=== PATIENT | female | born 1980 | race Caucasian/White ===

== ENCOUNTER 2017-07-27 08:13 | Emergency (ER) | payer OTHER ==
[~2017-07-27] VITALS: Ht 157.5 cm; Wt 53.1 kg
[~2017-07-27 08:13] MED LIST: FLAGYL500 MG PO; ULTRAM50 MG PO
[2017-07-27] MEDS ORDERED: SODIUM CHLORIDE 0.9% 1000ML 1,000 ML IV STA (09:03)
[2017-07-27] MEDS ORDERED: ACETAMINOPHEN 325 MG TAB PO ONE (09:15)
[2017-07-27 10:37] LABS: BASOPHILS % 0.4 % (0.0-1.0); EOSINOPHILS % 0.4 % (0.0-6.0); HEMATOCRIT 42.7 % (34.2-44.1); HEMOGLOBIN 14.4 g/dL (12.0-16.0); LYMPHOCYTES # (AUTO) 3.3 (1.0-3.2); LYMPHOCYTES % 41.8 % (18.0-39.1); MEAN CORPUSCULAR HEMOGLOBIN 30.8 pg (28-32); MEAN CORPUSCULAR HGB CONC 33.7 g/dL (31-35); MEAN CORPUSCULAR VOLUME 91.4 fL (81-99); MONOCYTES # (AUTO) 0.4 (0.2-0.8); MONOCYTES % 4.9 % (4.4-11.3); NEUTROPHILS # (AUTO) 4.2 (2.1-6.9); NEUTROPHILS % 52.2 % (38.7-80.0); PLATELET COUNT 203 x10e3/uL (140-360); RED BLOOD COUNT 4.67 x10e6/uL (3.6-5.1); RED CELL DISTRIBUTION WIDTH 12.3 % (11.7-14.4)
--- NOTE | 2017-07-27 10:43 | Diagnostic Imaging Report ---
PROCEDURE: CT ABDOMEN AND PELVIS WITHOUT CONTRAST COMPARISON:[facility], CT, CT ABDOMEN/PELVIS WO, 04/15/2017, 11:12. INDICATIONS:Right flank pain TECHNIQUE: Stone protocol Volumetric CT abdomen and pelvis. No intravenous or enteric contrast. Multiplanar reformatted images. DLP: 173.44 FINDINGS: Clear lung bases. No pleural effusions. Normal heart size. Liver: Craniocaudal span 15 cm. Normal Gallbladder: Cholecystectomy Pancreas: Normal Spleen: Normal Adrenal glands: Normal Urinary bladder: Decompressed; otherwise, normal Uterus and adnexa: Hysterectomy. Kidneys: Right: At least 5 small stones scattered through the upper and lower poles, the largest measuring 3 mm in diameter. No hydronephrosis. Left: At least 6 small stones scattered through the upper and lower poles, the largest measuring 3 mm in diameter. No hydronephrosis. Bowel: Normal caliber. Inconspicuous appendix. Peritoneum: Normal Vasculature: Normal caliber. Small phleboliths. Lymph nodes: Normal Skeleton: Intact Soft tissues: Normal CONCLUSION: Bilateral punctate nonobstructive nephrolithiasis. No evidence of ureteral stone or obstruction. Dictated by: Kvng Laurent M.D. on 07/27/2017 at 10:51 Electronically approved by: Kvng Laurent M.D. on 07/27/2017 at 10:51
[2017-07-27 10:48] LABS: ALANINE AMINOTRANSFERASE 14 IU/L (0-55); ALBUMIN 4.6 g/dL (3.5-5.0); ALBUMIN/GLOBULIN RATIO 1.2 (0.8-2.0); ALKALINE PHOSPHATASE 69 IU/L (40-150); ANION GAP 12.7 mmol/L (8-16); BLOOD UREA NITROGEN 13 mg/dL (7-26); BUN/CREATININE RATIO 15 (6-25); CALCIUM 9.7 mg/dL (8.4-10.2); CARBON DIOXIDE 25 mmol/L (22-29); CHLORIDE 106 mmol/L (98-107); CREATININE, SERUM 0.85 mg/dL (0.57-1.11); EST GLOMERULAR FILTRATION RATE > 60 ML/MIN (60-); GLUCOSE 82 mg/dL (74-118); LIPASE 25 U/L (8-78); POTASSIUM 3.7 mmol/L (3.5-5.1); SODIUM 140 mmol/L (136-145)
[2017-07-27 10:52] LABS: BILIRUBIN,URINE NEGATIVE (NEGATIVE); KETONES,URINE NEGATIVE (NEGATIVE); LEUKOCYTE ESTERASE ,URINE NEGATIVE (NEGATIVE); NITRITE,URINE NEGATIVE (NEGATIVE); PROTEIN,URINE DIPSTICK NEGATIVE (NEGATIVE); URINE UROBILINOGEN 0.2 mg/dL (0.2 - 1)
[2017-07-27 10:57] LABS: CLARITY,URINE CLEAR (CLEAR); COLOR,URINE YELLOW (YELLOW)
[2017-07-27 11:04] LABS: EPITHELIAL CELLS,URINE RARE /LPF
== END 2017-07-27 11:49 | disposition home or self-care (01) ==
LOC: ER 08:13
DX: R10.31 Right lower quadrant pain (principal); N20.0 Calculus of kidney; K51.90 Ulcerative colitis, unspecified, without complications
CPT/HCPCS: 36415; 74176; 80053; 81001; 83690; 85025; 87086; 99283; J7030

== ENCOUNTER 2017-08-23 18:21 | Emergency (ER) | payer OTHER ==
[~2017-08-23] VITALS: Ht 157.5 cm; Wt 52.6 kg
--- OUTSIDE RECORDS SUMMARY | 2017-08-23 18:23 | XMS REPORT ---
Author Author Admin, [place] Organization [facility] Address Unknown Phone Unavailable Allergies, Adverse Reactions, Alerts Allergy Name Reaction Description Start Date Severity Status Provider TORADOL Critical Active Helder Galvan MD TRAMADOL Critical Active Helder Galvan MD TYLENOL 3 Critical Active eHlder Galvan MD SOFRAN Critical Active Helder Galvan MD MORPHINE Critical Active Helder Galvan MD Conditions or Problems Problem Name Problem Code Onset Date Status Entry Date Provider Comment Standard Description Annotate Unspecified ovarian cyst, unspecified side Active Helder Galvan MD Dysuria 788.1 Active Helder Galvan MD Dysuria Unspecified abdominal pain 789.00 Active Helder Galvan MD Abdominal pain, unspecified site Medication List Medication Instructions Start Date Stop Date Generic Name NDC Status Provider Patient Instruction VICODIN 5-300 MG ORAL TABLET take 1-2 tabs By Mouth Every 4-6 hours as needed for severe pain HYDROCODONE-ACETAMINOPHEN 10806390388 Active Helder Galvan MD Active CIPRO 250 MG ORAL TABLET 1 by mouth twice a day CIPRO 250 MG ORAL TABLET 180955 CIPROFLOXACIN HCL Inactive CIPRO 250 MG ORAL TABLET 1 by mouth twice a day CIPROFLOXACIN HCL 69541322723 No Longer Active Helder Galvan MD Active Vital Signs Date Name Value Unit Range Description blood pressure, diastolic 74 mm[Hg] BP gama blood pressure, systolic 119 mm[Hg] BP sys height E&M 62 [in_us] Bdy height pulse rate E&M 70 /min Heart rate respiratory rate E&M 18 /min Resp rate temperature E&M 98.1 [degF] Body temperature weight E&M 116.13 [lb_av] Weight Measured blood pressure, diastolic 73 mm[Hg] BP gama blood pressure, systolic 114 mm[Hg] BP sys height E&M 62 [in_us] Bdy height pulse rate E&M 80 /min Heart rate respiratory rate E&M 18 /min Resp rate temperature E&M 98.4 [degF] Body temperature weight E&M 114.25 [lb_av] Weight Measured blood pressure, diastolic 84 mm[Hg] BP gama blood pressure, systolic 124 mm[Hg] BP sys height E&M 62 [in_us] Bdy height pulse rate E&M 77 /min Heart rate respiratory rate E&M 18 /min Resp rate temperature E&M 98.2 [degF] Body temperature weight E&M 116.50 [lb_av] Weight Measured Diagnostic Results Date Name Value Unit Range Description Lab Report: Urine Culture, Routine, Result - Urinalysis urine culture LESS Encounters Date Encounter Provider Code Facility 17:01:44 EXTRUSION FORMER Est Patient Exp Problem - 13900 Helder Galvan MD CPT-46586 [facility] 15:24:34 EXTRUSION FORMER Est Patient Exp Problem - 85593 Helder Galvan MD CPT-09538 [facility] 16:26:12 EXTRUSION FORMER New Patient Detailed - 63473 Helder Galvan MD CPT- 38111 [facility] Procedures Code Procedure Name Date Entry Date Standard Description CPT-65849 Urinalysis - Dip only - In House 16:18:49 EXTRUSION FORMER
--- OUTSIDE RECORDS SUMMARY | 2017-08-23 18:23 | XMS REPORT ---
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 Allergies, Adverse Reactions, Alerts This patient has no known allergies or adverse reactions. Medications This patient has no known medications. Results Test Description Test Time Test Comments Text Results Atomic Results Result Comments CT ABDOMEN/PELVIS WO [place] [address] Patient Name: SAVI ARROYO MR #: [id number] : 1980 Age/Sex: 36/F Req # : [id number] Adm Physician: Ordered by: MISTY PERALTA MD Report #: [id number] Location: ER Room/Bed: Procedure: [id number] CT/CT ABDOMEN/PELVIS WO Exam Date: 07/27/17 Exam Time: 1000 REPORT STATUS: Signed PROCEDURE: CT ABDOMEN AND PELVIS WITHOUT CONTRAST COMPARISON: [facility], CT, CT ABDOMEN/PELVIS WO, 04/15/2017, 11:12. INDICATIONS: Right flank pain TECHNIQUE: Stone protocol Volumetric CT abdomen and pelvis. No intravenous or enteric contrast. Multiplanar reformatted images. DLP: 173.44 FINDINGS: Clear lung bases. No pleural effusions. Normal heart size. Liver: Craniocaudal span 15 cm. Normal Gallbladder: Cholecystectomy Pancreas: Normal Spleen: Normal Adrenal glands: Normal Urinary bladder: Decompressed; otherwise, normal Uterus and adnexa: Hysterectomy. Kidneys : Right: At least 5 small stones scattered through the upper and lower poles, the largest measuring 3 mm in diameter. No hydronephrosis. Left: At least 6 small stones scattered through the upper and lower poles, the largest measuring 3 mm in diameter. No hydronephrosis. Bowel: Normal caliber. Inconspicuous appendix. Peritoneum: Normal Vasculature: Normal caliber. Small phleboliths. Lymph nodes: Normal Skeleton: Intact Soft tissues: Normal CONCLUSION: Bilateral punctate nonobstructive nephrolithiasis. No evidence of ureteral stone or obstruction. Dictated by: Guerline Laurent M.D. on 07/27/2017 at 10:51 Electronically approved by: Guerline Laurent M.D. on 07/27/2017 at 10:51 Dictated By: GUERLINE LAURENT MD 1051 Transcribed By: LISA on 07/27/17 1051 COPY TO: MISTY PERALTA MD CHEST 2 VIEWS [place] [address] Patient Name: SAVI ARROYO MR #: [id number] : 1980 Age/Sex: 36/F Req #: [id number] Adm Physician: Ordered by: MISTY BELLAMY MD Report #: [id number] Location: ER Room/Bed: Procedure: [id number] DX/CHEST 2 VIEWS Exam Date: 06/05/17 Exam Time: 1050 REPORT STATUS: Signed PROCEDURE: CHEST 2 VIEWS TECHNIQUE: PA and lateral chest INDICATION: Cough; congestion COMPARISON: None. FINDINGS: Lungs are clear and symmetrically inflated. No pleural effusions. Normal heart size, mediastinal contour and pulmonary vasculature. Intact skeleton. CONCLUSION: Normal chest. Dictated by: Guerline Laurent M.D. on 06/05/2017 at 10:57 Electronically approved by: Guerline Laurent M.D. on 06/05/2017 at 10:57 Dictated By: GUERLINE LAURENT MD 1057 Transcribed By: LISA on 06/05/17 1057 COPY TO: MISTY BELLAMY MD ABDOMEN-1VIEW (KUB) [place] [address] Patient Name: SAVI ARROYO MR #: [id number] : 1980 Age/Sex: 36/F Req # : [id number] Adm Physician: Ordered by: ANABELLA BEVERLY MD Report #: [id number] Location: ER Room/Bed: Procedure: [id number] DX/ABDOMEN-1VIEW (KUB) Exam Date: 04/24/17 Exam Time : 0940 REPORT STATUS: Signed PROCEDURE: X-RAY ABDOMEN - KUB COMPARISON: CT abdomen and pelvis without contrast 04/15/2017. INDICATIONS: CALCULUS OF KIDNEY FINDINGS: Calcifications scattered over the left kidney are unchanged relative to prior CT, measuring between 3 and 4 mm in diameter. 3 mm calculus projects over the interpolar region of the right renal shadow. Additional renal calculi described on the comparison CT are poorly visualized by plain radiography. Multiple pelvic phleboliths. Left hemipelvic surgical clips. Regional skeletal structures intact. Gas pattern is nonobstructive. CONCLUSION: bilateral renal calculi. For further details refer to the CT scan of the abdomen and pelvis performed 04/15/2017. Dictated by: Cindy Segura M.D. on 03/2017 at 10:13 Electronically approved by: Cindy Segura M.D. on 2016 at 10:13 Dictated By: CINDY SEGURA MD 1013 Transcribed By: LISA on 04/24/17 1013 COPY TO: ANABELLA BEVERLY MD CT ABDOMEN/PELVIS WO [place] [address] Patient Name: SAVI ARROYO MR #: [id number] : 1980 Age/Sex: 36/F Req # : [id number] Adm Physician: Ordered by: MISTY BELLAMY MD Report #: [id number] Location: ER Room/Bed: Procedure: [id number] CT/CT ABDOMEN/PELVIS WO Exam Date: 04/15/17 Exam Time: 1100 REPORT STATUS: Signed EXAM: CT Abdomen and Pelvis WITHOUT contrast INDICATION: COMPARISON: None. TECHNIQUE: Abdomen and Pelvis was scanned utilizing a multidetector helical scanner without the use of IV contrast. Coronal and sagittal reformations were obtained. IV CONTRAST: None COMPLICATIONS: None RADIATION DOSE: Total DLP: 159 mGy*cm Estimated effective dose: (DLP x 0.015 x size factor) mSv CTDIvol has been reviewed. It is below the limits set by the Radiation Protocol Committee (RPC) . FINDINGS: Abdomen: Lung bases are clear. Cholecystectomy clips are present. Nonenhanced images of liver, adrenals, spleen, and pancreas are unremarkable. Bilateral nonobstructing renal calculi present. No hydronephrosis identified. Evaluation of distal ureters limited by quantum mottle and lack of peritoneal fat. No hydroureter identified. No aortic aneurysm or small bowel obstructive changes identified. Pelvis: Urinary bladder decompressed, limiting evaluation. Pelvic evaluation limited by lack of IV contrast and quantum mottling. No acute colonic findings present. No acute osseous finding IMPRESSION: 1. Bilateral nonobstructing renal calculi. No hydroureter or hydronephrosis identified. 2. Distal ureters suboptimally evaluated due to quantum mottle. Numerous pelvic phleboliths further limits evaluation. 3. Other findings as above. Signed by: Dr. Boone Cullen MD on 04/15/2017 11:35 AM Dictated By: BOONE CULLEN MD 1135 Transcribed By: RASHEEDA on 04/15/17 1135 COPY TO: MISTY BELLAMY MD CHEST 2 VIEWS [place] [address] Patient Name: SAVI ARROYO MR #: [id number] : 1980 Age/Sex: 36/F Req #: [id number] Adm Physician: Ordered by: MISTY BELLAMY MD Report #: [id number] Location: ER Room/Bed: Procedure: [id number] DX/CHEST 2 VIEWS Exam Date: 04/15/17 Exam Time: 1045 REPORT STATUS: Signed EXAM: CHEST 2 VIEWS DATE: 04/15/2017 10: 09 AM INDICATION: Cough/fever COMPARISON: None FINDINGS: The heart is not enlarged. There is no pneumothorax. No focal consolidation is present. Mild perihilar bronchial wall thickening. IMPRESSION: Perihilar bronchial wall thickening can be seen in the setting of viral processes. No focal consolidation. Signed by: Dr. Boone Cullen MD on 2016 10:57 AM Dictated By: BOONE CULLEN MD 1057 Transcribed By: RASHEEDA on 04/15/17 1057 COPY TO: MISTY BELLAMY MD
[2017-08-23] MEDS ORDERED: HYDROCODONE/APAP 10MG-325MG TAB PO ONE (21:00)
[2017-08-23 21:03] LABS: BILIRUBIN,URINE NEGATIVE (NEGATIVE); KETONES,URINE NEGATIVE (NEGATIVE); LEUKOCYTE ESTERASE ,URINE NEGATIVE (NEGATIVE); NITRITE,URINE NEGATIVE (NEGATIVE); PROTEIN,URINE DIPSTICK NEGATIVE (NEGATIVE); URINE UROBILINOGEN 0.2 mg/dL (0.2 - 1)
[2017-08-23 21:04] LABS: COLOR,URINE YELLOW (YELLOW)
[2017-08-23 21:15] LABS: EPITHELIAL CELLS,URINE MANY /LPF
[2017-08-23 21:17] LABS: CLARITY,URINE CLEAR (CLEAR); WBC,URINE (MAN) 0-5 /HPF (0-5)
[2017-08-23 21:43] LABS: BASOPHILS % 0.4 % (0.0-1.0); EOSINOPHILS # (AUTO) 0.1 (0.0-0.4); EOSINOPHILS % 0.5 % (0.0-6.0); HEMATOCRIT 38.9 % (34.2-44.1); HEMOGLOBIN 12.5 g/dL (12.0-16.0); LYMPHOCYTES # (AUTO) 3.8 (1.0-3.2); LYMPHOCYTES % 37.2 % (18.0-39.1); MEAN CORPUSCULAR HEMOGLOBIN 30.6 pg (28-32); MEAN CORPUSCULAR HGB CONC 32.1 g/dL (31-35); MEAN CORPUSCULAR VOLUME 95.3 fL (81-99); MONOCYTES # (AUTO) 0.7 (0.2-0.8); MONOCYTES % 6.8 % (4.4-11.3); NEUTROPHILS # (AUTO) 5.7 (2.1-6.9); NEUTROPHILS % 54.9 % (38.7-80.0); PLATELET COUNT 225 x10e3/uL (140-360); RED BLOOD COUNT 4.08 x10e6/uL (3.6-5.1); RED CELL DISTRIBUTION WIDTH 12.3 % (11.7-14.4)
[2017-08-23 22:00] LABS: ANION GAP 16.4 mmol/L (8-16); BLOOD UREA NITROGEN 14 mg/dL (7-26); BUN/CREATININE RATIO 18 (6-25); CALCIUM 9.2 mg/dL (8.4-10.2); CARBON DIOXIDE 22 mmol/L (22-29); CHLORIDE 107 mmol/L (98-107); CREATININE, SERUM 0.77 mg/dL (0.57-1.11); EST GLOMERULAR FILTRATION RATE > 60 ML/MIN (60-); GLUCOSE 92 mg/dL (74-118); POTASSIUM 3.4 mmol/L (3.5-5.1); SODIUM 142 mmol/L (136-145)
--- NOTE | 2017-08-23 22:57 | Diagnostic Imaging Report ---
EXAM: CT Abdomen WITHOUT contrast INDICATION: Flank pain, renal stone. COMPARISON: 07/27/2017 TECHNIQUE: Abdomen was scanned utilizing a multidetector helical scanner from the lung base to the iliac crest without administration of IV contrast. Absence of intravenous contrast decreases sensitivity for detection of focal lesions and vascular pathology. Coronal and sagittal reformations were obtained. Stone protocol is performed. IV CONTRAST: None. ORAL CONTRAST: Water RADIATION DOSE: Total DLP: 162.18 mGy*cm Estimated effective dose: (DLP x 0.015 x size factor) mSv COMPLICATIONS: None FINDINGS: LINES and TUBES: None. LOWER THORAX: Unremarkable HEPATOBILIARY: No focal hepatic lesions. No biliary ductal dilation. GALLBLADDER: There are cholecystectomy clips. SPLEEN: No splenomegaly. PANCREAS: No focal masses or ductal dilatation. ADRENALS: No adrenal nodules KIDNEYS/URETERS: No hydronephrosis. No cystic or solid mass lesions. No interval change in number or size of bilateral renal stones predominantly involving the left renal collecting system ranging between 2 and 4 mm in diameter. GI TRACT: No abnormal distention, wall thickening, or evidence of bowel obstruction. LYMPH NODES: No lymphadenopathy. VESSELS: Unremarkable. PERITONEUM / RETROPERITONEUM: No free air or fluid. Bilateral fallopian tube jacoby. BONES: Unremarkable. SOFT TISSUES: Unremarkable. IMPRESSION: 1. Stable bilateral nephrolithiasis without evidence of hydronephrosis. 2. No acute intra-abdominal or pelvic abnormality. Signed by: Dr. Barry Mccormick M.D. on 08/23/2017 10:53 PM
--- NOTE | 2017-08-24 00:08 | Diagnostic Imaging Report ---
EXAM: Transabdominal and Transvaginal Pelvic Ultrasound INDICATION: Hysterectomy, 4.5 cm left ovarian cyst, suspicious for torsion. COMPARISON: 08/23/[address] of the abdomen and pelvis TECHNIQUE: Grayscale transverse and sagittal transabdominal and transvaginal images were obtained of the pelvis. Transvaginal imaging was medically necessary to better evaluate the endometrium and the adnexa. CLINICAL HISTORY: 36 year old A0; last menstrual period: 2005. FINDINGS: Uterus Hysterectomy in 2005 Right ovary: Size: 3.2 x 2.4 x 2.1 cm Mass/Cyst: None Left ovary: Size: 3.1 x 2.2 x 3.2 cm Mass/Cyst: None Adnexa: Normal Normal bilateral vascular flow. Cul-de-sac: No free fluid IMPRESSION: 1. Unremarkable pelvic ultrasound exam. 2. Venous and arterial flow are seen in the bilateral ovaries. Signed by: Dr. Barry Mccormick M.D. on 08/24/2017 12:04 AM
[2017-08-24 00:28] VITALS: BP 101/69
== END 2017-08-24 00:44 | disposition home or self-care (01) ==
LOC: ER 18:21
DX: R10.30 Lower abdominal pain, unspecified (principal)
CPT/HCPCS: 36415; 74176; 76830; 80048; 81001; 85025; 87086; 99284

== ENCOUNTER 2020-04-06 14:49 | Emergency (ER) | payer OTHER ==
[~2020-04-06] VITALS: Ht 157.5 cm; Wt 57.2 kg
[2020-04-06] MEDS ORDERED: SODIUM CHLORIDE 0.9% 1000ML 1,000 ML IV STA (15:05)
[2020-04-06] MEDS ORDERED: PANTOPRAZOLE 40 MG 10ML VIAL IV STA (15:05)
[2020-04-06] MEDS ORDERED: HYDROMORPHONE 1MG/1ML INJ IV STA (15:05)
[2020-04-06] MEDS ORDERED: DIPHENHYDRAMINE HCL INJ 50 MG/ML VIAL IV ONE (15:15)
--- NOTE | 2020-04-06 15:59 | Diagnostic Imaging Report ---
EXAMINATION: CHEST SINGLE (NOT PORTABLE) INDICATION: Abdominal pain COMPARISON: Chest radiograph 04/15/2017, CT abdomen and pelvis 07/24/2019 FINDINGS: LINES/TUBES:None LUNGS:The lungs are well-inflated. No focal consolidation or pulmonary edema. PLEURA:No pleural effusion or pneumothorax. MEDIASTINUM:The cardiomediastinal silhouette appears normal in size and shape. BONES/SOFT TISSUES:No acute osseous injury. ABDOMEN:No free air under the diaphragm. IMPRESSION: No focal pneumonia or pulmonary edema. Signed by: Beverly Esteban MD on 04/06/2020 3:55 PM
[2020-04-06] MEDS ORDERED: DIATRIZOATE MEGL/DIATRIZOA SOD 30 ML BTL PO ONE (16:07)
[2020-04-06 16:15] LABS: BASOPHILS # (AUTO) 0.1 (0.0-0.1); BASOPHILS % 0.4 % (0.0-1.0); EOSINOPHILS # (AUTO) 0.1 (0.0-0.4); EOSINOPHILS % 0.4 % (0.0-6.0); HEMATOCRIT 41.8 % (34.2-44.1); LYMPHOCYTES % 21.6 % (18.0-39.1); MEAN CORPUSCULAR HEMOGLOBIN 30.2 pg (28-32); MEAN CORPUSCULAR HGB CONC 33.5 g/dL (31-35); MEAN CORPUSCULAR VOLUME 90.1 fL (81-99); MONOCYTES # (AUTO) 1.2 (0.2-0.8); MONOCYTES % 8.7 % (4.4-11.3); NEUTROPHILS # (AUTO) 9.5 (2.1-6.9); NEUTROPHILS % 68.4 % (38.7-80.0); PLATELET COUNT 263 x10e3/uL (140-360); RED BLOOD COUNT 4.64 x10e6/uL (3.6-5.1); RED CELL DISTRIBUTION WIDTH 12.8 % (11.7-14.4)
[2020-04-06 16:17] LABS: BILIRUBIN,URINE NEGATIVE (NEGATIVE); CLARITY,URINE SL CLOUDY (CLEAR); COLOR,URINE YELLOW (YELLOW); KETONES,URINE NEGATIVE (NEGATIVE); LEUKOCYTE ESTERASE ,URINE NEGATIVE (NEGATIVE); NITRITE,URINE NEGATIVE (NEGATIVE); PROTEIN,URINE DIPSTICK NEGATIVE (NEGATIVE); URINE UROBILINOGEN 0.2 mg/dL (0.2 - 1)
[2020-04-06 16:30] LABS: INR 0.91; PROTHROMBIN TIME 12.7 seconds (11.9-14.5)
[2020-04-06 16:31] LABS: PARTIAL THROMBOPLASTIN TIME 28.2 seconds (23.8-35.5)
[2020-04-06 16:32] LABS: BACTERIA,URINE MODERATE /HPF; EPITHELIAL CELLS,URINE MODERATE /LPF; RBC,URINE 0-5 /HPF (0-5)
[2020-04-06 16:41] LABS: ALANINE AMINOTRANSFERASE 17 IU/L (0-55); ALBUMIN 4.7 g/dL (3.5-5.0); ALBUMIN/GLOBULIN RATIO 1.4 (0.8-2.0); ALKALINE PHOSPHATASE 80 IU/L (40-150); AMYLASE 94 U/L (25-125); ANION GAP 14.2 mmol/L (8-16); BLOOD UREA NITROGEN 10 mg/dL (7-26); BUN/CREATININE RATIO 13 (6-25); CALCIUM 9.3 mg/dL (8.4-10.2); CARBON DIOXIDE 21 mmol/L (22-29); CHLORIDE 106 mmol/L (98-107); CREATININE, SERUM 0.78 mg/dL (0.57-1.11); EST GLOMERULAR FILTRATION RATE > 60 ML/MIN (60-); GLUCOSE 98 mg/dL (74-118); LIPASE 98 U/L (8-78); POTASSIUM 4.2 mmol/L (3.5-5.1); SODIUM 137 mmol/L (136-145)
--- NOTE | 2020-04-06 17:53 | Diagnostic Imaging Report ---
EXAM: CT Abdomen and Pelvis WITHOUT contrast INDICATION: LUQ/HANY ABD PAIN COMPARISON: Multiple CTs of the abdomen/pelvis including most recent on 07/24/2019. TECHNIQUE: Abdomen and pelvis were scanned utilizing a multidetector helical scanner from the lung base to the pubic symphysis without administration of IV contrast. Absence of intravenous contrast decreases sensitivity for detection of focal lesions and vascular pathology. Coronal and sagittal reformations were obtained. Routine protocol was performed. IV CONTRAST: None ORAL CONTRAST: None COMPLICATIONS: None RADIATION DOSE: Total DLP: 640.15 mGy*cm Estimated effective dose: (DLP x 0.015 x size factor) mSv CTDIvol has been reviewed. It is below the limits set by the Radiation Protocol Committee (RPC). Dose modulation, iterative reconstruction, and/or weight based adjustment of the mA/kV was utilized to reduce the radiation dose to as low as reasonably achievable. FINDINGS: LINES and TUBES: None. LOWER THORAX: Unremarkable HEPATOBILIARY: No focal hepatic lesions. No biliary ductal dilation. GALLBLADDER: There are cholecystectomy clips. SPLEEN: No splenomegaly. PANCREAS: No focal masses or ductal dilatation. ADRENALS: No adrenal nodules KIDNEYS/URETERS: Redemonstration of bilateral renal calculi, the largest in the midpole of the left kidney measuring up to 8 mm. No hydronephrosis. No cystic or solid mass lesions. No stones. GI TRACT: No abnormal distention, wall thickening, or evidence of bowel obstruction. Appendix is normal. PELVIC ORGANS/BLADDER: Hysterectomy. No adnexal masses. Urinary bladder is collapsed and not well assessed. LYMPH NODES: No lymphadenopathy. VESSELS: Unremarkable. PERITONEUM / RETROPERITONEUM: No free air or fluid. BONES: Unremarkable. SOFT TISSUES: Unremarkable. IMPRESSION: 1. No acute abdominopelvic finding to explain the patient's symptoms was identified. 2. Redemonstration of bilateral nonobstructive nephrolithiasis. No evidence of obstructive urolithiasis. Signed by: Esperanza Grady MD on 04/06/2020 5:50 PM
--- NOTE | 2020-04-06 18:04 | Emergency Department Note ---
History of Present Illnes History of Present Illness Chief Complaint: Abdominal Complaints History of Present Illness This is a 39 year old female PATIENT IN FROM HOME WITH COMPLAINTS OF ABDOMINAL PAIN, NAUSEA, AND DIARRHEA STARTING YESTERDAY; PATIENT RATES PAIN 7/10, APPEARS UNCOMFORTABLE, RESP EVEN AND NONLABORED, AMBULATORY WITHOUT ASSISTANCE. 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 Any updates have been documented here. Past Medical History Recent Fever: No Clinical Suspicion of Infectio: No New/Unexplained Change in Ment: No Past Medical History: Kidney Stones, GERD Other Medical History: IBS COLITIS Past Surgical History: Hysterectomy, Tubal Ligation Other Surgery: LEFT OVARY AND FALLOPIAN TUBE REMOVED Social History Smoking Cessation: Unknown if ever smoked Counseling Performed: No Alcohol Use: None Any Illegal Drug Use: No TB Exposure/Symptoms: No Physically hurt or threatened: No Family History Family history of heart diseas: No Other Last Tetanus: utd Any Pre-Existing Lines (PICC,: No Review of Systems Review of Systems Constitutional: Reports no symptoms EENTM: Reports no symptoms Cardiovascular: Reports no symptoms Respiratory: Reports no symptoms Gastrointestinal: Reports as per HPI, Reports abdominal pain, Reports diarrhea, Reports nausea Genitourinary: Reports no symptoms Musculoskeletal: Reports no symptoms Integumentary: Reports no symptoms Neurological: Reports no symptoms Psychological: Reports no symptoms Endocrine: Reports no symptoms Hematological/Lymphatic: Reports no symptoms Physical Exam Related Data Allergies: Coded Allergies: codeine (Verified Allergy, Severe, N/V AND RASH, 07/24/19) ondansetron (Verified Allergy, Severe, N/V AND RASH, 07/24/19) ketorolac (Verified Allergy, Unknown, "blotchy skin", 04/24/17) metoclopramide (Verified Allergy, Unknown, n/v & rash, 04/24/17) promethazine (Verified Allergy, Unknown, n/v & rash, 04/24/17) tramadol (Verified Allergy, Unknown, 06/05/17) morphine (Verified Adverse Reaction, Unknown, n/v & rash, 04/24/17) Triage Vital Signs Vital Signs Date Time Temp Pulse Resp B/P (MAP) Pulse Ox O2 Delivery O2 Flow Rate FiO2 04/06/20 14:54 98.2 79 18 128/86 100 Room Air Vital signs reviewed: Yes Physical Exam CONSTITUTIONAL Constitutional: Present well-developed, Present well-nourished HENT HENT: Present normocephalic, Present atraumatic, Present oropharynx clear/moist, Present nose normal HENT L/R: Present left ext ear normal, Present right ext ear normal EYES Eyes: Reports PERRL, Reports conjunctivae normal NECK Neck: Present ROM normal PULMONARY Pulmonary: Present effort normal, Present breath sounds normal CARDIOVASCULAR Cardiovascular: Present regular rhythm, Present heart sounds normal, Present capillary refill normal, Present normal rate GASTROINTESTINAL Abdominal: Present soft, Present tender (MODERATE TENDERNESS LUQ, MILD LLQ, NO R/G), Present other (BOWEL SOUNDS SLIGHTLY HYPERACTIVE); Absent left CVA tenderness, Absent right CVA tenderness GENITOURINARY Genitourinary: Present exam deferred SKIN Skin: Present warm, Present dry MUSCULOSKELETAL Musculoskeletal: Present ROM normal NEUROLOGICAL Neurological: Present alert, Present oriented x 3, Present no gross motor or sensory deficits PSYCHOLOGICAL Psychological: Present mood/affect normal, Present judgement normal Results Laboratory Result Diagram: 04/06/20 1610 04/06/20 1610 Laboratory Laboratory Tests Test 04/06/20 16:10 04/06/20 15:00 White Blood Count 13.95 x10e3/uL (4.8-10.8) Red Blood Count 4.64 x10e6/uL (3.6-5.1) Hemoglobin 14.0 g/dL (12.0-16.0) Hematocrit 41.8 % (34.2-44.1) Mean Corpuscular Volume 90.1 fL (81-99) Mean Corpuscular Hemoglobin 30.2 pg (28-32) Mean Corpuscular Hemoglobin Concent 33.5 g/dL (31-35) Red Cell Distribution Width 12.8 % (11.7-14.4) Platelet Count 263 x10e3/uL (140-360) Neutrophils (%) (Auto) 68.4 % (38.7-80.0) Lymphocytes (%) (Auto) 21.6 % (18.0-39.1) Monocytes (%) (Auto) 8.7 % (4.4-11.3) Eosinophils (%) (Auto) 0.4 % (0.0-6.0) Basophils (%) (Auto) 0.4 % (0.0-1.0) Neutrophils # (Auto) 9.5 (2.1-6.9) Lymphocytes # (Auto) 3.0 (1.0-3.2) Monocytes # (Auto) 1.2 (0.2-0.8) Eosinophils # (Auto) 0.1 (0.0-0.4) Basophils # (Auto) 0.1 (0.0-0.1) Absolute Immature Granulocyte (auto 0.07 x10e3/uL (0-0.1) Prothrombin Time 12.7 seconds (11.9-14.5) Prothromb Time International Ratio 0.91 Activated Partial Thromboplast Time 28.2 seconds (23.8-35.5) Sodium Level 137 mmol/L (136-145) Potassium Level 4.2 mmol/L (3.5-5.1) Chloride Level 106 mmol/L (98-107) Carbon Dioxide Level 21 mmol/L (22-29) Anion Gap 14.2 mmol/L (8-16) Blood Urea Nitrogen 10 mg/dL (7-26) Creatinine 0.78 mg/dL (0.57-1.11) Estimat Glomerular Filtration Rate > 60 ML/MIN (60-) BUN/Creatinine Ratio 13 (6-25) Glucose Level 98 mg/dL (74-118) Calcium Level 9.3 mg/dL (8.4-10.2) Total Bilirubin 0.6 mg/dL (0.2-1.2) Aspartate Amino Transf (AST/SGOT) 25 IU/L (5-34) Alanine Aminotransferase (ALT/SGPT) 17 IU/L (0-55) Alkaline Phosphatase 80 IU/L (40-150) Total Protein 8.1 g/dL (6.5-8.1) Albumin 4.7 g/dL (3.5-5.0) Globulin 3.4 g/dL (2.3-3.5) Albumin/Globulin Ratio 1.4 (0.8-2.0) Amylase Level 94 U/L (25-125) Lipase 98 U/L (8-78) Urine Color Yellow (YELLOW) Urine Clarity Sl cloudy (CLEAR) Urine pH 6 (5 - 7) Urine Specific [place] 1.030 (1.010-1.025) Urine Protein Negative (NEGATIVE) Urine Glucose (UA) Negative (NEGATIVE) Urine Ketones Negative (NEGATIVE) Urine Blood Trace (NEGATIVE) Urine Nitrite Negative (NEGATIVE) Urine Bilirubin Negative (NEGATIVE) Urine Urobilinogen 0.2 mg/dL (0.2 - 1) Urine Leukocyte Esterase Negative (NEGATIVE) Urine RBC 0-5 /HPF (0-5) Urine WBC None /HPF (0-5) Urine Epithelial Cells Moderate /LPF (NONE) Urine Bacteria Moderate /HPF (NONE) Lab results reviewed: Yes Imaging Imaging results reviewed: Yes Assessment & Plan Medical Decision Making MDM LEFT SIDED ABD PAIN, H/O IRRITABLE BOWEL, LOTS OF ALLERGIES - CHECK CBC, CHEM, UA/CX, CT ABD/PELVIS - R/O KIDNEY STONE, UTI/PYELONEPHRITIS, DIVERTICULITIS, COLITIS Reassessment Reassessment IMPROVED, LABS AND CT UNREMARKABLE. 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 WILL DC WITH DONALD F/U PCP TOMORROW Assessment & Plan Final Impression: (1) Abdominal pain (2) Nausea (3) Diarrhea (4) IBS (irritable bowel syndrome) Depart Disposition: HOME, SELF-CARE Last Vital Signs Date Time Temp Pulse Resp B/P (MAP) Pulse Ox O2 Delivery O2 Flow Rate FiO2 04/06/20 17:33 78 16 100 04/06/20 14:54 98.2 Room Air Home Meds No Active Prescriptions or Reported Meds Medications in the ED Pantoprazole Sodium 40 mg ONCE STAT IV Last administered on 04/06/20at 16:29; A dmin Dose 40 MG; Start 04/06/20 at 15:05; Stop 04/06/20 at 15:12; Status DC Hydromorphone HCl 1 mg ONCE STAT IV Last administered on 04/06/20at 16:29; Admin Dose 1 MG; Start 04/06/20 at 15:05; Stop 04/06/20 at 15:11; Status DC Sodium Chloride 1,000 ml @ 0 mls/hr Q0M STAT IV Last administered on 04/06/20at 16:29; Admin Dose 999 MLS/HR; Start 04/06/20 at 15:05; Stop 04/06/20 at 15:09; Status DC Diphenhydramine HCl 25 mg NOW ONCE IV ; Start 04/06/20 at 15:15; Stop 04/06/20 at 15:16; Status DC Diatrizoate Meglum/ Diatrizoate Sod 30 ml STK-MED ONCE PO ; Start 04/06/20 at 16:07; Stop 04/06/20 at 16:00; Status DC THELMA MCDOWELL MD Apr 06, 2020 18:04
== END 2020-04-06 18:51 | disposition home or self-care (01) ==
LOC: ER 15:00
DX: R10.9 Unspecified abdominal pain (principal); R11.0 Nausea; K58.0 Irritable bowel syndrome with diarrhea
CPT/HCPCS: 36415; 71045; 74176; 80053; 81001; 82150; 83690; 85025; 85610; 85730; 87086; 99284; C9113; J1170; J1200; J7030

== ENCOUNTER 2020-04-07 17:36 | Observation (INO) | payer OTHER ==
[~2020-04-07] VITALS: Ht 157.5 cm; Wt 57.2 kg
[2020-04-07] MEDS: SODIUM CHLORIDE 0.9% 1000ML 1,000 ML IV SCH (18:29)
[2020-04-07] MEDS ORDERED: ONDANSETRON HCL INJ 2MG/ML 2ML 2 MG/ML VIAL IV PRN (18:30)
--- NOTE | 2020-04-07 18:31 | Emergency Department Note ---
History of Present Illnes History of Present Illness Chief Complaint: Abdominal Complaints History of Present Illness This is a 39 year old female Chief Complaint Comment PATIENT IN FROM HOME WITH COMPLAINTS OF ABDOMINAL PAIN, NAUSEA, VOMITING, AND DIARRHEA X 2 DAYS. PATIENT WAS SEEN HERE YESTERDAY FOR THE SAME COMPLAINT AND DISCHARGED. PATIENT STATES SHE SAW HER M. JASMIN TODAY AND WAS SENT BACK TO THE ER FOR EVALUATION. PATIENT RATES PAIN 02/23. Historian: Patient Arrival Mode: Car Past Medical/Family History Physician Review I have reviewed the patient's past medical and family history. Any updates have been documented here. Past Medical History Recent Fever: No Clinical Suspicion of Infectio: No New/Unexplained Change in Ment: No Past Medical History: Kidney Stones, GERD Other Medical History: IBS COLITIS Past Surgical History: Hysterectomy, Tubal Ligation Other Surgery: LEFT OVARY AND FALLOPIAN TUBE REMOVED Other Last Tetanus: utd Review of Systems Review of Systems Constitutional: Reports no symptoms EENTM: Reports no symptoms Cardiovascular: Reports no symptoms Respiratory: Reports no symptoms Gastrointestinal: Reports abdominal pain, Reports diarrhea, Reports nausea, Reports vomiting Genitourinary: Reports no symptoms Musculoskeletal: Reports no symptoms Integumentary: Reports no symptoms Neurological: Reports no symptoms Psychological: Reports no symptoms Endocrine: Reports no symptoms Hematological/Lymphatic: Reports no symptoms Physical Exam Related Data Allergies: Coded Allergies: codeine (Verified Allergy, Severe, N/V AND RASH, 04/07/20) ondansetron (Verified Allergy, Severe, N/V AND RASH, 04/07/20) ketorolac (Verified Allergy, Unknown, "blotchy skin", 04/07/20) metoclopramide (Verified Allergy, Unknown, n/v & rash, 04/07/20) promethazine (Verified Allergy, Unknown, n/v & rash, 04/07/20) tramadol (Verified Allergy, Unknown, 04/07/20) morphine (Verified Adverse Reaction, Unknown, n/v & rash, 04/24/17) Triage Vital Signs Vital Signs Date Time Temp Pulse Resp B/P (MAP) Pulse Ox O2 Delivery O2 Flow Rate FiO2 04/07/20 17:43 98.5 83 20 131/75 100 Room Air Vital signs reviewed: Yes Physical Exam CONSTITUTIONAL Constitutional: Present well-developed, Present well-nourished HENT HENT: Present normocephalic, Present atraumatic, Present oropharynx cl ear/moist, Present nose normal HENT L/R: Present left ext ear normal, Present right ext ear normal EYES Eyes: Reports PERRL, Reports conjunctivae normal NECK Neck: Present ROM normal PULMONARY Pulmonary: Present effort normal, Present breath sounds normal CARDIOVASCULAR Cardiovascular: Present regular rhythm, Present heart sounds normal, Present capillary refill normal, Present normal rate GASTROINTESTINAL Abdominal: Present soft, Present nontender, Present bowel sounds normal GENITOURINARY Genitourinary: Present exam deferred SKIN Skin: Present warm, Present dry MUSCULOSKELETAL Musculoskeletal: Present ROM normal NEUROLOGICAL Neurological: Present alert, Present oriented x 3, Present no gross motor or sensory deficits PSYCHOLOGICAL Psychological: Present mood/affect normal, Present judgement normal Results Laboratory Lab results reviewed: Yes Imaging Imaging results reviewed: Yes Diagnostics Tests Diagnostic test(s) reviewed: Yes Assessment & Plan Medical Decision Making MDM 39-year-old female presents for abdominal pain, nausea, vomiting, diarrhea. This is an ongoing issue for her and she sees Dr. Idania Fernandez for this. She was seen yesterday in the ER and today in Dr. Fernandez's clinic and was told to come to the emergency department for admission. She states she has not drank anything for the last few days. Examination is largely unremarkable, vital signs stable, within normal limits. Patient was discussed with Dr. Olivarez who is agreed to admit for intractable nausea. Reassessment Reassessment time: 18:34 Reassessment Well appearing, NAD Assessment & Plan Final Impression: (1) Nausea Depart Disposition: ADMITTED Last Vital Signs Date Time Temp Pulse Resp B/P (MAP) Pulse Ox O2 Delivery O2 Flow Rate FiO2 04/07/20 17:43 98.5 83 20 131/75 100 Room Air Home Meds No Active Prescriptions or Reported Meds Medications in the ED Ondansetron HCl 4 mg Q4H PRN IV NAUSEA AND VOMITING; Start 04/07/20 at 18:30; Stop 05/07/20 at 18:29; Status UNV Sodium Chloride 1,000 ml @ 100 mls/hr Q10H IV Last administered on 04/07/20at 18:29; Admin Dose 100 MLS/HR; Start 04/07/20 at 18:30; Stop 05/07/20 at 18:29; Status UNV ZUNILDA TOLEDO MD Apr 07, 2020 18:31
[2020-04-07 18:35] LABS: BASOPHILS % 0.4 % (0.0-1.0); EOSINOPHILS # (AUTO) 0.1 (0.0-0.4); EOSINOPHILS % 0.6 % (0.0-6.0); HEMATOCRIT 41.4 % (34.2-44.1); HEMOGLOBIN 13.5 g/dL (12.0-16.0); LYMPHOCYTES # (AUTO) 2.6 (1.0-3.2); LYMPHOCYTES % 30.3 % (18.0-39.1); MEAN CORPUSCULAR HEMOGLOBIN 29.9 pg (28-32); MEAN CORPUSCULAR HGB CONC 32.6 g/dL (31-35); MEAN CORPUSCULAR VOLUME 91.6 fL (81-99); MONOCYTES # (AUTO) 0.8 (0.2-0.8); MONOCYTES % 8.8 % (4.4-11.3); NEUTROPHILS # (AUTO) 5.1 (2.1-6.9); NEUTROPHILS % 59.7 % (38.7-80.0); PLATELET COUNT 233 x10e3/uL (140-360); RED BLOOD COUNT 4.52 x10e6/uL (3.6-5.1); RED CELL DISTRIBUTION WIDTH 12.6 % (11.7-14.4)
[2020-04-07] MEDS ORDERED: HALOPERIDOL LACTATE 5 MG/ML VIAL IV PRN (18:45)
[2020-04-07 18:53] LABS: ALANINE AMINOTRANSFERASE 13 IU/L (0-55); ALBUMIN 4.5 g/dL (3.5-5.0); ALBUMIN/GLOBULIN RATIO 1.5 (0.8-2.0); ALKALINE PHOSPHATASE 77 IU/L (40-150); ANION GAP 15.4 mmol/L (8-16); BLOOD UREA NITROGEN 9 mg/dL (7-26); BUN/CREATININE RATIO 11 (6-25); CALCIUM 8.6 mg/dL (8.4-10.2); CARBON DIOXIDE 22 mmol/L (22-29); CHLORIDE 107 mmol/L (98-107); CREATININE, SERUM 0.83 mg/dL (0.57-1.11); EST GLOMERULAR FILTRATION RATE > 60 ML/MIN (60-); GLUCOSE 89 mg/dL (74-118); LIPASE 13 U/L (8-78); POTASSIUM 3.4 mmol/L (3.5-5.1); SODIUM 141 mmol/L (136-145)
[2020-04-07 18:59] LABS: HCG,QUANTITATIVE < 1.20 mIU/mL (0-10)
[2020-04-07 20:35] LABS: BILIRUBIN,URINE NEGATIVE (NEGATIVE); CLARITY,URINE CLEAR (CLEAR); COLOR,URINE YELLOW (YELLOW); KETONES,URINE TRACE (NEGATIVE); LEUKOCYTE ESTERASE ,URINE NEGATIVE (NEGATIVE); NITRITE,URINE NEGATIVE (NEGATIVE); PROTEIN,URINE DIPSTICK NEGATIVE (NEGATIVE); URINE UROBILINOGEN 0.2 mg/dL (0.2 - 1)
[2020-04-07 20:46] LABS: EPITHELIAL CELLS,URINE MODERATE /LPF
--- NOTE | 2020-04-07 22:46 | NUR ---
BEDSIDE HANDOFF TO LILLY TOSCANO RN
--- NOTE | 2020-04-07 22:52 | NUR ---
Handoff report received from Canelo DUBON. 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 Will continue to monitor patient. Awaiting room assignment at this time.
[2020-04-08] MEDS ORDERED: PANTOPRAZOLE 40 MG 10ML VIAL IV STA (01:52)
--- NOTE | 2020-04-08 01:56 | NUR ---
Patient asleep comfortably on bed. Pt requested to be taken off from neuroscience director na as it keeps her awake everytime BP goes off. Pt stable with no apparent distress noted.
[2020-04-08] MEDS: METRONIDAZOLE 500MG/NS 100ML 100 ML IV SCH ×2 (03:14→07:35)
[2020-04-08] MEDS: PANTOPRAZOL 40MG/SOD CHL 0.9% 50 ML IV SCH ×2 (03:14→07:42)
--- NOTE | 2020-04-08 06:08 | NUR ---
Morning blood draw sent to lab. Pt woke up but went back to sleep. No complaint made at this time.
[2020-04-08 06:16] LABS: BASOPHILS % 0.3 % (0.0-1.0); EOSINOPHILS # (AUTO) 0.1 (0.0-0.4); EOSINOPHILS % 0.7 % (0.0-6.0); HEMATOCRIT 38.5 % (34.2-44.1); HEMOGLOBIN 12.7 g/dL (12.0-16.0); LYMPHOCYTES # (AUTO) 2.4 (1.0-3.2); LYMPHOCYTES % 27.3 % (18.0-39.1); MONOCYTES # (AUTO) 0.8 (0.2-0.8); MONOCYTES % 8.7 % (4.4-11.3); NEUTROPHILS # (AUTO) 5.6 (2.1-6.9); NEUTROPHILS % 62.4 % (38.7-80.0); PLATELET COUNT 213 x10e3/uL (140-360); RED BLOOD COUNT 4.23 x10e6/uL (3.6-5.1); RED CELL DISTRIBUTION WIDTH 12.6 % (11.7-14.4)
[2020-04-08 06:42] LABS: ANION GAP 13.9 mmol/L (8-16); BLOOD UREA NITROGEN 8 mg/dL (7-26); BUN/CREATININE RATIO 11 (6-25); CALCIUM 8.4 mg/dL (8.4-10.2); CARBON DIOXIDE 21 mmol/L (22-29); CHLORIDE 111 mmol/L (98-107); CREATININE, SERUM 0.74 mg/dL (0.57-1.11); EST GLOMERULAR FILTRATION RATE > 60 ML/MIN (60-); GLUCOSE 81 mg/dL (74-118); POTASSIUM 3.9 mmol/L (3.5-5.1); SODIUM 142 mmol/L (136-145)
[2020-04-08] MEDS: SODIUM CHLORIDE 0.9% 1000ML 1,000 ML IV SCH (06:51)
--- NOTE | 2020-04-08 07:09 | NUR ---
Handoff report given to Arie DUBON.
[2020-04-08] MEDS ORDERED: SUCRALFATE 1 GM TAB PO SCH (07:30)
--- NOTE | 2020-04-08 08:24 | NUR ---
Patient refusing to take Flagyl that was ordered, states that it gives her stomach pain and cramping, wants to wait for her stool cultures to come back
[2020-04-08] MEDS ORDERED: DICYCLOMINE HCL 20 MG TAB PO SCH (09:00)
--- NOTE | 2020-04-08 09:18 | NUR ---
page out to Dr. Olivarez
[2020-04-08 10:01] LABS: WBC,FECAL (FECAL LACTOFERRIN) POSITIVE (NEGATIVE)
--- NOTE | 2020-04-08 10:45 | NUR ---
1st attempt to call report
[2020-04-08 10:50] VITALS: BP 134/76
--- NOTE | 2020-04-08 10:56 | NUR ---
PATIENT WANTS TO LEAVE AGAINST MEDICAL ADVICE, PT STATES THAT SHE FEELS BETTER AND THAT WHATEVER WE DID IN THE ER HELPED HER FEEL BETTER, PT STATES THAT SHE JUST WANTS TO GO HOME AND BE COMFORTABLE AND EAT HOME MADE FOOD, PAGE OUT TO DR. GRIFFIN AT THIS TIME
--- NOTE | 2020-04-08 11:09 | NUR ---
DR. GRIFFIN MADE AWARE THAT PATIENT WANTS TO LEAVE AGAINST MEDICAL ADVICE
--- NOTE | 2020-04-08 11:11 | NUR ---
PATIENT LEAVING AGAINST MEDICAL ADVICE, GEAR MACHINE OPERATOR NOTIFIED
--- NOTE | 2020-04-08 13:49 | History and Physical ---
HISTORY OF PRESENT ILLNESS: Ms. Cheng is a 39-year-old female with history of irritable bowel syndrome, sent to the emergency room by GI with history of several days of diarrhea that did not respond to any treatment, and the patient was not able to eat. PAST MEDICAL HISTORY: The patient denies except for irritable bowel syndrome. ALLERGIES: SHE IS ALLERGIC TO CODEINE, KETOROLAC, METOCLOPRAMIDE, MORPHINE, ZOFRAN, PROMETHAZINE, AND TRAMADOL. PAST SURGICAL HISTORY: She had cholecystectomy and partial hysterectomy. SOCIAL HISTORY: She does not smoke and she does not drink. PHYSICAL EXAMINATION: GENERAL: Today, she is awake and alert. VITAL SIGNS: Temperature is 98.5 and blood pressure 111/58. HEART: Regular rate. LUNGS: Clear to auscultation. ABDOMEN: Soft. LABORATORY DATA: On the blood work; white count 8.9, hemoglobin 12.7, and hematocrit 38.5. Potassium 3.9 and creatinine is 0.74. Urine negative for white blood cells. Stool is pending. C. difficile and coronavirus are pending. Ova and parasite screen is pending. As per ER doctor, she had a CAT scan done previously that came back negative. ASSESSMENT: 1. Abdominal pain. 2. Diarrhea. 3. Vomiting. 4. History of irritable bowel syndrome. PLAN: At present time is to put the patient on observation. GI consult with Dr. Han James. Continue IV fluids. C. difficile, coronavirus, stool for O and P are all still pending. Continue also pantoprazole and sucralfate. She is on haloperidol for the nausea since she is allergic to all medications. She is also on Bentyl 20 mg q.i.d. All this was discussed with the patient. All questions were answered to satisfaction. MD RACHELLE Bautista/RACHELLE /[id number]
[2020-04-08 14:25] LABS: C DIFFICILE TOXIN A&B AMP PROB **POSITIVE** (NEGATIVE)
--- OUTSIDE RECORDS SUMMARY | 2020-04-12 15:22 | XMS REPORT | Continuity of Care Document ---
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 Role Phone NO, PCP PCP Unavailable Anneliese MCDOWELL Attphys Unavailable ChristopherAnneliese milian Attphys Collins, Tiara Attphys Unavailable RichardIselaEllie Attphys Unavailable Jimena Hutchins Attphys Allie Cavanaughjaira Attphys Unavailable Yasir Galvan Attphys NarvaezDilma marte Attphys Unavailable Status, Fax Attphys Unavailable [place], L Tamara Attphys Cho, Sydney Attphys Unavailable Siu, Aurea Attphys Unavailable Tomlin, Saralee Attphys Unavailable Jerrod WAKEFIELD PATTI Attphys Unavailable Tomlin, Deborath Attphys Unavailable Erik, Marizol Attphys Unavailable MISTY PERALTA Attphys Unavailable Lois BELLAMY Attphys Unavailable Yasir BEVERLY Attphys Unavailable Anneliese White Unavailable Yasir Galvan Unavailable [place], L Tamara Unavailable Payers Payer Name Policy Type Policy Number Effective Date Expiration Date [facility] [id number] 2019 00:00:00 [facility] [employer] [id number] 2019 00:00:00 [facility] Problems Condition Name Condition Details Condition Category Status Onset Date Resolution Date Last Treatment Date Treating Clinician Comments Source Urinary incontinence Condition Active 2020-03-20 00:00:00 2020-03-20 12:46:14 Yaya White [facility] Mastodynia, left Condition Active 2020-03-20 00:00:00 2 12:46:14 Yaya White [facility] Muscle spasm of back Condition Active 2018-08-22 00:00:00 2018-08-22 11:48:15 Helder Galvan [facility] Hx of kidney stone Condition Active 2017-09-13 00:00:00 2017-09-13 14:16:51 Tamara Merida [facility] Abdominal pain, right lower quadrant Condition Active 201 02-16-28 00:00:00 2017-09-13 14:16:51 Tamara Merida [facility] Flank pain, right Condition Active 2017-09-13 00:00:00 2017-09-13 14:16:[facility] Unspecified ovarian cyst, unspecified side Condition Active 2017-08-17 00:00:00 2017-09-13 14:00:55 Helder Galvan [facility] Unspecified abdominal pain Condition Active 2017-08-10 00 :00:00 2017-09-13 14:00:55 Helder Galvan [facility] Dysuria Condition Active 2017-08-10 00:00:00 2017-09-13 14:00:55 Helder Galvan [facility] Calculus of kidney Calculus of kidney Problem Active [facility] Irritable bowel syndrome IBS (irritable bowel syndrome) Problem Active [facility] Abdominal pain Problem Active [facility] Nausea Problem Active [facility] Diarrhea Problem Active [facility] Allergies, Adverse Reactions, Alerts Allergy Name Allergy Type Status Severity Reaction(s) Onset Date Inacti ve Date Treating Clinician Comments Source Codeine Allergy to substance Active Severe N/V AND RASH 2020-04-07 00: 00:00 [facility] Tramadol Allergy to substance Active 2020-04-07 00:00:00 [facility] Promethazine Allergy to substance Active n/v & rash 2020-04-07 00: 00:00 [facility] Metoclopramide Allergy to substance Active n/v & rash 2020-03-18 2 00:00:00 [facility] Ondansetron Allergy to substance Active Severe N/V AND RASH 2019 00:00:00 [facility] Ketorolac Allergy to substance Active "blotchy skin" 2020-04-07 00:00:00 [facility] Sulfa (Sulfonamide Antibiotics) DA Active U 2020-03-17 00 :00:00 [facility] morphine DA Active SV 2020-03-17 00:00:00 [facility] codeine DA Active U 2020-03-17 00:00:00 [facility] tramadol DA Active U 2020-03-17 00:00:00 [facility] promethazine DA Active U 2020-03-17 00:00:00 [facility] metoclopramide DA Active U 2020-03-17 00:00:00 [facility] ondansetron DA Active U 2020-03-17 00:00:00 [facility] ketorolac DA Active U 2020-03-17 00:00:00 [facility] Sulfa (Sulfonamide Antibiotics) DA Active U 2019-11-22 00 :00:00 [facility] morphine DA Active SV 2019-11-13 00:00:00 [facility] codeine DA Active U 2019-11-13 00:00:00 [facility] tramadol DA Active U 2019-11-13 00:00:00 [facility] promethazine DA Active U 2019-11-13 00:00:00 [facility] metoclopramide DA Active U 2019-11-13 00:00:00 [facility] ondansetron DA Active U 2019-11-13 00:00:00 [facility] ketorolac DA Active U 2019-11-13 00:00:00 [facility] morphine DA Active SV 2019-08-12 00:00:00 [facility] codeine DA Active U 2019-08-12 00:00:00 [facility] tramadol DA Active U 2019-08-12 00:00:00 [facility] promethazine DA Active U 2019-08-12 00:00:00 [facility] metoclopramide DA Active U 2019-08-12 00:00:00 [facility] ondansetron DA Active U 2019-08-12 00:00:00 [facility] ketorolac DA Active U 2019-08-12 00:00:00 [facility] morphine DA Active SV 2017-12-04 00:00:00 [facility] codeine DA Active U 2017-12-04 00:00:00 [facility] acetaminophen DA Active U 2017-12-04 00:00:00 [facility] tramadol DA Active U 2017-12-04 00:00:00 [facility] promethazine DA Active U 2017-12-04 00:00:00 [facility] metoclopramide DA Active U 2017-12-04 00:00:00 [facility] ondansetron DA Active U 2017-12-04 00:00:00 [facility] ketorolac DA Active U 2017-12-04 00:00:00 [facility] TORADOL Drug allergy (disorder) Active High Criticality 2017-07 00:00:00 [facility] TRAMADOL Drug allergy (disorder) Active High Criticality 2017-08-10 00:00:00 [facility] TYLENOL 3 Drug allergy (disorder) Active High Criticality 2017-08-10 00:00:00 [facility] SOFRAN Drug allergy (disorder) Active High Criticality 2017-07 00:00:00 [facility] MORPHINE Drug allergy (disorder) Active High Criticality 2017-08-10 00:00:00 [facility] Morphine Propensity to adverse reactions Active n/v & rash 2017-04-24 00:00:00 [facility] Social History Social Habit Start Date Stop Date Quantity Comments Source drug use, illicit 2020-03-20 10:52:33 2020-03-20 10:52:33 Never [facility] alcohol use 2020-03-20 10:52:33 2020-03-20 10:52:33 Never [facility] assessment of health literacy ([facility] 2014 Standard s, 3C10) 2020-03-20 10:52:33 2020-03-20 10:52:33 [facility] social history reviewed E&M 2020-03-20 10:52:33 2020-03-20 10:52 :33 reviewed today [facility] if the patient is using/has used a vapin g item, Current, Former, Never Used, Not asked 2020-03-20 10:52:33 2020-03-20 10:52:33 No [facility] is there any chance that you could be ? 2018-08-22 1 0:50:22 2018-08-22 10:50:22 No [facility] passive cigarette smoke exposure 2018-08-22 10:50:22 2018-08-22 10:50 :22 No [facility] Sex Assigned At 1980 00:00:00 1980 00:00:00 Female [facility] Smoking Status Start Date Stop Date Source Never smoked tobacco (finding) [facility] Medications Ordered Medication Name Filled Medication Name Start Date Stop Da te Current Medication? Ordering Clinician Indication Dosage Frequency Signature (SIG) Comments Components Source (CYCLOBENZAPRINE HCL) 10 MG TABS 2018-08-22 00:00:00 Yes Helder Galvan 1{Tablet} 3xD 1 By Mouth three times a day as needed for muscle spas [facility] (IBUPROFEN) 800 MG TABS 2017-09-13 00:00:00 Yes Tamara Elder [place] 1 By Mouth TID as needed [facility] VICODIN 5-300 MG ORAL TABLET 2017-08-17 00:00:00 Yes Billie Galvan take 1-2 tabs By Mouth Every 4-6 hours as needed for severe pain [facility] CIPRO (CIPROFLOXACIN HCL) 250 MG TABS 2017-08-10 00:00 :00 2017-08-17 00:00:00 No Helder Galvan 1 by mouth twice a day [facility] Metronidazole (Flagyl) 500 Mg TABLET Metronidazole (Flagyl) 500 Mg TABLET 2017-06-05 00:00:00 No 500 Every 8 Hours [facility] Tramadol Hcl (Ultram) 50 Mg TABLET Tramadol Hcl (Ultram) 50 Mg T ABLET 2017-06-05 00:00:00 No 50 Every 6 Hours as nee ded for Pain [facility] Vital Signs Vital Name Observation Time Observation Value Comments Source Body Temperature 2020-04-08 10:50:00 98.4 [degF] [facility] Weight 2020-04-07 17:43:00 126 [lb_av] [facility] BMI (Body Mass Index) 2020-04-07 17:43:00 23.0 kg/m2 [facility] Weight 2020-04-06 14:54:00 126 [lb_av] [facility] BMI (Body Mass Index) 2020-04-06 14:54:00 23.0 kg/m2 [facility] oxygen saturation, oximetry 2020-03-20 10:52:33 97 % [facility] blood pressure, diastolic 2020-03-20 10:52:33 88 mm[Hg] [facility] blood pressure, systolic 2020-03-20 10:52:33 126 mm[Hg] [facility] respiratory rate E&M 2020-03-20 10:52:33 18 /min [facility] pulse rate 2020-03-20 10:52:33 73 [facility] 2020-03-20 10:52:33 oral [facility] temperature E&M 2020-03-20 10:52:33 98.7 [degF] [facility] weight E&M 2020-03-20 10:52:33 137 [lb_av] [facility] in kilograms E&M 2020-03-20 10:52:33 62.27 kg [facility] height in centimeters E&M 2020-03-20 10:52:33 157.48 cm [facility] oxygen saturation, oximetry 2018-08-22 10:50:22 98 % [facility] blood pressure, diastolic 2018-08-22 10:50:22 75 mm[Hg] [facility] blood pressure, systolic 2018-08-22 10:50:22 113 mm[Hg] [facility] respiratory rate E&M 2018-08-22 10:50:22 14 /min [facility] pulse rate 2018-08-22 10:50:22 66 [facility] 2018-08-22 10:50:22 98.1 [degF] [facility] weight E&M 2018-08-22 10:50:22 114.20 [lb_av] [facility] weight in kilograms E&M 2018-08-22 10:50:22 51.91 kg [facility] temperature site 2018-08-22 10:50:22 oral [facility] height in centimeters E&M 2018-08-22 10:50:22 157.48 cm [facility] oxygen saturation, oximetry 2017-09-13 13:36:52 98 % [facility] blood pressure, diastolic 2017-09-13 13:36:52 68 mm[Hg] [facility] blood pressure, systolic 2017-09-13 13:36:52 109 mm[Hg] [facility] respiratory rate E&M 2017-09-13 13:36:52 17 /min [facility] pulse rate 2017-09-13 13:36:52 74 /min [facility] site 2017-09-13 13:36:52 oral [facility] temperature E&M 2017-09-13 13:36:52 98.1 [degF] [facility] weight E&M 2017-09-13 13:36:52 114.25 [lb_av] [facility] weight in kilograms E&M 2017-09-13 13:36:52 51.93 kg [facility] height in centimeters E&M 2017-09-13 13:36:52 157.48 cm [facility] oxygen saturation, oximetry 2017-08-23 15:38:42 99 % [facility] blood pressure, diastolic 2017-08-23 15:38:42 74 mm[Hg] [facility] blood pressure, systolic 2017-08-23 15:38:42 119 mm[Hg] [facility] respiratory rate E&M 2017-08-23 15:38:42 18 /min [facility] pulse rate 2017-08-23 15:38:42 70 /min [facility] 2017-08-23 15:38:42 oral [facility] temperature E&M 2017-08-23 15:38:42 98.1 [degF] [facility] weight E&M 2017-08-23 15:38:42 116.13 [lb_av] [facility] weight in kilograms E&M 2017-08-23 15:38:42 52.79 kg [facility] height in centimeters E&M 2017-08-23 15:38:42 157.48 cm [facility] oxygen saturation, oximetry 2017-08-17 13:59:36 99 % [facility] blood pressure, diastolic 2017-08-17 13:59:36 73 mm[Hg] [facility] blood pressure, systolic 2017-08-17 13:59:36 114 mm[Hg] [facility] respiratory rate E&M 2017-08-17 13:59:36 18 /min [facility] pulse rate 2017-08-17 13:59:36 80 /[facility] 2017-08-17 13:59:36 98.4 [degF] [facility] weight E&M 2017-08-17 13:59:36 114.25 [lb_av] [facility] weight in kilograms E&M 2017-08-17 13:59:36 51.93 kg [facility] temperature site 2017-08-17 13:59:36 oral [facility] height in centimeters E&M 2017-08-17 13:59:36 157.48 cm [facility] oxygen saturation, oximetry 2017-08-10 15:31:52 99 % [facility] respiratory rate E&M 2017-08-10 15:31:52 18 /min [facility] pulse rate 2017-08-10 15:31:52 77 /min [facility] blood pressure, diastolic 2017-08-10 15:31:52 84 mm[Hg] [facility] blood pressure, systolic 2017-08-10 15:31:52 124 mm[Hg] [facility] temperature E&M 2017-08-10 15:31:52 98.2 [degF] [facility] temperature site 2017-08-10 15:31:52 oral [facility] height in centimeters E&M 2017-08-10 15:31:52 157.48 cm [facility] weight E&M 2017-08-10 15:31:52 116.50 [lb_av] [facility] weight in kilograms E&M 2017-08-10 15:31:52 52.95 kg [facility] Procedures Procedure Date / Time Performed Performing Clinician [facility] e X-ray of chest, single view 2020-04-06 00:00:00 [facility] CT of abdomen and pelvis without contrast 2020-04-06 00:00:00 [facility] CT of abdomen and pelvis without contrast 2019-07-24 00:00:00 [facility] Urinalysis - Dip only - In House 2017-09-13 14:08:25 Tamara Merida [facility] Urinalysis - Dip only - In House 2017-08-10 16:18:11 Billie Galvan [facility] Encounters Start Date/Time End Date/Time Encounter Type [facility] ID Source 2020-04-07 18:50:00 2020-04-08 11:19:00 Discharged Inpatient (obs) [facility] [id number] [facility] 2020-04-06 15:00:00 2020-04-06 18:51:00 Departed Emergency Room 1 [facility] [id number] [facility] 2020-03-20 00:00:00 2020-03-20 00:00:00 Office Visit Maycol White [facility] Encounter/[id number] [facility] 2020-03-20 00:00:00 2020-03-20 00:00:00 Office Visit Yaya Lewis Maria Jack, Myesha [facility] Encounter/[id number] [facility] 2019-08-07 00:00:00 2019-08-07 00:00:00 Office Visit Jose Antonio Hutchins [facility] Encounter/[id number] [facility] 2019-07-24 12:51:00 2019-07-24 19:09:00 Departed Emergency Room 1 [facility] [id number] [facility] 2018-08-22 00:00:00 2018-08-22 00:00:00 Office Visit Mynor Cavanaugh [facility] Encounter/[id number] [facility] 2018-08-22 00:00:00 2018-08-22 00:00:00 Office Visit Billie Galvan [facility] Encounter/[id number] [facility] 2018-08-22 00:00:00 2018-08-22 00:00:00 Office Visit Helder Hernandez Adriana [facility] Encounter/[id number] [facility] 2018-07-24 00:00:00 2018-07-24 00:00:00 Office Visit Billie Galvan [facility] Encounter/[id number] [facility] 2017-11-13 00:00:00 2017-11-13 00:00:00 Office Visit Billie Galvan [facility] Encounter/[id number] [facility] 2017-09-13 00:00:00 2017-09-13 00:00:00 Office Visit Status, Fax [facility] Encounter/[id number] [facility] 2017-09-13 00:00:00 2017-09-13 00:00:00 Office Visit Status, Fax [facility] Encounter/[id number] [facility] 2017-09-13 00:00:00 2017-09-13 00:00:00 Office Visit Status, Fax [facility] Encounter/[id number] [facility] 2017-09-13 00:00:00 2017-09-13 00:00:00 Office Visit Tamara Herman [facility] Encounter/[id number] [facility] 2017-09-13 00:00:00 2017-09-13 00:00:00 Office Visit Tamara oCnnor Anabel McIntyre, Shakira Granados, Saralee [facility] Encounter/[id number] [facility] 2017-08-23 00:00:00 2017-08-23 00:00:00 Office Visit Billie Galvan [facility] Encounter/[id number] [facility] 2017-08-23 00:00:00 2017-08-23 00:00:00 Office Visit Helder Hernandez Deborath [facility] Encounter/[id number] [facility] 2017-08-17 00:00:00 2017-08-17 00:00:00 Office Visit ColeBillie Yasir [facility] Encounter/[id number] [facility] 2017-08-17 00:00:00 2017-08-17 00:00:00 Office Visit Billie Galvan [facility] Encounter/[id number] [facility] 2017-08-17 00:00:00 2017-08-17 00:00:00 Office Visit Billie Galvan naun Yasir [facility] Encounter/[id number] [facility] 2017-08-17 00:00:00 2017-08-17 00:00:00 Office Visit Helder Hernandez Deborath [facility] Encounter/[id number] [facility] hospital 2017-08-15 00:00:00 2017-08-15 00:00:00 Office Visit Billie Galvan [facility] Encounter/[id number] [facility] 2017-08-10 00:00:00 2017-08-10 00:00:00 Office Visit Billie Galvan [facility] Encounter/[id number] [facility] 2017-08-10 00:00:00 2017-08-10 00:00:00 Office Visit Billie Galvan [facility] Encounter/[id number] [facility] 2017-08-10 00:00:00 2017-08-10 00:00:00 Office Visit Helder Hernandez Deborath Lewis, Shaniqua [facility] Encounter/[id number] [facility] Results Test Description Test Time Test Comments Results Result Comments Source Stool lactoferrin detection 2020-04-08 09:44:00 Test Item Stool Lactoferrin (LAB) (test code = 05693-8) POSITIVE NEGATIVE Testing on stool aspirate specimens is outside inorganic chemist claims since specime n type not validated on this assay.[facility] (number/volume)2020-04-08 06:05:00* Test Item Value Reference Range Interpretation Comments White Blood Count (test code = 6690-2) 8.90 4.8-10.8 [facility] count (number/volume)2020-04-08 06:05:00* Test Item Value Reference Range Interpretation Comments Red Blood Count (test code = 789-8) 4.23 3.6-5.1 [facility] (moles/volume)2020-04-08 06:05:00* Test Item Value Reference Range Interpretation Comments Hemoglobin (test code = 61294-3) 12.7 12.0-16.0 [facility] hematocrit (volume fraction)2020-04-08 06:05:00* Test Item Value Reference Range Interpretation Comments Hematocrit (test code = 4544-3) 38.5 34.2-44.1 [facility] mean corpuscular [id number] 06:05:00* Test Item Value Reference Range Interpretation Comments Mean Corpuscular Volume (test code = 787-2) 91.0 81-99 [facility] mean corpuscular hemoglobin (mass per erythrocyte)2020-04-08 06:05:00* Test Item Value Reference Range Interpretation Comments Mean Corpuscular Hemoglobin (test code = 785-6) 30.0 28-32 [facility] mean corpuscular hemoglobin concentration measurement (mass/volume)2020-04-08 06:05:00* Test Item Value Reference Range Interpretation Comments Mean Corpuscular Hemoglobin Concent (test code = 786-4) 33.0 31-35 [facility] [id number] 06:05:00* Test Item Value Reference Range Interpretation Comments Red Cell Distribution Width (test code = 93916-5) 12.6 11.7 -14.4 [facility] platelet count (count/volume)2020-04-08 06:05:00* Test Item Value Reference Range Interpretation Comments Platelet Count (test code = 777-3) 213 140-360 [facility] segmented neutrophil count as percentage of total [id number] 06:05:00* Test Item Value Reference Range Interpretation Comments Neutrophils (%) (Auto) (test code = 47570-6) 62.4 38.7-80.0 [facility] lymphocyte count as percentage ot total [id number] 06:05:00* Test Item Value Reference Range Interpretation Comments Lymphocytes (%) (Auto) (test code = 736-9) 27.3 18.0-39.1 [facility] monocyte count as percentage of total [id number] 06:05:00* Test Item Value Reference Range Interpretation Comments Monocytes (%) (Auto) (test code = 5905-5) 8.7 4.4-11.3 [facility] eosinophil count as percentage of total [id number] 06:05:00* Test Item Value Reference Range Interpretation Comments Eosinophils (%) (Auto) (test code = 713-8) 0.7 0.0-6.0 [facility] basophil count as percentage of total [id number] 06:05:00* Test Item Value Reference Range Interpretation Comments Basophils (%) (Auto) (test code = 706-2) 0.3 0.0-1.0 [facility]or[facility] procedure less than one hour [id number] 06:05:00* Test Item Value Reference Range Interpretation Comments IM GRANULOCYTES % (test code = IM GRANULOCYTES %) 0.6 0.0- 1.0 [facility] neutrophil count 2020-04-08 06:05:00* Test Item Value Reference Range Interpretation Comments Neutrophils # (Auto) (test code = 751-8) 5.6 2.1-6.9 [facility] lymphocytes count (number/volume) 2020-04-08 06:05:00* Test Item Value Reference Range Interpretation Comments Lymphocytes # (Auto) (test code = 16616-7) 2.4 1.0-3.2 [facility] monocytes automated count (number/volume)2020-04-08 06:05:00* Test Item Value Reference Range Interpretation Comments Monocytes # (Auto) (test code = 742-7) 0.8 0.2-0.8 [facility] eosinophil count 2020-04-08 06:05:00* Test Item Value Reference Range Interpretation Comments Eosinophils # (Auto) (test code = 711-2) 0.1 0.0-0.4 [facility] basophil count (count/volume)2020-04-08 06:05:00* Test Item Value Reference Range Interpretation Comments Basophils # (Auto) (test code = 704-7) 0.0 0.0-0.1 [facility] procedure less than one hour [id number] 06:05:00* Test Item Value Reference Range Interpretation Comments Absolute Immature Granulocyte (auto (minoo t code = Absolute Immature Granulocyte (auto) 0.05 0-0.1 [facility] sodium measurement (moles/volume)2020-04-08 06:05:00* Test Item Value Reference Range Interpretation Comments Sodium Level (test code = 2951-2) 142 136-145 [facility] potassium measurement (moles/volume)2020-04-08 06:05:00* Test Item Value Reference Range Interpretation Comments Potassium Level (test code = 2823-3) 3.9 3.5-5.1 [facility] [place] [facility] or [facility] chloride measurement (moles/volume)2020-04-08 06:05:00* Test Item Value Reference Range Interpretation Comments Chloride Level (test code = 2075-0) 111 98-107 [facility] carbon dioxide, total measurement (moles/volume)2020-04-08 06:05:00* Test Item Value Reference Range Interpretation Comments Carbon Dioxide Level (test code = 2028-9) 21 22-29 [facility] plasma anion dji8016-12-38 06:05:00* Test Item Value Reference Range Interpretation Comments Anion Gap (test code = 99183-8) 13.9 8-16 [facility] urea nitrogen measurement (mass/volume)2020-04-08 06:05:00* Test Item Value Reference Range Interpretation Comments Blood Urea Nitrogen (test code = 3094-0) 8 7-26 [facility] creatinine measurement (mass/volume)2020-04-08 06:05:00* Test Item Value Reference Range Interpretation Comments Creatinine (test code = 2160-0) 0.74 0.57-1.11 [facility] plasma urea nitrogen/creatinine mass zwsst7560-65-23 06:05:00* Test Item Value Reference Range Interpretation Comments BUN/Creatinine Ratio (test code = 3097-3) 11 6-25 [facility]anoEstimated glomerular filtration rate (GFR) drjisczjmpqkv2524-62-45 06:05:00* Test Item Value Reference Range Interpretation Comments Estimat Glomerular Filtration Rate (test code = 840496977) > 60 >60 Ranges were taken from the National Kidney Disease Education Program and the [facility] literature.Reference ranges:60 or greater: Tngvkh22-49 ( for 3 consecutive months): Chronic kidney disease 15 or less: Kid[facility] failureTexas [facility] PlanoGlucose acbhbylkmtz1066-06-05 06:05:00* Test Item Value Reference Range Interpretation Comments Glucose Level (test code = TRZ1062) 81 74-118 [facility] plasma calcium measurement (mass/volume)2020-04-08 06:05:00* Test Item Value Reference Range Interpretation Comments Calcium Level (test code = 86729-2) 8.4 8.4-10.2 [facility]anoUrine color ylatnavfahlbh2895-66-87 20:12:00* Test Item Value Reference Range Interpretation Comments Urine Color (test code = 5778-6) YELLOW YELLOW [facility]anoUrine mxtmxjw9231-69-46 20:12:00* Test Item Value Reference Range Interpretation Comments Urine Clarity (test code = 87351-1) CLEAR CLEAR [facility] Systempecific gravity of Urine by Test strip 2020-04-07 20:12:00* Test Item Value Reference Range Interpretation Comments Urine Specific [place] (test code = 5811-5) 1.005 1.010-1.02 5 [facility]anoUrine pH measurement by automated test ubvrh5234-90-35 20:12:00* Test Item Value Reference Range Interpretation Comments Urine pH (test code = 66817-6) 5.5 5-7 [facility]anoUrine leukocyte esterase detection by lzryuvlb7079-15-79 20:12:00* Test Item Value Reference Range Interpretation Comments Urine Leukocyte Esterase (test code = 5799-2) NEGATIVE NEGATIVE [facility]anoUrine nitrite htvdcdayw9511-77-84 20:12:00* Test Item Value Reference Range Interpretation Comments Urine Nitrite (test code = 12504-6) NEGATIVE NEGATIVE [facility]anoUrine protein measurement by test strip (mass/volume)2020-04-07 20:12:00* Test Item Value Reference Range Interpretation Comments Urine Protein (test code = 5804-0) NEGATIVE NEGATIVE [facility]anoUrine glucose rmejunsgu5341-64-76 20:12:00* Test Item Value Reference Range Interpretation Comments Urine Glucose (UA) (test code = 2349-9) NEGATIVE NEGATIVE [facility]anoUrine ketones detection by automated test vhbds0522-38-56 20:12:00* Test Item Value Reference Range Interpretation Comments Urine Ketones (test code = 43983-1) TRACE NEGATIVE [facility] PlanoUrine urobilinogen measurement by test strip (mass/volume)2020-04-07 20:12:00* Test Item Value Reference Range Interpretation Comments Urine Urobilinogen (test code = 58164-0) 0.2 0.2-1 [facility]anoUrine total bilirubin measurement (mass/volume)2020-04-07 20:12:00* Test Item Value Reference Range Interpretation Comments Urine Bilirubin (test code = 1978-6) NEGATIVE NEGATIVE [facility]anoUrine erythrocytes taaudugyt1329-96-34 20:12:00* Test Item Value Reference Range Interpretation Comments Urine Blood (test code = 37558-4) NEGATIVE NEGATIVE [facility] PlanoAutomated urine sediment leukocyte count by microscopy (number/high power field)2020-04-07 20:12:00* Test Item Value Reference Range Interpretation Comments Urine WBC (test code = 5821-4) NONE 0-5 [facility]anoErythrocytes detection in urine sediment by light fvtiqvslxs8950-10-59 20:12:00* Test Item Value Reference Range Interpretation Comments Urine RBC (test code = 43459-6) NONE 0-5 [facility]anoBacteria detection in urine sediment by light lkrezvlqzx6461-05-59 20:12:00* Test Item Value Reference Range Interpretation Comments Urine Bacteria (test code = 58157-4) NONE NONE [facility]anoEpithelial cells detection in urine sediment by light xctlkefurw0985-89-66 20:12:00* Test Item Value Reference Range Interpretation Comments Urine Epithelial Cells (test code = 25303-0) MODERATE NONE [facility] plasma total bilirubin measurement (mass/volume)2020-04-07 18:21:00* Test Item Value Reference Range Interpretation Comments Total Bilirubin (test code = 1975-2) 0.4 0.2-1.2 [facility]anoFluoroscopic procedure less than one hour jkoaolzx8244-84-61 18:21:00* Test Item Value Reference Range Interpretation Comments Aspartate Amino Transf (AST/SGOT) (test code = Aspartate Amino Transf (AST/SGOT)) 21 5-34 [facility]er[facility] plasma alanine aminotransferase measurement (enzymatic activity/volume)2020-04-07 18:21:00* Test Item Value Reference Range Interpretation Comments Alanine Aminotransferase (ALT/SGPT) (test code = 1742-6) 13 0-55 [facility]er[facility] or plasma protein measurement (mass/volume)2020-04-07 18:21:00* Test Item Value Reference Range Interpretation Comments Total Protein (test code = 2885-2) 7.6 6.5-8.1 [facility] Systemer[facility] or plasma albumin measurement (mass/volume)2020-04-07 18:21:00* Test Item Value Reference Range Interpretation Comments Albumin (test code = 1751-7) 4.5 3.5-5.0 [facility]anoPlasma globulin measurement (mass/volume) 2020-04-07 18:21:00* Test Item Value Reference Range Interpretation Comments Globulin (test code = 44807-3) 3.1 2.3-3.5 [facility]er[facility] or plasma albumin/globulin mass wicjb5647-70-88 18:21:00* Test Item Value Reference Range Interpretation Comments Albumin/Globulin Ratio (test code = 1759-0) 1.5 0.8-2.0 [facility]er[facility] or plasma alkaline phosphatase measurement (enzymatic activity/volume)2020-04-07 18:21:00* Test Item Value Reference Range Interpretation Comments Alkaline Phosphatase (test code = 6768-6) 77 40-150 [facility]er[facility] or plasma lipase measurement (enzymatic activity/volume)2020-04-07 18:21:00* Test Item Value Reference Range Interpretation Comments Lipase (test code = 3040-3) 13 8-78 [facility] Systemer[facility] or plasma chorionic gonadotropin measurement (mass/volume)2020-04-07 18:21:00* Test Item Value Reference Range Interpretation Comments Human Chorionic Gonadotropin, Quant (test code = 21202-4) < 1.20 0-10 [facility]anoCT ABDOMEN/PELVIS [id number] 17:39:00 [facility] [address] [address] Patient Name: LONNIE ARROYO MR #: [id number] : 1980 Age/Sex: 39/F Req #: [id number] Adm Physician: Ordered by: THELMA MCDOWELL MD Report #: [id number] Location: ER Room/Bed: Procedure: CT/CT ABDOMEN/PEL VIS WO Exam Date: 04/06/20 Exam Time: 1716 REPORT STATUS: Signed EXAM: CT Abdomen an d Pelvis WITHOUT contrast INDICATION: LUQ/HANY ABD PAIN COMPARISON: Multip le CTs of the abdomen/pelvis including most recent on 07/24/2019. TECHNIQUE: A bdomen and pelvis were scanned utilizing a multidetector helical scanner from the lung base to the pubic symphysis without administration of IV contrast. Ab sence of intravenous contrast decreases sensitivity for detection of focal les ions and vascular pathology. Coronal and sagittal reformations were obtained. Routine protocol was performed. IV CONTRAST: None ORAL CONTRAST: None COMPLICATIONS: None RADIATION DOSE: Total DLP: 640.15 mGy*cm Estimated effective dose: (DLP x 0.015 x size factor) mSv CTDIvol has been reviewed. It is below the limits set by the Radiation Protocol Committee (RPC). Dose modulation, iterative reconstruction, and/ or weight based adjustment of the mA/kV was utilized to reduce the radiation d ose to as low as reasonably achievable. FINDINGS: LINES and TUBES: None. LOWER THORAX: Unremarkable HEPATOBILIARY: No focal hepatic lesions. No biliary ductal dilation. GALLBLADDER: There are cholecystecto my clips. SPLEEN: No splenomegaly. PANCREAS: No focal masses or duct al dilatation. ADRENALS: No adrenal nodules KIDNEYS/URETERS: Red emonstration of bilateral renal calculi, the largest in the midpole of the lef t kidney measuring up to 8 mm. No hydronephrosis. No cystic or solid mass lesi ons. No stones. GI TRACT: No abnormal distention, wall thickening, or evid ence of bowel obstruction. Appendix is normal. PELVIC ORGANS/BLADDE R: Hysterectomy. No adnexal masses. Urinary bladder is collapsed and not well assessed. LYMPH NODES: No lymphadenopathy. VESSELS: Unremarkable. PERITONEUM / RETROPERITONEUM: No free air or fluid. BONES: Unremarkable. SOFT TISSUES: Unremarkable. IMPRESSION: 1. No acute abd ominopelvic finding to explain the patient's symptoms was identified. 2. Re demonstration of bilateral nonobstructive nephrolithiasis. No evidence of obst ructive urolithiasis. Signed by: Esperanza Marroquin MD on 04/06/2020 5:50 PM Dictated By: ESPERANZA MARROQUIN MD 49 Transcribed By: RASHEEDA on 04/06/201749 COPY TO: THELMA DOWLING MD Blood leukocytes automated count (number/volume) 2020-04-06 16:10:00* Test Item Value Reference Range Interpretation Comments White Blood Count (test code = 6690-2) 13.95 4.8-10.8 [facility]anoBlood erythrocytes automated count (number/volume)2020-04-06 16:10:00* Test Item Value Reference Range Interpretation Comments Red Blood Count (test code = 789-8) 4.64 3.6-5.1 [facility]anoBlood hemoglobin measurement (moles/volume)2020-04-06 16:10:00* Test Item Value Reference Range Interpretation Comments Hemoglobin (test code = 04699-4) 14.0 12.0-16.0 [facility] PlanoAutomated blood hematocrit (volume fraction)2020-04-06 16:10:00* Test Item Value Reference Range Interpretation Comments Hematocrit (test code = 4544-3) 41.8 34.2-44.1 [facility] PlanoAutomated erythrocyte mean corpuscular uvgfhd0159-40-78 16:10:00* Test Item Value Reference Range Interpretation Comments Mean Corpuscular Volume (test code = 787-2) 90.1 81-99 [facility] PlanoAutomated erythrocyte mean corpuscular hemoglobin (mass per erythrocyte)2020-04-06 16:10:00* Test Item Value Reference Range Interpretation Comments Mean Corpuscular Hemoglobin (test code = 785-6) 30.2 28-32 [facility] PlanoAutomated erythrocyte mean corpuscular hemoglobin concentration measurement (mass/volume)2020-04-06 16:10:00* Test Item Value Reference Range Interpretation Comments Mean Corpuscular Hemoglobin Concent (test code = 786-4) 33.5 31-35 [facility] PlanoRDW BmwDy-Utg5902-51-21 16:10:00* Test Item Value Reference Range Interpretation Comments Red Cell Distribution Width (test code = 10305-7) 12.8 11.7 -14.4 [facility] PlanoAutomated blood platelet count (count/volume)2020-04-06 16:10:00* Test Item Value Reference Range Interpretation Comments Platelet Count (test code = 777-3) 263 140-360 [facility] PlanoAutomated blood segmented neutrophil count as percentage of total rdassweyzy0090-24-02 16:10:00* Test Item Value Reference Range Interpretation Comments Neutrophils (%) (Auto) (test code = 73439-5) 68.4 38.7-80.0 [facility] PlanoAutomated blood lymphocyte count as percentage ot total ryssnvdbvi6127-11-83 16:10:00* Test Item Value Reference Range Interpretation Comments Lymphocytes (%) (Auto) (test code = 736-9) 21.6 18.0-39.1 [facility] PlanoAutomated blood monocyte count as percentage of total xethtoeyat5779-52-55 16:10:00* Test Item Value Reference Range Interpretation Comments Monocytes (%) (Auto) (test code = 5905-5) 8.7 4.4-11.3 [facility] PlanoAutomated blood eosinophil count as percentage of total jdcopxtpdv9049-22-46 16:10:00* Test Item Value Reference Range Interpretation Comments Eosinophils (%) (Auto) (test code = 713-8) 0.4 0.0-6.0 [facility] PlanoAutomated blood basophil count as percentage of total dpqcbrffxe1259-12-44 16:10:00* Test Item Value Reference Range Interpretation Comments Basophils (%) (Auto) (test code = 706-2) 0.4 0.0-1.0 [facility] PlanoFluoroscopic procedure less than one hour kepgqpqn6748-71-41 16:10:00* Test Item Value Reference Range Interpretation Comments IM GRANULOCYTES % (test code = IM GRANULOCYTES %) 0.5 0.0- 1.0 [facility]anoAutomated blood neutrophil count 2020-04-06 16:10:00* Test Item Value Reference Range Interpretation Comments Neutrophils # (Auto) (test code = 751-8) 9.5 2.1-6.9 [facility]anoBlood lymphocytes count (number/volume) 2020-04-06 16:10:00* Test Item Value Reference Range Interpretation Comments Lymphocytes # (Auto) (test code = 61265-6) 3.0 1.0-3.2 [facility]anoBlood monocytes automated count (number/volume)2020-04-06 16:10:00* Test Item Value Reference Range Interpretation Comments Monocytes # (Auto) (test code = 742-7) 1.2 0.2-0.8 [facility] PlanoAutomated blood eosinophil count 2020-04-06 16:10:00* Test Item Value Reference Range Interpretation Comments Eosinophils # (Auto) (test code = 711-2) 0.1 0.0-0.4 [facility] PlanoAutomated blood basophil count (count/volume)2020-04-06 16:10:00* Test Item Value Reference Range Interpretation Comments Basophils # (Auto) (test code = 704-7) 0.1 0.0-0.1 [facility] PlanoFluoroscopic procedure less than one hour nxrjwfyw0244-62-70 16:10:00* Test Item Value Reference Range Interpretation Comments Absolute Immature Granulocyte (auto (minoo t code = Absolute Immature Granulocyte (auto) 0.07 0-0.1 [facility]anoProthrombin time (PT) in platelet poor plasma by coagulation ejpce0296-21-80 16:10:00* Test Item Value Reference Range Interpretation Comments Prothrombin Time (test code = 5902-2) 12.7 11.9-14.5 [facility] PlanoINR in Platelet poor plasma by Coagulation sqmay1185-07-42 16:10:00* Test Item Value Reference Range Interpretation Comments Prothromb Time International Ratio (test code = 6301-6) 0.91 Oral Anticoagulant Therapy INR Values:1. Low Intensity Therapy 1.5 - 2.02 . Moderate Intensity Therapy 2.0 - 3.03. High Intensity Therapy(1) 2.5 - 3. 54. High Intensity Therapy(2) 3.0 - 4.05. Panic Value INR > 5.0 [facility] PlanoActivated partial thromboplastin time (aPTT) in platelet poor plasma by coagulation rcjwq9531-51-61 16:10:00* Test Item Value Reference Range Interpretation Comments Activated Partial Thromboplast Time (test code = 95152-1) 28.2 23.8-35.5 [facility] plasma sodium measurement (moles/volume)2020-04-06 16:10:00* Test Item Value Reference Range Interpretation Comments Sodium Level (test code = 2951-2) 137 136-145 [facility]er[facility] or plasma potassium measurement (moles/volume)2020-04-06 16:10:00* Test Item Value Reference Range Interpretation Comments Potassium Level (test code = 2823-3) 4.2 3.5-5.1 [facility] Systemer[facility] or plasma chloride measurement (moles/volume)2020-04-06 16:10:00* Test Item Value Reference Range Interpretation Comments Chloride Level (test code = 2075-0) 106 98-107 [facility] Systemer[facility] or plasma carbon dioxide, total measurement (moles/volume)2020-04-06 16:10:00* Test Item Value Reference Range Interpretation Comments Carbon Dioxide Level (test code = 2028-9) 21 22-29 [facility] Systemer[facility] or plasma anion eky8325-51-86 16:10:00* Test Item Value Reference Range Interpretation Comments Anion Gap (test code = 10838-4) 14.2 8-16 [facility] Systemer[facility] or plasma urea nitrogen measurement (mass/volume)2020-04-06 16:10:00* Test Item Value Reference Range Interpretation Comments Blood Urea Nitrogen (test code = 3094-0) 10 7-26 [facility]er[facility] or plasma creatinine measurement (mass/volume)2020-04-06 16:10:00* Test Item Value Reference Range Interpretation Comments Creatinine (test code = 2160-0) 0.78 0.57-1.11 [facility] Systemer[facility] or plasma urea nitrogen/creatinine mass zxqiu0359-76-71 16:10:00* Test Item Value Reference Range Interpretation Comments BUN/Creatinine Ratio (test code = 3097-3) 13 6-25 [facility] PlanoEstimated glomerular filtration rate (GFR) occqcqsxmqkba6739-58-06 16:10:00* Test Item Value Reference Range Interpretation Comments Estimat Glomerular Filtration Rate (test code = 531371829) > 60 >60 Ranges were taken from the National Kidney Disease Education Program and the [facility] literature.Reference ranges:60 or greater: [place]41-27 ( for 3 consecutive months): Chronic kidney disease 15 or less: Kidney failureTexas [facility] Presbyterian Hospital PlanoGlucose toumghmkqrt3967-78-36 16:10:00* Test Item Value Reference Range Interpretation Comments Glucose Level (test code = NXO2797) 98 74-118 [facility] Systemer[facility] or plasma calcium measurement (mass/volume)2020-04-06 16:10:00* Test Item Value Reference Range Interpretation Comments Calcium Level (test code = 49220-7) 9.3 8.4-10.2 [facility] Systemer[facility] or plasma total bilirubin measurement (mass/volume)2020-04-06 16:10:00* Test Item Value Reference Range Interpretation Comments Total Bilirubin (test code = 1975-2) 0.6 0.2-1.2 [facility] PlanoFluoroscopic procedure less than one hour qizqelvz6991-66-52 16:10:00* Test Item Value Reference Range Interpretation Comments Aspartate Amino Transf (AST/SGOT) (test code = Aspartate Amino Transf (AST/SGOT)) 25 5-34 [facility] Systemer[facility] or plasma alanine aminotransferase measurement (enzymatic activity/volume)2020-04-06 16:10:00* Test Item Value Reference Range Interpretation Comments Alanine Aminotransferase (ALT/SGPT) (test code = 1742-6) 17 0-55 [facility] Systemer[facility] or plasma protein measurement (mass/volume)2020-04-06 16:10:00* Test Item Value Reference Range Interpretation Comments Total Protein (test code = 2885-2) 8.1 6.5-8.1 [facility] Systemer[facility] or plasma albumin measurement (mass/volume)2020-04-06 16:10:00* Test Item Value Reference Range Interpretation Comments Albumin (test code = 1751-7) 4.7 3.5-5.0 [facility]anoPlasma globulin measurement (mass/volume) 2020-04-06 16:10:00* Test Item Value Reference Range Interpretation Comments Globulin (test code = 90382-1) 3.4 2.3-3.5 [facility] Systemer[facility] or plasma albumin/globulin mass cytkr5729-85-33 16:10:00* Test Item Value Reference Range Interpretation Comments Albumin/Globulin Ratio (test code = 1759-0) 1.4 0.8-2.0 [facility] Systemer[facility] or plasma alkaline phosphatase measurement (enzymatic activity/volume)2020-04-06 16:10:00* Test Item Value Reference Range Interpretation Comments Alkaline Phosphatase (test code = 6768-6) 80 40-150 [facility] Systemer[facility] or plasma amylase measurement (enzymatic activity/volume)2020-04-06 16:10:00* Test Item Value Reference Range Interpretation Comments Amylase Level (test code = 1798-8) 94 25-125 [facility]er[facility] or plasma lipase measurement (enzymatic activity/volume)2020-04-06 16:10:00* Test Item Value Reference Range Interpretation Comments Lipase (test code = 3040-3) 98 8-78 [facility]anoProthrombin time (PT) in platelet poor plasma by coagulation zsuqs0816-11-48 16:10:00* Test Item Value Reference Range Interpretation Comments Prothrombin Time (test code = 5902-2) 12.7 11.9-14.5 [facility]anoINR in Platelet poor plasma by Coagulation yzvdk6345-65-48 16:10:00* Test Item Value Reference Range Interpretation Comments Prothromb Time International Ratio (test code = 6301-6) 0.91 Oral Anticoagulant Therapy INR Values:1. Low Intensity Therapy 1.5 - 2.02 . Moderate Intensity Therapy 2.0 - 3.03. High Intensity Therapy(1) 2.5 - 3. 54. High Intensity Therapy(2) 3.0 - 4.05. Panic Value INR > 5.0 [facility] PlanoActivated partial thromboplastin time (aPTT) in platelet poor plasma by coagulation mpugg8331-25-09 16:10:00* Test Item Value Reference Range Interpretation Comments Activated Partial Thromboplast Time (test code = 69598-9) 28.2 23.8-35.5 [facility] Systemer[facility] or plasma amylase measurement (enzymatic activity/volume)2020-04-06 16:10:00* Test Item Value Reference Range Interpretation Comments Amylase Level (test code = 1798-8) 94 25-125 [facility]anoCHEST SINGLE (NOT PORTABLE)2020-04-06 15:55:00 [facility] [address] [place] [address] Patient Name: LONNIE ARROYO MR #: [id number] : 1980 Age/Sex: 39/F Req #: [id number] Adm Physician: Ordered by: THELMA MCDOWELL MD Report #: [id number] Location: ER Room/Bed: Procedure: [id number] DX/CHEST SINGLE ( NOT PORTABLE) Exam Date: 04/06/20 Exam Time: 1538 REPORT STATUS: Signed EXAMINATION: CHEST SINGLE (NOT PORTABLE) INDICATION: Abdominal pain COMPARISO N: Chest radiograph 04/15/2017, CT abdomen and pelvis 07/24/2019 FINDINGS : LINES/TUBES:None LUNGS:The lungs are well-inflated. No focal consoli dation or pulmonary edema. PLEURA:No pleural effusion or pneumothorax. MEDIASTINUM:The cardiomediastinal silhouette appears normal in size and shape. BONES/SOFT TISSUES:No acute osseous injury. ABDOMEN:No free air under the diaphragm. IMPRESSION: No focal pneumonia or pulmonary edema. Signed by: Negin Maguire MD on 04/06/2020 3:55 PM Dictated By: NEGIN MAGUIRE MD [id number] Transcribed By: KAMRYN GOMEZ on 04/06/20 1555 COPY TO: THELMA MCDOWELL MD Urine color znkmzplkaqvke1847-01-24 15:00:00* Test Item Value Reference Range Interpretation Comments Urine Color (test code = 5778-6) YELLOW YELLOW [facility]anoUrine tobjnum6395-95-21 15:00:00* Test Item Value Reference Range Interpretation Comments Urine Clarity (test code = 91788-3) SL CLOUDY CLEAR [facility] Systempecific gravity of Urine by Test strip 2020-04-06 15:00:00* Test Item Value Reference Range Interpretation Comments Urine Specific [place] (test code = 5811-5) 1.030 1.010-1.02 5 [facility]anoUrine pH measurement by automated test zoeox9565-77-09 15:00:00* Test Item Value Reference Range Interpretation Comments Urine pH (test code = 70717-2) 6 5-7 [facility] PlanoUrine leukocyte esterase detection by ygkdiaez8772-41-57 15:00:00* Test Item Value Reference Range Interpretation Comments Urine Leukocyte Esterase (test code = 5799-2) NEGATIVE NEGATIVE [facility] PlanoUrine nitrite [id number] 15:00:00* Test Item Value Reference Range Interpretation Comments Urine Nitrite (test code = 45854-9) NEGATIVE [facility]GATIVE [facility] protein measurement by test strip (mass/volume)2020-04-06 15:00:00* Test Item Value Reference Range Interpretation Comments Urine Protein (test code = 5804-0) NEGATIVE [facility]GATIVE [facility] glucose [id number] 15:00:00* Test Item Value Reference Range Interpretation Comments Urine Glucose (UA) (test code = 2349-9) NEGATIVE [facility]GATIVE [facility]ano[facility] ketones detection by automated test [id number] 15:00:00* Test Item Value Reference Range Interpretation Comments Urine Ketones (test code = 74475-0) NEGATIVE [facility]GATIVE [facility] urobilinogen measurement by test strip (mass/volume)2020-04-06 15:00:00* Test Item Value Reference Range Interpretation Comments Urine Urobilinogen (test code = 15114-3) 0.2 0.2-1 [facility] total bilirubin measurement (mass/volume)2020-04-06 15:00:00* Test Item Value Reference Range Interpretation Comments Urine Bilirubin (test code = 1978-6) NEGATIVE NEGATIVE [facility] erythrocytes [id number] 15:00:00* Test Item Value Reference Range Interpretation Comments Urine Blood (test code = 64891-9) TRACE NEGATIVE [facility]ano[facility] urine sediment leukocyte count by microscopy (number/high power field)2020-04-06 15:00:00* Test Item Value Reference Range Interpretation Comments Urine WBC (test code = 5821-4) NONE 0-5 [facility]anoErythrocytes detection in urine sediment by light [id number] 15:00:00* Test Item Value Reference Range Interpretation Comments Urine RBC (test code = 27364-0) 0-5 0-5 [facility]anoBacteria detection in urine sediment by light nenjoiodvw1547-19-42 15:00:00* Test Item Value Reference Range Interpretation Comments Urine Bacteria (test code = 30599-8) MODERATE NONE [facility] PlanoEpithelial cells detection in urine sediment by light [id number] 15:00:00* Test Item Value Reference Range Interpretation Comments Urine Epithelial Cells (test code = 93809-1) MODERATE NONE [facility] [place]- US HEAD AND [id number] 15:30:00 Name: LONNIE ARROYO [facility] : 1980 Age/S: 39 / F [address] [facility] Unit #: [id number] Loc: [place] [address] Phys: Logan James MD Acct: [id number] Di s Date: Status: REG CLI PHONE #: Exam Date: 03/20/2020 5288 FAX #: [phone] Reason: THYROID EXAMS: CPT CODE: [id number] US HEAD AND N RIK 13208 REASON FOR EXAM: THYROID EXAM ORDER DATE: 03/20/2020 2:58 PM Ordering: Han James MD Attending:Han James MD Location[facility] PROCEDURE: - US HEAD AND NECK FINDINGS: The isthmus m easured 0.2 cm. The right lobe of the thyroid gland measured 4.3 x 1.2 cm The left lobe of the thyroid gland measured 3.5 x 1 cm The thyroid gland is homogeneous in echotexture. No evidence of josh d or cystic mass seen. IMPRESSION: Unremarkable thyroid. at 1530 Reported and signed by: Carlos Marquez M.D. CC: Han Carrera MD Technologist: GLADIS WADSWORTH(R),RDMS Trnscb Date/Time: 03/20/2020 (1529) t.DEBORAH SimpsonVTL Orig Print D/T: S: 03/20/2020 (1533) Probe: PAGE 1 Signed Report BASIC METABOLIC [id number] 23:54:00* Test Item Value Reference Range Interpretation Comments SODIUM (test code = NA) 142 mmol/L 136-145 N POTASSIUM (test code = K) 3.4 mmol/L 3.5-5.1 L CHLORIDE (test code = CL) 104 mmol/L 101-109 N CARBON DIOXIDE (test code = CO2) 31.3 mmol/L 21-32 N ANION GAP (test code = GAP) 10 mmol/L 10-20 N GLUCOSE (test code = GLU) 96 mg/dL 74-106 N BLOOD UREA NITROGEN (test code = BUN) 10 mg/dL 3-21 N GLOMERULAR FILTRATION RATE (test code = GFR) > 60 mL/min >=60 Estimated GFR by using Modified MDRD formula.Chronic kidney disease is defined as either kidney damageor GFR <60 mL/min/1.73 m2 for >3 months. CREATININE (test code = CREAT) 1.02 mg/dL 0.55-1.3 N BUN/CREATININE RATIO (test code = BUN/CREA) 9.8 10-20 L CALCIUM (test code = CA) 8.2 mg/dL 8.4-10.2 L HEPATIC FUNCTION [id number] 23:54:00* Test Item Value Reference Range Interpretation Comments TOTAL PROTEIN (test code = PROT) 7.6 g/dL 6.5-8.4 N ALBUMIN (test code = ALB) 3.9 g/dL 3.4-4.8 N GLOBULIN (test code = GLOB) 3.7 G/DL 1-10 N ALBUMIN/GLOBULIN RATIO (test code = A/G) 1.05 RATIO 0.75-1.50 N BILIRUBIN TOTAL (test code = BILT) 0.30 mg/dL 0.0-1.0 N BILIRUBIN DIRECT (test code = BILD) 0.00 mg/dL 0.0-0.30 N SGOT/AST (test code = AST) 23 U/L 6-32 N SGPT/ALT (test code = ALT) 29 U/L 12-78 N N ote: Change in REFERENCE RANGE due to new reagent method. ALKALINE PHOSPHATASE TOTAL (test code = ALKP) 84 U/L 38-126 N [id number] 23:54:00* Test Item Value Reference Range Interpretation Comments LIPASE (test code = LIP) 178 U/L 128-270 N CBC W/O [id number] 23:39:00* Test Item Value Reference Range Interpretation Comments WHITE BLOOD CELL (test code = WBC) 13.7 K/mm3 4.5-12.5 H RED BLOOD CELL (test code = RBC) 4.28 mill/mm3 3.7-5.2 N HEMOGLOBIN (test code = HGB) 13.1 gram/dL 11.5-15.5 N HEMATOCRIT (test code = HCT) 39.7 % 36.0-46.0 N MEAN CELL VOLUME (test code = MCV) 92.8 fL 80-98 N MEAN CELL HGB (test code = MCH) 30.6 picogram 27.0-33.0 N MEAN CELL HGB CONCETRATION (test code = MCHC) 33.0 gram/dL 33.0-36. 0 N RED CELL DISTRIBUTION WIDTH (test code = RDW) 12.0 % 11.6-16. 2 N RED CELL DISTRIBUTION WIDTH SD (test code = RDW-SD) 41.6 fL 37 .0-51.0 N PLATELET COUNT (test code = PLT) 262 K/mm3 150-450 N MEAN PLATELET VOLUME (test code = MPV) 9.7 fL 6.7-11.0 N URINALYSIS [id number] 22:40:00* Test Item Value Reference Range Interpretation Comments UA COLOR (test code = COLU) YELLOW YELLOW UA APPEARANCE (test code = APPU) SLIGHT CLOUDY CLEAR A UA GLUCOSE DIPSTICK (test code = DGLUU) norm mg/dL NEGATIVE UA BILIRUBIN DIPSTICK (test code = BILU) NEGATIVE mg/dL NEGATIVE UA KETONE DIPSTICK (test code = KETU) 5 (Trace) mg/dL NEGATIVE A UA SPECIFIC GRAVITY (test code = SGU) 1.025 1.001-1.035 UA BLOOD DIPSTICK (test code = LORENZO) 10 (Trace) Chalo/uL NEGATIVE A UA PH DIPSTICK (test code = RAZ) 5.0 5.0-8.0 UA PROTEIN DIPSTICK (test code = PROU) 15 (TRACE) mg/dL Neg-15 A UA UROBILINIOGEN DIPSTICK (test code = URO) 1 mg/dL 0.0-0.2 A UA NITRITE DIPSTICK (test code = DAWN) NEGATIVE NEGATIVE UA LEUKOCYTE ESTERASE DIPSTICK (test code = LEUU) 25 Dominik/uL (Tra ce) uL NEGATIVE A UA WBC (test code = WBCU) 0-5 per HPF 0-5 UA RBC (test code = RBCU) 0-3 per HPF 0-5 UA EPITHELIAL CELLS (test code = EPIU) Moderate (5-10/hpf) per HPF Few UA BACTERIA (test code = BACU) MODERATE per HPF NONE A UA MUCUS (test code = MUCU) MODERATE per LPF NONE-FEW A Urine Source? Clean CatchUR HCG [id number] 22:40:00* Test Item Value Reference Range Interpretation Comments UR HCG QUAL (test code = HCGQLU) NEGATIVE This HCGQL test is NOT applicable for MALE patients.Check with nurse about probable order error.If Tumor Marker Test needed, nurse should order test "HCGTU"(Test #550.49842) Urine Source? Clean CatchURINALYSIS [id number] 22:38:00* Test Item Value Reference Range Interpretation Comments UA COLOR (test code = COLU) YELLOW YELLOW UA APPEARANCE (test code = APPU) SLIGHT CLOUDY CLEAR A UA GLUCOSE DIPSTICK (test code = DGLUU) norm mg/dL NEGATIVE UA BILIRUBIN DIPSTICK (test code = BILU) NEGATIVE mg/dL NEGATIVE UA KETONE DIPSTICK (test code = KETU) 5 (Trace) mg/dL NEGATIVE A UA SPECIFIC GRAVITY (test code = SGU) 1.025 1.001-1.035 UA BLOOD DIPSTICK (test code = LORENZO) 10 (Trace) Chalo/uL NEGATIVE A UA PH DIPSTICK (test code = RAZ) 5.0 5.0-8.0 UA PROTEIN DIPSTICK (test code = PROU) 15 (TRACE) mg/dL Neg-15 A UA UROBILINIOGEN DIPSTICK (test code = URO) 1 mg/dL 0.0-0.2 A UA NITRITE DIPSTICK (test code = DAWN) NEGATIVE NEGATIVE UA LEUKOCYTE ESTERASE DIPSTICK (test code = LEUU) 25 Dominik/uL (Tra ce) uL NEGATIVE A UA WBC (test code = WBCU) per HPF 0-5 UA RBC (test code = RBCU) per HPF 0-5 UA EPITHELIAL CELLS (test code = EPIU) per HPF Few UA BACTERIA (test code = BACU) per HPF NONE Urine Source? Clean CatchUR HCG [id number] 22:38:00* Test Item Value Reference Range Interpretation Comments UR HCG QUAL (test code = HCGQLU) NEGATIVE This HCGQL test is NOT applicable for MALE patients.Check with nurse about probable order error.If Tumor Marker Test needed, nurse should order test "HCGTU"(Test #550.67912) Urine Source? Clean CatchURINALYSIS [id number] 22:37:00* Test Item Value Reference Range Interpretation Comments UA COLOR (test code = COLU) YELLOW YELLOW UA APPEARANCE (test code = APPU) SLIGHT CLOUDY CLEAR A UA GLUCOSE DIPSTICK (test code = DGLUU) norm mg/dL NEGATIVE UA BILIRUBIN DIPSTICK (test code = BILU) NEGATIVE mg/dL NEGATIVE UA KETONE DIPSTICK (test code = KETU) 5 (Trace) mg/dL NEGATIVE A UA SPECIFIC GRAVITY (test code = SGU) 1.025 1.001-1.035 UA BLOOD DIPSTICK (test code = LORENZO) 10 (Trace) Chalo/uL NEGATIVE A UA PH DIPSTICK (test code = RAZ) 5.0 5.0-8.0 UA PROTEIN DIPSTICK (test code = PROU) 15 (TRACE) mg/dL Neg-15 A UA UROBILINIOGEN DIPSTICK (test code = URO) 1 mg/dL 0.0-0.2 A UA NITRITE DIPSTICK (test code = DAWN) NEGATIVE NEGATIVE UA LEUKOCYTE ESTERASE DIPSTICK (test code = LEUU) 25 Dominik/uL (Tra ce) uL NEGATIVE A UA WBC (test code = WBCU) per HPF 0-5 UA RBC (test code = RBCU) per HPF 0-5 UA EPITHELIAL CELLS (test code = EPIU) per HPF Few UA BACTERIA (test code = BACU) per HPF NONE Urine Source? Clean CatchUR HCG [id number] 22:37:00* Test Item Value Reference Range Interpretation Comments UR HCG QUAL (test code = HCGQLU) Urine Source? Clean CatchOVARIAN [id number] 17:54:00 RUN DATE: 11/27/19 [facility] PAGE 1 RUN TIME: 1754 Specimen Inqui ry RUN USER: INTERFACE PATIENT: LONNIE ARROYO ACCT #: [id number] LOC: [place] U #: [id number] AGE/SX: 39/F ROOM: RE11/26/19REG DR: Sukhdeep Kong MD : [birth year] BED: A DIS: 11/27/19 STATUS: DIS Lakisha TLOC: SPEC #: [id number] RECD: 11/26/19-1359 STATUS: ELOISA RE #: [id number] FREDRICK: 11/26/19- SUBM DR: Sukhdeep Kong MD ENTERED: 11/26/19-1400 SP TYPE: OVARCYT OTHR DR: Jocelyn Gayle karie or Family PhysicianORDERED: GROSS COPIES TO: No Primary or Family Physician Sukhdeep Kong MD [address] [facility] [address] [place] [address] PROCEDURES: GROSS (11/27/19-1127) TISSUES: OVARY, NOS - RIGHT OVARIAN CYST CLINICAL HISTORY COLLECTION DATE: 11/26/19 PE LVIC PAIN RIGHT OVARIAN CYST, ENDOMETRIOSIS FINAL DIAGNOSIS Right ova erika cyst, cystectomy: LUTEAL CYST IN OVARIAN PARENCHYMA NO AREAS OF ENDOMETRIOSIS IDENTIFIED NEGATIVE FOR MALIGNANCY RRB/gm D 80575 MACROSCOPIC The specimen is received in formalin, labeled w ith the patient's name, and identified as "right ovarian cyst". It consists o f fragments of pink glistening membranous tissue compatible with cyst wall jennifer suring 2.5 cm in aggregate dimension with a thickness ranging from less than 0 .1 up to 0.4 cm. Multiple sales service representative portions of tissue are submitted for histologic evaluation in a single cassette. GROSS PERFORMED AT [facility] CONTINUED ON NEXT PAGE RUN DATE: 11/27/19 [place] [facility] PAGE 2 RUN TIME: 1753 Specimen Inquiry RUN USER: INTERFACE SPEC #: [id number] PATIENT: LONNIE ARROYO #[id number] (Continue d) MACROSCOPIC (Continued) [address] [place] [address] [phone])[phone] MICROSCOPIC All of the stains, including any controls performed, stain appropriately. MICROSCOPIC PERFORMED AT [facility] PATH[facility] [address] [place] [address] [phone])[phone] PERFORMING SITE Pro cessed at: [facility]ology [place], [place] [phone] Signed SIGNATURE ON FILE Esthela Alva MD 11/27/19 1754 END OF REPORT CBC W/AUTO [id number] 06:37:00* Test Item Value Reference Range Interpretation Comments WHITE BLOOD CELL (test code = WBC) 14.3 K/mm3 4.5-12.5 H RED BLOOD CELL (test code = RBC) 3.92 mill/mm3 3.7-5.2 N HEMOGLOBIN (test code = HGB) 12.0 gram/dL 11.5-15.5 N HEMATOCRIT (test code = HCT) 36.9 % 36.0-46.0 N MEAN CELL VOLUME (test code = MCV) 94.1 fL 80-98 N MEAN CELL HGB (test code = MCH) 30.6 picogram 27.0-33.0 N MEAN CELL HGB CONCETRATION (test code = MCHC) 32.5 gram/dL 33.0-36. 0 L RED CELL DISTRIBUTION WIDTH (test code = RDW) 12.4 % 11.6-16. 2 N RED CELL DISTRIBUTION WIDTH SD (test code = RDW-SD) 42.6 fL 37 .0-51.0 N PLATELET COUNT (test code = PLT) 159 K/mm3 150-450 N MEAN PLATELET VOLUME (test code = MPV) 11.5 fL 6.7-11.0 H NEUTROPHIL % (test code = NT%) 74.8 % 39.0-69.0 H IMMATURE GRANULOCYTE % (test code = IG%) 0.5 % 0.0-5.0 N LYMPHOCYTE % (test code = LY%) 16.4 % 25.0-55.0 L MONOCYTE % (test code = MO%) 8.0 % 0.0-10.0 N EOSINOPHIL % (test code = EO%) 0.0 % 0.0-5.0 N BASOPHIL % (test code = BA%) 0.3 % 0.0-1.0 N NUCLEATED RBC % (test code = NRBC%) 0.0 % 0-0 N NEUTROPHIL # (test code = NT#) 10.73 K/mm3 1.8-7.7 H IMMATURE GRANULOCYTE # (test code = IG#) 0.07 x10 3/uL 0-0.03 H LYMPHOCYTE # (test code = LY#) 2.35 K/mm3 1.0-5.0 N MONOCYTE # (test code = MO#) 1.14 K/mm3 0-0.8 H EOSINOPHIL # (test code = EO#) 0.00 K/mm3 0.0-0.5 N BASOPHIL # (test code = BA#) 0.04 K/mm3 0.0-0.2 N NUCLEATED RBC # (test code = NRBC#) 0.00 K/mm3 0.0-0.1 N MANUAL DIFF REQUIRED (test code = MDIFF) NO [id number] 10:27:00* Test Item Value Reference Range Interpretation Comments GLUBED (test code = GLUBED) 92 mg/dL 74-106 N Performed by certified offset press operator at [facility] Novel Coronavirus 2019 [id number] 05:57:00* Test Item Value Reference Range Interpretation Comments Novel Coronavirus 2019 Inhouse (test code = COVNONPUI) Negative Negative Testing Criteria: Preprocedure ScreeningComments: 11/26/19Novel Coronavirus 2019 [id number] 05:56:00* Test Item Value Reference Range Interpretation Comments Novel Coronavirus 2019 Inhouse (test code = COVNONPUI) Negative Negative Testing Criteria: Preprocedure ScreeningComments: 11/26/19COMPREHENSIVE METABOLIC [id number] 14:37:00* Test Item Value Reference Range Interpretation Comments SODIUM (test code = NA) 143 mmol/L 136-145 N POTASSIUM (test code = K) 4.1 mmol/L 3.5-5.1 N CHLORIDE (test code = CL) 109.0 mmol/L 98-107 H CARBON DIOXIDE (test code = CO2) 27.0 mmol/L 21-32 N ANION GAP (test code = GAP) 11.1 10-20 N GLUCOSE (test code = GLU) 82 mg/dL 74-106 N BLOOD UREA NITROGEN (test code = BUN) 12 mg/dL 7-18 N GLOMERULAR FILTRATION RATE (test code = GFR) > 60 mL/min >=60 Estimated GFR by using Modified MDRD formula.Chronic kidney disease is defined as either kidney damageor GFR <60 mL/min/1.73 m2 for >3 months. CREATININE (test code = CREAT) 0.90 mg/dL 0.55-1.02 N Note change in reference range due to change in reagent. BUN/CREATININE RATIO (test code = BUN/CREA) 13.3 10-20 N TOTAL PROTEIN (test code = PROT) 8.0 gram/dL 6.4-8.2 N ALBUMIN (test code = ALB) 4.1 g/dL 3.4-5.0 N GLOBULIN (test code = GLOB) 3.9 gram/dL 2.7-4.2 N ALBUMIN/GLOBULIN RATIO (test code = A/G) 1.1 0.75-1.50 N CALCIUM (test code = CA) 9.2 mg/dL 8.5-10.1 N BILIRUBIN TOTAL (test code = BILT) 0.40 mg/dL 0.0-1.0 N SGOT/AST (test code = AST) 25 IUnit/L 15-37 N SGPT/ALT (test code = ALT) 30 IUnit/L 12-78 N ALKALINE PHOSPHATASE TOTAL (test code = ALKP) 90 IUnit/L 45-117 N Note change in reference range due to change in reagent. HCG SERUM [id number] 14:31:00* Test Item Value Reference Range Interpretation Comments HCG SERUM QUAL (test code = HCGQL) NEGATIVE NEGATIVE This HCGQL test is NOT applicable for MALE patients.Check with nurse about probable order error.If Tumor Marker Test needed, nurse should order test "HCGTU"(Test #550.71290) COMPREHENSIVE METABOLIC [id number] 14:29:00* Test Item Value Reference Range Interpretation Comments SODIUM (test code = NA) 143 mmol/L 136-145 N POTASSIUM (test code = K) 4.1 mmol/L 3.5-5.1 N CHLORIDE (test code = CL) 109.0 mmol/L 98-107 H CARBON DIOXIDE (test code = CO2) mmol/L 21-32 ANION GAP (test code = GAP) 10-20 GLUCOSE (test code = GLU) mg/dL 74-106 BLOOD UREA NITROGEN (test code = BUN) mg/dL 7-18 GLOMERULAR FILTRATION RATE (test code = GFR) mL/min >=60 CREATININE (test code = CREAT) mg/dL 0.55-1.02 BUN/CREATININE RATIO (test code = BUN/CREA) 10-20 TOTAL PROTEIN (test code = PROT) gram/dL 6.4-8.2 ALBUMIN (test code = ALB) g/dL 3.4-5.0 GLOBULIN (test code = GLOB) gram/dL 2.7-4.2 ALBUMIN/GLOBULIN RATIO (test code = A/G) 0.75-1.50 CALCIUM (test code = CA) mg/dL 8.5-10.1 BILIRUBIN TOTAL (test code = BILT) mg/dL 0.0-1.0 SGOT/AST (test code = AST) IUnit/L 15-37 SGPT/ALT (test code = ALT) IUnit/L 12-78 ALKALINE PHOSPHATASE TOTAL (test code = ALKP) IUnit/L 45-117 CBC W/AUTO [id number] 14:06:00* Test Item Value Reference Range Interpretation Comments WHITE BLOOD CELL (test code = WBC) 12.7 K/mm3 4.5-12.5 H RED BLOOD CELL (test code = RBC) 4.45 mill/mm3 3.7-5.2 N HEMOGLOBIN (test code = HGB) 13.8 gram/dL 11.5-15.5 N HEMATOCRIT (test code = HCT) 41.8 % 36.0-46.0 N MEAN CELL VOLUME (test code = MCV) 93.9 fL 80-98 N MEAN CELL HGB (test code = MCH) 31.0 picogram 27.0-33.0 N MEAN CELL HGB CONCETRATION (test code = MCHC) 33.0 gram/dL 33.0-36. 0 N RED CELL DISTRIBUTION WIDTH (test code = RDW) 12.3 % 11.6-16. 2 N RED CELL DISTRIBUTION WIDTH SD (test code = RDW-SD) 42.6 fL 37 .0-51.0 N PLATELET COUNT (test code = PLT) 286 K/mm3 150-450 N MEAN PLATELET VOLUME (test code = MPV) 9.9 fL 6.7-11.0 N NEUTROPHIL % (test code = NT%) 67.8 % 39.0-69.0 N IMMATURE GRANULOCYTE % (test code = IG%) 0.3 % 0.0-5.0 N LYMPHOCYTE % (test code = LY%) 23.1 % 25.0-55.0 L MONOCYTE % (test code = MO%) 6.8 % 0.0-10.0 N EOSINOPHIL % (test code = EO%) 1.5 % 0.0-5.0 N BASOPHIL % (test code = BA%) 0.5 % 0.0-1.0 N NUCLEATED RBC % (test code = NRBC%) 0.0 % 0-0 N NEUTROPHIL # (test code = NT#) 8.64 K/mm3 1.8-7.7 H IMMATURE GRANULOCYTE # (test code = IG#) 0.04 x10 3/uL 0-0.03 H LYMPHOCYTE # (test code = LY#) 2.94 K/mm3 1.0-5.0 N MONOCYTE # (test code = MO#) 0.86 K/mm3 0-0.8 H EOSINOPHIL # (test code = EO#) 0.19 K/mm3 0.0-0.5 N BASOPHIL # (test code = BA#) 0.06 K/mm3 0.0-0.2 N NUCLEATED RBC # (test code = NRBC#) 0.00 K/mm3 0.0-0.1 N MANUAL DIFF REQUIRED (test code = MDIFF) NO CBC W/AUTO [id number] 14:00:00* Test Item Value Reference Range Interpretation Comments WHITE BLOOD CELL (test code = WBC) K/mm3 4.5-12.5 RED BLOOD CELL (test code = RBC) mill/mm3 3.7-5.2 HEMOGLOBIN (test code = HGB) 13.8 gram/dL 11.5-15.5 N HEMATOCRIT (test code = HCT) 41.8 % 36.0-46.0 N MEAN CELL VOLUME (test code = MCV) fL 80-98 MEAN CELL HGB (test code = MCH) picogram 27.0-33.0 MEAN CELL HGB CONCETRATION (test code = MCHC) gram/dL 33.0-36. 0 RED CELL DISTRIBUTION WIDTH (test code = RDW) % 11.6-16. 2 RED CELL DISTRIBUTION WIDTH SD (test code = RDW-SD) fL 37 .0-51.0 PLATELET COUNT (test code = PLT) K/mm3 150-450 MEAN PLATELET VOLUME (test code = MPV) fL 6.7-11.0 NEUTROPHIL % (test code = NT%) % 39.0-69.0 IMMATURE GRANULOCYTE % (test code = IG%) % 0.0-5.0 LYMPHOCYTE % (test code = LY%) % 25.0-55.0 MONOCYTE % (test code = MO%) % 0.0-10.0 EOSINOPHIL % (test code = EO%) % 0.0-5.0 BASOPHIL % (test code = BA%) % 0.0-1.0 NEUTROPHIL # (test code = NT#) K/mm3 1.8-7.7 LYMPHOCYTE # (test code = LY#) K/mm3 1.0-5.0 MONOCYTE # (test code = MO#) K/mm3 0-0.8 EOSINOPHIL # (test code = EO#) K/mm3 0.0-0.5 BASOPHIL # (test code = BA#) K/mm3 0.0-0.2 - CT ABD PELVIS W/O [id number] 22:56:00 Name: LONNIE ARROYO [facility] : 1980 Age/S: 39 / F [address] [facility] Unit #: [id number] Loc: [place] [address] Phys: Gustavo Castaneda 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 No oral contrast was given Noncontrast phase - abdomen and pelvis including all of kidneys Reconstructions - coronal and sagittal planes Automated exposure reduction (Auto mA/Smart mA) was utilized in compliance with ACR Image Wisely COMPARISON: None FINDINGS: Statements: Lack of intravenous contrast compromises evaluation of abdominopelvic organs and vasculature. Lack of oral contrast compromises evaluation of bowel. Thoracic: Included images of the lower chest demonstrate no abnormalities. Hepatobiliary: The liver is normal without focal lesion. Cholecystectomy clips are present. No biliary dilation. Pancreas: Normal. Spleen: Normal. Adrenals: Normal. Genitourinary: Nonobstructing intrarenal stones are noted bilaterally. No hydronephrosis. Evaluation of the bladder is limited, but no obvious bladder abnormality is present. There is a 5 x 4.9 cm septated cystic lesion in the right adnexa Gastrointesti nal: No bowel obstruction or perienteric inflammation. The appendix is nor mal. Vascular: The aorta is grossly normal in appearance. Bones/Soft Tissues: No acute osseous findings. No ventral hernias. Peritoneum/Other: No extraluminal air. No extraluminal fluid. PAGE 1 Signed Report (CONTINUED) N shiv: LONNIE ARROYO [facility] : 0 1980 Age/S: 39 / F [address] [facility] Unit #: [id number] Loc: [place] [address] Phys: Gustavo Castaneda NP Acct: [id number] Dis D ate: Status: REG ER PHONE #: Exam Date: 11/13/20192226 FAX #: [phone] Reason: FLANK PAIN, R/O RENAL CALCULI EXAMS: CPT CODE: [id number] CT ABD PELVIS W/ O CONT 52991 <Continued> IMPRESSION: 1. Septated cystic lesion in the right adnexa likely ovarian in origin. Findings are not visualized on prior CT dated 06/20/2019 or 07/30/2019. Follow-up nonemergent pelvic ultrasound recommended. 2. Nonobstructing intrarenal stones bilaterally. 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 The lungs are clear of focal consolidation. No effusion, pneumothorax, or acute osseous abnormality. IMPRESSION: 1. No focal consolidation. No other acute abnormalities. at 2248 Reported and signed by: Twan Garcia MD CC: Anival Hernandez MD; Han James MD; Gustavo Castaneda NP Technologist: ANGEL MATHEW CT Trnscrpt Data: 11/13/2019 (2247) [email or web address] Orig Print D/T: S: 11/13/2019 (6475) PAGE 1 Signed Report [id number] 22:34:00* Test Item Value Reference Range Interpretation Comments TROPONIN-I (test code = TROPI) <0.015 ng/mL 0.00-0.056 N URINALYSIS [id number] 22:16:00* Test Item Value Reference Range Interpretation Comments UA COLOR (test code = COLU) YELLOW YELLOW UA APPEARANCE (test code = APPU) HAZY CLEAR A UA GLUCOSE DIPSTICK (test code = DGLUU) norm mg/dL NEGATIVE UA BILIRUBIN DIPSTICK (test code = BILU) NEGATIVE mg/dL NEGATIVE UA KETONE DIPSTICK (test code = KETU) neg mg/dL NEGATIVE UA SPECIFIC GRAVITY (test code = SGU) 1.015 1.001-1.035 UA BLOOD DIPSTICK (test code = LOERNZO) 10 (Trace) Chalo/uL NEGATIVE A UA PH DIPSTICK (test code = RAZ) 7.0 5.0-8.0 UA PROTEIN DIPSTICK (test code = PROU) 15 (TRACE) mg/dL Neg-15 A UA UROBILINIOGEN DIPSTICK (test code = URO) norm mg/dL 0.0-0.2 UA NITRITE DIPSTICK (test code = DAWN) NEGATIVE NEGATIVE UA LEUKOCYTE ESTERASE DIPSTICK (test code = LEUU) 500 Dominik/uL (3+) u L NEGATIVE A UA WBC (test code = WBCU) 11-20 per HPF 0-5 A UA RBC (test code = RBCU) 0-3 per HPF 0-5 UA EPITHELIAL CELLS (test code = EPIU) Few (2-5/hpf) per HPF Few UA BACTERIA (test code = BACU) MANY per HPF NONE Urine Source? Clean CatchBASIC METABOLIC [id number] 22:13:00* Test Item Value Reference Range Interpretation Comments SODIUM (test code = NA) 141 mmol/L 136-145 N POTASSIUM (test code = K) 4.3 mmol/L 3.5-5.1 N CHLORIDE (test code = CL) 103 mmol/L 101-109 N CARBON DIOXIDE (test code = CO2) 29.2 mmol/L 21-32 N ANION GAP (test code = GAP) 13 mmol/L 10-20 N GLUCOSE (test code = GLU) 108 mg/dL 74-106 H BLOOD UREA NITROGEN (test code = BUN) 16 mg/dL 3-21 N GLOMERULAR FILTRATION RATE (test code = GFR) > 60 mL/min >=60 Estimated GFR by using Modified MDRD formula.Chronic kidney disease is defined as either kidney damageor GFR <60 mL/min/1.73 m2 for >3 months. CREATININE (test code = CREAT) 1.01 mg/dL 0.55-1.3 N BUN/CREATININE RATIO (test code = BUN/CREA) 15.8 10-20 N CALCIUM (test code = CA) 9.0 mg/dL 8.4-10.2 N HCG SERUM [id number] 22:13:00* Test Item Value Reference Range Interpretation Comments HCG SERUM QUAL (test code = HCGQL) NEGATIVE NEGATIVE This HCGQL test is NOT applicable for MALE patients.Check with nurse about probable order error.If Tumor Marker Test needed, nurse should order test "HCGTU"(Test #550.43417) BASIC METABOLIC [id number] 22:12:00* Test Item Value Reference Range Interpretation Comments SODIUM (test code = NA) mmol/L 135-148 POTASSIUM (test code = K) mmol/L 3.5-5.1 CHLORIDE (test code = CL) mmol/L 101-109 CARBON DIOXIDE (test code = CO2) mmol/L 21-32 ANION GAP (test code = GAP) mmol/L 10-20 GLUCOSE (test code = GLU) mg/dL 74-106 BLOOD UREA NITROGEN (test code = BUN) mg/dL 3-21 GLOMERULAR FILTRATION RATE (test code = GFR) mL/min >=60 CREATININE (test code = CREAT) mg/dL 0.55-1.3 BUN/CREATININE RATIO (test code = BUN/CREA) 10-20 CALCIUM (test code = CA) mg/dL 8.4-10.2 HCG SERUM [id number] 22:12:00* Test Item Value Reference Range Interpretation Comments HCG SERUM QUAL (test code = HCGQL) NEGATIVE NEGATIVE This HCGQL test is NOT applicable for MALE patients.Check with nurse about probable order error.If Tumor Marker Test needed, nurse should order test "HCGTU"(Test #550.13980) URINALYSIS [id number] 22:04:00* Test Item Value Reference Range Interpretation Comments UA COLOR (test code = COLU) YELLOW YELLOW UA APPEARANCE (test code = APPU) HAZY CLEAR A UA GLUCOSE DIPSTICK (test code = DGLUU) norm mg/dL NEGATIVE UA BILIRUBIN DIPSTICK (test code = BILU) NEGATIVE mg/dL NEGATIVE UA KETONE DIPSTICK (test code = KETU) neg mg/dL NEGATIVE UA SPECIFIC GRAVITY (test code = SGU) 1.015 1.001-1.035 UA BLOOD DIPSTICK (test code = LORENZO) 10 (Trace) Chalo/uL NEGATIVE A UA PH DIPSTICK (test code = RAZ) 7.0 5.0-8.0 UA PROTEIN DIPSTICK (test code = PROU) 15 (TRACE) mg/dL Neg-15 A UA UROBILINIOGEN DIPSTICK (test code = URO) norm mg/dL 0.0-0.2 UA NITRITE DIPSTICK (test code = DAWN) NEGATIVE NEGATIVE UA LEUKOCYTE ESTERASE DIPSTICK (test code = LEUU) 500 Dominik/uL (3+) u L NEGATIVE A UA WBC (test code = WBCU) per HPF 0-5 UA RBC (test code = RBCU) per HPF 0-5 UA EPITHELIAL CELLS (test code = EPIU) per HPF Few UA BACTERIA (test code = BACU) per HPF NONE Urine Source? Clean CatchCBC W/AUTO [id number] 22:03:00* Test Item Value Reference Range Interpretation Comments WHITE BLOOD CELL (test code = WBC) 14.4 K/mm3 4.5-12.5 H RED BLOOD CELL (test code = RBC) 4.51 mill/mm3 3.7-5.2 N HEMOGLOBIN (test code = HGB) 13.6 gram/dL 11.5-15.5 N HEMATOCRIT (test code = HCT) 42.7 % 36.0-46.0 N MEAN CELL VOLUME (test code = MCV) 94.7 fL 80-98 N MEAN CELL HGB (test code = MCH) 30.2 picogram 27.0-33.0 N MEAN CELL HGB CONCETRATION (test code = MCHC) 31.9 gram/dL 33.0-36. 0 L RED CELL DISTRIBUTION WIDTH (test code = RDW) 12.0 % 11.6-16. 2 N RED CELL DISTRIBUTION WIDTH SD (test code = RDW-SD) 42.2 fL 37 .0-51.0 N PLATELET COUNT (test code = PLT) 248 K/mm3 150-450 N MEAN PLATELET VOLUME (test code = MPV) 10.0 fL 6.7-11.0 N NEUTROPHIL % (test code = NT%) 59.2 % 39.0-69.0 N LYMPHOCYTE % (test code = LY%) 32.6 % 25.0-55.0 N MONOCYTE % (test code = MO%) 7.3 % 0.0-10.0 N EOSINOPHIL % (test code = EO%) 0.3 % 0.0-5.0 N BASOPHIL % (test code = BA%) 0.3 % 0.0-1.0 N NEUTROPHIL # (test code = NT#) 8.51 K/mm3 1.8-7.7 H LYMPHOCYTE # (test code = LY#) 4.69 K/mm3 1.0-5.0 N MONOCYTE # (test code = MO#) 1.05 K/mm3 0-0.8 H EOSINOPHIL # (test code = EO#) 0.04 K/mm3 0.0-0.5 N BASOPHIL # (test code = BA#) 0.05 K/mm3 0.0-0.2 N MANUAL DIFF REQUIRED (test code = MDIFF) NO FECES OVA [id number] 14:09:00* Test Item Value Reference Range Interpretation Comments CONCENTRATE RESULT (test code = CONC) Final report () These results were obtained using wet preparation(s) andtrichrome stained smear. This test does not include testingfor Cryptosporidium parvum, Cyclospora, or Microsporidia. TRICHROME RESULT (test code = TRIC) SPECIMEN COMMENTS: LIQUIDYCOMMENTS TO SUEDING AND BUFFING MACHINE OPERATOR: COLLECTED DURING COLONOSCOPY PROCEDURESOURCE: STOOLSPECIMEN DESCRIPTION: ASPIRATED FECES OVA [id number] 14:09:00* Test Item Value Reference Range Interpretation Comments CONCENTRATE RESULT (test code = CONC) Final report () These results were obtained using wet preparation(s) andtrichrome stained smear. This test does not include testingfor Cryptosporidium parvum, Cyclospora, or Microsporidia. TRICHROME RESULT (test code = TRIC) () No ova, cysts, or parasites seen.One negative specimen does not rule out the possibility ofa parasitic infection.Performed At: [address] [id number] Keanu Elder MD Ph:[phone] SPECIMEN COMMENTS: LIQUIDYCOMMENTS TO SUEDING AND BUFFING MACHINE OPERATOR: COLLECTED DURING COLONOSCOPY PROCEDURESOURCE: STOOLSPECIMEN DESCRIPTION: ASPIRATED AG GIARDIA [id number] 18:08:00* Test Item Value Reference Range Interpretation Comments AG GIARDIA FECES (test code = GIARDAG) Negative Negative Performed At: [facility] [address] [id number] Keanu Elder MD Ph:[phone] SPECIMEN COMMENTS: LIQUIDYCOMMENTS TO SUEDING AND BUFFING MACHINE OPERATOR: COLLECTED DURING COLONOSCOPY [id number] 16:20:00 RUN DATE: 08/14/19 [facility] PAGE 1 RUN TIME: 1620 Specimen Inqui ry RUN USER: INTERFACE PATIENT: LONNIE ARROYO ACCT #: [id number] LOC: BERT[place] U #: [id number] AGE/SX: 38/F ROOM: RE08/13/19REG DR: Han James MD : 84 BED: DIS: STATUS: [facility] TLOC: SPEC #: [id number] RECD: 08/13/19 STATUS: ELOISA HECTOR #: [id number] FREDRICK: 08/13/19- SUBM DR: Han James MD ENTERED: 08/13/19 SP TYPE: COLON OTHR DR: ORDERED: GROSS/2 PROCEDURES: GROSS (08/14/19-155) TISSUES: 1. TERMINAL ILEUM - BX 2. COLON, NOS - RANDOM LEFT COLON BX 3. RECTUM, NOS - BX CLINICAL HISTORY COLLECTION DATE: 08/13/19 DIARRHEA, TARRY STOOLS FINAL DIAGNOSIS Terminal ileum, biopsy: SMALL INTESTINAL MUCOSA WITH LYMPHOID AGGREGATES MUCOSA OTHERWISE U NREMARKABLE NEGATIVE FOR MALIGNANCY Left colon, random biopsy: COLONIC MUCOSA, NO PATHOLOGIC ALTERATION NEGATIVE FOR FEATURES OF MICR OSCOPIC COLITIS Rectum, biopsy: COLONIC MUCOSA, NO PATHOLOGIC A LTERATION [facility]/ D [phone] MACROSCOPIC The firs t specimen is received in formalin, labeled with the patient's name, identifie d as "terminal ileum biopsy", and consists of mir biopsy material measuring 0. 4 cm in aggregate. The second specimen is received in formalin, labeled wi th the patient's name, identified as "random left colon biopsy", and consists of mir biopsy material measuring 0.5 cm in aggregate. CONTINUED ON NEXT PAGE RUN DATE: 08/14/19 [facility] PAGE 2 RUN TIME: 1620 Specimen Inquiry RUN USER: obopayAC E SPEC #: [id number] PATIENT: LONNIE ARROYO #[id number] (Contin ued) MACROSCOPIC (Continued) The third spec imen is received in formalin, labeled with the patient's name, identified as " rectum biopsy", and consists of a mir biopsy fragment measuring 0.3 cm. GROSS PERFORMED AT [facility] [address] [place] [phone] ANKITA ROSCOPIC All of the stains, including any controls performed, stain appropr iately. MICROSCOPIC PERFORMED AT [facility] [address] [place] [address] [phone] PERFORMING SITE Diagnosis performed at: [facility], [place] [address] [place] [address] Signed SIGNATURE ON FILE Edwina Buckley MD 08/14/19 1920 END OF REPORT CALPROTECTIN FECAL 2019-08-01 08:27:00* Test Item Value Reference Range Interpretation Comments CALPROTECTIN FECAL (test code = CALFECAL) TEST NOT PERFORMED NO SPECIMEN RECEIVED AT [facility] 06/26/19 1202- US TRANSVAGINAL NON [id number] 09:05:00 Name: LONNIE ARROYO [facility] : 1980 Age/S: 38 / F [address] Unit #: [id number] Loc: ARIANNA Camacho [address] Phys: Sukhdeep Kong MD Acct: [id number] Dis Date: Status: REG CLI PHONE #: [phone] Exam Date: 07/30/2019844 FAX #: [phone] Reason: EXAMS: CPT CODE: [id number] [place] [address] HISTORY: Pelvic and perineal pain. COMPARISON: CT pelvis from June 20, 2019. Location: [facility]. Transabdominal and transvaginal (for better endometrial and ovarian evaluation) pelvic ultrasound with color and Doppler flow and grayscale imaging. Patient is post hysterectomy. No pelvic mass. Small pelvic free fluid. Color and Doppler flow in right ovary with normal spectral waveform. Right ovary is measuring 4 x 3.4 x 2.8 cm with multiple follicles. Complex cyst measured 1.4 cm. Patient is post left oophorectomy. IMPRESSION: Patient is post hysterectomy and left oophorectomy. Unremarkable right ovary with color and Doppler flow. Small free fluid. at 0905 Reported and signed by: Frank Szyamnski M.D. CC: Sukhdeep Kong Technologist: RUTH ANN HERRERA RT(R),RDMS Trnscb Date/Time: 07/30/2019 (904) Triny.TH4 Orig Print D/T: S: 07/30/2019 (907) Probe: [id number] PAGE 1 Signed Report - US PELVIS [id number] 09:05:00 Name: LONNIE ARROYO [facility] : 1980 Age/S: 38 / F [address] Unit #: [id number] Loc: [place] [address] Phys: Sukhdeep Kong MD Acct: [id number] Dis Date: Status: REG CLI PHONE #: [phone] Exam Date: 07/30/2019 0845 FAX #: [phone] Reason: R10.2 EXAMS: CPT CODE: [id number] US PELVIS COMPLETE 15180 HISTORY: Pelvic and perineal pain. COMPARISON: CT pelvis from June 20, 2019. Location: [facility]. Transabdominal and transvaginal (for better endometrial and ovarian evaluation) pelvic ultrasound with color and Doppler flow and grayscale imaging. Patient is post hysterectomy. No pelvic mass. Small pelvic free fluid. Color and Doppler flow in right ovary with normal spectral waveform. Right ovary is measuring 4 x 3.4 x 2.8 cm with multiple follicles. Complex cyst measured 1.4 cm. Patient is post left oophorectomy. IMPRESSION: Patient is post hysterectomy and left oophorectomy. Unremarkable right ovary with color and Doppler flow. Small free fluid. at 0905 Reported and signed by: Frank Szymanski M.D. CC: Sukhdeep Kong Technologist: RUTH ANN HERRERA RT(R),RDMS Trnscb Date/Time: 07/30/2019 (0905) t.SDR.TH4 Orig Print D/T: S: 07/30/2019 (0908) Probe: PAGE [address] ABDOMEN/PELVIS [id number] 19:26:00 [place] [address] Patient Name: LONNIE ARROYO MR #: [id number] : 1980 Age/Sex: 38/F Req #: [id number] Adm Physician: Ordered by: KORTNEY HELM NP Report #: [id number] Location: ER Room/Bed: Procedure: [id number] CT/ CT ABDOMEN/PELVIS WO Exam Date: 07/24/19 Exam Time: 1849 REPORT STATUS: Signed EXAM: CT Abdomen and Pelvis WITHOUT contrast INDICATION: rule out diveri tulitis. PO contrast only [id number] COMPARISON: CT dated 08/23/2018 TECHNIQUE: Abdomen and pelvis were scanned utilizing a multidetector helical scanner from the lung base to the pubic symphysis without administration of IV contrast. Absence of intravenous contrast decreases sensitivity for detection of focal lesions and vascular pathology. Coronal and sagittal reformations were obtained. Routine protocol was performed. IV CONTRAST: None OR AL CONTRAST: Gastrografin COMPLICATIONS: None RADIATION DO SE: Total DLP: 189.27 mGy*cm Estimated effective dose: (DLP x 0.01 5 x size factor) mSv CTDIvol has been reviewed. It is below the limits se t by the Radiation Protocol Committee (RPC). FINDINGS: LINES and TUB ES: None. LOWER THORAX: Unremarkable HEPATOBILIARY: Unenhanced liver is unremarkable. No biliary ductal dilation. GALLBLADDER: Surgically abse nt. SPLEEN: No splenomegaly. PANCREAS: No focal masses or ductal dila tation. ADRENALS: No adrenal nodules KIDNEYS/URETERS: No hydron ephrosis. Limited for evaluation of renal parenchyma without intravenous contr ast. Bilateral subcentimeter renal calculi, the largest in left midpole, measu ring 8 mm. The right renal transplant punctate. GI TRACT: No abnormal diste ntion, wall thickening, or evidence of bowel obstruction. Appendix is no rmal. PELVIC ORGANS/BLADDER: Hysterectomy. Bladder is collapsed. Prominent right ovary. LYMPH NODES: No lymphadenopathy. VESSELS: Unremarkable. PERITONEUM / RETROPERITONEUM: No free air or fluid. BONES: Unremarkab le. SOFT TISSUES: Unremarkable. IMPRESSION: 1. No defi nite evidence of acute inflammatory process in the abdomen/pelvis, considering limitations of unenhanced study. 2. Bilateral subcentimeter nonobstructive n ephrolithiasis. No evidence of obstructive urolithiasis. Signed by: Dr. Jason Proctor MD on 07/24/2019 7:31 PM Dictated By: MINH PROCTOR MD Elect ronically Signed By: MINH PROCTOR MD on 07/24/191930 Transcribed By: RASHEEDA on 07/24/191930 COPY TO: KORTNEY HELM PASSENGER RATE CLERK Sodium Level 2019-07-24 15:43:00* Test Item Value Reference Range Interpretation Comments Sodium Level (test code = 2951-2) 141 136-145 [facility] [id number] 15:43:00* Test Item Value Reference Range Interpretation Comments Potassium Level (test code = 2823-3) 3.8 3.5-5.1 [facility]anoChloride [id number] 15:43:00* Test Item Value Reference Range Interpretation Comments Chloride Level (test code = 2075-0) 107 98-107 [facility]anoCarbon Dioxide [id number] 15:43:00* Test Item Value Reference Range Interpretation Comments Carbon Dioxide Level (test code = 2028-9) 23 22-29 [facility]anoAnion [id number] 15:43:00* Test Item Value Reference Range Interpretation Comments Anion Gap (test code = 58202-5) 14.8 8-16 [facility]anoBlood Urea Wiqewrui8839-69-43 15:43:00* Test Item Value Reference Range Interpretation Comments Blood Urea Nitrogen (test code = 3094-0) 12 7-26 [facility]anoCreatinine2020-01-08 15:43:00* Test Item Value Reference Range Interpretation Comments Creatinine (test code = 2160-0) 0.85 0.57-1.11 [facility]anoBUN/Creatinine [id number] 15:43:00* Test Item Value Reference Range Interpretation Comments BUN/Creatinine Ratio (test code = 3097-3) 14 6-25 [facility]anoEstimat Glomerular Filtration Rate 2019-07-24 15:43:00* Test Item Value Reference Range Interpretation Comments Estimat Glomerular Filtration Rate (test code = 850071201) > 60 >60 Ranges were taken from the National Kidney Disease Education Program and the [facility] literature.Reference ranges:60 or greater: Hkdvzv30-73 ( for 3 consecutive months): Chronic kidney disease 15 or less: Kidney failureTexas Health Presbyterian Hospital PlanoGlucose Rzeqz9816-54-20 15:43:00* Test Item Value Reference Range Interpretation Comments Glucose Level (test code = POD9051) 97 74-118 [facility]anoCalcium Ylroq4730-84-72 15:43:00* Test Item Value Reference Range Interpretation Comments Calcium Level (test code = 43180-3) 10.1 8.4-10.2 [facility]anoTotal Jyamskbwl5590-38-60 15:43:00* Test Item Value Reference Range Interpretation Comments Total Bilirubin (test code = 1975-2) 0.4 0.2-1.2 [facility] PlanoAspartate Amino Transf (AST/SGOT) 2019-07-24 15:43:00* Test Item Value Reference Range Interpretation Comments Aspartate Amino Transf (AST/SGOT) (test code = Aspartate Amino Transf (AST/SGOT)) 21 5-34 [facility]anoAlanine Aminotransferase (ALT/SGPT) 2019-07-24 15:43:00* Test Item Value Reference Range Interpretation Comments Alanine Aminotransferase (ALT/SGPT) (test code = 1742-6) 19 0-55 [facility]anoTotal Msnznhz9565-12-63 15:43:00* Test Item Value Reference Range Interpretation Comments Total Protein (test code = 2885-2) 7.8 6.5-8.1 [facility]anoAlbumin2020-01-08 15:43:00* Test Item Value Reference Range Interpretation Comments Albumin (test code = 1751-7) 4.6 3.5-5.0 [facility]anoGlobulin2020-01-08 15:43:00* Test Item Value Reference Range Interpretation Comments Globulin (test code = 78033-2) 3.2 2.3-3.5 [facility]anoAlbumin/Globulin Gbllu2385-88-98 15:43:00 * Test Item Value Reference Range Interpretation Comments Albumin/Globulin Ratio (test code = 1759-0) 1.4 0.8-2.0 [facility]anoAlkaline Amonnhcdjwx4926-35-90 15:43:00* Test Item Value Reference Range Interpretation Comments Alkaline Phosphatase (test code = 6768-6) 72 40-150 [facility] PlanoWhite Blood Invue4110-11-29 15:31:00* Test Item Value Reference Range Interpretation Comments White Blood Count (test code = 6690-2) 12.13 4.8-10.8 H [facility]anoRed Blood Euede7370-56-71 15:31:00* Test Item Value Reference Range Interpretation Comments Red Blood Count (test code = 789-8) 4.77 3.6-5.1 [facility]anoHemoglobin2020-01-08 15:31:00* Test Item Value Reference Range Interpretation Comments Hemoglobin (test code = 09030-9) 14.8 12.0-16.0 [facility]anoHematocrit2020-01-08 15:31:00* Test Item Value Reference Range Interpretation Comments Hematocrit (test code = 4544-3) 43.9 34.2-44.1 [facility] PlanoMean Corpuscular Svkvyx0822-61-63 15:31:00* Test Item Value Reference Range Interpretation Comments Mean Corpuscular Volume (test code = 787-2) 92.0 81-99 [facility]anoMean Corpuscular Mvxnqqqztv4733-68-59 15:31:00* Test Item Value Reference Range Interpretation Comments Mean Corpuscular Hemoglobin (test code = 785-6) 31.0 28-32 [facility]anoMean Corpuscular Hemoglobin Concent 2019-07-24 15:31:00* Test Item Value Reference Range Interpretation Comments Mean Corpuscular Hemoglobin Concent (test code = 786-4) 33.7 31-35 [facility] PlanoRed Cell Distribution Nlbcd7949-74-12 15:31:00* Test Item Value Reference Range Interpretation Comments Red Cell Distribution Width (test code = 15782-5) 12.2 11.7 -14.4 [facility] PlanoPlatelet Qzotc9461-38-87 15:31:00* Test Item Value Reference Range Interpretation Comments Platelet Count (test code = 777-3) 241 140-360 [facility]anoNeutrophils (%) (Auto)2019-07-24 15:31:00 * Test Item Value Reference Range Interpretation Comments Neutrophils (%) (Auto) (test code = 95095-2) 60.3 38.7-80.0 [facility] PlanoLymphocytes (%) (Auto)2019-07-24 15:31:00 * Test Item Value Reference Range Interpretation Comments Lymphocytes (%) (Auto) (test code = 736-9) 32.1 18.0-39.1 [facility]anoMonocytes (%) (Auto)2019-07-24 15:31:00* Test Item Value Reference Range Interpretation Comments Monocytes (%) (Auto) (test code = 5905-5) 6.8 4.4-11.3 [facility]anoEosinophils (%) (Auto)2019-07-24 15:31:00 * Test Item Value Reference Range Interpretation Comments Eosinophils (%) (Auto) (test code = 713-8) 0.2 0.0-6.0 [facility]anoBasophils (%) (Auto)2019-07-24 15:31:00* Test Item Value Reference Range Interpretation Comments Basophils (%) (Auto) (test code = 706-2) 0.4 0.0-1.0 [facility] PlanoIM GRANULOCYTES %2019-07-24 15:31:00* Test Item Value Reference Range Interpretation Comments IM GRANULOCYTES % (test code = IM GRANULOCYTES %) 0.2 0.0- 1.0 [facility]anoNeutrophils # (Auto)2019-07-24 15:31:00* Test Item Value Reference Range Interpretation Comments Neutrophils # (Auto) (test code = 751-8) 7.3 2.1-6.9 H [facility] PlanoLymphocytes # (Auto)2019-07-24 15:31:00* Test Item Value Reference Range Interpretation Comments Lymphocytes # (Auto) (test code = 42549-8) 3.9 1.0-3.2 H [facility]anoMonocytes # (Auto)2019-07-24 15:31:00* Test Item Value Reference Range Interpretation Comments Monocytes # (Auto) (test code = 742-7) 0.8 0.2-0.8 [facility]anoEosinophils # (Auto)2019-07-24 15:31:00* Test Item Value Reference Range Interpretation Comments Eosinophils # (Auto) (test code = 711-2) 0.0 0.0-0.4 [facility]anoBasophils # (Auto)2019-07-24 15:31:00* Test Item Value Reference Range Interpretation Comments Basophils # (Auto) (test code = 704-7) 0.1 0.0-0.1 [facility] PlanoAbsolute Immature Granulocyte (auto 2019-07-24 15:31:00* Test Item Value Reference Range Interpretation Comments Absolute Immature Granulocyte (auto (minoo t code = Absolute Immature Granulocyte (auto) 0.03 0-0.1 [facility] PlanoUrine IYP7294-67-03 15:13:00* Test Item Value Reference Range Interpretation Comments Urine WBC (test code = 5821-4) NONE 0-5 [facility] PlanoUrine [id number] 15:13:00* Test Item Value Reference Range Interpretation Comments Urine RBC (test code = 60355-6) NONE 0-5 [facility] PlanoUrine Jdlwsqcg5982-35-31 15:13:00* Test Item Value Reference Range Interpretation Comments Urine Bacteria (test code = 90636-2) RARE NONE [facility] PlanoUrine Epithelial Ddrfl1356-72-80 15:13:00 * Test Item Value Reference Range Interpretation Comments Urine Epithelial Cells (test code = 49240-8) MODERATE NONE [facility] PlanoUrine Ghjr3704-87-56 14:46:00* Test Item Value Reference Range Interpretation Comments Urine Test (test code = 2106-3) NEGATIVE NEGATIVE [facility] PlanoUrine Vhoqk9446-33-02 14:45:00* Test Item Value Reference Range Interpretation Comments Urine Color (test code = 5778-6) YELLOW YELLOW [facility] PlanoUrine Uxmqvhv8474-11-68 14:45:00* Test Item Value Reference Range Interpretation Comments Urine Clarity (test code = 73074-5) SL CLOUDY CLEAR [facility] Specific Mcmajdc7193-05-37 14:45:00 * Test Item Value Reference Range Interpretation Comments Urine Specific [place] (test code = 5811-5) 1.020 1.010-1.02 5 [facility]anoUrine bH5261-08-35 14:45:00* Test Item Value Reference Range Interpretation Comments Urine pH (test code = 53193-0) 7 5-7 [facility] Leukocyte Enxkpmcs3450-02-44 14:45:00* Test Item Value Reference Range Interpretation Comments Urine Leukocyte Esterase (test code = 5799-2) NEGATIVE NEGATIVE [facility] Daimrxh0239-61-31 14:45:00* Test Item Value Reference Range Interpretation Comments Urine Nitrite (test code = 98089-7) NEGATIVE NEGATIVE [facility]anoUrine Jvpuwqa8061-09-28 14:45:00* Test Item Value Reference Range Interpretation Comments Urine Protein (test code = 5804-0) NEGATIVE NEGATIVE [facility]anoUrine Glucose (UA)2019-07-24 14:45:00* Test Item Value Reference Range Interpretation Comments Urine Glucose (UA) (test code = 2349-9) NEGATIVE NEGATIVE [facility] PlanoUrine Yjlpqlp4757-06-04 14:45:00* Test Item Value Reference Range Interpretation Comments Urine Ketones (test code = 65283-4) 1+ NEGATIVE [facility] [facility] [id number] 14:45:00* Test Item Value Reference Range Interpretation Comments Urine Urobilinogen (test code = 30177-8) 0.2 0.2-1 [facility] [id number] 14:45:00* Test Item Value Reference Range Interpretation Comments Urine Bilirubin (test code = 1978-6) NEGATIVE NEGATIVE [facility] [id number] 14:45:00* Test Item Value Reference Range Interpretation Comments Urine Blood (test code = 30122-1) NEGATIVE [facility]GATIVE [facility] human chorionic gonadotropin (hCG) [id number] 13:08:00* Test Item Value Reference Range Interpretation Comments Urine Test (test code = 2106-3) NEGATIVE [facility]GATIVE [facility] human chorionic gonadotropin (hCG) [id number] 13:08:00* Test Item Value Reference Range Interpretation Comments Urine Test (test code = 2106-3) NEGATIVE [facility]GATIVE [facility] [id number] 16:08:00* Test Item Value Reference Range Interpretation Comments UR PORPHOBILINOGEN 24HR (test code = MQCBG27C) 0.4 mg/24 hr 0.0-1.5 This test was developed and its performance characteristicsdetermined by [facility]. It has not been cleared orapproved by the Food and Drug Administration.Performed At: [address] [id number] Hemphill MD Ph:[phone] FECES OVA [id number] 13:10:00* Test Item Value Reference Range Interpretation Comments CONCENTRATE RESULT (test code = CONC) Final report () These results were obtained using wet preparation(s) andtrichrome stained smear. This test does not include testingfor Cryptosporidium parvum, Cyclospora, or Microsporidia. TRICHROME RESULT (test code = TRIC) SOURCE: STOOLSPECIMEN DESCRIPTION: RANDOMFECES OVA [id number] 13:10:00* Test Item Value Reference Range Interpretation Comments CONCENTRATE RESULT (test code = CONC) Final report () These results were obtained using wet preparation(s) andtrichrome stained smear. This test does not include testingfor Cryptosporidium parvum, Cyclospora, or Microsporidia. TRICHROME RESULT (test code = TRIC) () No ova, cysts, or parasites seen.One negative specimen does not rule out the possibility ofa parasitic infection.Performed At: [address] [id number] Elder MD Ph:[phone] SOURCE: STOOLSPECIMEN DESCRIPTION: RANDOMAG GIARDIA [id number] 11:59:00* Test Item Value Reference Range Interpretation Comments AG GIARDIA FECES (test code = GIARDAG) NEGATIVE NEG Giardia lamblia Ag, EIA Negative Negative Test performed at: [facility] [address] SPECIMEN COMMENTS: STLCOMMENTS TO SUEDING AND BUFFING MACHINE OPERATOR: RANBASIC METABOLIC PANEL 2019-06-24 06:01:00* Test Item Value Reference Range Interpretation Comments SODIUM (test code = NA) 143 mmol/L 136-145 N POTASSIUM (test code = K) 3.9 mmol/L 3.5-5.1 N CHLORIDE (test code = CL) 108.0 mmol/L 98-107 H CARBON DIOXIDE (test code = CO2) 29.0 mmol/L 21-32 N ANION GAP (test code = GAP) 9.9 10-20 L GLUCOSE (test code = GLU) 79 mg/dL 74-106 N BLOOD UREA NITROGEN (test code = BUN) 11 mg/dL 7-18 N GLOMERULAR FILTRATION RATE (test code = GFR) > 60 mL/min >=60 Estimated GFR by using Modified MDRD formula.Chronic kidney disease is defined as either kidney damageor GFR <60 mL/min/1.73 m2 for >3 months. CREATININE (test code = CREAT) 0.80 mg/dL 0.55-1.02 N Note change in reference range due to change in reagent. BUN/CREATININE RATIO (test code = BUN/CREA) 13.2 10-20 N CALCIUM (test code = CA) 8.2 mg/dL 8.5-10.1 L CBC W/AUTO [id number] 05:53:00* Test Item Value Reference Range Interpretation Comments WHITE BLOOD CELL (test code = WBC) 8.3 K/mm3 4.5-12.5 N RED BLOOD CELL (test code = RBC) 3.89 mill/mm3 3.7-5.2 N HEMOGLOBIN (test code = HGB) 11.8 gram/dL 11.5-15.5 N HEMATOCRIT (test code = HCT) 35.5 % 36.0-46.0 L MEAN CELL VOLUME (test code = MCV) 91.3 fL 80-98 N MEAN CELL HGB (test code = MCH) 30.3 picogram 27.0-33.0 N MEAN CELL HGB CONCETRATION (test code = MCHC) 33.2 gram/dL 33.0-36. 0 N RED CELL DISTRIBUTION WIDTH (test code = RDW) 12.2 % 11.6-16. 2 N RED CELL DISTRIBUTION WIDTH SD (test code = RDW-SD) 40.4 fL 37 .0-51.0 N PLATELET COUNT (test code = PLT) 199 K/mm3 150-450 N MEAN PLATELET VOLUME (test code = MPV) 10.6 fL 6.7-11.0 N NEUTROPHIL % (test code = NT%) 50.5 % 39.0-69.0 N IMMATURE GRANULOCYTE % (test code = IG%) 0.2 % 0.0-5.0 N LYMPHOCYTE % (test code = LY%) 39.6 % 25.0-55.0 N MONOCYTE % (test code = MO%) 8.5 % 0.0-10.0 N EOSINOPHIL % (test code = EO%) 0.7 % 0.0-5.0 N BASOPHIL % (test code = BA%) 0.5 % 0.0-1.0 N NUCLEATED RBC % (test code = NRBC%) 0.0 % 0-0 N NEUTROPHIL # (test code = NT#) 4.16 K/mm3 1.8-7.7 N IMMATURE GRANULOCYTE # (test code = IG#) 0.02 x10 3/uL 0-0.03 N LYMPHOCYTE # (test code = LY#) 3.27 K/mm3 1.0-5.0 N MONOCYTE # (test code = MO#) 0.70 K/mm3 0-0.8 N EOSINOPHIL # (test code = EO#) 0.06 K/mm3 0.0-0.5 N BASOPHIL # (test code = BA#) 0.04 K/mm3 0.0-0.2 N NUCLEATED RBC # (test code = NRBC#) 0.00 K/mm3 0.0-0.1 N MANUAL DIFF REQUIRED (test code = MDIFF) NO CBC W/AUTO [id number] 05:52:00* Test Item Value Reference Range Interpretation Comments WHITE BLOOD CELL (test code = WBC) K/mm3 4.5-12.5 RED BLOOD CELL (test code = RBC) mill/mm3 3.7-5.2 HEMOGLOBIN (test code = HGB) 11.8 gram/dL 11.5-15.5 N HEMATOCRIT (test code = HCT) % 36.0-46.0 MEAN CELL VOLUME (test code = MCV) fL 80-98 MEAN CELL HGB (test code = MCH) picogram 27.0-33.0 MEAN CELL HGB CONCETRATION (test code = MCHC) gram/dL 33.0-36. 0 RED CELL DISTRIBUTION WIDTH (test code = RDW) % 11.6-16. 2 RED CELL DISTRIBUTION WIDTH SD (test code = RDW-SD) fL 37 .0-51.0 PLATELET COUNT (test code = PLT) K/mm3 150-450 MEAN PLATELET VOLUME (test code = MPV) fL 6.7-11.0 NEUTROPHIL % (test code = NT%) % 39.0-69.0 IMMATURE GRANULOCYTE % (test code = IG%) % 0.0-5.0 LYMPHOCYTE % (test code = LY%) % 25.0-55.0 MONOCYTE % (test code = MO%) % 0.0-10.0 EOSINOPHIL % (test code = EO%) % 0.0-5.0 BASOPHIL % (test code = BA%) % 0.0-1.0 NEUTROPHIL # (test code = NT#) K/mm3 1.8-7.7 LYMPHOCYTE # (test code = LY#) K/mm3 1.0-5.0 MONOCYTE # (test code = MO#) K/mm3 0-0.8 EOSINOPHIL # (test code = EO#) K/mm3 0.0-0.5 BASOPHIL # (test code = BA#) K/mm3 0.0-0.2 CBC W/AUTO [id number] 07:46:00* Test Item Value Reference Range Interpretation Comments WHITE BLOOD CELL (test code = WBC) 9.7 K/mm3 4.5-12.5 N RED BLOOD CELL (test code = RBC) 4.01 mill/mm3 3.7-5.2 N HEMOGLOBIN (test code = HGB) 12.4 gram/dL 11.5-15.5 N HEMATOCRIT (test code = HCT) 37.6 % 36.0-46.0 N MEAN CELL VOLUME (test code = MCV) 93.8 fL 80-98 N MEAN CELL HGB (test code = MCH) 30.9 picogram 27.0-33.0 N MEAN CELL HGB CONCETRATION (test code = MCHC) 33.0 gram/dL 33.0-36. 0 N RED CELL DISTRIBUTION WIDTH (test code = RDW) 12.1 % 11.6-16. 2 N RED CELL DISTRIBUTION WIDTH SD (test code = RDW-SD) 41.8 fL 37 .0-51.0 N PLATELET COUNT (test code = PLT) 201 K/mm3 150-450 N MEAN PLATELET VOLUME (test code = MPV) 10.1 fL 6.7-11.0 N NEUTROPHIL % (test code = NT%) 57.3 % 39.0-69.0 N IMMATURE GRANULOCYTE % (test code = IG%) 0.3 % 0.0-5.0 N LYMPHOCYTE % (test code = LY%) 33.5 % 25.0-55.0 N MONOCYTE % (test code = MO%) 7.8 % 0.0-10.0 N EOSINOPHIL % (test code = EO%) 0.7 % 0.0-5.0 N BASOPHIL % (test code = BA%) 0.4 % 0.0-1.0 N NUCLEATED RBC % (test code = NRBC%) 0.0 % 0-0 N NEUTROPHIL # (test code = NT#) 5.54 K/mm3 1.8-7.7 N IMMATURE GRANULOCYTE # (test code = IG#) 0.03 x10 3/uL 0-0.03 N LYMPHOCYTE # (test code = LY#) 3.24 K/mm3 1.0-5.0 N MONOCYTE # (test code = MO#) 0.75 K/mm3 0-0.8 N EOSINOPHIL # (test code = EO#) 0.07 K/mm3 0.0-0.5 N BASOPHIL # (test code = BA#) 0.04 K/mm3 0.0-0.2 N NUCLEATED RBC # (test code = NRBC#) 0.00 K/mm3 0.0-0.1 N BASIC METABOLIC [id number] 06:14:00* Test Item Value Reference Range Interpretation Comments SODIUM (test code = NA) 141 mmol/L 136-145 N POTASSIUM (test code = K) 4.1 mmol/L 3.5-5.1 N CHLORIDE (test code = CL) 111.0 mmol/L 98-107 H CARBON DIOXIDE (test code = CO2) 21.0 mmol/L 21-32 N ANION GAP (test code = GAP) 13.1 10-20 N GLUCOSE (test code = GLU) 77 mg/dL 74-106 N BLOOD UREA NITROGEN (test code = BUN) 9 mg/dL 7-18 N GLOMERULAR FILTRATION RATE (test code = GFR) > 60 mL/min >=60 Estimated GFR by using Modified MDRD formula.Chronic kidney disease is defined as either kidney damageor GFR <60 mL/min/1.73 m2 for >3 months. CREATININE (test code = CREAT) 0.60 mg/dL 0.55-1.02 N Note change in reference range due to change in reagent. BUN/CREATININE RATIO (test code = BUN/CREA) 14.2 10-20 N CALCIUM (test code = CA) 8.1 mg/dL 8.5-10.1 L BASIC METABOLIC [id number] 06:02:00* Test Item Value Reference Range Interpretation Comments SODIUM (test code = NA) 141 mmol/L 136-145 N POTASSIUM (test code = K) 4.1 mmol/L 3.5-5.1 N CHLORIDE (test code = CL) 111.0 mmol/L 98-107 H CARBON DIOXIDE (test code = CO2) mmol/L 21-32 ANION GAP (test code = GAP) 10-20 GLUCOSE (test code = GLU) mg/dL 74-106 BLOOD UREA NITROGEN (test code = BUN) mg/dL 7-18 GLOMERULAR FILTRATION RATE (test code = GFR) mL/min >=60 CREATININE (test code = CREAT) mg/dL 0.55-1.02 BUN/CREATININE RATIO (test code = BUN/CREA) 10-20 CALCIUM (test code = CA) mg/dL 8.5-10.1 CBC W/AUTO [id number] 02:51:00* Test Item Value Reference Range Interpretation Comments WHITE BLOOD CELL (test code = WBC) 8.3 K/mm3 4.5-12.5 N RED BLOOD CELL (test code = RBC) 3.63 mill/mm3 3.7-5.2 L HEMOGLOBIN (test code = HGB) 11.3 gram/dL 11.5-15.5 L HEMATOCRIT (test code = HCT) 35.7 % 36.0-46.0 L MEAN CELL VOLUME (test code = MCV) 98.3 fL 80-98 H MEAN CELL HGB (test code = MCH) 31.1 picogram 27.0-33.0 N MEAN CELL HGB CONCETRATION (test code = MCHC) 31.7 gram/dL 33.0-36. 0 L RED CELL DISTRIBUTION WIDTH (test code = RDW) 12.3 % 11.6-16. 2 N RED CELL DISTRIBUTION WIDTH SD (test code = RDW-SD) 44.7 fL 37 .0-51.0 N PLATELET COUNT (test code = PLT) 182 K/mm3 150-450 N MEAN PLATELET VOLUME (test code = MPV) 10.1 fL 6.7-11.0 N NEUTROPHIL % (test code = NT%) 50.1 % 39.0-69.0 N IMMATURE GRANULOCYTE % (test code = IG%) 0.4 % 0.0-5.0 N LYMPHOCYTE % (test code = LY%) 41.4 % 25.0-55.0 N MONOCYTE % (test code = MO%) 6.9 % 0.0-10.0 N EOSINOPHIL % (test code = EO%) 0.7 % 0.0-5.0 N BASOPHIL % (test code = BA%) 0.5 % 0.0-1.0 N NUCLEATED RBC % (test code = NRBC%) 1.1 % 0-0 H RESULT VERIFIED BY REPEAT ANALYSIS NEUTROPHIL # (test code = NT#) 4.17 K/mm3 1.8-7.7 N IMMATURE GRANULOCYTE # (test code = IG#) 0.03 x10 3/uL 0-0.03 N LYMPHOCYTE # (test code = LY#) 3.44 K/mm3 1.0-5.0 N MONOCYTE # (test code = MO#) 0.57 K/mm3 0-0.8 N EOSINOPHIL # (test code = EO#) 0.06 K/mm3 0.0-0.5 N BASOPHIL # (test code = BA#) 0.04 K/mm3 0.0-0.2 N NUCLEATED RBC # (test code = NRBC#) 0.09 K/mm3 0.0-0.1 N MANUAL DIFF REQUIRED (test code = MDIFF) NO BASIC METABOLIC [id number] 01:55:00* Test Item Value Reference Range Interpretation Comments SODIUM (test code = NA) 140 mmol/L 136-145 N POTASSIUM (test code = K) 3.7 mmol/L 3.5-5.1 N CHLORIDE (test code = CL) 113.0 mmol/L 98-107 H CARBON DIOXIDE (test code = CO2) 21.0 mmol/L 21-32 N ANION GAP (test code = GAP) 9.7 10-20 L GLUCOSE (test code = GLU) 91 mg/dL 74-106 N BLOOD UREA NITROGEN (test code = BUN) 7 mg/dL 7-18 N GLOMERULAR FILTRATION RATE (test code = GFR) > 60 mL/min >=60 Estimated GFR by using Modified MDRD formula.Chronic kidney disease is defined as either kidney damageor GFR <60 mL/min/1.73 m2 for >3 months. CREATININE (test code = CREAT) 0.60 mg/dL 0.55-1.02 N Note change in reference range due to change in reagent. BUN/CREATININE RATIO (test code = BUN/CREA) 11.9 10-20 N CALCIUM (test code = CA) 7.7 mg/dL 8.5-10.1 L C REACTIVE [id number] 01:55:00* Test Item Value Reference Range Interpretation Comments C REACTIVE PROTEIN (test code = CRP) <0.29 mg/dL 0-0.3 N BASIC METABOLIC [id number] 01:48:00* Test Item Value Reference Range Interpretation Comments SODIUM (test code = NA) 140 mmol/L 136-145 N POTASSIUM (test code = K) 3.7 mmol/L 3.5-5.1 N CHLORIDE (test code = CL) 113.0 mmol/L 98-107 H CARBON DIOXIDE (test code = CO2) mmol/L 21-32 ANION GAP (test code = GAP) 10-20 GLUCOSE (test code = GLU) mg/dL 74-106 BLOOD UREA NITROGEN (test code = BUN) mg/dL 7-18 GLOMERULAR FILTRATION RATE (test code = GFR) mL/min >=60 CREATININE (test code = CREAT) mg/dL 0.55-1.02 BUN/CREATININE RATIO (test code = BUN/CREA) 10-20 CALCIUM (test code = CA) mg/dL 8.5-10.1 CBC W/AUTO [id number] 07:25:00* Test Item Value Reference Range Interpretation Comments WHITE BLOOD CELL (test code = WBC) 8.4 K/mm3 4.5-12.5 N RED BLOOD CELL (test code = RBC) 3.77 mill/mm3 3.7-5.2 N HEMOGLOBIN (test code = HGB) 11.5 gram/dL 11.5-15.5 RESULT VERIFIED BY REPEAT ANALYSIS HEMATOCRIT (test code = HCT) 35.2 % 36.0-46.0 L MEAN CELL VOLUME (test code = MCV) 93.4 fL 80-98 N MEAN CELL HGB (test code = MCH) 30.5 picogram 27.0-33.0 N MEAN CELL HGB CONCETRATION (test code = MCHC) 32.7 gram/dL 33.0-36. 0 L RED CELL DISTRIBUTION WIDTH (test code = RDW) 12.5 % 11.6-16. 2 N RED CELL DISTRIBUTION WIDTH SD (test code = RDW-SD) 43.4 fL 37 .0-51.0 N PLATELET COUNT (test code = PLT) 194 K/mm3 150-450 RESULT VERIFIED BY REPEAT ANALYSIS MEAN PLATELET VOLUME (test code = MPV) 10.5 fL 6.7-11.0 N NEUTROPHIL % (test code = NT%) 54.4 % 39.0-69.0 N IMMATURE GRANULOCYTE % (test code = IG%) 0.1 % 0.0-5.0 N LYMPHOCYTE % (test code = LY%) 36.9 % 25.0-55.0 N MONOCYTE % (test code = MO%) 8.0 % 0.0-10.0 N EOSINOPHIL % (test code = EO%) 0.2 % 0.0-5.0 N BASOPHIL % (test code = BA%) 0.4 % 0.0-1.0 N NUCLEATED RBC % (test code = NRBC%) 0.0 % 0-0 N NEUTROPHIL # (test code = NT#) 4.56 K/mm3 1.8-7.7 N IMMATURE GRANULOCYTE # (test code = IG#) 0.01 x10 3/uL 0-0.03 N LYMPHOCYTE # (test code = LY#) 3.09 K/mm3 1.0-5.0 N MONOCYTE # (test code = MO#) 0.67 K/mm3 0-0.8 N EOSINOPHIL # (test code = EO#) 0.02 K/mm3 0.0-0.5 N BASOPHIL # (test code = BA#) 0.03 K/mm3 0.0-0.2 N NUCLEATED RBC # (test code = NRBC#) 0.00 K/mm3 0.0-0.1 N MANUAL DIFF REQUIRED (test code = MDIFF) NO BASIC METABOLIC [id number] 07:10:00* Test Item Value Reference Range Interpretation Comments SODIUM (test code = NA) 143 mmol/L 136-145 N POTASSIUM (test code = K) 4.0 mmol/L 3.5-5.1 N CHLORIDE (test code = CL) 115.0 mmol/L 98-107 H CARBON DIOXIDE (test code = CO2) 21.0 mmol/L 21-32 N ANION GAP (test code = GAP) 11.0 10-20 N GLUCOSE (test code = GLU) 92 mg/dL 74-106 N BLOOD UREA NITROGEN (test code = BUN) 11 mg/dL 7-18 N GLOMERULAR FILTRATION RATE (test code = GFR) > 60 mL/min >=60 Estimated GFR by using Modified MDRD formula.Chronic kidney disease is defined as either kidney damageor GFR <60 mL/min/1.73 m2 for >3 months. CREATININE (test code = CREAT) 0.60 mg/dL 0.55-1.02 N Note change in reference range due to change in reagent. BUN/CREATININE RATIO (test code = BUN/CREA) 17.3 10-20 N CALCIUM (test code = CA) 7.6 mg/dL 8.5-10.1 L BASIC METABOLIC [id number] 07:01:00* Test Item Value Reference Range Interpretation Comments SODIUM (test code = NA) 143 mmol/L 136-145 N POTASSIUM (test code = K) 4.0 mmol/L 3.5-5.1 N CHLORIDE (test code = CL) 115.0 mmol/L 98-107 H CARBON DIOXIDE (test code = CO2) mmol/L 21-32 ANION GAP (test code = GAP) 10-20 GLUCOSE (test code = GLU) mg/dL 74-106 BLOOD UREA NITROGEN (test code = BUN) mg/dL 7-18 GLOMERULAR FILTRATION RATE (test code = GFR) mL/min >=60 CREATININE (test code = CREAT) mg/dL 0.55-1.02 BUN/CREATININE RATIO (test code = BUN/CREA) 10-20 CALCIUM (test code = CA) mg/dL 8.5-10.1 SED RATE [id number] 03:34:00* Test Item Value Reference Range Interpretation Comments SED RATE WESTERGREN (test code = SEDW) 3 mm/hr 0-20 N [id number] SED [id number] 03:34:00* Test Item Value Reference Range Interpretation Comments SED RATE (test code = SEDW) 3 mm/hr 0-20 WINTROBE METHOD: NORMAL RANGE FOR MEN: 0-9 MM/HR WOMAN: 0-20 MM/HR [id number] 02:48:00* Test Item Value Reference Range Interpretation Comments PREALBUMIN (test code = PREALB) 25.2 mg/dL 16.0-40.0 N [id number]/ [id number] 02:48:00* Test Item Value Reference Range Interpretation Comments PREALBUMIN (test code = PREALB) 25.2 mg/dL 16.0-40.0 [id number]/ [id number] 00:08:00* Test Item Value Reference Range Interpretation Comments CALCIUM (test code = CA) 8.5 mg/dL 8.5-10.1 N PT IS STILL IN THE ER. I WENT UP TO THE ROOM @ [id number].SVETLANA.[id number] 06/20/192234 PROCALCITONIN (PCT)2019-06-20 22:52:00* Test Item Value Reference Range Interpretation Comments PROCALCITONIN (PCT) (test code = PROCAL) < 0.05 ng/ml Concentration Interpretation (ng/mL) <0.51 Sepsis is not likely. Local bacterial infection is possible. (LOW RISK for progression to Sepsis) 0.51 - 2.00 Sepsis is possible, but other conditions are known to elevate PCT as well. (MODERATE RISK for progression to Sepsis) > 2.00 Sepsis is likely, unless other causes are known. (HIGH RISK for progression to Severe Sepsis or Septic Shock) 10.00 High likelihood of Severe Sepsis or Septic or higher Shock. *Increased PCT levels may not always be related to systemic bacterial infection.*Low PCT levels do not automatically exclude the presence of bacterial infection.*All results should be interpreted taking into account the patients history. [id number] 22:40:00* Test Item Value Reference Range Interpretation Comments PHOSPHORUS (test code = PHOS) 1.5 mg/dL 2.5-4.9 L THYROID STIMULATING [id number] 22:40:00* Test Item Value Reference Range Interpretation Comments THYROID STIMULATING HORMONE (test code = TSH) 1.170 uIU/mL 0.36-3.7 4 N TSH REFERENCE RANGES: EUTHYROID: 0.35 - 4.3 mIU/mL HYPO : > 5.5 mIU/mL HYPER : < 0.35 mIU/mL C REACTIVE [id number] 22:31:00* Test Item Value Reference Range Interpretation Comments C REACTIVE PROTEIN (test code = CRP) <0.29 mg/dL 0-0.3 N URINALYSIS [id number] 17:53:00* Test Item Value Reference Range Interpretation Comments UA COLOR (test code = COLU) YELLOW YELLOW UA APPEARANCE (test code = APPU) HAZY CLEAR A UA GLUCOSE DIPSTICK (test code = DGLUU) NEGATIVE mg/dL NEGATIVE UA BILIRUBIN DIPSTICK (test code = BILU) NEGATIVE mg/dL NEGATIVE UA KETONE DIPSTICK (test code = KETU) NEGATIVE mg/dL NEGATIVE UA SPECIFIC GRAVITY (test code = SGU) 1.028 1.001-1.035 UA BLOOD DIPSTICK (test code = LORENZO) 0.03 mg/dL (Trace) mg/dL NEGATI VE A UA PH DIPSTICK (test code = RAZ) 5.5 5.0-8.0 UA PROTEIN DIPSTICK (test code = PROU) 10 (Trace) mg/dL NEGATIVE A UA UROBILINIOGEN DIPSTICK (test code = URO) Normal mg/dL NEGATIVE UA NITRITE DIPSTICK (test code = DAWN) NEGATIVE NEGATIVE UA LEUKOCYTE ESTERASE W REFLEX (test code = LEUUR) NEGATIVE Dominik/uL NEGATIVE UA WBC (test code = WBCU) 0-5 per HPF 0-5 UA RBC (test code = RBCU) 0-2 #/HPF 0-5 UA EPITHELIAL CELLS (test code = EPIU) MANY per HPF FEW UA BACTERIA (test code = BACU) NONE SEEN #/HPF NONE UA MUCUS (test code = MUCU) FEW #/LPF FEW Urine Source? Clean CatchDRUGS OF ABUSE SCREEN [id number] 17:53:00* Test Item Value Reference Range Interpretation Comments URN COCAINE (test code = COCAURN) NEGATIVE <300 ng/mL URN CANNABINOIDS (test code = CANNABURN) NEGATIVE <50 ng/mL URN AMPHETAMINE (test code = AMPHETURN) NEGATIVE <1000 ng/mL URN BARBITURATE (test code = BARBITURN) NEGATIVE <200 ng/mL URN BENZODIAZEPINE (test code = BENZOURN) NEGATIVE <200 ng/mL URN OPIATES (test code = OPIATURN) NEGATIVE <300 ng/mL URN PHENCYCLIDINE (PCP) (test code = PHENCURN) NEGATIVE <25 ng/ mL URN METHADONE (test code = METHAURN) NEGATIVE <300 ng/mL Urine Source? 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 COMPARISON: CT scan from October 15, 2018 and August 31, 2018. CT of abdomen and pelvis: Stone protocol. Automated exposure control. CT abdomen: Location: [facility]. The lung ba ses are clear. Dependent changes. The hepatic parenchyma is unrema rkable on this noncontrast study without discrete mass. Patient is post ch olecystectomy. The liver measured 16.8 cm in length. The spl een is normal in appearance. The stomach is distended with food and it is unremarkable. Noncontrast pancreas and adrenals are normal. Kidneys are free from hydroureteronephrosis with bilateral multiple calyceal stones measuring up to 5 to 6 mm. No pathologic adenopa thy. No bowel obstruction or colitis or diverticulitis or enteriti s. Scattered fecal material. CT PELVIS: Append ix is not visible but no inflammatory change. Pelvic bowel loops are withi n normal limits as well. No free fluid or free air. Patient is pos t hysterectomy. Decompressed urinary bladder is nondiagnostic. No pelvic p athologic adenopathy. Subcutaneous tissues and the musculature are normal in appearance. No lytic or blastic lesions noted within the bony s [place]. IMPRESSION: No hydroureteronephrosis on either side. Bilateral multiple calyceal stones measuring up to 5 to 6 mm, greater on the left. Decompressed urinary bladder is nondiagnostic . PAGE 1 Signed Report (CONTINUED) Name: LONNIE ARROYO [facility] B: 1980 Age/S: 38 / F [address] [facility] Unit #: [id number] Loc: [place] [address] Phys: Dinora Landrum NP Acct: [id number] D is Date: Status: REG ER PHONE #: [phone] Exam Date: 06/20/2019 1650 FAX #: [phone] Reason: ABD PAIN EXAMS: CPT CODE: [id number] CT ABD PELVI S W/O CONT 13530 <Continued> Appendix is not visible but no inflammatory change. No bowel obstruction or colitis or diverticulitis or enteritis. No free fluid or free air. at 1718 Reported and signed by: Frank Szymanski M.D. CC: Cassius White MD; Dinora Landrum NP Technologist:Mary Ellen Segundo RT(R),CT; CTDI: DLP: Trnscb Date/Time: 06/20/2019 (1718) [email or web address] Orig Print D/T: S: 06/20/2019 (1720) PAGE 2 Signed Report URINALYSIS [id number] 17:02:00* Test Item Value Reference Range Interpretation Comments UA COLOR (test code = COLU) YELLOW YELLOW UA APPEARANCE (test code = APPU) HAZY CLEAR A UA GLUCOSE DIPSTICK (test code = DGLUU) NEGATIVE mg/dL NEGATIVE UA BILIRUBIN DIPSTICK (test code = BILU) NEGATIVE mg/dL NEGATIVE UA KETONE DIPSTICK (test code = KETU) NEGATIVE mg/dL NEGATIVE UA SPECIFIC GRAVITY (test code = SGU) 1.028 1.001-1.035 UA BLOOD DIPSTICK (test code = LORENZO) 0.03 mg/dL (Trace) mg/dL NEGATI VE A UA PH DIPSTICK (test code = RAZ) 5.5 5.0-8.0 UA PROTEIN DIPSTICK (test code = PROU) 10 (Trace) mg/dL NEGATIVE A UA UROBILINIOGEN DIPSTICK (test code = URO) Normal mg/dL NEGATIVE UA NITRITE DIPSTICK (test code = DAWN) NEGATIVE NEGATIVE UA LEUKOCYTE ESTERASE W REFLEX (test code = LEUUR) NEGATIVE Dominik/uL NEGATIVE UA WBC (test code = WBCU) 0-5 per HPF 0-5 UA RBC (test code = RBCU) 0-2 #/HPF 0-5 UA EPITHELIAL CELLS (test code = EPIU) MANY per HPF FEW UA BACTERIA (test code = BACU) NONE SEEN #/HPF NONE UA MUCUS (test code = MUCU) FEW #/LPF FEW Urine Source? Clean CatchDRUGS OF ABUSE SCREEN [id number] 17:02:00* Test Item Value Reference Range Interpretation Comments URN COCAINE (test code = COCAURN) <300 ng/mL URN CANNABINOIDS (test code = CANNABURN) <50 ng/mL URN AMPHETAMINE (test code = AMPHETURN) <1000 ng/mL URN BARBITURATE (test code = BARBITURN) <200 ng/mL URN BENZODIAZEPINE (test code = BENZOURN) <200 ng/mL URN OPIATES (test code = OPIATURN) <300 ng/mL URN PHENCYCLIDINE (PCP) (test code = PHENCURN) <25 ng/ mL URN METHADONE (test code = METHAURN) <300 ng/mL Urine Source? Clean CatchBASIC METABOLIC [id number] 16:16:00* Test Item Value Reference Range Interpretation Comments SODIUM (test code = NA) 143 mmol/L 136-145 N POTASSIUM (test code = K) 3.4 mmol/L 3.5-5.1 L CHLORIDE (test code = CL) 111.0 mmol/L 98-107 H CARBON DIOXIDE (test code = CO2) 25.0 mmol/L 21-32 N ANION GAP (test code = GAP) 10.4 10-20 N GLUCOSE (test code = GLU) 133 mg/dL 74-106 H BLOOD UREA NITROGEN (test code = BUN) 14 mg/dL 7-18 N GLOMERULAR FILTRATION RATE (test code = GFR) > 60 mL/min >=60 Estimated GFR by using Modified MDRD formula.Chronic kidney disease is defined as either kidney damageor GFR <60 mL/min/1.73 m2 for >3 months. CREATININE (test code = CREAT) 0.80 mg/dL 0.55-1.02 N Note change in reference range due to change in reagent. BUN/CREATININE RATIO (test code = BUN/CREA) 16.8 10-20 N CALCIUM (test code = CA) 9.2 mg/dL 8.5-10.1 N HEPATIC FUNCTION [id number] 16:16:00* Test Item Value Reference Range Interpretation Comments TOTAL PROTEIN (test code = PROT) 8.1 gram/dL 6.4-8.2 N ALBUMIN (test code = ALB) 4.0 g/dL 3.4-5.0 N GLOBULIN (test code = GLOB) 4.1 gram/dL 2.7-4.2 N ALBUMIN/GLOBULIN RATIO (test code = A/G) 1.0 0.75-1.50 N BILIRUBIN TOTAL (test code = BILT) 0.50 mg/dL 0.0-1.0 N BILIRUBIN DIRECT (test code = BILD) 0.13 mg/dL 0.0-0.20 N SGOT/AST (test code = AST) 15 IUnit/L 15-37 N SGPT/ALT (test code = ALT) 20 IUnit/L 12-78 N ALKALINE PHOSPHATASE TOTAL (test code = ALKP) 72 IUnit/L 45-117 N Note change in reference range due to change in reagent. [id number] 16:16:00* Test Item Value Reference Range Interpretation Comments LIPASE (test code = LIP) 83 U/L 73.0-393.0 N HCG SERUM [id number] 16:16:00* Test Item Value Reference Range Interpretation Comments HCG SERUM QUAL (test code = HCGQL) NEGATIVE NEGATIVE This HCGQL test is NOT applicable for MALE patients.Check with nurse about probable order error.If Tumor Marker Test needed, nurse should order test "HCGTU"(Test #550.68753) [id number] 16:16:00* Test Item Value Reference Range Interpretation Comments TROPONIN-I (test code = TROPI) <0.015 ng/mL 0-0.045 N BASIC METABOLIC [id number] 16:15:00* Test Item Value Reference Range Interpretation Comments SODIUM (test code = NA) 143 mmol/L 136-145 N POTASSIUM (test code = K) 3.4 mmol/L 3.5-5.1 L CHLORIDE (test code = CL) 111.0 mmol/L 98-107 H CARBON DIOXIDE (test code = CO2) mmol/L 21-32 ANION GAP (test code = GAP) 10-20 GLUCOSE (test code = GLU) mg/dL 74-106 BLOOD UREA NITROGEN (test code = BUN) mg/dL 7-18 GLOMERULAR FILTRATION RATE (test code = GFR) mL/min >=60 CREATININE (test code = CREAT) mg/dL 0.55-1.02 BUN/CREATININE RATIO (test code = BUN/CREA) 10-20 CALCIUM (test code = CA) mg/dL 8.5-10.1 HEPATIC FUNCTION [id number] 16:15:00* Test Item Value Reference Range Interpretation Comments TOTAL PROTEIN (test code = PROT) gram/dL 6.4-8.2 ALBUMIN (test code = ALB) g/dL 3.4-5.0 GLOBULIN (test code = GLOB) gram/dL 2.7-4.2 ALBUMIN/GLOBULIN RATIO (test code = A/G) 0.75-1.50 BILIRUBIN TOTAL (test code = BILT) mg/dL 0.0-1.0 BILIRUBIN DIRECT (test code = BILD) mg/dL 0.0-0.20 SGOT/AST (test code = AST) IUnit/L 15-37 SGPT/ALT (test code = ALT) IUnit/L 12-78 ALKALINE PHOSPHATASE TOTAL (test code = ALKP) IUnit/L 45-117 [id number] 16:15:00* Test Item Value Reference Range Interpretation Comments LIPASE (test code = LIP) U/L 73.0-393.0 HCG SERUM [id number] 16:15:00* Test Item Value Reference Range Interpretation Comments HCG SERUM QUAL (test code = HCGQL) NEGATIVE NEGATIVE This HCGQL test is NOT applicable for MALE patients.Check with nurse about probable order error.If Tumor Marker Test needed, nurse should order test "HCGTU"(Test #550.28060) [id number] 16:15:00* Test Item Value Reference Range Interpretation Comments TROPONIN-I (test code = TROPI) ng/mL 0-0.045 BASIC METABOLIC [id number] 16:08:00* Test Item Value Reference Range Interpretation Comments SODIUM (test code = NA) 143 mmol/L 136-145 N POTASSIUM (test code = K) 3.4 mmol/L 3.5-5.1 L CHLORIDE (test code = CL) 111.0 mmol/L 98-107 H CARBON DIOXIDE (test code = CO2) mmol/L 21-32 ANION GAP (test code = GAP) 10-20 GLUCOSE (test code = GLU) mg/dL 74-106 BLOOD UREA NITROGEN (test code = BUN) mg/dL 7-18 GLOMERULAR FILTRATION RATE (test code = GFR) mL/min >=60 CREATININE (test code = CREAT) mg/dL 0.55-1.02 BUN/CREATININE RATIO (test code = BUN/CREA) 10-20 CALCIUM (test code = CA) mg/dL 8.5-10.1 HEPATIC FUNCTION [id number] 16:08:00* Test Item Value Reference Range Interpretation Comments TOTAL PROTEIN (test code = PROT) gram/dL 6.4-8.2 ALBUMIN (test code = ALB) g/dL 3.4-5.0 GLOBULIN (test code = GLOB) gram/dL 2.7-4.2 ALBUMIN/GLOBULIN RATIO (test code = A/G) 0.75-1.50 BILIRUBIN TOTAL (test code = BILT) mg/dL 0.0-1.0 BILIRUBIN DIRECT (test code = BILD) mg/dL 0.0-0.20 SGOT/AST (test code = AST) IUnit/L 15-37 SGPT/ALT (test code = ALT) IUnit/L 12-78 ALKALINE PHOSPHATASE TOTAL (test code = ALKP) IUnit/L 45-117 [id number] 16:08:00* Test Item Value Reference Range Interpretation Comments LIPASE (test code = LIP) U/L 73.0-393.0 HCG SERUM [id number] 16:08:00* Test Item Value Reference Range Interpretation Comments HCG SERUM QUAL (test code = HCGQL) NEGATIVE [id number] 16:08:00* Test Item Value Reference Range Interpretation Comments TROPONIN-I (test code = TROPI) ng/mL 0-0.045 CBC W/O [id number] 15:47:00* Test Item Value Reference Range Interpretation Comments WHITE BLOOD CELL (test code = WBC) K/mm3 4.5-12.5 RED BLOOD CELL (test code = RBC) mill/mm3 3.7-5.2 HEMOGLOBIN (test code = HGB) 13.5 gram/dL 11.5-15.5 N HEMATOCRIT (test code = HCT) 40.9 % 36.0-46.0 N MEAN CELL VOLUME (test code = MCV) fL 80-98 MEAN CELL HGB (test code = MCH) picogram 27.0-33.0 MEAN CELL HGB CONCETRATION (test code = MCHC) gram/dL 33.0-36. 0 RED CELL DISTRIBUTION WIDTH (test code = RDW) % 11.6-16. 2 PLATELET COUNT (test code = PLT) K/mm3 150-450 MEAN PLATELET VOLUME (test code = MPV) fL 6.7-11.0 CBC W/O [id number] 15:47:00* Test Item Value Reference Range Interpretation Comments WHITE BLOOD CELL (test code = WBC) 10.1 K/mm3 4.5-12.5 N RED BLOOD CELL (test code = RBC) 4.41 mill/mm3 3.7-5.2 N HEMOGLOBIN (test code = HGB) 13.5 gram/dL 11.5-15.5 N HEMATOCRIT (test code = HCT) 40.9 % 36.0-46.0 N MEAN CELL VOLUME (test code = MCV) 92.7 fL 80-98 N MEAN CELL HGB (test code = MCH) 30.6 picogram 27.0-33.0 N MEAN CELL HGB CONCETRATION (test code = MCHC) 33.0 gram/dL 33.0-36. 0 N RED CELL DISTRIBUTION WIDTH (test code = RDW) 12.3 % 11.6-16. 2 N PLATELET COUNT (test code = PLT) 251 K/mm3 150-450 N MEAN PLATELET VOLUME (test code = MPV) 9.8 fL 6.7-11.0 N NAT,[id number] 17:10:00 RUN DATE: 05/29/19 [facility] PAGE 1 RUN TIME: 1711 Specimen Inqui ry RUN USER: INTERFACE PATIENT: LONNIE ARROYO #: [id number] LOC: BERTIN Pabon #: [id number] AGE/SX: 38/F ROOM: RE05/28/19REG DR: Han James MD : 84 BED: DIS: STATUS: [facility] TLOC: SPEC #: [id number] RECD: 05/28/19 STATUS: ELOISA HECTOR #: [id number] FREDRICK: 05/28/1940 [facility] [address]: Han James MD ENTERED: 05/28/19 SP TYPE: BX DUODEN OTHR DR: ORDERED: GROSS PROCEDURES: GROSS (05/29/19) TISSUES: 1. DUODENUM, NOS - 2nd BX 2. ANTRUM - BX CLINICAL HIST ORY COLLECTION DATE: 05/28/19 DYSPHAGIA, NAUSEA, BLOATING, ABDOMINAL PA IN POST-OP DIAGNOSIS: ESOPHAGITIS, ESOPHAGEAL STRICTURE, GASTRITIS, SMALL SLID ING HIATAL HERNIA, RULE OUT SPRUE FINAL DIAGNOSIS Second portion o f duodenum, biopsy: DUODENUM WITH NO SIGNIFICANT PATHOLOGIC ALTERATION Gastric antrum, biopsy: CHRONIC ACTIVE GASTRITIS POSITIVE FOR HELICOBACTER ORGANISMS NEGATIVE FOR INTESTINAL METAPLASIA NEG ATIVE FOR MALIGNANCY RRB/sm D [id number], [id number] MACROSCOPIC The first specimen is received in formalin, labeled with the patient's name, identified as "second portion duodenum biopsy", and consists of mir biopsy material measuring 0.4 cm in aggregate, submitted as (1). The second speci men is received in formalin, labeled with the patient's name, identified as "a ntrum biopsy", and consists of two mir biopsy fragments measuring 0.2 cm each, submitted as (2). GROSS PERFORMED AT [facility] CONTINUED ON NEX T PAGE RUN DATE: 05/29/19 [facility] 2 RUN TIME: 1711 Spec imen Inquiry RUN USER: INTERFACE SPEC #: [id number] PATIENT: SUZANNE IBRAHIMLONNIE Jerrod #[id number] (Continued) MAC ROSCOPIC (Continued) [address] [facility] [place] [address] [phone] MICROSCOPIC All of the stains, including any contro ls performed, stain appropriately. MICROSCOPIC PERFORMED AT [facility] [address] [facility], [place] [address] [phone] PERFORMING SITE Diagnosis performed at: [facility] [address] [facility] [place] [address] Signed SIGNATURE ON FILE Eleazar Alva MD 05/29/19 17 10 END OF REPORT - XR CHEST 1 [id number] 19:37:00 FAX: Sari Romano MD [place]: St: PRE Name: LONNIE KIMBALL [facility] : [birth year] Age/S: 38/F [address] [facility] Unit #: [id number] Loc: [address] Phys: [place] [id number] Acct: [id number] Dis Date: Status: PRE ER PHONE #: [phone] Exam Date: 03/06/20191923 FAX #: [phone] Reason: CP EXAMS: CPT CODE: [id number] XR CHEST 1 V 22195 HISTORY: chest pain Comparison to August 2018 Location code: B2 FINDIN GS: Frontal view of the chest demonstrates normal cardiomediastinal silhou ette. The trachea is midline. The lungs are clear. There is no effusion or pneumothorax. The bones are intact. IMPRESSION: No acute pulmon brayan process. anneliese rossi 1934 Reported and signed by: Leroy Yuan M.D. CC: Sari Haley MD Technologist: AMY COLLINS Trnscrd Oscar e/Time/By: 03/06/2019 (1934) : By: [email or web address] PAGE 1 Signed Report FAX: Sari Romano MD [place]: St: PRE Name: LONNIE ARROYO [facility] : 1980 Age/S: 38/F [address] [employer] Unit #: [id number] Loc: E.ERS[address] [place], [place] Phys: [place] [id number] Acct: [id number] Dis Date: Status: PRE ER PHONE #: [phone] Exam Date: 03/06/20191923 FAX #: [phone] Reason: CP EXAMS: CPT CODE: [id number] XR CHEST 1 V 67570 <Continued> Orig Print D/T: S: 03/06/2019 (1940) PAGE 2 Signed Report COMPREHENSIVE METABOLIC PANEL 2019-03-06 19:36:00* Test Item Value Reference Range Interpretation Comments SODIUM (test code = NA) 140 mmol/l 134.0-147.0 N POTASSIUM (test code = K) 3.6 mmol/L 3.6-5.2 N CHLORIDE (test code = CL) 104 mmol/l 98.0-107.0 N CARBON DIOXIDE (test code = CO2) 27.0 mmol/l 21.0-33.0 N ANION GAP (test code = GAP) 12.6 0-20 N GLUCOSE (test code = GLU) 104 mg/dl 70.0-110.0 N BLOOD UREA NITROGEN (test code = BUN) 11 mg/dl 7.0-18.0 N CREATININE (test code = CREAT) 0.83 mg/dL 0.60-1.30 N GFR NON BLACK (test code = GFRNONBLACK) 82 mL/min 105-110 L GFR BLACK (test code = GFRBLACK) 100 mL/min 127-133 L TOTAL PROTEIN (test code = PROT) 8.7 GM/DL 6.0-8.1 H ALBUMIN (test code = ALB) 4.4 gm/dL 3.2-4.7 N CALCIUM (test code = CA) 8.6 mg/dl 8.0-10.5 N BILIRUBIN TOTAL (test code = BILT) 0.3 mg/dl 0.0-1.0 N SGOT/AST (test code = AST) 21 Units/L 15.0-37.0 N SGPT/ALT (test code = ALT) 25 Units/L 12.0-78.0 N ALKALINE PHOSPHATASE TOTAL (test code = ALKP) 93 Units/L 50.0-136 .0 N [id number] 19:36:00* Test Item Value Reference Range Interpretation Comments LIPASE (test code = LIP) 167 Units/L 65.0-230.0 N B-TYPE NATRIURETIC [id number] 19:36:00* Test Item Value Reference Range Interpretation Comments B-TYPE NATRIURETIC PEPTIDE (test code = BNP) 6.3 PG/ML 5-100 N CARDIAC ENZYMES [id number] 19:36:00* Test Item Value Reference Range Interpretation Comments CREATINE KINASE (CK) (test code = CK) 71 Units/L 26-192 N TROPONIN-I (test code = TROPI) <0.02 NG/ML 0.00-0.06 N REFERENCE RANGE TROPONIN I HEALTHY INDIVIDUALS: <0.06 ng/mL R/O ISCHEMIA: 0.07 - 0.60 ng/mL CUT-OFF RANGE FOR AMI: 0.60 - 1.5 ng/mL COMPREHENSIVE METABOLIC [id number] 19:32:00* Test Item Value Reference Range Interpretation Comments SODIUM (test code = NA) 140 mmol/l 134.0-147.0 N POTASSIUM (test code = K) 3.6 mmol/L 3.6-5.2 N CHLORIDE (test code = CL) 104 mmol/l 98.0-107.0 N CARBON DIOXIDE (test code = CO2) 27.0 mmol/l 21.0-33.0 N ANION GAP (test code = GAP) 12.6 0-20 N GLUCOSE (test code = GLU) mg/dl 70.0-110.0 BLOOD UREA NITROGEN (test code = BUN) mg/dl 7.0-18.0 CREATININE (test code = CREAT) mg/dL 0.60-1.30 GFR NON BLACK (test code = GFRNONBLACK) mL/min 105-110 GFR BLACK (test code = GFRBLACK) mL/min 127-133 TOTAL PROTEIN (test code = PROT) gm/dL 6.4-8.2 ALBUMIN (test code = ALB) gm/dl 3.2-4.7 CALCIUM (test code = CA) mg/dl 8.0-10.5 BILIRUBIN TOTAL (test code = BILT) mg/dl 0.0-1.0 SGOT/AST (test code = AST) Units/L 15.0-37.0 SGPT/ALT (test code = ALT) Units/L 12.0-78.0 ALKALINE PHOSPHATASE TOTAL (test code = ALKP) Units/L 50.0-136 .0 [id number] 19:32:00* Test Item Value Reference Range Interpretation Comments LIPASE (test code = LIP) Units/L 65.0-230.0 B-TYPE NATRIURETIC [id number] 19:32:00* Test Item Value Reference Range Interpretation Comments B-TYPE NATRIURETIC PEPTIDE (test code = BNP) 6.3 PG/ML 5-100 N CARDIAC ENZYMES [id number] 19:32:00* Test Item Value Reference Range Interpretation Comments CREATINE KINASE (CK) (test code = CK) Units/L 26-192 TROPONIN-I (test code = TROPI) NG/ML 0.00-0.06 COMPREHENSIVE METABOLIC [id number] 19:27:00* Test Item Value Reference Range Interpretation Comments SODIUM (test code = NA) 140 mmol/l 134.0-147.0 N POTASSIUM (test code = K) 3.6 mmol/L 3.6-5.2 N CHLORIDE (test code = CL) 104 mmol/l 98.0-107.0 N CARBON DIOXIDE (test code = CO2) 27.0 mmol/l 21.0-33.0 N ANION GAP (test code = GAP) 12.6 0-20 N GLUCOSE (test code = GLU) mg/dl 70.0-110.0 BLOOD UREA NITROGEN (test code = BUN) mg/dl 7.0-18.0 CREATININE (test code = CREAT) mg/dL 0.60-1.30 GFR NON BLACK (test code = GFRNONBLACK) mL/min 105-110 GFR BLACK (test code = GFRBLACK) mL/min 127-133 TOTAL PROTEIN (test code = PROT) gm/dL 6.4-8.2 ALBUMIN (test code = ALB) gm/dl 3.2-4.7 CALCIUM (test code = CA) mg/dl 8.0-10.5 BILIRUBIN TOTAL (test code = BILT) mg/dl 0.0-1.0 SGOT/AST (test code = AST) Units/L 15.0-37.0 SGPT/ALT (test code = ALT) Units/L 12.0-78.0 ALKALINE PHOSPHATASE TOTAL (test code = ALKP) Units/L 50.0-136 .0 [id number] 19:27:00* Test Item Value Reference Range Interpretation Comments LIPASE (test code = LIP) Units/L 65.0-230.0 B-TYPE NATRIURETIC [id number] 19:27:00* Test Item Value Reference Range Interpretation Comments B-TYPE NATRIURETIC PEPTIDE (test code = BNP) PG/ML 5-100 CARDIAC ENZYMES [id number] 19:27:00* Test Item Value Reference Range Interpretation Comments CREATINE KINASE (CK) (test code = CK) Units/L 26-192 TROPONIN-I (test code = TROPI) NG/ML 0.00-0.06 PROTHROMBIN [id number] 19:23:00* Test Item Value Reference Range Interpretation Comments PROTHROMBIN TIME PATIENT (test code = PTP) 11.1 SECONDS 9.9-12.8 N INTERNATIONAL NORMAL RATIO (test code = INR) 0.9 0.89-1.14 N THE INR IS TO BE USED ONLY FOR MONITORING ORAL ANTICOAGULANTTHERAPY. THE FOLLOWING ARE SUGGESTED RANGES FROM THEAMERICAN COLLEGE OF CHEST PHYSICIANS:INDICATION INR VALUEPROPHYLAXIS OF VENOUS THROMBOSIS (ORTHOPEDIC SURGERY) 2.0 - 3.0PROPHYLAXIS OF VENOUS THROMBOSIS (OTHER THAN HIGH-RISK SURGERY) 2.0 - 3.0TREATMENT OF DEEP VEIN THROMBOSIS OR PULMONARY EMBOLISM 2.0 - 3.0PREVENTION OF SYSTEMIC EMBOLISM TISSUE HEART VALVES 2.0 - 3.0 ACUTE MYOCARDIAL INFARCTION (TO PREVENT SYSTEMIC EMBOLISM) 2.0 - 3.0 ACUTE MYOCARDIAL INFARCTION (TO PREVENT RECURRENT INFARCT) 2.5 - 3.0 VALVULAR HEART DISEASE 2.0 - 3.0 ATRIAL FIBRILATION 2.0 - 3.0BILEAFLET MECHANICAL VALVE IN AORTIC POSITION 2.0 - 3.0MECHANICAL PROSTHETIC VALVES (HIGH RISK) 2.5 - 3.5PRESENCE OF LUPUS ANTICOAGULANT OR ANTIPHOSPHOLIPID ANTIBODIES 2.5 - 3.5 THROMBOPLASTIN TIME [id number] 19:23:00* Test Item Value Reference Range Interpretation Comments THROMBOPLASTIN TIME PARTIAL (test code = PTT) 34.60 SECONDS 25.86-3 6.07 N [facility] Therapeutic Range - APTT of 55.8-85.4 secondscorrelates with plasma heparin concentration of 0.2-0.4 u/mL New range effective - 09/11/2016 D-DIMER/[id number] 19:23:00* Test Item Value Reference Range Interpretation Comments D-DIMER/FSP (test code = DDIMER) <200 ng/mL 200.0-230.0 L Per inorganic chemist recommendation, the CUT OFFfor the Diagnosis of PE or DVT with a 100% SENSITIVITY &100% PREDICTIVE VALUE is suggested to be 230 ng/mL D- DIMERUNIT(DDU). D-DIMER RESULTS MAY BE AFFECTED BY:1. HEMOGLOBIN > 100 mg/dL2. BILIRUBIN > 10 mg/dL3. TRIGLYCERIDES > 1500 mg/dL4. The presence of RHEUMATIOID FACTOR may produce an overestimation of the test result. CBC W/AUTO [id number] 19:15:00* Test Item Value Reference Range Interpretation Comments WHITE BLOOD CELL (test code = WBC) 10.6 K/mm3 4.5-11.0 N RED BLOOD CELL (test code = RBC) 4.75 M/mm3 3.80-5.20 N HEMOGLOBIN (test code = HGB) 14.6 gm/dL 12.0-16.0 N HEMATOCRIT (test code = HCT) 43.5 % 36.0-48.0 N MEAN CELL VOLUME (test code = MCV) 91.6 UM3 82.0-99.0 N MEAN CELL HGB (test code = MCH) 30.7 UUG 25.5-32.5 N MEAN CELL HGB CONCETRATION (test code = MCHC) 33.6 gm/dL 29.0-35. 5 N RED CELL DISTRIBUTION WIDTH (test code = RDW) 12.3 % 11.5-15. 0 N RED CELL DISTRIBUTION WIDTH SD (test code = RDW-SD) 41.4 fL 34 .8-50.2 N PLATELET COUNT (test code = PLT) 256 K/mm3 150-400 N MEAN PLATELET VOLUME (test code = MPV) 9.8 fl 7.4-10.4 N NEUTROPHIL % (test code = NT%) 60.2 % 49.0-76.0 N IMMATURE GRANULOCYTE % (test code = IG%) 0.2 % 0.0-0.4 N LYMPHOCYTE % (test code = LY%) 32.5 % 23.0-38.0 N MONOCYTE % (test code = MO%) 5.9 % 1.0-10.0 N EOSINOPHIL % (test code = EO%) 0.6 % 1.0-5.0 L BASOPHIL % (test code = BA%) 0.6 % 0.0-1.0 N NEUTROPHIL # (test code = NT#) 6.4 K/mm3 2.4-6.3 H IMMATURE GRANULOCYTE # (test code = IG#) 0.02 x10 3/uL 0.00-0.07 N LYMPHOCYTE # (test code = LY#) 3.4 K/mm3 1.2-4.0 N MONOCYTE # (test code = MO#) 0.6 K/mm3 0.0-0.6 N EOSINOPHIL # (test code = EO#) 0.1 K/MM3 0.0-0.7 N BASOPHIL # (test code = BA#) 0.1 K/mm3 0.0-0.2 N DRUGS OF ABUSE SCREEN [id number] 19:01:00* Test Item Value Reference Range Interpretation Comments URN COCAINE (test code = COCAURN) NEGATIVE NEGATIVE Cocaine cut-off concentration: 300 ng/mL URN CANNABINOIDS (test code = CANNABURN) NEGATIVE NEGATIVE Cannabinoids cut- off concentration: 50 ng/mL URN AMPHETAMINE (test code = AMPHETURN) NEGATIVE NEGATIVE Amphetamine cut-off concentration: 1000 ng/mL URN BARBITURATE (test code = BARBITURN) NEGATIVE NEGATIVE Barbiturate cut-off concentration: 200 ng/mL URN BENZODIAZEPINE (test code = BENZOURN) NEGATIVE NEGATIVE Benzodiazepine cut-off concentration: 200 ng/mL URN OPIATES (test code = OPIATURN) NEGATIVE NEGATIVE Opiates cut-off concentration: 200 ng/mL URN PHENCYCLIDINE (PCP) (test code = PHENCURN) NEGATIVE NEGATIV E Phencyclidine(PCP) cut-off concentration: 25 ng/ml URN METHADONE (test code = METHAURN) NEGATIVE NEGATIVE Methadone cut-off concentration: 300 ng/mL UR HCG [id number] 18:51:00* Test Item Value Reference Range Interpretation Comments UR HCG QUAL (test code = HCGQLU) NEGATIVE NEGATIVE KIDNEY STONE [id number] 10:07:00* Test Item Value Reference Range Interpretation Comments KIDNEY STONE ANALYSIS (test code = STONEK) 3x3x2 mm () SOURCE OF STONE (test code = STONESRC) KIDNEY STONE ANALYSIS COMMENT (test code = STONECOM) PRESENT NIDUS Color: Brown Composition: Percentage (Represents the % composition) Ca oxalate dihydrate 05 % Ca oxalate monohydr. 90 % Calcium phosphate 05 % Nidus: Nidus composed of Calcium oxalate monohydrate. Surface Crystals Comment: Calcium oxalate dihydrate Test performed at: [place] [address] STONE ANALYSIS (test code = STONE) () Photograph will follow under separate cover. WEIGHT OF STONE (test code = STONEWT) 13.0 mg () Test performed at: [facility] [address] [address] GAVE KIDNEY STONE TO PATHOLOGY. V.[facility] 10/18/18 1259KILEYDIEY STONE ANALYSIS 2018-10-23 17:09:00* Test Item Value Reference Range Interpretation Comments KIDNEY STONE ANALYSIS (test code = STONEK) 3x3x2 mm () SOURCE OF STONE (test code = STONESRC) STONE ANALYSIS COMMENT (test code = STONECOM) NIDUS STONE ANALYSIS (test code = STONE) () Photograph will follow under separate cover. WEIGHT OF STONE (test code = STONEWT) 13.0 mg () Test performed at: [facility] [address] [address] GAVE KIDNEY STONE TO PATHOLOGY. [facility] 10/18/18 [id number] METABOLIC PANEL 2018-10-20 05:47:00* Test Item Value Reference Range Interpretation Comments SODIUM (test code = NA) 144 mmol/L 136-145 N POTASSIUM (test code = K) 3.6 mmol/L 3.5-5.1 N CHLORIDE (test code = CL) 111.0 mmol/L 98-107 H CARBON DIOXIDE (test code = CO2) 25.0 mmol/L 21-32 N ANION GAP (test code = GAP) 11.6 10-20 N GLUCOSE (test code = GLU) 91 mg/dL 74-106 N BLOOD UREA NITROGEN (test code = BUN) 11 mg/dL 7-18 N GLOMERULAR FILTRATION RATE (test code = GFR) > 60 mL/min >=60 Estimated GFR by using Modified MDRD formula.Chronic kidney disease is defined as either kidney damageor GFR <60 mL/min/1.73 m2 for >3 months. CREATININE (test code = CREAT) 0.80 mg/dL 0.55-1.02 N Note change in reference range due to change in reagent. BUN/CREATININE RATIO (test code = BUN/CREA) 13.8 10-20 N CALCIUM (test code = CA) 8.4 mg/dL 8.5-10.1 L [id number] 05:47:00* Test Item Value Reference Range Interpretation Comments PHOSPHORUS (test code = PHOS) 3.6 mg/dL 2.5-4.9 N [id number] 05:47:00* Test Item Value Reference Range Interpretation Comments MAGNESIUM (test code = MAG) 1.5 mg/dL 1.8-2.4 L BASIC METABOLIC [id number] 05:33:00* Test Item Value Reference Range Interpretation Comments SODIUM (test code = NA) 144 mmol/L 136-145 N POTASSIUM (test code = K) 3.6 mmol/L 3.5-5.1 N CHLORIDE (test code = CL) 111.0 mmol/L 98-107 H CARBON DIOXIDE (test code = CO2) mmol/L 21-32 ANION GAP (test code = GAP) 10-20 GLUCOSE (test code = GLU) mg/dL 74-106 BLOOD UREA NITROGEN (test code = BUN) mg/dL 7-18 GLOMERULAR FILTRATION RATE (test code = GFR) mL/min >=60 CREATININE (test code = CREAT) mg/dL 0.55-1.02 BUN/CREATININE RATIO (test code = BUN/CREA) 10-20 CALCIUM (test code = CA) mg/dL 8.5-10.1 [id number] 05:33:00* Test Item Value Reference Range Interpretation Comments PHOSPHORUS (test code = PHOS) mg/dL 2.5-4.9 [id number] 05:33:00* Test Item Value Reference Range Interpretation Comments MAGNESIUM (test code = MAG) mg/dL 1.8-2.4 CBC W/AUTO [id number] 05:05:00* Test Item Value Reference Range Interpretation Comments WHITE BLOOD CELL (test code = WBC) 8.4 K/mm3 4.5-12.5 N RED BLOOD CELL (test code = RBC) 3.67 mill/mm3 3.7-5.2 L HEMOGLOBIN (test code = HGB) 11.4 gram/dL 11.5-15.5 L HEMATOCRIT (test code = HCT) 35.3 % 36.0-46.0 L MEAN CELL VOLUME (test code = MCV) 96.2 fL 80-98 N MEAN CELL HGB (test code = MCH) 31.1 picogram 27.0-33.0 N MEAN CELL HGB CONCETRATION (test code = MCHC) 32.3 gram/dL 33.0-36. 0 L RED CELL DISTRIBUTION WIDTH (test code = RDW) 12.6 % 11.6-16. 2 N RED CELL DISTRIBUTION WIDTH SD (test code = RDW-SD) 44.6 fL 37 .0-51.0 N PLATELET COUNT (test code = PLT) 141 K/mm3 150-450 L MEAN PLATELET VOLUME (test code = MPV) 11.1 fL 6.7-11.0 H NEUTROPHIL % (test code = NT%) 53.9 % 39.0-69.0 N IMMATURE GRANULOCYTE % (test code = IG%) 0.4 % 0.0-5.0 N LYMPHOCYTE % (test code = LY%) 37.4 % 25.0-55.0 N MONOCYTE % (test code = MO%) 7.2 % 0.0-10.0 N EOSINOPHIL % (test code = EO%) 0.9 % 0.0-5.0 N BASOPHIL % (test code = BA%) 0.2 % 0.0-1.0 N NUCLEATED RBC % (test code = NRBC%) 0.0 % 0-0 N NEUTROPHIL # (test code = NT#) 4.54 K/mm3 1.8-7.7 N IMMATURE GRANULOCYTE # (test code = IG#) 0.03 x10 3/uL 0-0.03 N LYMPHOCYTE # (test code = LY#) 3.16 K/mm3 1.0-5.0 N MONOCYTE # (test code = MO#) 0.61 K/mm3 0-0.8 N EOSINOPHIL # (test code = EO#) 0.08 K/mm3 0.0-0.5 N BASOPHIL # (test code = BA#) 0.02 K/mm3 0.0-0.2 N NUCLEATED RBC # (test code = NRBC#) 0.00 K/mm3 0.0-0.1 N AG [employer] [id number] 23:07:00* Test Item Value Reference Range Interpretation Comments AG [employer]I STOOL (test code = HELIGAG) Positive Neg ative A Performed At: [facility] [address] [id number] Sanjai MD Ph:[phone] BASIC METABOLIC [id number] 12:56:00* Test Item Value Reference Range Interpretation Comments SODIUM (test code = NA) 142 mmol/L 136-145 N POTASSIUM (test code = K) 3.4 mmol/L 3.5-5.1 L CHLORIDE (test code = CL) 111.0 mmol/L 98-107 H CARBON DIOXIDE (test code = CO2) 21.0 mmol/L 21-32 N ANION GAP (test code = GAP) 13.4 10-20 N GLUCOSE (test code = GLU) 91 mg/dL 74-106 N BLOOD UREA NITROGEN (test code = BUN) 7 mg/dL 7-18 N GLOMERULAR FILTRATION RATE (test code = GFR) > 60 mL/min >=60 Estimated GFR by using Modified MDRD formula.Chronic kidney disease is defined as either kidney damageor GFR <60 mL/min/1.73 m2 for >3 months. CREATININE (test code = CREAT) 0.70 mg/dL 0.55-1.02 N Note change in reference range due to change in reagent. BUN/CREATININE RATIO (test code = BUN/CREA) 10.0 10-20 N CALCIUM (test code = CA) 9.1 mg/dL 8.5-10.1 N NOTIIFIEDV.LAB.KH1 10/19/18 0658BASIC METABOLIC [id number] 12:47:00* Test Item Value Reference Range Interpretation Comments SODIUM (test code = NA) 142 mmol/L 136-145 N POTASSIUM (test code = K) 3.4 mmol/L 3.5-5.1 L CHLORIDE (test code = CL) 111.0 mmol/L 98-107 H CARBON DIOXIDE (test code = CO2) mmol/L 21-32 ANION GAP (test code = GAP) 10-20 GLUCOSE (test code = GLU) mg/dL 74-106 BLOOD UREA NITROGEN (test code = BUN) mg/dL 7-18 GLOMERULAR FILTRATION RATE (test code = GFR) mL/min >=60 CREATININE (test code = CREAT) mg/dL 0.55-1.02 BUN/CREATININE RATIO (test code = BUN/CREA) 10-20 CALCIUM (test code = CA) mg/dL 8.5-10.1 [facility].LAB.KH1 10/19/18 0658CBC W/AUTO [id number] 12:23:00* Test Item Value Reference Range Interpretation Comments WHITE BLOOD CELL (test code = WBC) 11.8 K/mm3 4.5-12.5 N RED BLOOD CELL (test code = RBC) 4.00 mill/mm3 3.7-5.2 N HEMOGLOBIN (test code = HGB) 12.0 gram/dL 11.5-15.5 N HEMATOCRIT (test code = HCT) 37.8 % 36.0-46.0 N MEAN CELL VOLUME (test code = MCV) 94.5 fL 80-98 N MEAN CELL HGB (test code = MCH) 30.0 picogram 27.0-33.0 N MEAN CELL HGB CONCETRATION (test code = MCHC) 31.7 gram/dL 33.0-36. 0 L RED CELL DISTRIBUTION WIDTH (test code = RDW) 12.4 % 11.6-16. 2 N RED CELL DISTRIBUTION WIDTH SD (test code = RDW-SD) 43.6 fL 37 .0-51.0 N PLATELET COUNT (test code = PLT) 165 K/mm3 150-450 N MEAN PLATELET VOLUME (test code = MPV) 10.6 fL 6.7-11.0 N NEUTROPHIL % (test code = NT%) 62.9 % 39.0-69.0 N IMMATURE GRANULOCYTE % (test code = IG%) 0.3 % 0.0-5.0 N LYMPHOCYTE % (test code = LY%) 27.4 % 25.0-55.0 N MONOCYTE % (test code = MO%) 8.8 % 0.0-10.0 N EOSINOPHIL % (test code = EO%) 0.3 % 0.0-5.0 N BASOPHIL % (test code = BA%) 0.3 % 0.0-1.0 N NUCLEATED RBC % (test code = NRBC%) 0.0 % 0-0 N NEUTROPHIL # (test code = NT#) 7.44 K/mm3 1.8-7.7 N IMMATURE GRANULOCYTE # (test code = IG#) 0.04 x10 3/uL 0-0.03 H LYMPHOCYTE # (test code = LY#) 3.24 K/mm3 1.0-5.0 N MONOCYTE # (test code = MO#) 1.04 K/mm3 0-0.8 H EOSINOPHIL # (test code = EO#) 0.04 K/mm3 0.0-0.5 N BASOPHIL # (test code = BA#) 0.03 K/mm3 0.0-0.2 N NUCLEATED RBC # (test code = NRBC#) 0.00 K/mm3 0.0-0.1 N MANUAL DIFF REQUIRED (test code = MDIFF) NO 10/19/18 [id number] 10:53:00 RUN DATE: 10[place]19/18 [place] [facility] [place] [facility] RUN TIME: 1053 Specimen Inqui ry RUN USER: INTERFACE PATIENT: LONNIE ARROYO ACCT #: [id number] LOC: MAHI U #: [id number] AGE/SX: 37/F ROOM: [facility] RE10/17/18REG DR: Mitul Bazzi MD : 84 BED: A DIS: STATUS: ADM IN TLOC: SPEC #: [id number] RECD: 10/18/18 STATUS: PHYLLISLois TAWNY #: [id number] FREDRICK: 10/18/[address] [facility] [address]: Jorge Luis Basurto ENTERED: 10/18/18 SP TYPE: CALCULI OTHR DR: Han James MD, Herbert LeonardORDERED: GROSS COPIES TO: Han James MD [address] [place] [address] [address] [place] [address] PROCEDURES: GROSS () TISSUES: KIDNEY, NOS - STONES CLINICAL HISTORY COLLECTION DATE: 10/18/18 RIGHT KIDNEY STONE FINAL DIAGNOSIS Kid lucila stones, removal: CALCULI TO BE SENT FOR CHEMICAL ANALYSIS D MW/sm D 28410 MACROSCOPIC The specimen is received in a contain er labeled with the patient's name and identified as "kidney stone". It consi sts of two brown calculi/calculi fragments measuring 0.1 and 0.2 cm. DIONTE SS PERFORMED AT [facility] PATHOLOGY [employer] [address] [facility] CONTINUED ON NEXT PAG E RUN DATE: 10/19/18 [place] - [facility] PAGE 2 RUN TIME: 1053 Specimen Inquiry RUN USER: INTERFACE SPEC #: [id number] PATIENT: LONNIE ARROYO #[id number] (Continued) [facility] PIC (Continued) [place] [address] [phone] Signed SIGNATURE ON FILE Edwina Buckley MD 10/19/18 10 53 END OF REPORT - XR UROGRAM [id number] 13:09:00 FAX: Mitul Bazzi [phone] [place]: St: ADM FAX: Jorge Luis Montes [phone] Name: LONNIE ARROYO [facility] : 1980 Age/S: 37/F [address] [facility] Unit #: [id number] Loc: V.3079 [place] [address] Phys: Jorge Luis Basurto Acct: [id number] Dis Date: Status: ADM IN PHONE #: [phone] Exam Date: 10/18/2018 1140 FAX #: [phone] Reason: RT KIDNEY STONES EXAMS: CPT CODE: [id number] XR UROGRAM RETRO 84058 HISTORY: Kidney stones. COMPARISON: CT scan from A pril 2018. 9 fluoroscopic spot images from the OR: Opacification of the right collecting system. Right stent noted. E lectronically Signed by Edmund Szymanski on 10/18/2018 at 1309 Reported and signed by: Frank Szymanski M.D. CC: Mitul Bazzi MD; Jorge Luis Basurto M.D. Technologist: RT DIONNA(Jimena) Chelly Date/Time/By: 019 (1309) : By: [email or web address] Orig Print D/T: S: 10/18/2018 (2086) PAGE 1 Signed Report BASIC METABOLIC [id number] 08:02:00* Test Item Value Reference Range Interpretation Comments SODIUM (test code = NA) 143 mmol/L 136-145 RESU LT VERIFIED BY REPEAT ANALYSIS POTASSIUM (test code = K) 4.0 mmol/L 3.5-5.1 N CHLORIDE (test code = CL) 114.0 mmol/L 98-107 H CARBON DIOXIDE (test code = CO2) 23.0 mmol/L 21-32 N ANION GAP (test code = GAP) 10.0 10-20 N GLUCOSE (test code = GLU) 81 mg/dL 74-106 N BLOOD UREA NITROGEN (test code = BUN) 6 mg/dL 7-18 L GLOMERULAR FILTRATION RATE (test code = GFR) > 60 mL/min >=60 Estimated GFR by using Modified MDRD formula.Chronic kidney disease is defined as either kidney damageor GFR <60 mL/min/1.73 m2 for >3 months. CREATININE (test code = CREAT) 0.60 mg/dL 0.55-1.02 N Note change in reference range due to change in reagent. BUN/CREATININE RATIO (test code = BUN/CREA) 10.0 10-20 N CALCIUM (test code = CA) 8.2 mg/dL 8.5-10.1 L CBC W/AUTO [id number] 06:53:00* Test Item Value Reference Range Interpretation Comments WHITE BLOOD CELL (test code = WBC) 7.7 K/mm3 4.5-12.5 N RED BLOOD CELL (test code = RBC) 3.93 mill/mm3 3.7-5.2 N HEMOGLOBIN (test code = HGB) 12.0 gram/dL 11.5-15.5 N HEMATOCRIT (test code = HCT) 39.5 % 36.0-46.0 N MEAN CELL VOLUME (test code = MCV) 100.5 fL 80-98 H MEAN CELL HGB (test code = MCH) 30.5 picogram 27.0-33.0 N MEAN CELL HGB CONCETRATION (test code = MCHC) 30.4 gram/dL 33.0-36. 0 L RED CELL DISTRIBUTION WIDTH (test code = RDW) 12.6 % 11.6-16. 2 N RED CELL DISTRIBUTION WIDTH SD (test code = RDW-SD) 47.3 fL 37 .0-51.0 N PLATELET COUNT (test code = PLT) 147 K/mm3 150-450 L MEAN PLATELET VOLUME (test code = MPV) 10.7 fL 6.7-11.0 N NEUTROPHIL % (test code = NT%) 48.0 % 39.0-69.0 N IMMATURE GRANULOCYTE % (test code = IG%) 0.5 % 0.0-5.0 N LYMPHOCYTE % (test code = LY%) 41.5 % 25.0-55.0 N MONOCYTE % (test code = MO%) 8.3 % 0.0-10.0 N EOSINOPHIL % (test code = EO%) 1.3 % 0.0-5.0 N BASOPHIL % (test code = BA%) 0.4 % 0.0-1.0 N NUCLEATED RBC % (test code = NRBC%) 0.0 % 0-0 N NEUTROPHIL # (test code = NT#) 3.70 K/mm3 1.8-7.7 N IMMATURE GRANULOCYTE # (test code = IG#) 0.04 x10 3/uL 0-0.03 H LYMPHOCYTE # (test code = LY#) 3.20 K/mm3 1.0-5.0 N MONOCYTE # (test code = MO#) 0.64 K/mm3 0-0.8 N EOSINOPHIL # (test code = EO#) 0.10 K/mm3 0.0-0.5 N BASOPHIL # (test code = BA#) 0.03 K/mm3 0.0-0.2 N NUCLEATED RBC # (test code = NRBC#) 0.00 K/mm3 0.0-0.1 N MANUAL DIFF REQUIRED (test code = MDIFF) NO CBC W/AUTO [id number] 06:41:00* Test Item Value Reference Range Interpretation Comments WHITE BLOOD CELL (test code = WBC) K/mm3 4.5-12.5 RED BLOOD CELL (test code = RBC) mill/mm3 3.7-5.2 HEMOGLOBIN (test code = HGB) 12.0 gram/dL 11.5-15.5 N HEMATOCRIT (test code = HCT) 39.5 % 36.0-46.0 N MEAN CELL VOLUME (test code = MCV) fL 80-98 MEAN CELL HGB (test code = MCH) picogram 27.0-33.0 MEAN CELL HGB CONCETRATION (test code = MCHC) gram/dL 33.0-36. 0 RED CELL DISTRIBUTION WIDTH (test code = RDW) % 11.6-16. 2 RED CELL DISTRIBUTION WIDTH SD (test code = RDW-SD) fL 37 .0-51.0 PLATELET COUNT (test code = PLT) K/mm3 150-450 MEAN PLATELET VOLUME (test code = MPV) fL 6.7-11.0 NEUTROPHIL % (test code = NT%) % 39.0-69.0 IMMATURE GRANULOCYTE % (test code = IG%) % 0.0-5.0 LYMPHOCYTE % (test code = LY%) % 25.0-55.0 MONOCYTE % (test code = MO%) % 0.0-10.0 EOSINOPHIL % (test code = EO%) % 0.0-5.0 BASOPHIL % (test code = BA%) % 0.0-1.0 NEUTROPHIL # (test code = NT#) K/mm3 1.8-7.7 LYMPHOCYTE # (test code = LY#) K/mm3 1.0-5.0 MONOCYTE # (test code = MO#) K/mm3 0-0.8 EOSINOPHIL # (test code = EO#) K/mm3 0.0-0.5 BASOPHIL # (test code = BA#) K/mm3 0.0-0.2 BASIC METABOLIC [id number] 12:16:00* Test Item Value Reference Range Interpretation Comments SODIUM (test code = NA) 137 mmol/L 136-145 N POTASSIUM (test code = K) 4.3 mmol/L 3.5-5.1 N CHLORIDE (test code = CL) 112.0 mmol/L 98-107 H CARBON DIOXIDE (test code = CO2) 22.0 mmol/L 21-32 N ANION GAP (test code = GAP) 7.3 10-20 L GLUCOSE (test code = GLU) 89 mg/dL 74-106 N BLOOD UREA NITROGEN (test code = BUN) 10 mg/dL 7-18 N GLOMERULAR FILTRATION RATE (test code = GFR) > 60 mL/min >=60 Estimated GFR by using Modified MDRD formula.Chronic kidney disease is defined as either kidney damageor GFR <60 mL/min/1.73 m2 for >3 months. CREATININE (test code = CREAT) 0.70 mg/dL 0.55-1.02 N Note change in reference range due to change in reagent. BUN/CREATININE RATIO (test code = BUN/CREA) 14.3 10-20 N CALCIUM (test code = CA) 8.1 mg/dL 8.5-10.1 L CBC W/AUTO [id number] 11:53:00* Test Item Value Reference Range Interpretation Comments WHITE BLOOD CELL (test code = WBC) K/mm3 4.5-12.5 RED BLOOD CELL (test code = RBC) mill/mm3 3.7-5.2 HEMOGLOBIN (test code = HGB) 12.2 gram/dL 11.5-15.5 N HEMATOCRIT (test code = HCT) 38.9 % 36.0-46.0 N MEAN CELL VOLUME (test code = MCV) fL 80-98 MEAN CELL HGB (test code = MCH) picogram 27.0-33.0 MEAN CELL HGB CONCETRATION (test code = MCHC) gram/dL 33.0-36. 0 RED CELL DISTRIBUTION WIDTH (test code = RDW) % 11.6-16. 2 RED CELL DISTRIBUTION WIDTH SD (test code = RDW-SD) fL 37 .0-51.0 PLATELET COUNT (test code = PLT) K/mm3 150-450 MEAN PLATELET VOLUME (test code = MPV) fL 6.7-11.0 NEUTROPHIL % (test code = NT%) % 39.0-69.0 IMMATURE GRANULOCYTE % (test code = IG%) % 0.0-5.0 LYMPHOCYTE % (test code = LY%) % 25.0-55.0 MONOCYTE % (test code = MO%) % 0.0-10.0 EOSINOPHIL % (test code = EO%) % 0.0-5.0 BASOPHIL % (test code = BA%) % 0.0-1.0 NEUTROPHIL # (test code = NT#) K/mm3 1.8-7.7 LYMPHOCYTE # (test code = LY#) K/mm3 1.0-5.0 MONOCYTE # (test code = MO#) K/mm3 0-0.8 EOSINOPHIL # (test code = EO#) K/mm3 0.0-0.5 BASOPHIL # (test code = BA#) K/mm3 0.0-0.2 CBC W/AUTO [id number] 11:53:00* Test Item Value Reference Range Interpretation Comments WHITE BLOOD CELL (test code = WBC) 8.8 K/mm3 4.5-12.5 N RED BLOOD CELL (test code = RBC) 3.95 mill/mm3 3.7-5.2 N HEMOGLOBIN (test code = HGB) 12.2 gram/dL 11.5-15.5 N HEMATOCRIT (test code = HCT) 38.9 % 36.0-46.0 N MEAN CELL VOLUME (test code = MCV) 98.5 fL 80-98 H MEAN CELL HGB (test code = MCH) 30.9 picogram 27.0-33.0 N MEAN CELL HGB CONCETRATION (test code = MCHC) 31.4 gram/dL 33.0-36. 0 L RED CELL DISTRIBUTION WIDTH (test code = RDW) 12.5 % 11.6-16. 2 N RED CELL DISTRIBUTION WIDTH SD (test code = RDW-SD) 45.1 fL 37 .0-51.0 N PLATELET COUNT (test code = PLT) 158 K/mm3 150-450 N MEAN PLATELET VOLUME (test code = MPV) 10.2 fL 6.7-11.0 N NEUTROPHIL % (test code = NT%) 58.0 % 39.0-69.0 N IMMATURE GRANULOCYTE % (test code = IG%) 0.2 % 0.0-5.0 N LYMPHOCYTE % (test code = LY%) 33.4 % 25.0-55.0 N MONOCYTE % (test code = MO%) 7.4 % 0.0-10.0 N EOSINOPHIL % (test code = EO%) 0.7 % 0.0-5.0 N BASOPHIL % (test code = BA%) 0.3 % 0.0-1.0 N NUCLEATED RBC % (test code = NRBC%) 0.0 % 0-0 N NEUTROPHIL # (test code = NT#) 5.12 K/mm3 1.8-7.7 N IMMATURE GRANULOCYTE # (test code = IG#) 0.02 x10 3/uL 0-0.03 N LYMPHOCYTE # (test code = LY#) 2.95 K/mm3 1.0-5.0 N MONOCYTE # (test code = MO#) 0.65 K/mm3 0-0.8 N EOSINOPHIL # (test code = EO#) 0.06 K/mm3 0.0-0.5 N BASOPHIL # (test code = BA#) 0.03 K/mm3 0.0-0.2 N NUCLEATED RBC # (test code = NRBC#) 0.00 K/mm3 0.0-0.1 N MANUAL DIFF REQUIRED (test code = MDIFF) NO BASIC METABOLIC [id number] 05:04:00* Test Item Value Reference Range Interpretation Comments SODIUM (test code = NA) 138 mmol/L 136-145 N POTASSIUM (test code = K) 3.9 mmol/L 3.5-5.1 N CHLORIDE (test code = CL) 106.0 mmol/L 98-107 N CARBON DIOXIDE (test code = CO2) 24.0 mmol/L 21-32 N ANION GAP (test code = GAP) 11.9 10-20 N GLUCOSE (test code = GLU) 91 mg/dL 74-106 N BLOOD UREA NITROGEN (test code = BUN) 14 mg/dL 7-18 N GLOMERULAR FILTRATION RATE (test code = GFR) > 60 mL/min >=60 Estimated GFR by using Modified MDRD formula.Chronic kidney disease is defined as either kidney damageor GFR <60 mL/min/1.73 m2 for >3 months. CREATININE (test code = CREAT) 0.70 mg/dL 0.55-1.02 N Note change in reference range due to change in reagent. BUN/CREATININE RATIO (test code = BUN/CREA) 20.0 10-20 N CALCIUM (test code = CA) 9.2 mg/dL 8.5-10.1 N BASIC METABOLIC [id number] 04:55:00* Test Item Value Reference Range Interpretation Comments SODIUM (test code = NA) 138 mmol/L 136-145 N POTASSIUM (test code = K) 3.9 mmol/L 3.5-5.1 N CHLORIDE (test code = CL) 106.0 mmol/L 98-107 N CARBON DIOXIDE (test code = CO2) mmol/L 21-32 ANION GAP (test code = GAP) 10-20 GLUCOSE (test code = GLU) mg/dL 74-106 BLOOD UREA NITROGEN (test code = BUN) mg/dL 7-18 GLOMERULAR FILTRATION RATE (test code = GFR) mL/min >=60 CREATININE (test code = CREAT) mg/dL 0.55-1.02 BUN/CREATININE RATIO (test code = BUN/CREA) 10-20 CALCIUM (test code = CA) mg/dL 8.5-10.1 CBC W/AUTO [id number] 04:52:00* Test Item Value Reference Range Interpretation Comments WHITE BLOOD CELL (test code = WBC) 10.4 K/mm3 4.5-12.5 N RED BLOOD CELL (test code = RBC) 4.24 mill/mm3 3.7-5.2 N HEMOGLOBIN (test code = HGB) 13.2 gram/dL 11.5-15.5 RESULT VERIFIED BY REPEAT ANALYSIS HEMATOCRIT (test code = HCT) 39.9 % 36.0-46.0 N MEAN CELL VOLUME (test code = MCV) 94.1 fL 80-98 N MEAN CELL HGB (test code = MCH) 31.1 picogram 27.0-33.0 N MEAN CELL HGB CONCETRATION (test code = MCHC) 33.1 gram/dL 33.0-36. 0 N RED CELL DISTRIBUTION WIDTH (test code = RDW) 12.8 % 11.6-16. 2 N RED CELL DISTRIBUTION WIDTH SD (test code = RDW-SD) 44.0 fL 37 .0-51.0 N PLATELET COUNT (test code = PLT) 187 K/mm3 150-450 N MEAN PLATELET VOLUME (test code = MPV) 10.3 fL 6.7-11.0 N NEUTROPHIL % (test code = NT%) 59.1 % 39.0-69.0 N IMMATURE GRANULOCYTE % (test code = IG%) 0.6 % 0.0-5.0 N LYMPHOCYTE % (test code = LY%) 31.4 % 25.0-55.0 N MONOCYTE % (test code = MO%) 8.1 % 0.0-10.0 N EOSINOPHIL % (test code = EO%) 0.4 % 0.0-5.0 N BASOPHIL % (test code = BA%) 0.4 % 0.0-1.0 N NUCLEATED RBC % (test code = NRBC%) 0.0 % 0-0 N NEUTROPHIL # (test code = NT#) 6.17 K/mm3 1.8-7.7 N IMMATURE GRANULOCYTE # (test code = IG#) 0.06 x10 3/uL 0-0.03 H LYMPHOCYTE # (test code = LY#) 3.28 K/mm3 1.0-5.0 N MONOCYTE # (test code = MO#) 0.84 K/mm3 0-0.8 H EOSINOPHIL # (test code = EO#) 0.04 K/mm3 0.0-0.5 N BASOPHIL # (test code = BA#) 0.04 K/mm3 0.0-0.2 N NUCLEATED RBC # (test code = NRBC#) 0.00 K/mm3 0.0-0.1 N - CT ABD PELVIS W/O [id number] 15:02:00 Name: LONNIE ARROYO [facility] : 1980 Age/S: 37 / F [address] Unit #: [id number] Loc: [place] [address] Phys: Laurie Dutton MD Acct: [id number] Dis Date: Status: REG ER PHONE #: [phone] Exam Date: 10/15/2018 1445 FAX #: [phone] Reason: R flank pain EXAMS: CPT CODE: [id number] CT ABD PELVIS W/O CONT [id number] REASON FOR EXAM: R flank pain EXAM ORDER DATE: 10/15/2018 2:29 PM Ordering Edmund: Laurie Dutton MD PROCEDURE: - CT ABD PELVIS W/O CONT COMPARISON: FINDINGS: CT images of the abdomen and pelvis were obtained without IV and without oral contrast at 5mm. Dose modulation, iterative reconstruction, and/or weight based adjustment of the MA/KV was utilized to reduce the radiation dose to as low as reasonably achievable. The liver, spleen, and pancreas are grossly within normal limits. The patient is status post cholecystectomy No evidence of hydronephrosis The urinary bladder is unremarkable. The colon, small bowel, and stomach are within normal limits without e vidence of obstruction. The appendix is not seen No evidence of f ree air or free fluid. The patient is status post hysterectomy IMPRESSION: Multiple nonobstructing renal stones bilaterally with the largest stone on the right measure approximately 0.5 cm. The largest stone on the left measure approximately 0.6 cm. Electronically Michelle d by Edmund Marquez on 10/15/2018 at 1502 Reported and sig shen by: Carlos Marquez M.D. CC: Laurie Dutton MD Technologist:Mary Ellen Segundo RT(R),CT CTDI: DLP: T [email or web address] Date/Time: 10/15/2018 (1506) t.[email or web address] Orig Print D /T: S: 10/15/2018 (1503) CTDI: DLP: PAGE 1 Signed Report CBC W/AUTO [id number] 13:15:00* Test Item Value Reference Range Interpretation Comments WHITE BLOOD CELL (test code = WBC) 12.3 K/mm3 4.5-12.5 N RED BLOOD CELL (test code = RBC) 5.14 mill/mm3 3.7-5.2 N HEMOGLOBIN (test code = HGB) 15.4 gram/dL 11.5-15.5 N HEMATOCRIT (test code = HCT) 49.6 % 36.0-46.0 H MEAN CELL VOLUME (test code = MCV) 96.5 fL 80-98 N MEAN CELL HGB (test code = MCH) 30.0 picogram 27.0-33.0 N MEAN CELL HGB CONCETRATION (test code = MCHC) 31.0 gram/dL 33.0-36. 0 L RED CELL DISTRIBUTION WIDTH (test code = RDW) 12.8 % 11.6-16. 2 N RED CELL DISTRIBUTION WIDTH SD (test code = RDW-SD) 45.9 fL 37 .0-51.0 N PLATELET COUNT (test code = PLT) 184 K/mm3 150-450 N MEAN PLATELET VOLUME (test code = MPV) 10.6 fL 6.7-11.0 N NEUTROPHIL % (test code = NT%) 64.0 % 39.0-69.0 N IMMATURE GRANULOCYTE % (test code = IG%) 0.3 % 0.0-5.0 N LYMPHOCYTE % (test code = LY%) 30.2 % 25.0-55.0 N MONOCYTE % (test code = MO%) 5.0 % 0.0-10.0 N EOSINOPHIL % (test code = EO%) 0.1 % 0.0-5.0 N BASOPHIL % (test code = BA%) 0.4 % 0.0-1.0 N NUCLEATED RBC % (test code = NRBC%) 0.0 % 0-0 N NEUTROPHIL # (test code = NT#) 7.87 K/mm3 1.8-7.7 H IMMATURE GRANULOCYTE # (test code = IG#) 0.04 x10 3/uL 0-0.03 H LYMPHOCYTE # (test code = LY#) 3.72 K/mm3 1.0-5.0 N MONOCYTE # (test code = MO#) 0.61 K/mm3 0-0.8 N EOSINOPHIL # (test code = EO#) 0.01 K/mm3 0.0-0.5 N BASOPHIL # (test code = BA#) 0.05 K/mm3 0.0-0.2 N NUCLEATED RBC # (test code = NRBC#) 0.00 K/mm3 0.0-0.1 N MANUAL DIFF REQUIRED (test code = MDIFF) NO CBC W/AUTO [id number] 13:10:00* Test Item Value Reference Range Interpretation Comments WHITE BLOOD CELL (test code = WBC) K/mm3 4.5-12.5 RED BLOOD CELL (test code = RBC) mill/mm3 3.7-5.2 HEMOGLOBIN (test code = HGB) 15.4 gram/dL 11.5-15.5 N HEMATOCRIT (test code = HCT) % 36.0-46.0 MEAN CELL VOLUME (test code = MCV) fL 80-98 MEAN CELL HGB (test code = MCH) picogram 27.0-33.0 MEAN CELL HGB CONCETRATION (test code = MCHC) gram/dL 33.0-36. 0 RED CELL DISTRIBUTION WIDTH (test code = RDW) % 11.6-16. 2 RED CELL DISTRIBUTION WIDTH SD (test code = RDW-SD) fL 37 .0-51.0 PLATELET COUNT (test code = PLT) K/mm3 150-450 MEAN PLATELET VOLUME (test code = MPV) fL 6.7-11.0 NEUTROPHIL % (test code = NT%) % 39.0-69.0 IMMATURE GRANULOCYTE % (test code = IG%) % 0.0-5.0 LYMPHOCYTE % (test code = LY%) % 25.0-55.0 MONOCYTE % (test code = MO%) % 0.0-10.0 EOSINOPHIL % (test code = EO%) % 0.0-5.0 BASOPHIL % (test code = BA%) % 0.0-1.0 NEUTROPHIL # (test code = NT#) K/mm3 1.8-7.7 LYMPHOCYTE # (test code = LY#) K/mm3 1.0-5.0 MONOCYTE # (test code = MO#) K/mm3 0-0.8 EOSINOPHIL # (test code = EO#) K/mm3 0.0-0.5 BASOPHIL # (test code = BA#) K/mm3 0.0-0.2 COMPREHENSIVE METABOLIC [id number] 12:41:00* Test Item Value Reference Range Interpretation Comments SODIUM (test code = NA) 140 mmol/L 136-145 N POTASSIUM (test code = K) 4.2 mmol/L 3.5-5.1 N CHLORIDE (test code = CL) 106.0 mmol/L 98-107 N CARBON DIOXIDE (test code = CO2) 28.0 mmol/L 21-32 N ANION GAP (test code = GAP) 10.2 10-20 N GLUCOSE (test code = GLU) 98 mg/dL 74-106 N BLOOD UREA NITROGEN (test code = BUN) 11 mg/dL 7-18 N GLOMERULAR FILTRATION RATE (test code = GFR) > 60 mL/min >=60 Estimated GFR by using Modified MDRD formula.Chronic kidney disease is defined as either kidney damageor GFR <60 mL/min/1.73 m2 for >3 months. CREATININE (test code = CREAT) 0.80 mg/dL 0.55-1.02 N Note change in reference range due to change in reagent. BUN/CREATININE RATIO (test code = BUN/CREA) 13.8 10-20 N TOTAL PROTEIN (test code = PROT) 8.8 gram/dL 6.4-8.2 H ALBUMIN (test code = ALB) 4.4 g/dL 3.4-5.0 N GLOBULIN (test code = GLOB) 4.4 gram/dL 2.7-4.2 H ALBUMIN/GLOBULIN RATIO (test code = A/G) 1.0 0.75-1.50 N CALCIUM (test code = CA) 9.1 mg/dL 8.5-10.1 N BILIRUBIN TOTAL (test code = BILT) 0.70 mg/dL 0.0-1.0 N SGOT/AST (test code = AST) 23 IUnit/L 15-37 N SGPT/ALT (test code = ALT) 19 IUnit/L 12-78 N ALKALINE PHOSPHATASE TOTAL (test code = ALKP) 75 IUnit/L 45-117 N Note change in reference range due to change in reagent. [id number] 12:41:00* Test Item Value Reference Range Interpretation Comments LIPASE (test code = LIP) 97 U/L 73.0-393.0 N COMPREHENSIVE METABOLIC [id number] 12:29:00* Test Item Value Reference Range Interpretation Comments SODIUM (test code = NA) 140 mmol/L 136-145 N POTASSIUM (test code = K) 4.2 mmol/L 3.5-5.1 N CHLORIDE (test code = CL) 106.0 mmol/L 98-107 N CARBON DIOXIDE (test code = CO2) mmol/L 21-32 ANION GAP (test code = GAP) 10-20 GLUCOSE (test code = GLU) mg/dL 74-106 BLOOD UREA NITROGEN (test code = BUN) mg/dL 7-18 GLOMERULAR FILTRATION RATE (test code = GFR) mL/min >=60 CREATININE (test code = CREAT) mg/dL 0.55-1.02 BUN/CREATININE RATIO (test code = BUN/CREA) 10-20 TOTAL PROTEIN (test code = PROT) gram/dL 6.4-8.2 ALBUMIN (test code = ALB) g/dL 3.4-5.0 GLOBULIN (test code = GLOB) gram/dL 2.7-4.2 ALBUMIN/GLOBULIN RATIO (test code = A/G) 0.75-1.50 CALCIUM (test code = CA) mg/dL 8.5-10.1 BILIRUBIN TOTAL (test code = BILT) mg/dL 0.0-1.0 SGOT/AST (test code = AST) IUnit/L 15-37 SGPT/ALT (test code = ALT) IUnit/L 12-78 ALKALINE PHOSPHATASE TOTAL (test code = ALKP) IUnit/L 45-117 [id number] 12:29:00* Test Item Value Reference Range Interpretation Comments LIPASE (test code = LIP) U/L 73.0-393.0 URINALYSIS [id number] 11:11:00* Test Item Value Reference Range Interpretation Comments UA COLOR (test code = COLU) YELLOW YELLOW UA APPEARANCE (test code = APPU) SLIGHTLY CLOUDY CLEAR A UA GLUCOSE DIPSTICK (test code = DGLUU) NEGATIVE mg/dL NEGATIVE UA BILIRUBIN DIPSTICK (test code = BILU) NEGATIVE mg/dL NEGATIVE UA KETONE DIPSTICK (test code = KETU) NEGATIVE mg/dL NEGATIVE UA SPECIFIC GRAVITY (test code = SGU) 1.016 1.001-1.035 UA BLOOD DIPSTICK (test code = LORENZO) Negative mg/dL NEGATIVE UA PH DIPSTICK (test code = RAZ) 6.0 5.0-8.0 UA PROTEIN DIPSTICK (test code = PROU) NEGATIVE mg/dL NEGATIVE UA UROBILINIOGEN DIPSTICK (test code = URO) NEGATIVE mg/dL NEGATIVE UA NITRITE DIPSTICK (test code = DAWN) NEGATIVE NEGATIVE UA LEUKOCYTE ESTERASE W REFLEX (test code = LEUUR) NEGATIVE Dominik/uL NEGATIVE UA WBC (test code = WBCU) NONE SEEN per HPF 0-5 IN SOME URINARY TRACT INFECTIONS THERE MAY NOT BE ENOUGHWBCs IN THE URINE TO TRIGGER AN AUTOMATIC (REFLEX) URINECULTURE. A SEPERATE ORDER FOR URINE CULTURE IS RECOMMENDEDIF THERE IS STRONG SUPPORT FOR A URINARY TRACT INFECTIONCLINICALLY. UA RBC (test code = RBCU) NONE SEEN per HPF 0-5 UA EPITHELIAL CELLS (test code = EPIU) Moderate (5-10/hpf) per HPF Few UA BACTERIA (test code = BACU) FEW per HPF NONE UA MUCUS (test code = MUCU) FEW per LPF NONE-FEW Urine Source? Clean CatchUR HCG [id number] 11:11:00* Test Item Value Reference Range Interpretation Comments UR HCG QUAL (test code = HCGQLU) NEGATIVE This HCGQL test is NOT applicable for MALE patients.Check with nurse about probable order error.If Tumor Marker Test needed, nurse should order test "HCGTU"(Test #[id number]) Urine Source? Clean Catch- US PELVIS [id number] 10:18:00 Name: LONNIE ARROYO [facility] : 1980 Age/S: 37 / F [address] [facility] Unit #: [id number] Loc: [place] [id number] Phys: Berry Dutton MD Acct: [id number] Di s Date: Status: REG ER PHONE #: [phone] Exam Date: 10/15/2018958 FAX #: [phone] Reason: RLQ ttp, h/o ovarian cysts EXAMS: CPT CODE: [id number] US PELVIS COM PLETE [address] HISTORY: Right lower quad rant pain/ovarian cyst. COMPARISON: Pelvic CT from August 31. Transabdominal and transvaginal (for better endometrial and ov melinda evaluation) pelvic ultrasound: Patient is post hystere ctomy. No pelvic mass or pelvic free fluid. Color and Doppler flow with normal spectral waveform in right ovary with normal spectral wavefor m. Right ovary measured 3.8 x 3 x 3.1 cm. Multiple follicles. Patient is p ost left oophorectomy. IMPRESSION: Patient is post hysterectomy and left oophorectomy. Right ovary with colo r Doppler flow and normal spectral waveform with multiple follicles incl uding dominant follicle. No free fluid or pelvic mass. Elect ronically Signed by Edmund Szymanski on 10/15/2018 at 1018 Reported and signed by: Frank Szymanski M.D. CC: Berry Dutton MD Technologist: FRANKY SHAY NVJUSTINA [facility] Date/Time: 10/15/2018 (1018) [email or web address] Orig Print D/T: S: 10/15/2018 (1021) Probe: PAGE 1 Signed Report - US TRANSVAGINAL NON [id number] 10:18:00 Name: LONNIE ARROYO [facility] : 1980 Age/S: 37 / F [address] [facility] Unit #: [id number] Loc: [place] [address] Phys: Laurie Dutton MD Acct: [id number] Dis Date: Status: REG ER PHONE #: [phone] Exam Date: 10/15/2018958 FAX #: [phone] Reason: RLQ ttp, h/o ovarian cysts EXAMS: CPT CODE: [id number] [place] [address] HISTORY: Right lower quadrant pain/ovarian cyst. COMPARISON: Pelvic CT from August 31, 2018. Transabdominal and transvaginal (for better endometrial and ovarian evaluation) pelvic ultrasound: Patient is post hysterectomy. No pelvic mass or pelvic free fluid. Color and Doppler flow with normal spectral waveform in right ovary with normal spectral waveform. Right ovary measured 3.8 x 3 x 3.1 cm. Multiple follicles. Patient is post left oophorectomy. IMPRESSION: Patient is post hysterectomy and left oophorectomy. Right ovary with colo r Doppler flow and normal spectral waveform with multiple follicles incl uding dominant follicle. No free fluid or pelvic mass. Elect ronically Signed by Edmund Szymanski on 10/15/2018 at 1018 Reported and signed by: Frank Szymanski M.D. CC: Berry Dutton MD Technologist: FRANKY LAI Trnscb Date/Time: 10/15/2018 (1018) [email or web address] Orig Print D/T: S: 10/15/2018 (1021) Probe: [id number] PAGE 1 Signed Report URINALYSIS [id number] 10:15:00* Test Item Value Reference Range Interpretation Comments UA COLOR (test code = COLU) YELLOW YELLOW UA APPEARANCE (test code = APPU) SLIGHTLY CLOUDY CLEAR A UA GLUCOSE DIPSTICK (test code = DGLUU) NEGATIVE mg/dL NEGATIVE UA BILIRUBIN DIPSTICK (test code = BILU) NEGATIVE mg/dL NEGATIVE UA KETONE DIPSTICK (test code = KETU) NEGATIVE mg/dL NEGATIVE UA SPECIFIC GRAVITY (test code = SGU) 1.016 1.001-1.035 UA BLOOD DIPSTICK (test code = LORENZO) Negative mg/dL NEGATIVE UA PH DIPSTICK (test code = RAZ) 6.0 5.0-8.0 UA PROTEIN DIPSTICK (test code = PROU) NEGATIVE mg/dL NEGATIVE UA UROBILINIOGEN DIPSTICK (test code = URO) NEGATIVE mg/dL NEGATIVE UA NITRITE DIPSTICK (test code = DAWN) NEGATIVE NEGATIVE UA LEUKOCYTE ESTERASE W REFLEX (test code = LEUUR) NEGATIVE Dominik/uL NEGATIVE UA WBC (test code = WBCU) per HPF 0-5 Urine Source? Clean CatchUR HCG [id number] 10:15:00* Test Item Value Reference Range Interpretation Comments UR HCG QUAL (test code = HCGQLU) NEGATIVE This HCGQL test is NOT applicable for MALE patients.Check with nurse about probable order error.If Tumor Marker Test needed, nurse should order test "HCGTU"(Test #550.58308) Urine Source? Clean CatchURINALYSIS [id number] 10:14:00* Test Item Value Reference Range Interpretation Comments UA COLOR (test code = COLU) YELLOW UA APPEARANCE (test code = APPU) CLEAR UA BILIRUBIN DIPSTICK (test code = BILU) NEGATIVE UA SPECIFIC GRAVITY (test code = SGU) 1.001-1.035 UA PH DIPSTICK (test code = RAZ) 5.0-8.0 UA UROBILINIOGEN DIPSTICK (test code = URO) mg/dL 0.0-0.2 UA NITRITE DIPSTICK (test code = DAWN) NEGATIVE UA LEUKOCYTE ESTERASE W REFLEX (test code = LEUUR) NEG ATIVE UA WBC (test code = WBCU) per HPF 0-5 Urine Source? Clean CatchUR HCG [id number] 10:14:00* Test Item Value Reference Range Interpretation Comments UR HCG QUAL (test code = HCGQLU) NEGATIVE This HCGQL test is NOT applicable for MALE patients.Check with nurse about probable order error.If Tumor Marker Test needed, nurse should order test "HCGTU"(Test #550.43613) Urine Source? Clean Catch- US RETRO [id number] 10:12:00 Name: LONNIE ARROYO [facility] : 1980 Age/S: 37 / F [address] Unit #: [id number] Loc: [place] [address] Phys: Laurie Dutton MD Acct: [id number] Dis Date: Status: REG ER PHONE #: [phone] Exam Date: 10/15/2018 0940 FAX #: [phone] Reason: flank pain radiating to pelvis EXAMS: CPT CODE: [id number] [facility] [address] HISTORY: Flank pain radiating to the pelvis. COMPARISON: CT scan from August 31, 2018. Both kidneys are free from hydronephrosis. Bilateral innumerable calyceal stones noted which was seen on the previous CT scan as well. No perinephric collections. Echogenicity and texture is normal bilaterally. Right kidney measuring 9.8 x 3.4 x 4.5 cm. Multiple calyceal stones measuring up to 5.6 mm. Left kidney measured 9.6 x 4.5 x 5 cm. Multiple calyceal stones with the largest measuring 7.4 mm in the interpolar region. Unremarkable well-distended urinary bladder. Bilateral ureteral jets are documented. No wall thickening or mural no dules. IMPRESSION: No hydronephrosis on either side. Bilateral nonobstructing calyceal stones measuring up to 5.6 mm i n the right interpolar region and 7.4 mm in the left interpolar region. Unremarkable well-distended urinary bladder with bilateral ure teral jets. Electronically Signed by Edmund Szymanski on at 1012 Reported and signed by: Idania Santoyo CC: Laurie Dutton MD Tech nologist: FRANKY LAI Trnscb Date/Tristan e: 10/15/2018 (1012) [email or web address] Orig Print D/T: S: 019 (1015) Probe: PAGE 1 Signed Report - CT ABD PELVIS W/O [id number] 23:18:00 Name: LONNIE ARROYO [facility] : 1980 Age/S: 37 / F [facility] Unit #: [id number] Loc: [place] [address] Phys: Dinora Landrum NP Acct: [id number] Dis Date: Status: REG ER PHONE #: [phone] Exam Date: 08/31/2018 2311 FAX #: [phone] Reason: FLANK PAIN EXAMS: CPT CODE: [id number] CT ABD PELVIS W/O CONT 11366 AFTER HOURS SERVICE ON: 08/31/2018 11:[address] Scan of the Abdomen and Pelvis Without Contrast Location Code M12 History: FLANK PAIN Technique: Axial and reconstructed coronal scans were performed on a helical scanner pre oral and IV contrast. Study is limited secondary to lack of oral and IV contrast. One or more of the following dose reduction techniques were used: Automated exposure control, adjustment of the mA and/or kV according to patient size, and/or utilization of iterative reconstruction technique. Findings: Liver: No significant findings. Gallbladder/Biliary: Cholecystectomy. Pancreas: No significant findings. Spleen: No significant findings. Adrenals: No significant findings. Kidneys: There are stable bilateral nonobstructing renal calculi measuring up to 3 mm. Approximately 6 calculi are seen in the left kidney and 5 calculi in the right kidney without significant change from 02/21/2018. There is no hydronephrosis or ureterolithiasis. Bladder: No significant findings. Bowel: Small diverticula are seen in the distal colon without evidence of diverticulitis. Small bowel loops are unremarkable. The appendix is unremarkable. Other: Uterus is a bsent. There is mild free fluid in the posterior cul-de-sac. Impression: Stable small bilateral nonobstructing renal ca lculi measuring up to 3 mm without significant change from February 2018. No ureteral or bladder calculi. No hydronephrosis. PAGE 1 Signed Report (CONTINUED) Name: LONNIE GUZMAN [facility] : 1980 e/S: 37 / F [address] [facility] Unit #: [id number] Loc: [place] [address] Phys: Dinora Landrum Acct: [id number] Dis Date: Status: REG ER PHONE #: [phone] Exam Date: 08/31/2018 2311 FAX #: [phone] Reason : FLANK PAIN EXAMS: CPT CODE: [id number] CT ABD PELVIS W/O CONT 11995 <Continued> at 2318 Reported and signed by: Gregor Lerma M.D. CC: Helder Galvan MD; Dinora Landrum NP; JAMES GAMA MD Technologist:LEILA PIMENTEL, RT CTDI: DLP: Trnscb Date/Time: 08/31/2018 (5642) [id number] Orig Print D/T: S: 08/31/2018 (4303) CTDI: DLP: PAGE 2 Signed Report PROCALCITONIN (PCT)2018-08-31 23:03:00* Test Item Value Reference Range Interpretation Comments PROCALCITONIN (PCT) (test code = PROCAL) < 0.05 ng/ml Concentration Interpretation (ng/mL) <0.51 Sepsis is not likely. Local bacterial infection is possible. (LOW RISK for progression to Sepsis) 0.51 - 2.00 Sepsis is possible, but other conditions are known to elevate PCT as well. (MODERATE RISK for progression to Sepsis) > 2.00 Sepsis is likely, unless other causes are known. (HIGH RISK for progression to Severe Sepsis or Septic Shock) 10.00 High likelihood of Severe Sepsis or Septic or higher Shock. *Increased PCT levels may not always be related to systemic bacterial infection.*Low PCT levels do not automatically exclude the presence of bacterial infection.*All results should be interpreted taking into account the patients history. BASIC METABOLIC [id number] 22:37:00* Test Item Value Reference Range Interpretation Comments SODIUM (test code = NA) 143 mmol/L 136-145 N POTASSIUM (test code = K) 3.6 mmol/L 3.5-5.1 N CHLORIDE (test code = CL) 106.0 mmol/L 98-107 N CARBON DIOXIDE (test code = CO2) 26.0 mmol/L 21-32 N ANION GAP (test code = GAP) 14.6 10-20 N GLUCOSE (test code = GLU) 120 mg/dL 74-106 H BLOOD UREA NITROGEN (test code = BUN) 10 mg/dL 7-18 N GLOMERULAR FILTRATION RATE (test code = GFR) > 60 mL/min >=60 Estimated GFR by using Modified MDRD formula.Chronic kidney disease is defined as either kidney damageor GFR <60 mL/min/1.73 m2 for >3 months. CREATININE (test code = CREAT) 0.80 mg/dL 0.55-1.02 N Note change in reference range due to change in reagent. BUN/CREATININE RATIO (test code = BUN/CREA) 12.2 10-20 N CALCIUM (test code = CA) 8.9 mg/dL 8.5-10.1 N HEPATIC FUNCTION [id number] 22:37:00* Test Item Value Reference Range Interpretation Comments TOTAL PROTEIN (test code = PROT) 7.9 gram/dL 6.4-8.2 N ALBUMIN (test code = ALB) 4.2 g/dL 3.4-5.0 N GLOBULIN (test code = GLOB) 3.7 gram/dL 2.7-4.2 N ALBUMIN/GLOBULIN RATIO (test code = A/G) 1.1 0.75-1.50 N BILIRUBIN TOTAL (test code = BILT) 0.20 mg/dL 0.0-1.0 N BILIRUBIN DIRECT (test code = BILD) 0.12 mg/dL 0.0-0.20 N SGOT/AST (test code = AST) 16 IUnit/L 15-37 N SGPT/ALT (test code = ALT) 18 IUnit/L 12-78 N ALKALINE PHOSPHATASE TOTAL (test code = ALKP) 91 IUnit/L 45-117 N Note change in reference range due to change in reagent. [id number] 22:37:00* Test Item Value Reference Range Interpretation Comments LIPASE (test code = LIP) 148 U/L 73.0-393.0 N HCG SERUM [id number] 22:37:00* Test Item Value Reference Range Interpretation Comments HCG SERUM QUAL (test code = HCGQL) NEGATIVE NEGATIVE This HCGQL test is NOT applicable for MALE patients.Check with nurse about probable order error.If Tumor Marker Test needed, nurse should order test "HCGTU"(Test #550.73292) LACTIC [id number] 22:35:00* Test Item Value Reference Range Interpretation Comments LACTIC ACID (test code = LACT) 1.8 mmol/L 0.4-1.9 N BASIC METABOLIC [id number] 22:30:00* Test Item Value Reference Range Interpretation Comments SODIUM (test code = NA) 143 mmol/L 136-145 N POTASSIUM (test code = K) 3.6 mmol/L 3.5-5.1 N CHLORIDE (test code = CL) 106.0 mmol/L 98-107 N CARBON DIOXIDE (test code = CO2) mmol/L 21-32 ANION GAP (test code = GAP) 10-20 GLUCOSE (test code = GLU) mg/dL 74-106 BLOOD UREA NITROGEN (test code = BUN) mg/dL 7-18 GLOMERULAR FILTRATION RATE (test code = GFR) mL/min >=60 CREATININE (test code = CREAT) mg/dL 0.55-1.02 BUN/CREATININE RATIO (test code = BUN/CREA) 10-20 CALCIUM (test code = CA) mg/dL 8.5-10.1 HEPATIC FUNCTION [id number] 22:30:00* Test Item Value Reference Range Interpretation Comments TOTAL PROTEIN (test code = PROT) gram/dL 6.4-8.2 ALBUMIN (test code = ALB) g/dL 3.4-5.0 GLOBULIN (test code = GLOB) gram/dL 2.7-4.2 ALBUMIN/GLOBULIN RATIO (test code = A/G) 0.75-1.50 BILIRUBIN TOTAL (test code = BILT) mg/dL 0.0-1.0 BILIRUBIN DIRECT (test code = BILD) mg/dL 0.0-0.20 SGOT/AST (test code = AST) IUnit/L 15-37 SGPT/ALT (test code = ALT) IUnit/L 12-78 ALKALINE PHOSPHATASE TOTAL (test code = ALKP) IUnit/L 45-117 [id number] 22:30:00* Test Item Value Reference Range Interpretation Comments LIPASE (test code = LIP) U/L 73.0-393.0 HCG SERUM [id number] 22:30:00* Test Item Value Reference Range Interpretation Comments HCG SERUM QUAL (test code = HCGQL) NEGATIVE NEGATIVE This HCGQL test is NOT applicable for MALE patients.Check with nurse about probable order error.If Tumor Marker Test needed, nurse should order test "HCGTU"(Test #550.96335) BASIC METABOLIC [id number] 22:27:00* Test Item Value Reference Range Interpretation Comments SODIUM (test code = NA) 143 mmol/L 136-145 N POTASSIUM (test code = K) 3.6 mmol/L 3.5-5.1 N CHLORIDE (test code = CL) 106.0 mmol/L 98-107 N CARBON DIOXIDE (test code = CO2) mmol/L 21-32 ANION GAP (test code = GAP) 10-20 GLUCOSE (test code = GLU) mg/dL 74-106 BLOOD UREA NITROGEN (test code = BUN) mg/dL 7-18 GLOMERULAR FILTRATION RATE (test code = GFR) mL/min >=60 CREATININE (test code = CREAT) mg/dL 0.55-1.02 BUN/CREATININE RATIO (test code = BUN/CREA) 10-20 CALCIUM (test code = CA) mg/dL 8.5-10.1 HEPATIC FUNCTION [id number] 22:27:00* Test Item Value Reference Range Interpretation Comments TOTAL PROTEIN (test code = PROT) gram/dL 6.4-8.2 ALBUMIN (test code = ALB) g/dL 3.4-5.0 GLOBULIN (test code = GLOB) gram/dL 2.7-4.2 ALBUMIN/GLOBULIN RATIO (test code = A/G) 0.75-1.50 BILIRUBIN TOTAL (test code = BILT) mg/dL 0.0-1.0 BILIRUBIN DIRECT (test code = BILD) mg/dL 0.0-0.20 SGOT/AST (test code = AST) IUnit/L 15-37 SGPT/ALT (test code = ALT) IUnit/L 12-78 ALKALINE PHOSPHATASE TOTAL (test code = ALKP) IUnit/L 45-117 [id number] 22:27:00* Test Item Value Reference Range Interpretation Comments LIPASE (test code = LIP) U/L 73.0-393.0 HCG SERUM [id number] 22:27:00* Test Item Value Reference Range Interpretation Comments HCG SERUM QUAL (test code = HCGQL) NEGATIVE CBC W/AUTO [id number] 22:10:00* Test Item Value Reference Range Interpretation Comments WHITE BLOOD CELL (test code = WBC) 7.6 K/mm3 4.5-12.5 N RED BLOOD CELL (test code = RBC) 4.26 mill/mm3 3.7-5.2 N HEMOGLOBIN (test code = HGB) 13.3 gram/dL 11.5-15.5 N HEMATOCRIT (test code = HCT) 40.4 % 36.0-46.0 N MEAN CELL VOLUME (test code = MCV) 94.8 fL 80-98 N MEAN CELL HGB (test code = MCH) 31.2 picogram 27.0-33.0 N MEAN CELL HGB CONCETRATION (test code = MCHC) 32.9 gram/dL 33.0-36. 0 L RED CELL DISTRIBUTION WIDTH (test code = RDW) 12.5 % 11.6-16. 2 N RED CELL DISTRIBUTION WIDTH SD (test code = RDW-SD) 43.4 fL 37 .0-51.0 N PLATELET COUNT (test code = PLT) 213 K/mm3 150-450 N MEAN PLATELET VOLUME (test code = MPV) 10.3 fL 6.7-11.0 N NEUTROPHIL % (test code = NT%) 54.0 % 39.0-69.0 N IMMATURE GRANULOCYTE % (test code = IG%) 0.3 % 0.0-5.0 N LYMPHOCYTE % (test code = LY%) 31.0 % 25.0-55.0 N MONOCYTE % (test code = MO%) 14.3 % 0.0-10.0 H EOSINOPHIL % (test code = EO%) 0.1 % 0.0-5.0 N BASOPHIL % (test code = BA%) 0.3 % 0.0-1.0 N NUCLEATED RBC % (test code = NRBC%) 0.0 % 0-0 N NEUTROPHIL # (test code = NT#) 4.08 K/mm3 1.8-7.7 N IMMATURE GRANULOCYTE # (test code = IG#) 0.02 x10 3/uL 0-0.03 N LYMPHOCYTE # (test code = LY#) 2.34 K/mm3 1.0-5.0 N MONOCYTE # (test code = MO#) 1.08 K/mm3 0-0.8 H EOSINOPHIL # (test code = EO#) 0.01 K/mm3 0.0-0.5 N BASOPHIL # (test code = BA#) 0.02 K/mm3 0.0-0.2 N NUCLEATED RBC # (test code = NRBC#) 0.00 K/mm3 0.0-0.1 N MANUAL DIFF REQUIRED (test code = MDIFF) NO CBC W/AUTO [id number] 22:09:00* Test Item Value Reference Range Interpretation Comments WHITE BLOOD CELL (test code = WBC) K/mm3 4.5-12.5 RED BLOOD CELL (test code = RBC) mill/mm3 3.7-5.2 HEMOGLOBIN (test code = HGB) 13.3 gram/dL 11.5-15.5 N HEMATOCRIT (test code = HCT) 40.4 % 36.0-46.0 N MEAN CELL VOLUME (test code = MCV) fL 80-98 MEAN CELL HGB (test code = MCH) picogram 27.0-33.0 MEAN CELL HGB CONCETRATION (test code = MCHC) gram/dL 33.0-36. 0 RED CELL DISTRIBUTION WIDTH (test code = RDW) % 11.6-16. 2 RED CELL DISTRIBUTION WIDTH SD (test code = RDW-SD) fL 37 .0-51.0 PLATELET COUNT (test code = PLT) K/mm3 150-450 MEAN PLATELET VOLUME (test code = MPV) fL 6.7-11.0 NEUTROPHIL % (test code = NT%) % 39.0-69.0 IMMATURE GRANULOCYTE % (test code = IG%) % 0.0-5.0 LYMPHOCYTE % (test code = LY%) % 25.0-55.0 MONOCYTE % (test code = MO%) % 0.0-10.0 EOSINOPHIL % (test code = EO%) % 0.0-5.0 BASOPHIL % (test code = BA%) % 0.0-1.0 NEUTROPHIL # (test code = NT#) K/mm3 1.8-7.7 LYMPHOCYTE # (test code = LY#) K/mm3 1.0-5.0 MONOCYTE # (test code = MO#) K/mm3 0-0.8 EOSINOPHIL # (test code = EO#) K/mm3 0.0-0.5 BASOPHIL # (test code = BA#) K/mm3 0.0-0.2 URINALYSIS [id number] 22:00:00* Test Item Value Reference Range Interpretation Comments UA COLOR (test code = COLU) STRAW YELLOW UA APPEARANCE (test code = APPU) CLEAR CLEAR UA GLUCOSE DIPSTICK (test code = DGLUU) NEGATIVE mg/dL NEGATIVE UA BILIRUBIN DIPSTICK (test code = BILU) NEGATIVE mg/dL NEGATIVE UA KETONE DIPSTICK (test code = KETU) Negative mg/dL NEGATIVE UA SPECIFIC GRAVITY (test code = SGU) 1.008 1.001-1.035 UA BLOOD DIPSTICK (test code = LORENZO) 1+ (Small) NEGATIVE A UA PH DIPSTICK (test code = RAZ) 6.0 5.0-8.0 UA PROTEIN DIPSTICK (test code = PROU) Negative mg/dL NEGATIVE UA UROBILINIOGEN DIPSTICK (test code = URO) NEGATIVE mg/dL NEGATIVE UA NITRITE DIPSTICK (test code = DAWN) NEGATIVE NEGATIVE UA LEUKOCYTE ESTERASE W REFLEX (test code = LEUUR) NEGATIVE NEG ATIVE UA WBC (test code = WBCU) 0-5 #/HPF 0-5 UA RBC (test code = RBCU) 0-2 #/HPF 0-5 UA EPITHELIAL CELLS (test code = EPIU) FEW per HPF FEW UA BACTERIA (test code = BACU) FEW #/HPF NONE A UA MUCUS (test code = MUCU) FEW #/LPF FEW Urine Source? Clean CatchURINALYSIS [id number] 21:55:00* Test Item Value Reference Range Interpretation Comments UA COLOR (test code = COLU) STRAW YELLOW UA APPEARANCE (test code = APPU) CLEAR CLEAR UA GLUCOSE DIPSTICK (test code = DGLUU) NEGATIVE mg/dL NEGATIVE UA BILIRUBIN DIPSTICK (test code = BILU) NEGATIVE mg/dL NEGATIVE UA KETONE DIPSTICK (test code = KETU) Negative mg/dL NEGATIVE UA SPECIFIC GRAVITY (test code = SGU) 1.008 1.001-1.035 UA BLOOD DIPSTICK (test code = LORENZO) 1+ (Small) NEGATIVE A UA PH DIPSTICK (test code = RAZ) 6.0 5.0-8.0 UA PROTEIN DIPSTICK (test code = PROU) Negative mg/dL NEGATIVE UA UROBILINIOGEN DIPSTICK (test code = URO) NEGATIVE mg/dL NEGATIVE UA NITRITE DIPSTICK (test code = ADWN) NEGATIVE NEGATIVE UA LEUKOCYTE ESTERASE W REFLEX (test code = LEUUR) NEGATIVE NEG ATIVE UA WBC (test code = WBCU) per HPF 0-5 Urine Source? Clean Catch- XR CHEST 1 [id number] 21:49:00 FAX: Dinora Landrum [place]: B St: PRE FAX: JAMES GAMA MD Name: LONNIE ARROYO [facility] : 1980 Age/S: 37/F [address] [facility] Unit #: [id number] Loc: [place] [address] Phys: Dinora Landrum NP Acct: [id number] Dis Date: Status: PRE ER PHONE #: [phone] Exam Date: 08/31/20182147 FAX #: [phone] Reason: CODE SEPSIS EXAMS: CPT CODE: [id number] XR CHEST 1 V 77709 REASON FOR EXAM: CODE SEPSIS EXAM ORDER DA TE: 08/31/2018 9:28 PM Ordering Edmund: Dinora Landrum NP PROCEDURE: - XR CHEST 1 V COMPARISON: FINDINGS: Portable AP frontal view of the chest obtained at 9:48 PM shows clear lungs. There is no evidence of consolidation. There is no evidence of effusion. The heart size is within normal limits. Pulmonary vasculature s are unremarkable. IMPRESSION: No active disease. at 2332 Reported and signed by: Carlos Marquez M.D. CC: Chi Landrum NP; JAMES GAMA MD Technologist: CLAUDIA GEORGE, RT(R) Trnscrd Date/Time/By: 08/31/2018 (8971) : By: nidia AMAYAVTJerrod Orig Print D/T: S: 08/31/2018 (9519) P AGE 3 Signed Report CALPROTECTIN [id number] 21:06:00* Test Item Value Reference Range Interpretation Comments CALPROTECTIN FECAL (test code = CALFECAL) <16 ug/g 0-120 Results verified by repeat testingConcentration Interpretation Follow-Up<16 - 50 ug/g Normal None>50 -120 ug/g Borderline Re-evaluate in 4-6 weeks >120 ug/g Abnormal Repeat as clinically indicatedPerformed At: [address] [id number] Sanjai MD Ph:[phone] FECES OVA [id number] 13:10:00* Test Item Value Reference Range Interpretation Comments CONCENTRATE RESULT (test code = CONC) Final report () These results were obtained using wet preparation(s) andtrichrome stained smear. This test does not include testingfor Cryptosporidium parvum, Cyclospora, or Microsporidia. TRICHROME RESULT (test code = TRIC) SOURCE: STOOLSPECIMEN DESCRIPTION: RANDOMAG GIARDIA [id number] 13:10:00* Test Item Value Reference Range Interpretation Comments AG GIARDIA FECES (test code = GIARDAG) Negative Negative Performed At: [facility] [id number] Elder MD Ph:[phone] SOURCE: STOOLSPECIMEN DESCRIPTION: RANDOMFECES OVA [id number] 13:10:00* Test Item Value Reference Range Interpretation Comments CONCENTRATE RESULT (test code = CONC) Final report () These results were obtained using wet preparation(s) andtrichrome stained smear. This test does not include testingfor Cryptosporidium parvum, Cyclospora, or Microsporidia. TRICHROME RESULT (test code = TRIC) () No ova, cysts, or parasites seen.One negative specimen does not rule out the possibility ofa parasitic infection.Performed At: [facility] [id number] Elder MD Ph:[phone] SOURCE: STOOLSPECIMEN DESCRIPTION: RANDOMAG GIARDIA [id number] 13:10:00* Test Item Value Reference Range Interpretation Comments AG GIARDIA FECES (test code = GIARDAG) Negative Negative Performed At: [facility] [address] [id number] Keanu Elder MD Ph:[phone] SOURCE: STOOLSPECIMEN DESCRIPTION: CARONDUCRISTIAN,[id number] 14:30:00 RUN DATE: 08/02/18 [facility] PAGE 1 RUN TIME: 1430 Specimen Inqui ry RUN USER: INTERFACE PATIENT: LONNIE ARROYO ACCT #: [id number] LOC: V.DSU U #: [id number] AGE/SX: 37/F ROOM: RE07/31/18HOMAR DR: Han James MD : 84 BED: DIS: STATUS: [facility] TLOC: SPEC #: [id number] RECD: 07/31/18 STATUS: ELOISA HECTOR #: [id number] FREDRICK: 07/31/[address] [facility] [address]: Han James MD ENTERED: 07/31/18 SP TYPE: BX DUODEN OTHR DR: Helder Galvan MD ORDERED: GROSS COPIES TO: Helder Galvan MD [address] [place], [place] [id number] Han James MD [address] [place] [address] PROCEDURES: GROSS (08/02/18903) TISSUES: 1. DUODENUM, NOS - BX 2. ANTRUM - BX 3 . ILEUM, NOS - TERMINAL BX 4. COLON, NOS - RANDOM BX CLINICAL HI STORY COLLECTION DATE: 07/31/18 DIARRHEA, H.PYLORI, ESOPHAGITIS FINAL DIAGNOSIS Duodenum, biopsy: DUODENAL MUCOSA, NO PATHOLOGIC ALTER ATION Antrum, biopsy: CHRONIC ACTIVE GASTRITIS NO INTESTINAL METAPLASIA SEEN POSITIVE FOR HELICOBACTER PYLORI NEGATIVE FOR MAL IGNANCY Terminal ileum, biopsy: SMALL INTESTINAL MUCOSA WITH LYMPHO ID AGGREGATES MUCOSA OTHERWISE UNREMARKABLE NEGATIVE FOR MALIGNANC Y Colon, random biopsy: CONTINUED ON NEXT PAGE RUN DATE: 08/02/18 [facility] PAGE 2 RUN TIME: 1430 Specimen Inquiry RUN USER: INTERFACE SPEC #: [id number] PATIENT: CRUZLONNIE IZA #[id number] (Continued) F INAL DIAGNOSIS (Continued) COLONIC MUCOSA, NO PATHOLOGIC ALTER ATION NEGATIVE FOR FEATURES OF MICROSCOPIC COLITIS [facility]/ D [phone] MACROSCOPIC The first specimen is received in formalin, labeled with the patient's name, identified as "duodenum", and cons ists of multiple mir-pink biopsy tissue measuring 0.35 cm in aggregate, submit radha as (1). The second specimen is received in formalin, labeled with the patient's name, identified as "antrum", and consists of multiple mir biopsy ti ssue measuring up 0.4 cm in aggregate, submitted as (2) for [facility] and [facility] sta ins. The third specimen is received in formalin, labeled with the patient' s name, identified as "terminal ileum", and consists of mir-pink biopsy tissue measuring 0.25 cm in aggregate, submitted as (3). The fourth specimen i s received in formalin, labeled with the patient's name, identified as "random colon", and consists of multiple mir biopsy tissue measuring 0.35 cm in aggre gate, submitted as (4). GROSS PERFORMED AT [facility] [address] [place] [id number] (p)[phone] MICROSCOPIC MICROSCOPIC PERFORMED AT [facility] All o f the stains, including any controls performed, stain appropriately. [facility] [address] [place] [address], [place] [address] (p)[phone] CONTINUED ON NEXT PAGE RUN DA TE: 08/02/18 [facility] PAG E 3 RUN TIME: 1430 Specimen Inquiry RUN USER: INTERFACE SPEC #: [id number] PATIENT: CRUZLONNIE COUCH #[id number] (Continued) PERFORMING SITE Diagnosis per formed at: [facility], DANY[address] [facility] Arianna Camacho [address] Signed SIGNATURE ON Eliceo Edwina Spring 08/02/18 1430 END OF REP ORT specific gravity, [id number] 13:36:52* Test Item Value Reference Range Interpretation Comments specific gravity, urine (test code = 5811-5) 1.015 [facility], [id number]4 13:36:52* Test Item Value Reference Range Interpretation Comments pH, urine, semiquantitative (test code = 5803-2) 5.0 [facility], bvmsafhupwhocyuc8332-15-99 13:36:52* Test Item Value Reference Range Interpretation Comments glucose, urine, semiquantitative (test code = 5792-7) negative [facility], [id number] 13:36:52* Test Item Value Reference Range Interpretation Comments bilirubin, urine (test code = 5770-3) negative [facility]ones, urine, by test [id number] 13:36:52* Test Item Value Reference Range Interpretation Comments ketones, urine, by test strip (test code = 5797-6) negative [facility] urine (hemoglobin) by agltntrx6989-12-58 13:36:52* Test Item Value Reference Range Interpretation Comments blood in urine (hemoglobin) by dipstick (test code = 4998) negative [facility], urine, semiquantitative (dipstick)2017-09-13 13:36:52* Test Item Value Reference Range Interpretation Comments protein, urine, semiquantitative (dipstick) (test code = 1753-3) ne gative [facility]hawurobilinogen, urine, semiquantitative (dipstick) 2017-09-13 13:36:52* Test Item Value Reference Range Interpretation Comments urobilinogen, urine, semiquantitative (dipstick) (test code = 5818-0) negative [facility]wnitrite, urine, jsynzfvqrtpknjnw3181-96-03 13:36:52* Test Item Value Reference Range Interpretation Comments nitrite, urine, semiquantitative (test code = 5802-4) negative [facility]hawleukocyte esterase, urine, by jqyrozia8179-35-84 13:36:52 * Test Item Value Reference Range Interpretation Comments leukocyte esterase, urine, by dipstick (test code = 5799-2) negativ e [facility]appearance, hlweb7113-12-12 13:36:52* Test Item Value Reference Range Interpretation Comments appearance, urine (test code = 5767-9) clear [facility] [id number] 13:36:52* Test Item Value Reference Range Interpretation Comments urine color (test code = 5778-6) yellow [facility] cmeyhbx8287-08-87 16:28:00* Test Item Value Reference Range Interpretation Comments urine culture (test code = 630-4) [facility] [place] [address] Patient Name: LONNIE ARROYO MR #: [id number] : 1980 Age/Sex: 36/F Req #: [id number] Adm Physician: Ordered by: KORTNEY HELM NP Report #: [id number] Location: ER Room/Bed: Procedure: [id number] CT/CT ABDOMEN/PELVIS WO Exam Date: 08/23/17 Exam Time: 2101 REPORT STATUS: S igned EXAM: CT Abdomen WITHOUT contrast INDICATION: Flank pain, renal sto ne. COMPARISON: 07/27/2017 TECHNIQUE: Abdomen was scanned utilizing a multide tector helical scanner from the lung base to the iliac crest without administr ation of IV contrast. Absence of intravenous contrast decreases sensitivity fo r detection of focal lesions and vascular pathology. Coronal and sagittal refo rmations were obtained. Stone protocol is performed. IV CONTRAST : None. ORAL CONTRAST: Water RADIATION DOSE: Total D LP: 162.18 mGy*cm Estimated effective dose: (DLP x 0.015 x size f actor) mSv COMPLICATIONS: None FINDINGS: LINES and TUBES : None. LOWER THORAX: Unremarkable HEPATOBILIARY: No focal hepat ic lesions. No biliary ductal dilation. GALLBLADDER: There are cholecystec paz clips. SPLEEN: No splenomegaly. PANCREAS: No focal masses or d uctal dilatation. ADRENALS: No adrenal nodules KIDNEYS/URETERS: No hydronephrosis. No cystic or solid mass lesions. No interval change in nu mber or size of bilateral renal stones predominantly involving the left renal collecting system ranging between 2 and 4 mm in diameter. GI TRACT: No ab normal distention, wall thickening, or evidence of bowel obstruction. LYMPH NODES: No lymphadenopathy. VESSELS: Unremarkable. PERITON EUM / RETROPERITONEUM: No free air or fluid. Bilateral fallopian tube jacoby. BONES: Unremarkable. SOFT TISSUES: Unremarkable. IMP RESSION: 1. Stable bilateral nephrolithiasis without evidence of hydronephr osis. 2. No acute intra-abdominal or pelvic abnormality. Signed by: Dr. Barry Mccormick M.D. on 08/23/2017 10:53 PM Dictated By: BARRY REDMAN MD 52 Transcri bed By: RASHEEDA on 08/23/172252 COPY TO: KORTNEY HELM NP US TRANSVAGINAL [place] [address] Patient Name: LONNIE ARROYO MR #: [id number] : 1980 Age/Sex: 36/F Req #: [id number] Adm Physician: Ordered by: KORTNEY HELM NP Report #: [id number] Location: ER Room/Bed: Procedure: [id number] US/US TRANSVAGINAL Exam Date: Exam Time: REPORT STATUS: Signed EXAM: Tr ansabdominal and Transvaginal Pelvic Ultrasound INDICATION: Hysterectom y, 4.5 cm left ovarian cyst, suspicious for torsion. COMPARISON: 08/23/[address] of the abdomen and pelvis TECHNIQUE: Grayscale transverse and sagittal transabdominal and transvaginal images were obtained of the pelvis. Transvagi nal imaging was medically necessary to better evaluate the endometrium and the adnexa. CLINICAL HISTORY: 36 year old A0; last menstrual period: 2 006. FINDINGS: Uterus Hysterectomy in 2005 Right ovary: Size: 3.2 x 2.4 x 2.1 cm Mass/Cyst: None Left ovary: Size: 3.1 x 2.2 x 3.2 cm Mass/Cyst: None Adnexa: Normal Normal bilateral vascular fl ow. Cul-de-sac: No free fluid IMPRESSION: 1. Unremarkable pelvic u ltrasound exam. 2. Venous and arterial flow are seen in the bilateral ovaries . Signed by: Dr. Barry Mccormick M.D. on 08/24/2017 12:04 AM Dictated By: BARRY REDMAN MD 0004 COPY TO: Jerrod HELM NP CT ABDOMEN/PELVIS WO [place] [address] Patient Name: LONNIE ARROYO MR #: [id number] : 1980 Age/Sex: 36/F Req #: [id number] Adm Physician: Ordered by: MISTY PERALTA MD Report #: [id number] Location: ER Room/Bed: Procedure: [id number] CT/CT ABDOMEN/PELVIS WO Exam D ate: 07/27/17 Exam Time: 1000 REPORT STATUS: Si gned PROCEDURE: CT ABDOMEN AND PELVIS WITHOUT CONTRAST COMPARISON: [facility], CT, CT ABDOMEN/PELVIS WO, 04/15/2017, 11:12. INDICATIO NS: Right flank pain TECHNIQUE: Stone protocol Volumetric CT abdomen and pelvis. No intravenous or enteric contrast. Multiplanar reformatted images. D LP: 173.44 FINDINGS: Clear lung bases. No pleural effusions. Normal h eart size. Liver: Craniocaudal span 15 cm. Normal Gallbladder: Cholecyst ectomy Pancreas: Normal Spleen: Normal Adrenal glands: Normal Urinar y bladder: Decompressed; otherwise, normal Uterus and adnexa: Hysterectomy. Kidneys: Right: At least 5 small stones scattered through the upper and lo wer poles, the largest measuring 3 mm in diameter. No hydronephrosis. Left: At least 6 small stones scattered through the upper and lower poles, the lar gest measuring 3 mm in diameter. No hydronephrosis. Bowel: Normal caliber. Inconspicuous appendix. Peritoneum: Normal Vasculature: Normal caliber. Small phleboliths. Lymph nodes: Normal Skeleton: Intact Soft tissues: Normal CONCLUSION: Bilateral punctate nonobstructive nephrolithiasis. No evidence of ureteral stone or obstruction. Dictated by: Guerline Laurent M.D. on 07/27/2017 at 10:51 Electronically approved by: Guerline Laurent M.D. on 07/27/2017 at 10:51 Dictated By: GUERLINE HUDSON MD 1051 Transcri bed By: LISA on 07/27/17 1051 COPY TO: MISTY PERALTA MD CHEST 2 VIEWS [place] [address] Patient Name: LONNIE ARROYO MR #: [id number] : 1980 Age/Sex: 36/F Req #: [id number] Adm Physician: Ordered by: MISTY BELLAMY MD Report #: [id number] Location: ER Room/Bed: Procedure: [id number] DX/CHEST 2 VIEWS Exam Date: Exam Time: 1050 REPORT STATUS: Signed PROCEDURE: CHEST 2 VIEWS TECHNIQUE: PA and lateral chest INDICATION: Cough; congestion COMPARISON: None. FINDINGS: Lungs are clear and sy mmetrically inflated. No pleural effusions. Normal heart size, mediastinal co ntour and pulmonary vasculature. Intact skeleton. CONCLUSION: Nor mal chest. Dictated by: Guerline Laurent M.D. on 06/05/2017 at 10:57 Electronically approved by: Guerline Laurent M.D. on 7 at 10:57 Dictated By: GUERLINE LAURENT MD Electronically Sign ed By: GUERLINE LAURENT MD on 06/05/17 1057 Transcribed By: LISA on 06/05/17 105 7 COPY TO: MISTY BELLAMY MD ABDOMEN-1VIEW (KUB) [place] [address] Patient Name: LONNIE ARROYO MR #: [id number] : 1980 Age/Sex: 36/F Req #: [id number] Adm Physician: Ordered by: ANABELLA BEVERLY MD Report #: [id number] Location: ER Room/Bed: Procedure: [id number] DX/ABDOMEN-1VIEW (KUB) Exam Date: 04/24/17 Exam Time: 0940 REPORT STATUS: Signed PROCEDURE: X-RAY ABDOMEN - KUB COMPARISON: CT abdomen and pelvis w ithout contrast 04/15/2017. INDICATIONS: CALCULUS OF KIDNEY FINDING S: Calcifications scattered over the left kidney are unchanged relative to prior CT, measuring between 3 and 4 mm in diameter. 3 mm calculus projects over the interpolar region of the right renal shadow. Additional renal calcu li described on the comparison CT are poorly visualized by plain radiography. Multiple pelvic phleboliths. Left hemipelvic surgical clips. Region al skeletal structures intact. Gas pattern is nonobstructive. CONCLUSI ON: bilateral renal calculi. For further details refer to the CT scan of the abdomen and pelvis performed 04/15/2017. Dictated by: Cindy Anaya on 04/24/2017 at 10:13 Electronically approved by: Cindy Segura M.D. on 04/24/2017 at 10:13 Dictated By: CINDY SEGURA MD Electronica lly Signed By: CINDY SEGURA MD on 04/24/17 1013 Transcribed By: LISA on 04/24 1013 COPY TO: ANABELLA BEVERLY MD CT ABDOMEN/PELVIS WO [place] [address] Patient Name: LONNIE ARROYO MR #: [id number] : Age/Sex: 36/F Req #: [id number] Adm Physician: Ordered by: MISTY BELLAMY MD Report #: [id number] Location: ER Room/Bed: Procedure: [id number] CT/CT ABDOMEN/PELVIS WO Exam D ate: 04/15/17 Exam Time: 1100 REPORT STATUS: Si gned EXAM: CT Abdomen and Pelvis WITHOUT contrast INDICATION: COMPARISON: None. TECHNIQUE: Abdomen and Pelvis was scanned utilizing a multidetector helical scanner without the use of IV contrast. Coronal and sag ittal reformations were obtained. IV CONTRAST: None COMPLICATIONS: None RADIATION DOSE: Total DLP: 159 mGy*cm Estimated effective dose: (DLP x 0.015 x size factor) mSv CTDIvol has been reviewed. It is below the limits set by the Radiation Protocol Commi ttee (RPC). FINDINGS: Abdomen: Lung bases are clear. Cholecystectom y clips are present. Nonenhanced images of liver, adrenals, spleen, and pancre as are unremarkable. Bilateral nonobstructing renal calculi present. No hyd ronephrosis identified. Evaluation of distal ureters limited by quantum mottle and lack of peritoneal fat. No hydroureter identified. No aortic aneurys m or small bowel obstructive changes identified. Pelvis: Urinary bladder de compressed, limiting evaluation. Pelvic evaluation limited by lack of IV contr ast and quantum mottling. No acute colonic findings present. No acute osseous finding IMPRESSION: 1. Bilateral nonobstructing renal calculi. No h ydroureter or hydronephrosis identified. 2. Distal ureters suboptimally evaluated due to quantum mottle. Numerous pelvic phleboliths further limits ev aluation. 3. Other findings as above. Signed by: Dr. Elbert Cullen MD on 04/15/2017 11:35 AM Dictated By: ELBERT CULLEN MD Electronically Sig shen By: ELBERT CULLEN MD on 04/15/17 1135 Transcribed By: RASHEEDA on 04/15/17 1135 COPY TO: MISTY BELLAMY MD CHEST 2 VIEWS [place] [address] Patient Name: LONNIE ARROYO MR #: [id number] : 1980 Age/Sex: 36/F Req #: [id number] Adm Physician: Ordered by: MISTY BELLAMY MD Report #: [id number] Location: ER Room/Bed: Procedure: [id number] DX/CHEST 2 VIEWS Exam Date: Exam Time: 1045 REPORT STATUS: Signed EXAM: CHEST 2 VIEWS DATE: 04/15/2017 10:09 AM INDICATION: Cough/fever COMPARISON: None FINDINGS: The heart is not enlarged. There is no pn eumothorax. No focal consolidation is present. Mild perihilar bronchial wall t hickening. IMPRESSION: Perihilar bronchial wall thickening can be seen i n the setting of viral processes. No focal consolidation. Signed by: Dr. Elbert Cullen MD on 04/15/2017 10:57 AM Dictated By: ELBERT CULLEN MD El ectronically Signed By: ELBERT CULLEN MD on 04/15/17 1057 Transcribed By: PUNEET FELICIANO on 04/15/17 1052 COPY TO: MISTY BELLAMY MD
--- OUTSIDE RECORDS SUMMARY | 2020-04-12 15:23 | XMS REPORT | Continuity of Care Document ---
Author Author [facility] t Organization [facility] Address [address] [place] [address] Phone Unavailable Care Team Providers Care Mail Handler Assistant Name Role Phone NO, PCP PCP Unavailable Anneliese MCDOWELL Attphys Unavailable ChristopherAnneliese milian Attphys Collins Tiara Attphys Unavailable RichardIselaEllie Attphys Unavailable Jimena [...] Number Effective Date Expiration Date [facility] [id number] 2019 00:00:00 [facility] [employer] [id number] 2019 00:00:00 [facility] Problems Condition Name Condition Details Condition Category Status Onset Date Resolution Date Last Treatment Date Treating Clinician Comments Source Urinary incontinence Condition Active 2020-03-20 00:00:00 2020-03-20 12:46:14 Yaya White [facility] Mastodynia, left Condition Active 2020-03-20 00:00:00 2 12:46:14 Yaya White [facility] Muscle spasm of back Condition Active 2018-08-22 00:00:00 2018-08-22 11:48:15 Helder Galvan [facility] Hx of kidney stone Condition Active 2017-09-13 00:00:00 2017-09-13 14:16:51 Tamara Merida [facility] Abdominal pain, right lower quadrant Condition Active 201 02-16-28 00:00:00 2017-09-13 14:16:51 Tamara Merida [facility] Flank pain, right Condition Active 2017-09-13 00:00:00 2017-09-13 14:16:[facility] Unspecified ovarian cyst, unspecified side Condition Active 2017-08-17 00:00:00 2017-09-13 14:00:55 Helder Galvan [facility] Unspecified abdominal pain Condition Active 2017-08-10 00 :00:00 2017-09-13 14:00:55 Helder Galvan [facility] Dysuria Condition Active 2017-08-10 00:00:00 2017-09-13 14:00:55 Helder Galvan [facility] Calculus of kidney Calculus of kidney Problem Active [facility] Irritable bowel syndrome IBS (irritable bowel syndrome) Problem Active [facility] Abdominal pain Problem Active [facility] Nausea Problem Active [facility] Diarrhea Problem Active [facility] Allergies, Adverse Reactions, Alerts Allergy Name Allergy Type Status Severity Reaction(s) Onset Date Inacti ve Date Treating Clinician Comments Source Codeine Allergy to substance Active Severe N/V AND RASH 2020-04-07 00: 00:00 [facility] Tramadol Allergy to substance Active 2020-04-07 00:00:00 [facility] Promethazine Allergy to substance Active n/v & rash 2020-04-07 00: 00:00 [facility] Metoclopramide Allergy to substance Active n/v & rash 2020-03-18 2 00:00:00 [facility] Ondansetron Allergy to substance Active Severe N/V AND RASH 2019 00:00:00 [facility] Ketorolac Allergy to substance Active "blotchy skin" 2020-04-07 00:00:00 [facility] Sulfa (Sulfonamide Antibiotics) DA Active U 2020-03-17 00 :00:00 [facility] morphine DA Active SV 2020-03-17 00:00:00 [facility] codeine DA Active U 2020-03-17 00:00:00 [facility] tramadol DA Active U 2020-03-17 00:00:00 [facility] promethazine DA Active U 2020-03-17 00:00:00 [facility] metoclopramide DA Active U 2020-03-17 00:00:00 [facility] ondansetron DA Active U 2020-03-17 00:00:00 [facility] ketorolac DA Active U 2020-03-17 00:00:00 [facility] Sulfa (Sulfonamide Antibiotics) DA Active U 2019-11-22 00 :00:00 [facility] morphine DA Active SV 2019-11-13 00:00:00 [facility] codeine DA Active U 2019-11-13 00:00:00 [facility] tramadol DA Active U 2019-11-13 00:00:00 [facility] promethazine DA Active U 2019-11-13 00:00:00 [facility] metoclopramide DA Active U 2019-11-13 00:00:00 [facility] ondansetron DA Active U 2019-11-13 00:00:00 [facility] ketorolac DA Active U 2019-11-13 00:00:00 [facility] morphine DA Active SV 2019-08-12 00:00:00 [facility] codeine DA Active U 2019-08-12 00:00:00 [facility] tramadol DA Active U 2019-08-12 00:00:00 [facility] promethazine DA Active U 2019-08-12 00:00:00 [facility] metoclopramide DA Active U 2019-08-12 00:00:00 [facility] ondansetron DA Active U 2019-08-12 00:00:00 [facility] ketorolac DA Active U 2019-08-12 00:00:00 [facility] morphine DA Active SV 2017-12-04 00:00:00 [facility] codeine DA Active U 2017-12-04 00:00:00 [facility] acetaminophen DA Active U 2017-12-04 00:00:00 [facility] tramadol DA Active U 2017-12-04 00:00:00 [facility] promethazine DA Active U 2017-12-04 00:00:00 [facility] metoclopramide DA Active U 2017-12-04 00:00:00 [facility] ondansetron DA Active U 2017-12-04 00:00:00 [facility] ketorolac DA Active U 2017-12-04 00:00:00 [facility] TORADOL Drug allergy (disorder) Active High Criticality 2017-07 00:00:00 [facility] TRAMADOL Drug allergy (disorder) Active High Criticality 2017-08-10 00:00:00 [facility] TYLENOL 3 Drug allergy (disorder) Active High Criticality 2017-08-10 00:00:00 [facility] SOFRAN Drug allergy (disorder) Active High Criticality 2017-07 00:00:00 [facility] MORPHINE Drug allergy (disorder) Active High Criticality 2017-08-10 00:00:00 [facility] Morphine Propensity to adverse reactions Active n/v & rash 2017-04-24 00:00:00 [facility] Social History Social Habit Start Date Stop Date Quantity Comments Source drug use, illicit 2020-03-20 10:52:33 2020-03-20 10:52:33 Never [facility] alcohol use 2020-03-20 10:52:33 2020-03-20 10:52:33 Never [facility] assessment of health literacy (NCQA [facility] 2014 Standard s, 3C10) 2020-03-20 10:52:33 2020-03-20 10:52:33 [facility] social history reviewed E&M 2020-03-20 10:52:33 2020-03-20 10:52 :33 reviewed today [facility] if the patient is using/has used a vapin g item, Current, Former, Never Used, Not asked 2020-03-20 10:52:33 2020-03-20 10:52:33 No [facility] is there any chance that you could be ? 2018-08-22 1 0:50:22 2018-08-22 10:50:22 No [facility] passive cigarette smoke exposure 2018-08-22 10:50:22 2018-08-22 10:50 :22 No [facility] Sex Assigned At 1980 00:00:00 1980 00:00:00 Female [facility] Smoking Status Start Date Stop Date Source Never smoked tobacco (finding) [facility] Medications Ordered Medication Name Filled Medication Name Start Date Stop Da te Current Medication? Ordering Clinician Indication Dosage Frequency Signature (SIG) Comments Components Source (CYCLOBENZAPRINE HCL) 10 MG TABS 2018-08-22 00:00:00 Yes Helder Galvan 1{Tablet} 3xD 1 By Mouth three times a day as needed for muscle spas [facility] (IBUPROFEN) 800 MG TABS 2017-09-13 00:00:00 Yes Tamara Elder [place] 1 By Mouth TID as needed [facility] VICODIN 5-300 MG ORAL TABLET 2017-08-17 00:00:00 Yes Billie Galvan take 1-2 tabs By Mouth Every 4-6 hours as needed for severe pain [facility] CIPRO (CIPROFLOXACIN HCL) 250 MG TABS 2017-08-10 00:00 :00 2017-08-17 00:00:00 No Helder Galvan 1 by mouth twice a day [facility] Metronidazole (Flagyl) 500 Mg TABLET Metronidazole (Flagyl) 500 Mg TABLET 2017-06-05 00:00:00 No 500 Every 8 Hours [facility] Tramadol Hcl (Ultram) 50 Mg TABLET Tramadol Hcl (Ultram) 50 Mg T ABLET 2017-06-05 00:00:00 No 50 Every 6 Hours as nee ded for Pain [facility] Vital Signs Vital Name Observation Time Observation Value Comments Source Body Temperature 2020-04-08 10:50:00 98.4 [degF] [facility] Weight 2020-04-07 17:43:00 126 [lb_av] [facility] BMI (Body Mass Index) 2020-04-07 17:43:00 23.0 kg/m2 [facility] Weight 2020-04-06 14:54:00 126 [lb_av] [facility] BMI (Body Mass Index) 2020-04-06 14:54:00 23.0 kg/m2 [facility] oxygen saturation, oximetry 2020-03-20 10:52:33 97 % [facility] blood pressure, diastolic 2020-03-20 10:52:33 88 mm[Hg] [facility] blood pressure, systolic 2020-03-20 10:52:33 126 mm[Hg] [facility] respiratory rate E&M 2020-03-20 10:52:33 18 /min [facility] pulse rate 2020-03-20 10:52:33 73 /min [facility] 2020-03-20 10:52:33 oral Lega [facility] temperature E&M 2020-03-20 10:52:33 98.7 [degF] [facility] weight E&M 2020-03-20 10:52:33 137 [lb_av] [facility] weight in kilograms E&M 2020-03-20 10:52:33 62.27 kg [facility] height in centimeters E&M 2020-03-20 10:52:33 157.48 cm [facility] oxygen saturation, oximetry 2018-08-22 10:50:22 98 % [facility] blood pressure, diastolic 2018-08-22 10:50:22 75 mm[Hg] [facility] blood pressure, systolic 2018-08-22 10:50:22 113 mm[Hg] [facility] respiratory rate E&M 2018-08-22 10:50:22 14 /min [facility] pulse rate 2018-08-22 10:50:22 66 /min [facility] temperature E&M 2018-08-22 10:50:22 98.1 [degF] [facility] weight E&M 2018-08-22 10:50:22 114.20 [lb_av] [facility] weight in kilograms E&M 2018-08-22 10:50:22 51.91 kg [facility] temperature site 2018-08-22 10:50:22 oral Lega cy [facility] height in centimeters E&M 2018-08-22 10:50:22 157.48 cm [facility] oxygen saturation, oximetry 2017-09-13 13:36:52 98 % [facility] blood pressure, diastolic 2017-09-13 13:36:52 68 mm[Hg] [facility] blood pressure, systolic 2017-09-13 13:36:52 109 mm[Hg] [facility] respiratory rate E&M 2017-09-13 13:36:52 17 /min [facility] pulse rate 2017-09-13 13:36:52 74 /min [facility] 2017-09-13 13:36:52 oral Lega cy [facility] temperature E&M 2017-09-13 13:36:52 98.1 [degF] [facility] weight E&M 2017-09-13 13:36:52 114.25 [lb_av] [facility] weight in kilograms E&M 2017-09-13 13:36:52 51.93 kg [facility] height in centimeters E&M 2017-09-13 13:36:52 157.48 cm [facility] oxygen saturation, oximetry 2017-08-23 15:38:42 99 % [facility] blood pressure, diastolic 2017-08-23 15:38:42 74 mm[Hg] [facility] blood pressure, systolic 2017-08-23 15:38:42 119 mm[Hg] [facility] respiratory rate E&M 2017-08-23 15:38:42 18 /min [facility] pulse rate 2017-08-23 15:38:42 70 /min [facility] 2017-08-23 15:38:42 oral Lega cy [facility] temperature E&M 2017-08-23 15:38:42 98.1 [degF] [facility] weight E&M 2017-08-23 15:38:42 116.13 [lb_av] [facility] weight in kilograms E&M 2017-08-23 15:38:42 52.79 kg [facility] height in centimeters E&M 2017-08-23 15:38:42 157.48 cm [facility] oxygen saturation, oximetry 2017-08-17 13:59:36 99 % [facility] blood pressure, diastolic 2017-08-17 13:59:36 73 mm[Hg] [facility] blood pressure, systolic 2017-08-17 13:59:36 114 mm[Hg] [facility] respiratory rate E&M 2017-08-17 13:59:36 18 /min [facility] pulse rate 2017-08-17 13:59:36 80 /min [facility] temperature E&M 2017-08-17 13:59:36 98.4 [degF] [facility] weight E&M 2017-08-17 13:59:36 114.25 [lb_av] [facility] weight in kilograms E&M 2017-08-17 13:59:36 51.93 kg [facility] temperature site 2017-08-17 13:59:36 oral Lega cy [facility] height in centimeters E&M 2017-08-17 13:59:36 157.48 cm [facility] oxygen saturation, oximetry 2017-08-10 15:31:52 99 % [facility] respiratory rate E&M 2017-08-10 15:31:52 18 /min [facility] pulse rate 2017-08-10 15:31:52 77 /min [facility] blood pressure, diastolic 2017-08-10 15:31:52 84 mm[Hg] [facility] blood pressure, systolic 2017-08-10 15:31:52 124 mm[Hg] [facility] temperature E&M 2017-08-10 15:31:52 98.2 [degF] [facility] temperature site 2017-08-10 15:31:52 oral Lega cy [facility] height in centimeters E&M 2017-08-10 15:31:52 157.48 cm [facility] weight E&M 2017-08-10 15:31:52 116.50 [lb_av] [facility] weight in kilograms E&M 2017-08-10 15:31:52 52.95 kg [facility] Procedures Procedure Date / Time Performed Performing Clinician [facility] e X-ray of chest, single view 2020-04-06 00:00:00 [facility] CT of abdomen and pelvis without contrast 2020-04-06 00:00:00 [facility] CT of abdomen and pelvis without contrast 2019-07-24 00:00:00 [facility] Urinalysis - Dip only - In House 2017-09-13 14:08:25 Tamara Merida [facility] Urinalysis - Dip only - In House 2017-08-10 16:18:11 Billie Galvan [facility] Encounters Start Date/Time End Date/Time En[facility] ID Source 2020-04-07 18:50:00 2020-04-08 11:19:00 Discharged Inpatient (obs) [facility] [id number] [facility] 2020-04-06 15:00:00 2020-04-06 18:51:00 Departed Emergency Room 1 [facility] [id number] [facility] 2020-03-20 00:00:00 2020-03-20 00:00:00 Office Visit Maycol White [facility] Encounter/[id number] [facility] 2020-03-20 00:00:00 2020-03-20 00:00:00 Office Visit Yaya Lewis Maria Jack, Myesha [facility] Encounter/[id number] Formerly [facility], [facility]–1983 2019-08-07 00:00:00 2019-08-07 00:00:00 Office Visit Jose Antonio Hutchins [facility] Encounter/[id number] [facility] 2019-07-24 12:51:00 2019-07-24 19:09:00 Departed Emergency Room 1 [facility] [id number] [facility] 2018-08-22 00:00:00 2018-08-22 00:00:00 Office Visit Mynor Cavanaugh [facility] Encounter/[id number] [facility] 2018-08-22 00:00:00 2018-08-22 00:00:00 Office Visit Billie Galvan [facility] Encounter/[id number] [facility] 2018-08-22 00:00:00 2018-08-22 00:00:00 Office Visit Helder Hernandez Adriana [facility] Encounter/[id number] [facility] 2018-07-24 00:00:00 2018-07-24 00:00:00 Office Visit Billie Galvan [facility] Encounter/[id number] [facility] 2017-11-13 00:00:00 2017-11-13 00:00:00 Office Visit Billie Galvan [facility] Encounter/[id number] [facility] 2017-09-13 00:00:00 2017-09-13 00:00:00 Office Visit Status, Fax [facility] Encounter/[id number] [facility] 2017-09-13 00:00:00 2017-09-13 00:00:00 Office Visit Status, Fax [facility] Encounter/[id number] [facility] 2017-09-13 00:00:00 2017-09-13 00:00:00 Office Visit Status, Fax [facility] Encounter/[id number] [facility] 2017-09-13 00:00:00 2017-09-13 00:00:00 Office Visit Tamara Herman [facility] Encounter/[id number] [facility] 2017-09-13 00:00:00 2017-09-13 00:00:00 Office Visit Tamara Connor Anabel McIntyre, Shakira Granados, Saralee [facility] Encounter/[id number] [facility] 2017-08-23 00:00:00 2017-08-23 00:00:00 Office Visit Billie Galvan [facility] Encounter/[id number] [facility] 2017-08-23 00:00:00 2017-08-23 00:00:00 Office Visit Helder Hernandez Deborath [facility] Encounter/[id number] [facility] 2017-08-17 00:00:00 2017-08-17 00:00:00 Office Visit ColeBillie Yasir [facility] Encounter/[id number] [facility] 2017-08-17 00:00:00 2017-08-17 00:00:00 Office Visit Billie Galvan [facility] Encounter/[id number] [facility] 2017-08-17 00:00:00 2017-08-17 00:00:00 Office Visit Billie Galvan naun Yasir [facility] Encounter/[id number] [facility] 2017-08-17 00:00:00 2017-08-17 00:00:00 Office Visit Helder Hernandez Deborath [facility] Encounter/[id number] [facility] 2017-08-15 00:00:00 2017-08-15 00:00:00 Office Visit Billie Galvan [facility] Encounter/[id number] [facility] 2017-08-10 00:00:00 2017-08-10 00:00:00 Office Visit Billie Galvan [facility] Encounter/[id number] [facility] 2017-08-10 00:00:00 2017-08-10 00:00:00 Office Visit Billie Galvan [facility] Encounter/[id number] [facility] 2017-08-10 00:00:00 2017-08-10 00:00:00 Office Visit Helder Hernandez Deborath Lewis, Shaniqua [facility] Encounter/[id number] Formerly [facility], [facility] Results Test Description Test Time Test Comments Results Result Comments Source Stool lactoferrin detection 2020-04-08 09:44:00 Test Item Stool Lactoferrin (LAB) (test code = 35128-0) POSITIVE NEGATIVE Testing on stool aspirate specimens is outside crime specialist claims since specime n type not validated on this assay.[facility] count (number/volume)2020-04-08 06:05:00* Test Item Value Reference Range Interpretation Comments White Blood Count (test code = 6690-2) 8.90 4.8-10.8 [facility] erythrocytes automated count (number/volume)2020-04-08 06:05:00* Test Item Value Reference Range Interpretation Comments Red Blood Count (test code = 789-8) 4.23 3.6-5.1 [facility] hemoglobin measurement (moles/volume)2020-04-08 06:05:00* Test Item Value Reference Range Interpretation Comments Hemoglobin (test code = 72405-7) 12.7 12.0-16.0 [facility] hematocrit (volume fraction)2020-04-08 06:05:00* Test Item Value Reference Range Interpretation Comments Hematocrit (test code = 4544-3) 38.5 34.2-44.1 [facility] eryth[facility] mean corpuscular [id number] 06:05:00* Test Item Value Reference Range Interpretation Comments Mean Corpuscular Volume (test code = 787-2) 91.0 81-99 [facility] eryth[facility] mean corpuscular hemoglobin (mass per erythrocyte)2020-04-08 06:05:00* Test Item Value Reference Range Interpretation Comments Mean Corpuscular Hemoglobin (test code = 785-6) 30.0 28-32 [facility] eryth[facility] mean corpuscular hemoglobin concentration measurement (mass/volume)2020-04-08 06:05:00* Test Item Value Reference Range Interpretation Comments Mean Corpuscular Hemoglobin Concent (test code = 786-4) 33.0 31-35 [facility]ano[facility]DW [id number] 06:05:00* Test Item Value Reference Range Interpretation Comments Red Cell Distribution Width (test code = 60528-4) 12.6 11.7 -14.4 [facility] platelet count (count/volume)2020-04-08 06:05:00* Test Item Value Reference Range Interpretation Comments Platelet Count (test code = 777-3) 213 140-360 [facility] segmented neutrophil count as percentage of total [id number] 06:05:00* Test Item Value Reference Range Interpretation Comments Neutrophils (%) (Auto) (test code = 28039-6) 62.4 38.7-80.0 [facility] lymphocyte count as percentage ot total [id number] 06:05:00* Test Item Value Reference Range Interpretation Comments Lymphocytes (%) (Auto) (test code = 736-9) 27.3 18.0-39.1 [facility] monocyte count as percentage of total [id number] 06:05:00* Test Item Value Reference Range Interpretation Comments Monocytes (%) (Auto) (test code = 5905-5) 8.7 4.4-11.3 [facility] eosinophil count as percentage of total [id number] 06:05:00* Test Item Value Reference Range Interpretation Comments Eosinophils (%) (Auto) (test code = 713-8) 0.7 0.0-6.0 [facility] basophil count as percentage of total [id number] 06:05:00* Test Item Value Reference Range Interpretation Comments Basophils (%) (Auto) (test code = 706-2) 0.3 0.0-1.0 [facility]ano[facility]oroscopic procedure less than one hour [id number] 06:05:00* Test Item Value Reference Range Interpretation Comments IM GRANULOCYTES % (test code = IM GRANULOCYTES %) 0.6 0.0- 1.0 [facility] neutrophil count 2020-04-08 06:05:00* Test Item Value Reference Range Interpretation Comments Neutrophils # (Auto) (test code = 751-8) 5.6 2.1-6.9 [facility] lymphocytes count (number/volume) 2020-04-08 06:05:00* Test Item Value Reference Range Interpretation Comments Lymphocytes # (Auto) (test code = 36281-3) 2.4 1.0-3.2 [facility] monocytes automated count (number/volume)2020-04-08 06:05:00* Test Item Value Reference Range Interpretation Comments Monocytes # (Auto) (test code = 742-7) 0.8 0.2-0.8 [facility] eosinophil count 2020-04-08 06:05:00* Test Item Value Reference Range Interpretation Comments Eosinophils # (Auto) (test code = 711-2) 0.1 0.0-0.4 [facility] basophil count (count/volume)2020-04-08 06:05:00* Test Item Value Reference Range Interpretation Comments Basophils # (Auto) (test code = 704-7) 0.0 0.0-0.1 [facility]or[facility] procedure less than one hour [id number] 06:05:00* Test Item Value Reference Range Interpretation Comments Absolute Immature Granulocyte (auto (minoo t code = Absolute Immature Granulocyte (auto) 0.05 0-0.1 [facility] sodium measurement (moles/volume)2020-04-08 06:05:00* Test Item Value Reference Range Interpretation Comments Sodium Level (test code = 2951-2) 142 136-145 [facility] [place] or plasma potassium measurement (moles/volume)2020-04-08 06:05:00* Test Item Value Reference Range Interpretation Comments Potassium Level (test code = 2823-3) 3.9 3.5-5.1 [facility] chloride measurement (moles/volume)2020-04-08 06:05:00* Test Item Value Reference Range Interpretation Comments Chloride Level (test code = 2075-0) 111 98-107 [facility]wooderum or plasma carbon dioxide, total measurement (moles/volume)2020-04-08 06:05:00* Test Item Value Reference Range Interpretation Comments Carbon Dioxide Level (test code = 2028-9) 21 22-29 [facility] [place]wooderum or plasma anion [id number] 06:05:00* Test Item Value Reference Range Interpretation Comments Anion Gap (test code = 77565-2) 13.9 8-16 [facility]wooder[facility] or plasma urea nitrogen measurement (mass/volume)2020-04-08 06:05:00* Test Item Value Reference Range Interpretation Comments Blood Urea Nitrogen (test code = 3094-0) 8 7-26 [facility] [place] or plasma creatinine measurement (mass/volume)2020-04-08 06:05:00* Test Item Value Reference Range Interpretation Comments Creatinine (test code = 2160-0) 0.74 0.57-1.11 [facility] [place]wooderum or plasma urea nitrogen/creatinine mass omkqc0185-01-57 06:05:00* Test Item Value Reference Range Interpretation Comments BUN/Creatinine Ratio (test code = 3097-3) 11 6-25 [facility] PlanoEstimated glomerular filtration rate (GFR) ihjbfpieygysu9339-41-04 06:05:00* Test Item Value Reference Range Interpretation Comments Estimat Glomerular Filtration Rate (test code = 226137165) > 60 >60 Ranges were taken from the National Kidney Disease Education Program and the [facility] Kidney Foundation literature.Reference ranges:60 or greater: Xgshtg13-78 ( for 3 consecutive months): Chronic kidney disease 15 or less: Kidney failureB[facility] – PlanoGlucose plmqjsjqenm8324-37-42 06:05:00* Test Item Value Reference Range Interpretation Comments Glucose Level (test code = KHX9725) 81 74-118 [facility] [place]er[facility] or plasma calcium measurement (mass/volume)2020-04-08 06:05:00* Test Item Value Reference Range Interpretation Comments Calcium Level (test code = 37804-8) 8.4 8.4-10.2 [facility] PlanoUrine color fmzpzhtdrydmc9735-87-67 20:12:00* Test Item Value Reference Range Interpretation Comments Urine Color (test code = 5778-6) YELLOW YELLOW [facility] PlanoUrine hvmawdl1974-57-69 20:12:00* Test Item Value Reference Range Interpretation Comments Urine Clarity (test code = 02383-5) CLEAR CLEAR [facility] [place]woodpecific gravity of Urine by Test strip 2020-04-07 20:12:00* Test Item Value Reference Range Interpretation Comments Urine Specific [place] (test code = 5811-5) 1.005 1.010-1.02 5 [facility] PlanoUrine pH measurement by automated test [id number] 20:12:00* Test Item Value Reference Range Interpretation Comments Urine pH (test code = 65411-7) 5.5 5-7 [facility] PlanoUrine leukocyte esterase detection by mzhsrovo7617-49-81 20:12:00* Test Item Value Reference Range Interpretation Comments Urine Leukocyte Esterase (test code = 5799-2) NEGATIVE NEGATIVE [facility] PlanoUrine nitrite hlconrphx6966-02-31 20:12:00* Test Item Value Reference Range Interpretation Comments Urine Nitrite (test code = 12000-6) NEGATIVE NEGATIVE [facility] PlanoUrine protein measurement by test strip (mass/volume)2020-04-07 20:12:00* Test Item Value Reference Range Interpretation Comments Urine Protein (test code = 5804-0) NEGATIVE NEGATIVE [facility] PlanoUrine glucose nyqrtuomd3305-38-42 20:12:00* Test Item Value Reference Range Interpretation Comments Urine Glucose (UA) (test code = 2349-9) NEGATIVE NEGATIVE [facility] PlanoUrine ketones detection by automated test diaaz3114-49-02 20:12:00* Test Item Value Reference Range Interpretation Comments Urine Ketones (test code = 03926-3) TRACE NEGATIVE [facility] PlanoUrine urobilinogen measurement by test strip (mass/volume)2020-04-07 20:12:00* Test Item Value Reference Range Interpretation Comments Urine Urobilinogen (test code = 17594-6) 0.2 0.2-1 [facility] PlanoUrine total bilirubin measurement (mass/volume)2020-04-07 20:12:00* Test Item Value Reference Range Interpretation Comments Urine Bilirubin (test code = 1978-6) NEGATIVE NEGATIVE [facility] PlanoUrine erythrocytes gsggpztcp7225-42-98 20:12:00* Test Item Value Reference Range Interpretation Comments Urine Blood (test code = 07872-2) NEGATIVE NEGATIVE [facility] PlanoAutomated urine sediment leukocyte count by microscopy (number/high power field)2020-04-07 20:12:00* Test Item Value Reference Range Interpretation Comments Urine WBC (test code = 5821-4) NONE 0-5 [facility] PlanoErythrocytes detection in urine sediment by light cqzakcwjji7375-88-02 20:12:00* Test Item Value Reference Range Interpretation Comments Urine RBC (test code = 93044-9) NONE 0-5 [facility] PlanoBacteria detection in urine sediment by light abgcvkbawe8303-65-86 20:12:00* Test Item Value Reference Range Interpretation Comments Urine Bacteria (test code = 26878-3) NONE NONE [facility] PlanoEpithelial cells detection in urine sediment by light aynygfcgye4522-08-56 20:12:00* Test Item Value Reference Range Interpretation Comments Urine Epithelial Cells (test code = 44244-8) MODERATE NONE [facility] [place]er[facility] or plasma total bilirubin measurement (mass/volume)2020-04-07 18:21:00* Test Item Value Reference Range Interpretation Comments Total Bilirubin (test code = 1975-2) 0.4 0.2-1.2 [facility] PlanoFluoroscopic procedure less than one hour mqlkohvd5359-73-88 18:21:00* Test Item Value Reference Range Interpretation Comments Aspartate Amino Transf (AST/SGOT) (test code = Aspartate Amino Transf (AST/SGOT)) 21 5-34 [facility] [place]erum or plasma alanine aminotransferase measurement (enzymatic activity/volume)2020-04-07 18:21:00* Test Item Value Reference Range Interpretation Comments Alanine Aminotransferase (ALT/SGPT) (test code = 1742-6) 13 0-55 [facility] [place]er[facility] or plasma protein measurement (mass/volume)2020-04-07 18:21:00* Test Item Value Reference Range Interpretation Comments Total Protein (test code = 2885-2) 7.6 6.5-8.1 [facility] [place] or plasma albumin measurement (mass/volume)2020-04-07 18:21:00* Test Item Value Reference Range Interpretation Comments Albumin (test code = 1751-7) 4.5 3.5-5.0 [facility] PlanoPlasma globulin measurement (mass/volume) 2020-04-07 18:21:00* Test Item Value Reference Range Interpretation Comments Globulin (test code = 15326-5) 3.1 2.3-3.5 [facility] [place] or plasma albumin/globulin mass ousga4712-84-72 18:21:00* Test Item Value Reference Range Interpretation Comments Albumin/Globulin Ratio (test code = 1759-0) 1.5 0.8-2.0 [facility] [place] or plasma alkaline phosphatase measurement (enzymatic activity/volume)2020-04-07 18:21:00* Test Item Value Reference Range Interpretation Comments Alkaline Phosphatase (test code = 6768-6) 77 40-150 [facility] [place] or plasma lipase measurement (enzymatic activity/volume)2020-04-07 18:21:00* Test Item Value Reference Range Interpretation Comments Lipase (test code = 3040-3) 13 8-78 [facility] [place]wooder[facility] or plasma chorionic gonadotropin measurement (mass/volume)2020-04-07 18:21:00* Test Item Value Reference Range Interpretation Comments Human Chorionic Gonadotropin, Quant (test code = 93239-2) < 1.20 0-10 [facility] PlanoCT ABDOMEN/PELVIS [id number] 17:39:00 [facility] [address] [address] Patient Name: LONNIE ARROYO MR #: [id number] : 1980 Age/Sex: 39/F Req #: [id number] Adm Physician: Ordered by: THELMA MCDOWELL MD Report #: [id number] Location: ER Room/Bed: Procedure: CT/CT ABDOMEN/PEL VIS [...] evidence of obst ructive urolithiasis. Signed by: Espearnza Marroquin MD on 04/06/2020 5:50 PM Dictated By: ESPERANZA MARROQUIN MD 49 Transcribed By: RASHEEDA on 04/06/201749 COPY TO: THELMA DOWLING MD Blood leukocytes automated count (number/volume) 2020-04-06 16:10:00* Test Item Value Reference Range Interpretation Comments White Blood Count (test code = 6690-2) 13.95 4.8-10.8 [facility] PlanoBlood erythrocytes automated count (number/volume)2020-04-06 16:10:00* Test Item Value Reference Range Interpretation Comments Red Blood Count (test code = 789-8) 4.64 3.6-5.1 [facility] PlanoBlood hemoglobin measurement (moles/volume)2020-04-06 16:10:00* Test Item Value Reference Range Interpretation Comments Hemoglobin (test code = 83269-1) 14.0 12.0-16.0 [facility] PlanoAutomated blood hematocrit (volume fraction)2020-04-06 16:10:00* Test Item Value Reference Range Interpretation Comments Hematocrit (test code = 4544-3) 41.8 34.2-44.1 [facility] PlanoAutomated erythrocyte mean corpuscular zdkhrg3219-46-58 16:10:00* Test Item Value Reference Range Interpretation Comments Mean Corpuscular Volume (test code = 787-2) 90.1 81-99 [facility] PlanoAutomated erythrocyte mean corpuscular hemoglobin (mass per erythrocyte)2020-04-06 16:10:00* Test Item Value Reference Range Interpretation Comments Mean Corpuscular Hemoglobin (test code = 785-6) 30.2 28-32 [facility] PlanoAutomated erythrocyte mean corpuscular hemoglobin concentration measurement (mass/volume)2020-04-06 16:10:00* Test Item Value Reference Range Interpretation Comments Mean Corpuscular Hemoglobin Concent (test code = 786-4) 33.5 31-35 [facility] PlanoRDW UntPa-Dqs4471-07-21 16:10:00* Test Item Value Reference Range Interpretation Comments Red Cell Distribution Width (test code = 64033-2) 12.8 11.7 -14.4 [facility] PlanoAutomated blood platelet count (count/volume)2020-04-06 16:10:00* Test Item Value Reference Range Interpretation Comments Platelet Count (test code = 777-3) 263 140-360 [facility] PlanoAutomated blood segmented neutrophil count as percentage of total vxgejgpdea3288-32-10 16:10:00* Test Item Value Reference Range Interpretation Comments Neutrophils (%) (Auto) (test code = 81924-6) 68.4 38.7-80.0 [facility] PlanoAutomated blood lymphocyte count as percentage ot total gtibvclogq8827-24-29 16:10:00* Test Item Value Reference Range Interpretation Comments Lymphocytes (%) (Auto) (test code = 736-9) 21.6 18.0-39.1 [facility] PlanoAutomated blood monocyte count as percentage of total fvbjuezfld1760-67-72 16:10:00* Test Item Value Reference Range Interpretation Comments Monocytes (%) (Auto) (test code = 5905-5) 8.7 4.4-11.3 [facility] PlanoAutomated blood eosinophil count as percentage of total lltvimjejk6534-82-45 16:10:00* Test Item Value Reference Range Interpretation Comments Eosinophils (%) (Auto) (test code = 713-8) 0.4 0.0-6.0 [facility] PlanoAutomated blood basophil count as percentage of total csxxzcpuqn6756-54-82 16:10:00* Test Item Value Reference Range Interpretation Comments Basophils (%) (Auto) (test code = 706-2) 0.4 0.0-1.0 [facility] PlanoFluoroscopic procedure less than one hour mfrxoito6203-14-59 16:10:00* Test Item Value Reference Range Interpretation Comments IM GRANULOCYTES % (test code = IM GRANULOCYTES %) 0.5 0.0- 1.0 [facility] PlanoAutomated blood neutrophil count 2020-04-06 16:10:00* Test Item Value Reference Range Interpretation Comments Neutrophils # (Auto) (test code = 751-8) 9.5 2.1-6.9 [facility] PlanoBlood lymphocytes count (number/volume) 2020-04-06 16:10:00* Test Item Value Reference Range Interpretation Comments Lymphocytes # (Auto) (test code = 76970-4) 3.0 1.0-3.2 [facility] PlanoBlood monocytes automated count (number/volume)2020-04-06 16:10:00* Test Item Value Reference Range Interpretation Comments Monocytes # (Auto) (test code = 742-7) 1.2 0.2-0.8 [facility] PlanoAutomated blood eosinophil count 2020-04-06 16:10:00* Test Item Value Reference Range Interpretation Comments Eosinophils # (Auto) (test code = 711-2) 0.1 0.0-0.4 [facility] PlanoAutomated blood basophil count (count/volume)2020-04-06 16:10:00* Test Item Value Reference Range Interpretation Comments Basophils # (Auto) (test code = 704-7) 0.1 0.0-0.1 [facility] PlanoFluoroscopic procedure less than one hour kvkuczyc1616-06-71 16:10:00* Test Item Value Reference Range Interpretation Comments Absolute Immature Granulocyte (auto (minoo t code = Absolute Immature Granulocyte (auto) 0.07 0-0.1 [facility] PlanoProthrombin time (PT) in platelet poor plasma by coagulation [id number] 16:10:00* Test Item Value Reference Range Interpretation Comments Prothrombin Time (test code = 5902-2) 12.7 11.9-14.5 [facility] PlanoINR in Platelet poor plasma by Coagulation ibbbr0881-83-58 16:10:00* Test Item Value Reference Range Interpretation Comments Prothromb Time International Ratio (test code = 6301-6) 0.91 Oral Anticoagulant Therapy INR Values:1. Low Intensity Therapy 1.5 - 2.02 . Moderate Intensity Therapy 2.0 - 3.03. High Intensity Therapy(1) 2.5 - 3. 54. High Intensity Therapy(2) 3.0 - 4.05. Panic Value INR > 5.0 [facility] PlanoActivated partial thromboplastin time (aPTT) in platelet poor plasma by coagulation ucxgx3091-33-82 16:10:00* Test Item Value Reference Range Interpretation Comments Activated Partial Thromboplast Time (test code = 50898-3) 28.2 23.8-35.5 [facility]wooderum or plasma sodium measurement (moles/volume)2020-04-06 16:10:00* Test Item Value Reference Range Interpretation Comments Sodium Level (test code = 2951-2) 137 136-145 [facility] [place]wooderum or plasma potassium measurement (moles/volume)2020-04-06 16:10:00* Test Item Value Reference Range Interpretation Comments Potassium Level (test code = 2823-3) 4.2 3.5-5.1 [facility] [place]wooderum or plasma chloride measurement (moles/volume)2020-04-06 16:10:00* Test Item Value Reference Range Interpretation Comments Chloride Level (test code = 2075-0) 106 98-107 [facility] [place]wooderum or plasma carbon dioxide, total measurement (moles/volume)2020-04-06 16:10:00* Test Item Value Reference Range Interpretation Comments Carbon Dioxide Level (test code = 2028-9) 21 22-29 [facility]wooderum or plasma anion grh9028-56-01 16:10:00* Test Item Value Reference Range Interpretation Comments Anion Gap (test code = 53744-9) 14.2 8-16 [facility] [place]wooderum or plasma urea nitrogen measurement (mass/volume)2020-04-06 16:10:00* Test Item Value Reference Range Interpretation Comments Blood Urea Nitrogen (test code = 3094-0) 10 7-26 [facility] [place]wooderum or plasma creatinine measurement (mass/volume)2020-04-06 16:10:00* Test Item Value Reference Range Interpretation Comments Creatinine (test code = 2160-0) 0.78 0.57-1.11 [facility] [place]wooderum or plasma urea nitrogen/creatinine mass dlztr1092-58-32 16:10:00* Test Item Value Reference Range Interpretation Comments BUN/Creatinine Ratio (test code = 3097-3) 13 6-25 [facility] PlanoEstimated glomerular filtration rate (GFR) jfcrohztglogz7500-33-73 16:10:00* Test Item Value Reference Range Interpretation Comments Estimat Glomerular Filtration Rate (test code = 895682731) > 60 >60 Ranges were taken from the National Kidney Disease Education Program and the [facility] Kid[facility] Foundation literature.Reference ranges:60 or greater: Msahgw33-10 ( for 3 consecutive months): Chronic kidney disease 15 or less: Kidney failureBaylor Scott & White [facility] Center – PlanoGlucose dkfhmpyeihf7408-34-25 16:10:00* Test Item Value Reference Range Interpretation Comments Glucose Level (test code = KPX7267) 98 74-118 [facility]wooderum or plasma calcium measurement (mass/volume)2020-04-06 16:10:00* Test Item Value Reference Range Interpretation Comments Calcium Level (test code = 53392-9) 9.3 8.4-10.2 [facility] [place]wooderum or plasma total bilirubin measurement (mass/volume)2020-04-06 16:10:00* Test Item Value Reference Range Interpretation Comments Total Bilirubin (test code = 1975-2) 0.6 0.2-1.2 [facility] PlanoFluoroscopic procedure less than one hour plcrwxpp8377-31-92 16:10:00* Test Item Value Reference Range Interpretation Comments Aspartate Amino Transf (AST/SGOT) (test code = Aspartate Amino Transf (AST/SGOT)) 25 5-34 [facility] Kingwooderum or plasma alanine aminotransferase measurement (enzymatic activity/volume)2020-04-06 16:10:00* Test Item Value Reference Range Interpretation Comments Alanine Aminotransferase (ALT/SGPT) (test code = 1742-6) 17 0-55 [facility] [place]wooderum or plasma protein measurement (mass/volume)2020-04-06 16:10:00* Test Item Value Reference Range Interpretation Comments Total Protein (test code = 2885-2) 8.1 6.5-8.1 [facility] [place]wooderum or plasma albumin measurement (mass/volume)2020-04-06 16:10:00* Test Item Value Reference Range Interpretation Comments Albumin (test code = 1751-7) 4.7 3.5-5.0 [facility] PlanoPlasma globulin measurement (mass/volume) 2020-04-06 16:10:00* Test Item Value Reference Range Interpretation Comments Globulin (test code = 68125-6) 3.4 2.3-3.5 [facility] Kingwooderum or plasma albumin/globulin mass yoblj5130-72-21 16:10:00* Test Item Value Reference Range Interpretation Comments Albumin/Globulin Ratio (test code = 1759-0) 1.4 0.8-2.0 [facility] [place]wooderum or plasma alkaline phosphatase measurement (enzymatic activity/volume)2020-04-06 16:10:00* Test Item Value Reference Range Interpretation Comments Alkaline Phosphatase (test code = 6768-6) 80 40-150 [facility]wooderum or plasma amylase measurement (enzymatic activity/volume)2020-04-06 16:10:00* Test Item Value Reference Range Interpretation Comments Amylase Level (test code = 1798-8) 94 25-125 [facility]wooderum or plasma lipase measurement (enzymatic activity/volume)2020-04-06 16:10:00* Test Item Value Reference Range Interpretation Comments Lipase (test code = 3040-3) 98 8-78 [facility] PlanoProthrombin time (PT) in platelet poor plasma by coagulation lnhhj4602-04-20 16:10:00* Test Item Value Reference Range Interpretation Comments Prothrombin Time (test code = 5902-2) 12.7 11.9-14.5 [facility] PlanoINR in Platelet poor plasma by Coagulation sideq6183-51-69 16:10:00* Test Item Value Reference Range Interpretation Comments Prothromb Time International Ratio (test code = 6301-6) 0.91 Oral Anticoagulant Therapy INR Values:1. Low Intensity Therapy 1.5 - 2.02 . Moderate Intensity Therapy 2.0 - 3.03. High Intensity Therapy(1) 2.5 - 3. 54. High Intensity Therapy(2) 3.0 - 4.05. Panic Value INR > 5.0 [facility] PlanoActivated partial thromboplastin time (aPTT) in platelet poor plasma by coagulation brnmn9694-73-80 16:10:00* Test Item Value Reference Range Interpretation Comments Activated Partial Thromboplast Time (test code = 16695-5) 28.2 23.8-35.5 [facility]wooderum or plasma amylase measurement (enzymatic activity/volume)2020-04-06 16:10:00* Test Item Value Reference Range Interpretation Comments Amylase Level (test code = 1798-8) 94 25-125 [facility] PlanoCHEST SINGLE (NOT PORTABLE)2020-04-06 15:55:00 [facility] [address] [place] [address] Patient Name: LONNIE ARROYO MR #: [id number] : 1980 Age/Sex: 39/F Req #: [id number] Adm Physician: Ordered by: THELMA MCDOWELL MD Report #: [id number] Location: ER Room/Bed: Procedure: [id number] DX/CHEST SINGLE ( NOT PORTABLE) Exam Date: [...] 3:55 PM Dictated By: NEGIN MAGUIRE MD [id number] Transcribed By: KAMRYN GOMEZ on 04/06/20 1555 COPY TO: THELMA MCDOWELL MD Urine color jmmvozghvorpn2402-77-71 15:00:00* Test Item Value Reference Range Interpretation Comments Urine Color (test code = 5778-6) YELLOW YELLOW [facility] PlanoUrine cxgghqz5829-58-97 15:00:00* Test Item Value Reference Range Interpretation Comments Urine Clarity (test code = 99712-4) SL CLOUDY CLEAR [facility] Kingwoodpecific gravity of Urine by Test strip 2020-04-06 15:00:00* Test Item Value Reference Range Interpretation Comments Urine Specific [place] (test code = 5811-5) 1.030 1.010-1.02 5 [facility] PlanoUrine pH measurement by automated test [id number] 15:00:00* Test Item Value Reference Range Interpretation Comments Urine pH (test code = 02677-1) 6 5-7 [facility] PlanoUrine leukocyte esterase detection by ntrvccod8861-22-46 15:00:00* Test Item Value Reference Range Interpretation Comments Urine Leukocyte Esterase (test code = 5799-2) NEGATIVE NEGATIVE [facility] PlanoUrine nitrite ovdcezuhf0003-67-99 15:00:00* Test Item Value Reference Range Interpretation Comments Urine Nitrite (test code = 20182-5) NEGATIVE NEGATIVE [facility] PlanoUrine protein measurement by test strip (mass/volume)2020-04-06 15:00:00* Test Item Value Reference Range Interpretation Comments Urine Protein (test code = 5804-0) NEGATIVE NEGATIVE [facility] PlanoUrine glucose oblvhkbvf5076-82-49 15:00:00* Test Item Value Reference Range Interpretation Comments Urine Glucose (UA) (test code = 2349-9) NEGATIVE NEGATIVE [facility] PlanoUrine ketones detection by automated test wfwji8441-49-18 15:00:00* Test Item Value Reference Range Interpretation Comments Urine Ketones (test code = 61852-9) NEGATIVE NEGATIVE [facility] PlanoUrine urobilinogen measurement by test strip (mass/volume)2020-04-06 15:00:00* Test Item Value Reference Range Interpretation Comments Urine Urobilinogen (test code = 04897-7) 0.2 0.2-1 [facility] PlanoUrine total bilirubin measurement (mass/volume)2020-04-06 15:00:00* Test Item Value Reference Range Interpretation Comments Urine Bilirubin (test code = 1978-6) NEGATIVE NEGATIVE [facility] PlanoUrine erythrocytes amhkbtuwv9265-50-96 15:00:00* Test Item Value Reference Range Interpretation Comments Urine Blood (test code = 34399-8) TRACE NEGATIVE [facility] PlanoAutomated urine sediment leukocyte count by microscopy (number/high power field)2020-04-06 15:00:00* Test Item Value Reference Range Interpretation Comments Urine WBC (test code = 5821-4) NONE 0-5 [facility] PlanoErythrocytes detection in urine sediment by light tnwvllsxef4453-91-23 15:00:00* Test Item Value Reference Range Interpretation Comments Urine RBC (test code = 83406-7) 0-5 0-5 [facility] PlanoBacteria detection in urine sediment by light todfieqfgh2245-44-50 15:00:00* Test Item Value Reference Range Interpretation Comments Urine Bacteria (test code = 04255-4) MODERATE NONE [facility] PlanoEpithelial cells detection in urine sediment by light ioeeavxuvj8863-65-06 15:00:00* Test Item Value Reference Range Interpretation Comments Urine Epithelial Cells (test code = 13965-4) MODERATE NONE [facility]- US HEAD AND [id number] 15:30:00 Name: LONNIE ARROYO [facility] : 1980 Age/S: 39 / F [address] Unit #: [id number] Loc: [place] [address] Phys: Logan James MD Acct: [id number] Di s Date: Status: REG CLI PHONE #: Exam Date: 03/20/2020 7532 FAX #: Reason: THYROID EXAMS: CPT CODE: [id number] US HEAD AND N RIK 07528 REASON FOR EXAM: THYROID EXAM ORDER DATE: 03/20/2020 2:58 PM Ordering: Han James MD Attending:Han James MD Location:[facility] PROCEDURE: - US HEAD AND NECK FINDINGS: [...] Probe: PAGE 1 Signed Report BASIC METABOLIC [id number] 23:54:00* Test Item Value Reference Range Interpretation [...] CA) 8.2 mg/dL 8.4-10.2 L HEPATIC FUNCTION [id number] 23:54:00* Test Item Value Reference Range Interpretation [...] code = ALKP) 84 U/L 38-126 N [id number] 23:54:00* Test Item Value Reference Range Interpretation Comments LIPASE (test code = LIP) 178 U/L 128-270 N CBC W/O [id number] 23:39:00* Test Item Value Reference Range Interpretation [...] = MPV) 9.7 fL 6.7-11.0 N URINALYSIS [id number] 22:40:00* Test Item Value Reference Range Interpretation [...] NONE-FEW A Urine Source? Clean CatchUR HCG [id number] 22:40:00* Test Item Value Reference Range Interpretation Comments UR HCG QUAL (test code = HCGQLU) NEGATIVE This HCGQL test is NOT applicable for MALE patients.Check with nurse about probable order error.If Tumor Marker Test needed, nurse should order test "HCGTU"(Test #550.52171) Urine Source? Clean CatchURINALYSIS [id number] 22:38:00* Test Item Value Reference Range Interpretation [...] HPF NONE Urine Source? Clean CatchUR HCG [id number] 22:38:00* Test Item Value Reference Range Interpretation Comments UR HCG QUAL (test code = HCGQLU) NEGATIVE This HCGQL test is NOT applicable for MALE patients.Check with nurse about probable order error.If Tumor Marker Test needed, nurse should order test "HCGTU"(Test #550.58613) Urine Source? Clean CatchURINALYSIS [id number] 22:37:00* Test Item Value Reference Range Interpretation [...] HPF NONE Urine Source? Clean CatchUR HCG [id number] 22:37:00* Test Item Value Reference Range Interpretation Comments UR HCG QUAL (test code = HCGQLU) Urine Source? Clean CatchOVARIAN [id number] 17:54:00 RUN DATE: 11/27/19 [facility] PAGE 1 RUN TIME: 1754 Specimen Inqui ry RUN USER: INTERFACE PATIENT: LONNIE ARROYO ACCT #: [id number] LOC: [place] U #: [id number] AGE/SX: 39/F ROOM: RE11/26/19REG DR: Sukhdeep Kong MD : [birth year] BED: A DIS: 11/27/19 STATUS: DIS Lakisha TLOC: SPEC #: [id number] RECD: 11/26/19-1359 STATUS: ELOISA RE #: [id number] FREDRICK: 11/26/19- SUBM DR: Sukhdeep Kong MD ENTERED: 11/26/19-1400 SP TYPE: OVARCYT OTHR DR: Jocelyn Gayle karie or Family PhysicianORDERED: GROSS COPIES TO: No Primary or Family Physician Sukhdeep Kong MD [address] [facility] [address] [place] [address] PROCEDURES: GROSS (11/27/19-1127) TISSUES: OVARY, NOS - RIGHT OVARIAN CYST CLINICAL HISTORY COLLECTION DATE: 11/26/19 PE LVIC PAIN RIGHT OVARIAN CYST, ENDOMETRIOSIS FINAL DIAGNOSIS Right ova erika cyst, cystectomy: LUTEAL CYST IN OVARIAN PARENCHYMA NO AREAS OF ENDOMETRIOSIS IDENTIFIED NEGATIVE FOR MALIGNANCY RRB/gm D 97500 MACROSCOPIC The specimen is received in formalin, labeled w ith the patient's name, and identified as "right ovarian cyst". It consists o f fragments of pink glistening membranous tissue compatible with cyst wall jennifer suring 2.5 cm in aggregate dimension with a thickness ranging from less than 0 .1 up to 0.4 cm. Multiple medical billing representative portions of tissue are submitted for histologic evaluation in a single cassette. GROSS PERFORMED AT [facility] CONTINUED ON NEXT PAGE RUN DATE: 11/27/19 [place] [facility] PAGE 2 RUN TIME: 1753 Specimen Inquiry RUN USER: INTERFACE SPEC #: [id number] PATIENT: LONNIE ARROYO #[id number] (Continue d) MACROSCOPIC (Continued) [address] [place] [address] ([phone] MICROSCOPIC All of the stains, including any controls performed, stain appropriately. MICROSCOPIC PERFORMED AT [facility] [address] [place] [address] [phone] PERFORMING SITE Pro cessed at: [facility] Tj suls[place]anne, [place] [phone] Signed SIGNATURE ON FILE Esthela Alva MD 11/27/19 1754 END OF REPORT CBC W/AUTO [id number] 06:37:00* Test Item Value Reference Range Interpretation [...] DIFF REQUIRED (test code = MDIFF) NO [id number] 10:27:00* Test Item Value Reference Range Interpretation Comments GLUBED (test code = GLUBED) 92 mg/dL 74-106 N Performed by certified trading floor operator at [facility] Novel Coronavirus 2019 Bgfztak9967-01-27 05:57:00* Test Item Value Reference Range Interpretation Comments Novel Coronavirus 2019 Inhouse (test code = COVNONPUI) Negative Negative Testing Criteria: Preprocedure ScreeningComments: 11/26/19Novel Coronavirus 2019 Xbcooet0428-72-10 05:56:00* Test Item Value Reference Range Interpretation Comments Novel Coronavirus 2019 Inhouse (test code = COVNONPUI) Negative Negative Testing Criteria: Preprocedure ScreeningComments: 11/26/19COMPREHENSIVE METABOLIC [id number] 14:37:00* Test Item Value Reference Range Interpretation [...] due to change in reagent. HCG SERUM [id number] 14:31:00* Test Item Value Reference Range Interpretation Comments HCG SERUM QUAL (test code = HCGQL) NEGATIVE NEGATIVE This HCGQL test is NOT applicable for MALE patients.Check with nurse about probable order error.If Tumor Marker Test needed, nurse should order test "HCGTU"(Test #550.91720) COMPREHENSIVE METABOLIC [id number] 14:29:00* Test Item Value Reference Range Interpretation [...] code = ALKP) IUnit/L 45-117 CBC W/AUTO [id number] 14:06:00* Test Item Value Reference Range Interpretation [...] (test code = MDIFF) NO CBC W/AUTO [id number] 14:00:00* Test Item Value Reference Range Interpretation [...] K/mm3 0.0-0.2 - CT ABD PELVIS W/O [id number] 22:56:00 Name: LONNIE ARROYO [facility] : 1980 Age/S: 39 / F [address] Unit #: [id number] Loc: [place] [address] Phys: Gustavo Castaneda [employer] SAL[employer]ERSON Acct: [id number] Dis Date: Status: REG ER PHONE #: [phone] Exam Date: 11/13/20192226 FAX #: [phone] Reason: FLANK PAIN, R/O RENAL CALCULI EXAMS: CPT CODE: [id number] CT ABD PELVIS W/O CONT 24377 EXAM: - CT ABD PELVIS W/O CONT [...] Signed Report (CONTINUED) N shiv: LONNIE ARROYO [facility] : 0 1980 Age/S: 39 / F [address] Unit #: [id number] Loc: [place] [address] Phys: Gustavo Castaneda NP Acct: [id number] Dis D ate: Status: REG ER PHONE #: Exam Date: 11/13/20192226 FAX #: [phone] Reason: FLANK PAIN, R/O RENAL CALCULI EXAMS: CPT CODE: [id number] CT ABD PELVIS W/ O CONT 89468 <Continued> IMPRESSION: 1. Septated cystic lesion in [...] (225) CharlieRXC2 Orig Print D/T: S: 11/13/2019 (2410) PAGE 2 Signed Report - XR CHEST 1 [id number] 22:48:00 Name: LONNIE ARROYO [facility] : 1980 Age/S:39 /F [address] Unit#:[id number] Loc: [place] [address] Phys: Gustavo Castaneda [employer] SALESPERSON Dis Date: PHONE #: [phone] Status: REG ER FAX #: [phone] Exam Date: 11/13/2019 Reason: WEAKNESS EXAMS: CPT CODE: [id number] XR CHEST 1 V 71229 HISTORY: Weakness Location: C3 COMPARISON:None FINDINGS: Heart [...] (2247) CharlieRXC2 Orig Print D/T: S: 11/13/2019 (5793) PAGE 1 Signed Report [id number] 22:34:00* Test Item Value Reference Range Interpretation Comments TROPONIN-I (test code = TROPI) <0.015 ng/mL 0.00-0.056 N URINALYSIS [id number] 22:16:00* Test Item Value Reference Range Interpretation [...] HPF NONE Urine Source? Clean CatchBASIC METABOLIC [id number] 22:13:00* Test Item Value Reference Range Interpretation [...] CA) 9.0 mg/dL 8.4-10.2 N HCG SERUM [id number] 22:13:00* Test Item Value Reference Range Interpretation Comments HCG SERUM QUAL (test code = HCGQL) NEGATIVE NEGATIVE This HCGQL test is NOT applicable for MALE patients.Check with nurse about probable order error.If Tumor Marker Test needed, nurse should order test "HCGTU"(Test #550.65014) BASIC METABOLIC [id number] 22:12:00* Test Item Value Reference Range Interpretation [...] code = CA) mg/dL 8.4-10.2 HCG SERUM [id number] 22:12:00* Test Item Value Reference Range Interpretation Comments HCG SERUM QUAL (test code = HCGQL) NEGATIVE NEGATIVE This HCGQL test is NOT applicable for MALE patients.Check with nurse about probable order error.If Tumor Marker Test needed, nurse should order test "HCGTU"(Test #550.26785) URINALYSIS [id number] 22:04:00* Test Item Value Reference Range Interpretation [...] HPF NONE Urine Source? Clean CatchCBC W/AUTO [id number] 22:03:00* Test Item Value Reference Range Interpretation [...] (test code = MDIFF) NO FECES OVA GKDAUJKSL2438-00-32 14:09:00* Test Item Value Reference Range Interpretation Comments CONCENTRATE RESULT (test code = CONC) Final report () These results were obtained using wet preparation(s) andtrichrome stained smear. This test does not include testingfor Cryptosporidium parvum, Cyclospora, or Microsporidia. TRICHROME RESULT (test code = TRIC) SPECIMEN COMMENTS: LIQUIDYCOMMENTS TO LIQUID LOADER: COLLECTED DURING COLONOSCOPY PROCEDURESOURCE: STOOLSPECIMEN DESCRIPTION: ASPIRATED FECES OVA [id number] 14:09:00* Test Item Value Reference Range Interpretation Comments CONCENTRATE RESULT (test code = CONC) Final report () These results were obtained using wet preparation(s) andtrichrome stained smear. This test does not include testingfor Cryptosporidium parvum, Cyclospora, or Microsporidia. TRICHROME RESULT (test code = TRIC) () No ova, cysts, or parasites seen.One negative specimen does not rule out the possibility ofa parasitic infection.Performed At: [address] [id number] Keanu Elder MD Ph:[phone] SPECIMEN COMMENTS: LIQUIDYCOMMENTS TO LIQUID LOADER: COLLECTED DURING COLONOSCOPY PROCEDURESOURCE: STOOLSPECIMEN DESCRIPTION: ASPIRATED AG GIARDIA [id number] 18:08:00* Test Item Value Reference Range Interpretation Comments AG GIARDIA FECES (test code = GIARDAG) Negative Negative Performed At: [facility] [address] [id number] Keanu Elder MD Ph:[phone] SPECIMEN COMMENTS: LIQUIDYCOMMENTS TO LIQUID LOADER: COLLECTED DURING COLONOSCOPY [id number] 16:20:00 RUN DATE: 08/14/19 [facility] PAGE 1 RUN TIME: 1620 Specimen Inqui ry RUN USER: INTERFACE PATIENT: LONNIE ARROYO ACCT #: [id number] LOC: [place] U #: [id number] AGE/SX: 38/F ROOM: RE08/13/19REG DR: Han James MD : [birth year] BED: DIS: [place] [place]: SPEC #: [id number] RECD: 08/13/19 STATUS: ELOISA HECTOR #: [id number] FREDRICK: 08/13/19- SUBM DR: Han James [...] biopsy: COLONIC MUCOSA, NO PATHOLOGIC A [facility]/ D (5) 23188 MACROSCOPIC The firs t specimen is received [...] CONTINUED ON NEXT PAGE RUN DATE: 08/14/19 [place] [facility] PAGE 2 RUN TIME: 1620 Specimen Inquiry RUN USER: [employer] FreelancersAC E SPEC #: [id number] PATIENT: LONNIE ARROYO #[id number] (Contin ued) MACROSCOPIC (Continued) The third spec imen is received in formalin, labeled with the patient's name, identified as " rectum biopsy", and consists of a mir biopsy fragment measuring 0.3 cm. GROSS PERFORMED AT [facility] [address] [place] [address] ([phone] ANKITA ROSCOPIC All of the stains, including any controls performed, stain appropr iately. MICROSCOPIC PERFORMED AT [facility] [address] [place] [address] ([phone] PERFORMING SITE Diagnosis performed at: [facility], [place] [address] [place] [address] Signed SIGNATURE ON FILE Edwina Buckley MD 08/14/19 4540 END OF REPORT CALPROTECTIN FECAL 2019-08-01 08:27:00* Test Item Value Reference Range Interpretation Comments CALPROTECTIN FECAL (test code = CALFECAL) TEST NOT PERFORMED NO SPECIMEN RECEIVED AT [facility] 06/26/19 1202- US TRANSVAGINAL NON [id number] 09:05:00 Name: LONNIE ARROYO [facility] : 1980 Age/S: 38 / F [address] Unit #: [id number] Loc: [place] [address] Phys: Sukhdeep Kong MD Acct: [id number] Dis Date: Status: REG CLI PHONE #: [phone] Exam Date: 07/30/2019844 FAX #: [phone] Reason: EXAMS: CPT CODE: [id number] [place] [address] HISTORY: Pelvic and perineal pain. COMPARISON: CT pelvis from June 20, 2019. Location: [facility]. Transabdominal and transvaginal (for better endometrial and [...] Orig Print D/T: S: 07/30/2019 (907) Probe: [id number] PAGE 1 Signed Report - US PELVIS [id number] 09:05:00 Name: LONNIE ARROYO [facility] : 1980 Age/S: 38 / F [address] Unit #: [id number] Loc: [place] [address] Phys: Sukhdeep Kong MD Acct: [id number] Dis Date: Status: REG CLI PHONE #: [phone] Exam Date: 07/30/2019 0845 FAX #: [phone] Reason: R10.2 EXAMS: CPT CODE: [id number] US PELVIS COMPLETE 77191 HISTORY: Pelvic and perineal pain. COMPARISON: CT pelvis from June 20, 2019. Location: [facility]. Transabdominal and transvaginal (for better endometrial and [...] Probe: PAGE [address] ABDOMEN/PELVIS [id number] 19:26:00 [place] [address] Patient Name: LONNIE ARROYO MR #: [id number] : 1980 Age/Sex: 38/F Req #: [id number] Adm Physician: Ordered by: KORTNEY EHLM NP Report #: [id number] Location: ER Room/Bed: Procedure: [id number] CT/ CT ABDOMEN/PELVIS WO Exam Date: 07/24/19 [...] RASHEEDA on 07/24/191930 COPY TO: KORTNEY HELM [employer] SAL[employer]ERSON Sodium Level 2019-07-24 15:43:00* Test Item Value Reference Range Interpretation Comments Sodium Level (test code = 2951-2) 141 136-145 [facility] Erjkj4996-55-54 15:43:00* Test Item Value Reference Range Interpretation Comments Potassium Level (test code = 2823-3) 3.8 3.5-5.1 [facility]anoChloride Wpfue8052-63-22 15:43:00* Test Item Value Reference Range Interpretation Comments Chloride Level (test code = 2075-0) 107 98-107 [facility]anoCarbon Dioxide Wfubo5884-15-86 15:43:00* Test Item Value Reference Range Interpretation Comments Carbon Dioxide Level (test code = 2028-9) 23 22-29 [facility]anoAnion Odf4238-07-87 15:43:00* Test Item Value Reference Range Interpretation Comments Anion Gap (test code = 31805-3) 14.8 8-16 [facility]ano[facility] Urea Bzzfjgvm7607-00-15 15:43:00* Test Item Value Reference Range Interpretation Comments Blood Urea Nitrogen (test code = 3094-0) 12 7-26 [facility]anoCreatinine2020-01-08 15:43:00* Test Item Value Reference Range Interpretation Comments Creatinine (test code = 2160-0) 0.85 0.57-1.11 [facility]anoBUN/Creatinine Fstcj9374-12-97 15:43:00* Test Item Value Reference Range Interpretation Comments BUN/Creatinine Ratio (test code = 3097-3) 14 6-25 [facility]anoEstimat Glomerular Filtration Rate 2019-07-24 15:43:00* Test Item Value Reference Range Interpretation Comments Estimat Glomerular Filtration Rate (test code = 470034055) > 60 >60 Ranges were taken from the National Kidney Disease Education Program and the [facility] Kidney Foundation literature.Reference ranges:60 or greater: Xejvhy54-24 ( for 3 consecutive months): Chronic kidney disease 15 or less: Kidney failureBaylor Scott & White [facility] Center – PlanoGlucose Uibcu7216-66-07 15:43:00* Test Item Value Reference Range Interpretation Comments Glucose Level (test code = MBF1235) 97 74-118 [facility]anoCalcium Tuddq6918-88-05 15:43:00* Test Item Value Reference Range Interpretation Comments Calcium Level (test code = 52479-3) 10.1 8.4-10.2 [facility] PlanoTotal Nhheyinwm6795-92-38 15:43:00* Test Item Value Reference Range Interpretation Comments Total Bilirubin (test code = 1975-2) 0.4 0.2-1.2 [facility] PlanoAspartate Amino Transf (AST/SGOT) 2019-07-24 15:43:00* Test Item Value Reference Range Interpretation Comments Aspartate Amino Transf (AST/SGOT) (test code = Aspartate Amino Transf (AST/SGOT)) 21 5-34 [facility]anoAlanine Aminotransferase (ALT/SGPT) 2019-07-24 15:43:00* Test Item Value Reference Range Interpretation Comments Alanine Aminotransferase (ALT/SGPT) (test code = 1742-6) 19 0-55 [facility] PlanoTotal Kokhdoh9969-29-04 15:43:00* Test Item Value Reference Range Interpretation Comments Total Protein (test code = 2885-2) 7.8 6.5-8.1 [facility] PlanoAlbumin2020-01-08 15:43:00* Test Item Value Reference Range Interpretation Comments Albumin (test code = 1751-7) 4.6 3.5-5.0 [facility] PlanoGlobulin2020-01-08 15:43:00* Test Item Value Reference Range Interpretation Comments Globulin (test code = 07707-0) 3.2 2.3-3.5 [facility]anoAlbumin/Globulin Bnyvl4264-95-72 15:43:00 * Test Item Value Reference Range Interpretation Comments Albumin/Globulin Ratio (test code = 1759-0) 1.4 0.8-2.0 [facility] PlanoAlkaline Wsdtsawyrkx1996-17-05 15:43:00* Test Item Value Reference Range Interpretation Comments Alkaline Phosphatase (test code = 6768-6) 72 40-150 [facility]anoWhite Blood Jfhvg7668-77-17 15:31:00* Test Item Value Reference Range Interpretation Comments White Blood Count (test code = 6690-2) 12.13 4.8-10.8 H [facility]anoRed Blood Znqfm7850-49-12 15:31:00* Test Item Value Reference Range Interpretation Comments Red Blood Count (test code = 789-8) 4.77 3.6-5.1 [facility]anoHemoglobin2020-01-08 15:31:00* Test Item Value Reference Range Interpretation Comments Hemoglobin (test code = 71406-6) 14.8 12.0-16.0 [facility]anoHematocrit2020-01-08 15:31:00* Test Item Value Reference Range Interpretation Comments Hematocrit (test code = 4544-3) 43.9 34.2-44.1 [facility] PlanoMean Corpuscular Dvmizn1508-37-19 15:31:00* Test Item Value Reference Range Interpretation Comments Mean Corpuscular Volume (test code = 787-2) 92.0 81-99 [facility] PlanoMean Corpuscular Pootqjvnuo4414-11-37 15:31:00* Test Item Value Reference Range Interpretation Comments Mean Corpuscular Hemoglobin (test code = 785-6) 31.0 28-32 [facility] PlanoMean Corpuscular Hemoglobin Concent 2019-07-24 15:31:00* Test Item Value Reference Range Interpretation Comments Mean Corpuscular Hemoglobin Concent (test code = 786-4) 33.7 31-35 [facility]anoRed Cell Distribution Oewzp0079-59-67 15:31:00* Test Item Value Reference Range Interpretation Comments Red Cell Distribution Width (test code = 01459-4) 12.2 11.7 -14.4 [facility] PlanoPlatelet Tlklc3119-30-12 15:31:00* Test Item Value Reference Range Interpretation Comments Platelet Count (test code = 777-3) 241 140-360 [facility] PlanoNeutrophils (%) (Auto)2019-07-24 15:31:00 * Test Item Value Reference Range Interpretation Comments Neutrophils (%) (Auto) (test code = 08199-5) 60.3 38.7-80.0 [facility] PlanoLymphocytes (%) (Auto)2019-07-24 15:31:00 * Test Item Value Reference Range Interpretation Comments Lymphocytes (%) (Auto) (test code = 736-9) 32.1 18.0-39.1 [facility]anoMonocytes (%) (Auto)2019-07-24 15:31:00* Test Item Value Reference Range Interpretation Comments Monocytes (%) (Auto) (test code = 5905-5) 6.8 4.4-11.3 [facility]anoEosinophils (%) (Auto)2019-07-24 15:31:00 * Test Item Value Reference Range Interpretation Comments Eosinophils (%) (Auto) (test code = 713-8) 0.2 0.0-6.0 [facility]anoBasophils (%) (Auto)2019-07-24 15:31:00* Test Item Value Reference Range Interpretation Comments Basophils (%) (Auto) (test code = 706-2) 0.4 0.0-1.0 [facility] PlanoIM GRANULOCYTES %2019-07-24 15:31:00* Test Item Value Reference Range Interpretation Comments IM GRANULOCYTES % (test code = IM GRANULOCYTES %) 0.2 0.0- 1.0 [facility] PlanoNeutrophils # (Auto)2019-07-24 15:31:00* Test Item Value Reference Range Interpretation Comments Neutrophils # (Auto) (test code = 751-8) 7.3 2.1-6.9 H [facility] PlanoLymphocytes # (Auto)2019-07-24 15:31:00* Test Item Value Reference Range Interpretation Comments Lymphocytes # (Auto) (test code = 93483-5) 3.9 1.0-3.2 H [facility] PlanoMonocytes # (Auto)2019-07-24 15:31:00* Test Item Value Reference Range Interpretation Comments Monocytes # (Auto) (test code = 742-7) 0.8 0.2-0.8 [facility]anoEosinophils # (Auto)2019-07-24 15:31:00* Test Item Value Reference Range Interpretation Comments Eosinophils # (Auto) (test code = 711-2) 0.0 0.0-0.4 [facility]anoBasophils # (Auto)2019-07-24 15:31:00* Test Item Value Reference Range Interpretation Comments Basophils # (Auto) (test code = 704-7) 0.1 0.0-0.1 [facility] PlanoAbsolute Immature Granulocyte (auto 2019-07-24 15:31:00* Test Item Value Reference Range Interpretation Comments Absolute Immature Granulocyte (auto (minoo t code = Absolute Immature Granulocyte (auto) 0.03 0-0.1 [facility] PlanoUrine AAW4436-40-55 15:13:00* Test Item Value Reference Range Interpretation Comments Urine WBC (test code = 5821-4) NONE 0-5 [facility] PlanoUrine FKB6812-98-48 15:13:00* Test Item Value Reference Range Interpretation Comments Urine RBC (test code = 23956-6) NONE 0-5 [facility] PlanoUrine Houqptih5453-62-79 15:13:00* Test Item Value Reference Range Interpretation Comments Urine Bacteria (test code = 00462-3) RARE NONE [facility] PlanoUrine Epithelial Bsujf8182-79-38 15:13:00 * Test Item Value Reference Range Interpretation Comments Urine Epithelial Cells (test code = 47186-3) MODERATE NONE [facility] PlanoUrine Raes3217-99-44 14:46:00* Test Item Value Reference Range Interpretation Comments Urine Test (test code = 2106-3) NEGATIVE NEGATIVE [facility] PlanoUrine Ryyue4404-50-66 14:45:00* Test Item Value Reference Range Interpretation Comments Urine Color (test code = 5778-6) YELLOW YELLOW [facility] PlanoUrine Bmxmvjc0605-95-24 14:45:00* Test Item Value Reference Range Interpretation Comments Urine Clarity (test code = 66941-6) SL CLOUDY CLEAR [facility] Specific Jvaixvs1161-96-68 14:45:00 * Test Item Value Reference Range Interpretation Comments Urine Specific [place] (test code = 5811-5) 1.020 1.010-1.02 5 [facility]anoUrine jE6884-71-17 14:45:00* Test Item Value Reference Range Interpretation Comments Urine pH (test code = 72965-7) 7 5-7 [facility] Leukocyte Danfbglz4521-20-24 14:45:00* Test Item Value Reference Range Interpretation Comments Urine Leukocyte Esterase (test code = 5799-2) NEGATIVE NEGATIVE [facility] Stnjueo2318-30-84 14:45:00* Test Item Value Reference Range Interpretation Comments Urine Nitrite (test code = 15474-4) NEGATIVE NEGATIVE [facility] PlanoUrine [id number] 14:45:00* Test Item Value Reference Range Interpretation Comments Urine Protein (test code = 5804-0) NEGATIVE NEGATIVE [facility] (UA)2019-07-24 14:45:00* Test Item Value Reference Range Interpretation Comments Urine Glucose (UA) (test code = 2349-9) NEGATIVE NEGATIVE [facility] [id number] 14:45:00* Test Item Value Reference Range Interpretation Comments Urine Ketones (test code = 52246-2) 1+ NEGATIVE H [facility] Ivlgmcmsqqds5912-13-35 14:45:00* Test Item Value Reference Range Interpretation Comments Urine Urobilinogen (test code = 10732-0) 0.2 0.2-1 [facility] Gtzabgsyd9876-53-43 14:45:00* Test Item Value Reference Range Interpretation Comments Urine Bilirubin (test code = 1978-6) NEGATIVE NEGATIVE [facility] [id number] 14:45:00* Test Item Value Reference Range Interpretation Comments Urine Blood (test code = 53025-4) NEGATIVE NEGATIVE [facility] human chorionic gonadotropin (hCG) hexjggejc8182-30-08 13:08:00* Test Item Value Reference Range Interpretation Comments Urine Test (test code = 2106-3) NEGATIVE NEGATIVE [facility] human chorionic gonadotropin (hCG) oaiggsftr8828-70-72 13:08:00* Test Item Value Reference Range Interpretation Comments Urine Test (test code = 2106-3) NEGATIVE NEGATIVE [facility] PORPHOBILINOGEN [id number] 16:08:00* Test Item Value Reference Range Interpretation Comments UR PORPHOBILINOGEN 24HR (test code = RALUI42W) 0.4 mg/24 hr 0.0-1.5 This test was developed and its performance characteristicsdetermined by [facility]. It has not been cleared orapproved by the Food and Drug Administration.Performed At: [address] [id number] Hemphill MD Ph:[phone] FECES OVA [id number] 13:10:00* Test Item Value Reference Range Interpretation Comments CONCENTRATE RESULT (test code = CONC) Final report () These results were obtained using wet preparation(s) andtrichrome stained smear. This test does not include testingfor Cryptosporidium parvum, Cyclospora, or Microsporidia. TRICHROME RESULT (test code = TRIC) SOURCE: STOOLSPECIMEN DESCRIPTION: RANDOMFECES OVA [id number] 13:10:00* Test Item Value Reference Range Interpretation Comments CONCENTRATE RESULT (test code = CONC) Final report () These results were obtained using wet preparation(s) andtrichrome stained smear. This test does not include testingfor Cryptosporidium parvum, Cyclospora, or Microsporidia. TRICHROME RESULT (test code = TRIC) () No ova, cysts, or parasites seen.One negative specimen does not rule out the possibility ofa parasitic infection.Performed At: [address] [id number] Elder MD Ph:[phone] SOURCE: STOOLSPECIMEN DESCRIPTION: RANDOMAG GIARDIA [id number] 11:59:00* Test Item Value Reference Range Interpretation Comments AG GIARDIA FECES (test code = GIARDAG) NEGATIVE NEG Giardia lamblia Ag, EIA Negative Negative Test performed at: [address] [address] SPECIMEN COMMENTS: STLCOMMENTS TO LIQUID LOADER: RANBASIC METABOLIC PANEL 2019-06-24 06:01:00* Test Item [...] CA) 8.2 mg/dL 8.5-10.1 L CBC W/AUTO [id number] 05:53:00* Test Item Value Reference Range Interpretation [...] (test code = MDIFF) NO CBC W/AUTO [id number] 05:52:00* Test Item Value Reference Range Interpretation [...] code = BA#) K/mm3 0.0-0.2 CBC W/AUTO [id number] 07:46:00* Test Item Value Reference Range Interpretation [...] NRBC#) 0.00 K/mm3 0.0-0.1 N BASIC METABOLIC [id number] 06:14:00* Test Item Value Reference Range Interpretation [...] CA) 8.1 mg/dL 8.5-10.1 L BASIC METABOLIC [id number] 06:02:00* Test Item Value Reference Range Interpretation [...] code = CA) mg/dL 8.5-10.1 CBC W/AUTO [id number] 02:51:00* Test Item Value Reference Range Interpretation [...] (test code = MDIFF) NO BASIC METABOLIC [id number] 01:55:00* Test Item Value Reference Range Interpretation [...] CA) 7.7 mg/dL 8.5-10.1 L C REACTIVE [id number] 01:55:00* Test Item Value Reference Range Interpretation Comments C REACTIVE PROTEIN (test code = CRP) <0.29 mg/dL 0-0.3 N BASIC METABOLIC [id number] 01:48:00* Test Item Value Reference Range Interpretation [...] code = CA) mg/dL 8.5-10.1 CBC W/AUTO [id number] 07:25:00* Test Item Value Reference Range Interpretation [...] (test code = MDIFF) NO BASIC METABOLIC [id number] 07:10:00* Test Item Value Reference Range Interpretation [...] CA) 7.6 mg/dL 8.5-10.1 L BASIC METABOLIC [id number] 07:01:00* Test Item Value Reference Range Interpretation [...] (test code = CA) mg/dL 8.5-10.1 SED [id number] 03:34:00* Test Item Value Reference Range Interpretation Comments SED RATE (test code = SEDW) 3 mm/hr 0-20 WINTROBE METHOD: NORMAL RANGE FOR MEN: 0-9 MM/HR WOMAN: 0-20 MM/HR 0850773/MISTY SED RATE [id number] 03:34:00* Test Item Value Reference Range Interpretation Comments SED RATE WESTERGREN (test code = SEDW) 3 mm/hr 0-20 N 5354852/MISTY YHNBVYJFQJ4846-87-28 02:48:00* Test Item Value Reference Range Interpretation Comments PREALBUMIN (test code = PREALB) 25.2 mg/dL 16.0-40.0 9133703/ OGJZOSZHUOEZTEDX9680-88-33 02:48:00* Test Item Value Reference Range Interpretation Comments PREALBUMIN (test code = PREALB) 25.2 mg/dL 16.0-40.0 N 0012190/ BWSMIEAJMVHXG3042-62-99 00:08:00* Test Item Value Reference Range Interpretation Comments CALCIUM (test code = CA) 8.5 mg/dL 8.5-10.1 N PT IS STILL IN THE ER. I WENT UP TO THE ROOM @ 2230V.SVETLANA.DB2 06/20/192234 PROCALCITONIN (PCT)2019-06-20 22:52:00* Test Item Value [...] interpreted taking into account the patients history. BSOVTEKUAX2683-51-42 22:40:00* Test Item Value Reference Range Interpretation Comments PHOSPHORUS (test code = PHOS) 1.5 mg/dL 2.5-4.9 L THYROID STIMULATING [id number] 22:40:00* Test Item Value Reference Range Interpretation Comments THYROID STIMULATING HORMONE (test code = TSH) 1.170 uIU/mL 0.36-3.7 4 N TSH REFERENCE RANGES: EUTHYROID: 0.35 - 4.3 mIU/mL HYPO : > 5.5 mIU/mL HYPER : < 0.35 mIU/mL C REACTIVE [id number] 22:31:00* Test Item Value Reference Range Interpretation Comments C REACTIVE PROTEIN (test code = CRP) <0.29 mg/dL 0-0.3 N URINALYSIS [id number] 17:53:00* Test Item Value Reference Range Interpretation [...] Urine Source? Clean CatchDRUGS OF ABUSE SCREEN [id number] 17:53:00* Test Item Value Reference Range Interpretation [...] Source? Clean Catch- CT ABD PELVIS W/O [id number] 17:18:00 Name: LONNIE ARROYO [facility] : 1980 Age/S: 38 / F [address] [facility] Unit #: [id number] Loc: [place] [address] Phys: Jerrod Landrum [employer] SALESPERSON Acct: [id number] Di s Date: Status: REG ER PHONE #: [phone] Exam Date: 06/20/2019 1650 FAX #: [phone] Reason: ABD PAIN EXAMS: CPT CODE: [id number] CT ABD PELVIS W/O CONT 32888 HISTORY: Abdominal pain. COMPARISON: CT scan from [...] 1 Signed Report (CONTINUED) Name: LONNIE ARROYO [facility] B: 1980 Age/S: 38 / F [address] [facility] Unit #: [id number] Loc: [place] [address] Phys: Dinora Landrum NP Acct: [id number] D is Date: Status: REG ER PHONE #: [phone] Exam Date: 06/20/2019 1650 FAX #: [phone] Reason: ABD PAIN EXAMS: CPT CODE: [id number] CT ABD PELVI S W/O CONT 59406 <Continued> Appendix is not visible but no inflammatory change. No bowel obstruction or colitis or diverticulitis or enteritis. No free fluid or free air. at 1718 Reported and signed by: Frank Szymanski M.D. CC: Cassius White MD; Dinora Landrum NP Technologist:Mary Ellen Segundo RT(R),CT; CTDI: DLP: Trnscb Date/Time: 06/20/2019 (1718) tDESTINEER.TH4 Orig Print D/T: S: 06/20/2019 (1727) PAGE 2 Signed Report URINALYSIS [id number] 17:02:00* Test Item Value Reference Range Interpretation [...] Urine Source? Clean CatchDRUGS OF ABUSE SCREEN [id number] 17:02:00* Test Item Value Reference Range Interpretation [...] <300 ng/mL Urine Source? Clean CatchBASIC METABOLIC [id number] 16:16:00* Test Item Value Reference Range Interpretation [...] CA) 9.2 mg/dL 8.5-10.1 N HEPATIC FUNCTION [id number] 16:16:00* Test Item Value Reference Range Interpretation [...] reference range due to change in reagent. [id number] 16:16:00* Test Item Value Reference Range Interpretation Comments LIPASE (test code = LIP) 83 U/L 73.0-393.0 N HCG SERUM [id number] 16:16:00* Test Item Value Reference Range Interpretation Comments HCG SERUM QUAL (test code = HCGQL) NEGATIVE NEGATIVE This HCGQL test is NOT applicable for MALE patients.Check with nurse about probable order error.If Tumor Marker Test needed, nurse should order test "HCGTU"(Test #550.52338) [id number] 16:16:00* Test Item Value Reference Range Interpretation Comments TROPONIN-I (test code = TROPI) <0.015 ng/mL 0-0.045 N BASIC METABOLIC [id number] 16:15:00* Test Item Value Reference Range Interpretation [...] code = CA) mg/dL 8.5-10.1 HEPATIC FUNCTION [id number] 16:15:00* Test Item Value Reference Range Interpretation [...] TOTAL (test code = ALKP) IUnit/L 45-117 [id number] 16:15:00* Test Item Value Reference Range Interpretation Comments LIPASE (test code = LIP) U/L 73.0-393.0 HCG SERUM [id number] 16:15:00* Test Item Value Reference Range Interpretation Comments HCG SERUM QUAL (test code = HCGQL) NEGATIVE NEGATIVE This HCGQL test is NOT applicable for MALE patients.Check with nurse about probable order error.If Tumor Marker Test needed, nurse should order test "HCGTU"(Test #550.76522) [id number]-[id number] 16:15:00* Test Item Value Reference Range Interpretation Comments TROPONIN-I (test code = TROPI) ng/mL 0-0.045 BASIC METABOLIC [id number] 16:08:00* Test Item Value Reference Range Interpretation [...] code = CA) mg/dL 8.5-10.1 HEPATIC FUNCTION [id number] 16:08:00* Test Item Value Reference Range Interpretation [...] TOTAL (test code = ALKP) IUnit/L 45-117 [id number] 16:08:00* Test Item Value Reference Range Interpretation Comments LIPASE (test code = LIP) U/L 73.0-393.0 HCG SERUM [id number] 16:08:00* Test Item Value Reference Range Interpretation Comments HCG SERUM QUAL (test code = HCGQL) NEGATIVE [id number] 16:08:00* Test Item Value Reference Range Interpretation Comments TROPONIN-I (test code = TROPI) ng/mL 0-0.045 CBC W/O [id number] 15:47:00* Test Item Value Reference Range Interpretation [...] code = MPV) fL 6.7-11.0 CBC W/O [id number] 15:47:00* Test Item Value Reference Range Interpretation [...] code = MPV) 9.8 fL 6.7-11.0 N NAT,[id number] 17:10:00 RUN DATE: 05/29/19 [facility] PAGE 1 RUN TIME: 1711 Specimen Inqui ry RUN USER: INTERFACE PATIENT: LONNIE ARROYO #: [id number] LOC: BERTIN Pabon #: [id number] AGE/SX: 38/F ROOM: RE05/28/19REG DR: Han James MD : [birth year] BED: DIS: STATUS: [facility] TLOC: SPEC #: [id number] RECD: 05/28/19 STATUS: ELOISA HECTOR #: [id number] FR[address]ICK: 05/28/1940 [facility] DR: Han James MD ENTERED: 05/28/19 SP [...] METAPLASIA NEG ATIVE FOR MALIGNANCY RRB/sm D 42904v9, 99987 MACROSCOPIC The first specimen is received in [...] each, submitted as (2). GROSS PERFORMED AT [facility] CONTINUED ON NEX T PAGE RUN DATE: 05/29/19 [place] PAGE 2 RUN TIME: 1711 Spec imen Inquiry RUN USER: INTERFACE SPEC #: [id number] PATIENT: SUZANNE IBRAHIMLONNIE Jerrod #[id number] (Continued) MAC ROSCOPIC (Continued) [address] [place] [address] ([phone] MICROSCOPIC All of the stains, including any contro ls performed, stain appropriately. MICROSCOPIC PERFORMED AT [facility] [address] [facility], [place] [address] [phone] PERFORMING SITE Diagnosis performed at: [facility] [address] [place] [address] Signed SIGNATURE ON FILE Eleazar Alva MD 05/29/19 17 10 END OF REPORT - XR CHEST 1 [id number] 19:37:00 FAX: Sari Romano MD [place]: St: PRE Name: LONNIE KIMBALL [facility] : [birth year] Age/S: 38/F [address] [facility] Unit #: [id number] Loc: [address] Phys: [place] [address] Acct: [id number] Dis Date: Status: PRE ER PHONE #: [phone] Exam Date: 03/06/20191923 FAX #: [phone] Reason: CP EXAMS: CPT CODE: [id number] XR CHEST 1 V 38404 HISTORY: chest pain Comparison to August 2018 [...] 1 Signed Report FAX: Sari Romano MD [place]: St: PRE Name: LONNIE ARROYO [facility] : 1980 Age/S: 38/F [address] Unit #: [id number] Loc: E.ERS2 [place], [place]: [place] [address] Acct: [id number] Dis Date: Status: PRE ER PHONE #: [phone] Exam Date: 03/06/20191923 FAX #: [phone] Reason: CP EXAMS: CPT CODE: [id number] XR CHEST 1 V 57557 <Continued> Orig Print D/T: S: 03/06/2019 (1940) [...] = ALKP) 93 Units/L 50.0-136 .0 N [id number] 19:36:00* Test Item Value Reference Range Interpretation Comments LIPASE (test code = LIP) 167 Units/L 65.0-230.0 N B-TYPE NATRIURETIC [id number] 19:36:00* Test Item Value Reference Range Interpretation Comments B-TYPE NATRIURETIC PEPTIDE (test code = BNP) 6.3 PG/ML 5-100 N CARDIAC ENZYMES [id number] 19:36:00* Test Item Value Reference Range Interpretation Comments CREATINE KINASE (CK) (test code = CK) 71 Units/L 26-192 N TROPONIN-I (test code = TROPI) <0.02 NG/ML 0.00-0.06 N REFERENCE RANGE TROPONIN I HEALTHY INDIVIDUALS: <0.06 ng/mL R/O ISCHEMIA: 0.07 - 0.60 ng/mL CUT-OFF RANGE FOR AMI: 0.60 - 1.5 ng/mL COMPREHENSIVE METABOLIC [id number] 19:32:00* Test Item Value Reference Range Interpretation [...] (test code = ALKP) Units/L 50.0-136 .0 [id number] 19:32:00* Test Item Value Reference Range Interpretation Comments LIPASE (test code = LIP) Units/L 65.0-230.0 B-TYPE NATRIURETIC [id number] 19:32:00* Test Item Value Reference Range Interpretation Comments B-TYPE NATRIURETIC PEPTIDE (test code = BNP) 6.3 PG/ML 5-100 N CARDIAC ENZYMES [id number] 19:32:00* Test Item Value Reference Range Interpretation Comments CREATINE KINASE (CK) (test code = CK) Units/L 26-192 TROPONIN-I (test code = TROPI) NG/ML 0.00-0.06 COMPREHENSIVE METABOLIC [id number] 19:27:00* Test Item Value Reference Range Interpretation [...] (test code = ALKP) Units/L 50.0-136 .0 [id number] 19:27:00* Test Item Value Reference Range Interpretation Comments LIPASE (test code = LIP) Units/L 65.0-230.0 B-TYPE NATRIURETIC [id number] 19:27:00* Test Item Value Reference Range Interpretation Comments B-TYPE NATRIURETIC PEPTIDE (test code = BNP) PG/ML 5-100 CARDIAC ENZYMES [id number] 19:27:00* Test Item Value Reference Range Interpretation Comments CREATINE KINASE (CK) (test code = CK) Units/L 26-192 TROPONIN-I (test code = TROPI) NG/ML 0.00-0.06 PROTHROMBIN [id number] 19:23:00* Test Item Value Reference Range Interpretation [...] ANTIPHOSPHOLIPID ANTIBODIES 2.5 - 3.5 THROMBOPLASTIN TIME [id number] 19:23:00* Test Item Value Reference Range Interpretation Comments THROMBOPLASTIN TIME PARTIAL (test code = PTT) 34.60 SECONDS 25.86-3 6.07 N [facility] Therapeutic Range - APTT of 55.8-85.4 secondscorrelates with plasma heparin concentration of 0.2-0.4 u/mL New range effective - 09/11/2016 D-DIMER/[id number] 19:23:00* Test Item Value Reference Range Interpretation Comments D-DIMER/FSP (test code = DDIMER) <200 ng/mL 200.0-230.0 L Per crime specialist recommendation, the CUT OFFfor the Diagnosis of PE or DVT with a 100% SENSITIVITY &100% PREDICTIVE VALUE is suggested to be 230 ng/mL D- DIMERUNIT(DDU). D-DIMER RESULTS MAY BE AFFECTED BY:1. HEMOGLOBIN > 100 mg/dL2. BILIRUBIN > 10 mg/dL3. TRIGLYCERIDES > 1500 mg/dL4. The presence of RHEUMATIOID FACTOR may produce an overestimation of the test result. CBC W/AUTO [id number] 19:15:00* Test Item Value Reference Range Interpretation [...] K/mm3 0.0-0.2 N DRUGS OF ABUSE SCREEN [id number] 19:01:00* Test Item Value Reference Range Interpretation [...] Methadone cut-off concentration: 300 ng/mL UR HCG [id number] 18:51:00* Test Item Value Reference Range Interpretation Comments UR HCG QUAL (test code = HCGQLU) NEGATIVE NEGATIVE KIDNEY STONE [id number] 10:07:00* Test Item Value Reference Range Interpretation [...] Comment: Calcium oxalate dihydrate Test performed at: [place] [address] STONE ANALYSIS (test code = STONE) () Photograph will follow under separate cover. WEIGHT OF STONE (test code = STONEWT) 13.0 mg () Test performed at: [facility] [address] [address] GAVE KIDNEY STONE TO PATHOLOGY. V.LAB.[facility] 10/18/18 1259KILEYDIEY STONE ANALYSIS 2018-10-23 17:09:00* Test [...] STONEWT) 13.0 mg () Test performed at: [facility] [employer] [facility] [address] [address] GAVE KIDNEY STONE TO PATHOLOGY. V.LAB.[facility] 10/18/18 1259BASI METABOLIC PANEL 2018-10-20 05:47:00* Test [...] code = CA) 8.4 mg/dL 8.5-10.1 L [id number] 05:47:00* Test Item Value Reference Range Interpretation Comments PHOSPHORUS (test code = PHOS) 3.6 mg/dL 2.5-4.9 N [id number] 05:47:00* Test Item Value Reference Range Interpretation Comments MAGNESIUM (test code = MAG) 1.5 mg/dL 1.8-2.4 L BASIC METABOLIC [id number] 05:33:00* Test Item Value Reference Range Interpretation [...] CALCIUM (test code = CA) mg/dL 8.5-10.1 [id number] 05:33:00* Test Item Value Reference Range Interpretation Comments PHOSPHORUS (test code = PHOS) mg/dL 2.5-4.9 [id number] 05:33:00* Test Item Value Reference Range Interpretation Comments MAGNESIUM (test code = MAG) mg/dL 1.8-2.4 CBC W/AUTO [id number] 05:05:00* Test Item Value Reference Range Interpretation [...] 0.00 K/mm3 0.0-0.1 N AG HELICOBACTER PYLORI [id number] 23:07:00* Test Item Value Reference Range Interpretation Comments AG HELICOBACTER PYLORI STOOL (test code = HELIGAG) Positive Neg ative A Performed At: [facility] [address] [id number] Sanjai MD Ph:[phone] BASIC METABOLIC [id number] 12:56:00* Test Item Value Reference Range Interpretation [...] mg/dL 8.5-10.1 N NOTIIFIEDV.LAB.KH1 10/19/18 0658BASIC METABOLIC [id number] 12:47:00* Test Item Value Reference Range Interpretation [...] CALCIUM (test code = CA) mg/dL 8.5-10.1 [facility] 10/19/18 0658CBC W/AUTO [id number] 12:23:00* Test Item Value Reference Range Interpretation [...] REQUIRED (test code = MDIFF) NO 10/19/18 [id number] 10:53:00 RUN DATE: 10/19/18 [place] PAGE 1 RUN TIME: 1053 Specimen Inqui ry RUN USER: INTERFACE PATIENT: LONNIE ARROYO ACCT #: [id number] LOC: MAHI U #: [id number] AGE/SX: 37/F ROOM: [facility] RE10/17/18REG DR: Mitul Bazzi MD : [birth year] BED: A DIS: STATUS: ADM IN TLOC: SPEC #: [id number] RECD: 10/18/18 STATUS: PHYLLISLois TAWNY #: [id number] FREDRICK: 10/18/18 [facility] DR: Jorge Luis Basurto ENTERED: 10/18/18 SP TYPE: CALCULI OTHR DR: Han James MD, Herbert LeonardORDERED: GROSS COPIES TO: Han James MD [address] [place] [address] [address] [place] [address] PROCEDURES: GROSS () TISSUES: KIDNEY, NOS - STONES CLINICAL HISTORY COLLECTION DATE: 10/18/18 RIGHT KIDNEY STONE FINAL DIAGNOSIS Kid lucila stones, removal: CALCULI TO BE SENT FOR CHEMICAL ANALYSIS D MW/sm D 50206 MACROSCOPIC The specimen is received in a contain er labeled with the patient's name and identified as "kidney stone". It consi sts of two brown calculi/calculi fragments measuring 0.1 and 0.2 cm. DIONTE SS PERFORMED AT [facility] PATHOLOGY PLUG DRILL OPERATOR S [address] NEXT PAG E RUN DATE: 10/19/18 [place] - Lab PAGE 2 RUN TIME: 1053 Specimen Inquiry RUN USER: INTERFACE SPEC #: [id number] PATIENT: LONNIE ARROYO #[id number] (Continued) [employer] PIC (Continued) [place] [address] [phone] Signed SIGNATURE ON FILE Edwina Buckley MD 10/19/18 10 53 END OF REPORT - XR UROGRAM [id number] 13:09:00 FAX: Mitul Bazzi [phone] [place]: St: ADM FAX: Jorge Luis Montes [phone] Name: LONNIE ARROYO [facility] : 1980 Age/S: 37/F [address] [facility] Unit #: [id number] Loc: V.[address] [place] [address] Phys: Jorge Luis Basurto Acct: [id number] Dis Date: Status: ADM IN PHONE #: [phone] Exam Date: 10/18/2018 1140 FAX #: [phone] Reason: RT KIDNEY STONES EXAMS: CPT CODE: [id number] XR UROGRAM RETRO 89586 HISTORY: Kidney stones. COMPARISON: CT scan from [...] By: CharlieTH4 Orig Print D/T: S: 10/18/2018 (1530) PAGE 1 Signed Report BASIC METABOLIC [id number] 08:02:00* Test Item Value Reference Range Interpretation [...] CA) 8.2 mg/dL 8.5-10.1 L CBC W/AUTO [id number] 06:53:00* Test Item Value Reference Range Interpretation [...] (test code = MDIFF) NO CBC W/AUTO [id number] 06:41:00* Test Item Value Reference Range Interpretation [...] code = BA#) K/mm3 0.0-0.2 BASIC METABOLIC [id number] 12:16:00* Test Item Value Reference Range Interpretation [...] CA) 8.1 mg/dL 8.5-10.1 L CBC W/AUTO [id number] 11:53:00* Test Item Value Reference Range Interpretation [...] code = BA#) K/mm3 0.0-0.2 CBC W/AUTO [id number] 11:53:00* Test Item Value Reference Range Interpretation [...] (test code = MDIFF) NO BASIC METABOLIC [id number] 05:04:00* Test Item Value Reference Range Interpretation [...] CA) 9.2 mg/dL 8.5-10.1 N BASIC METABOLIC [id number] 04:55:00* Test Item Value Reference Range Interpretation [...] code = CA) mg/dL 8.5-10.1 CBC W/AUTO [id number] 04:52:00* Test Item Value Reference Range Interpretation [...] 0.0-0.1 N - CT ABD PELVIS W/O [id number] 15:02:00 Name: LONNIE ARROYO [facility] : 1980 Age/S: 37 / F [address] [facility] Unit #: [id number] Loc: [place] [address] Phys: Laurie Dutton MD Acct: [id number] Dis Date: Status: REG ER PHONE #: [phone] Exam Date: 10/15/2018 1445 FAX #: [phone] Reason: R flank pain EXAMS: CPT CODE: [id number] CT ABD PELVIS W/O CONT 89544 REASON FOR EXAM: R flank pain EXAM [...] RT(R),CT CTDI: DLP: T rnscb Date/Time: 10/15/2018 (1503) t.DEBORAHR.VTL Orig Print D /T: S: 10/15/2018 (1502) CTDI: DLP: PAGE 1 Signed Report CBC W/AUTO [id number] 13:15:00* Test Item Value Reference Range Interpretation [...] (test code = MDIFF) NO CBC W/AUTO [id number] 13:10:00* Test Item Value Reference Range Interpretation [...] code = BA#) K/mm3 0.0-0.2 COMPREHENSIVE METABOLIC [id number] 12:41:00* Test Item Value Reference Range Interpretation [...] reference range due to change in reagent. [id number] 12:41:00* Test Item Value Reference Range Interpretation Comments LIPASE (test code = LIP) 97 U/L 73.0-393.0 N COMPREHENSIVE METABOLIC [id number] 12:29:00* Test Item Value Reference Range Interpretation [...] TOTAL (test code = ALKP) IUnit/L 45-117 [id number] 12:29:00* Test Item Value Reference Range Interpretation Comments LIPASE (test code = LIP) U/L 73.0-393.0 URINALYSIS [id number] 11:11:00* Test Item Value Reference Range Interpretation [...] LPF NONE-FEW Urine Source? Clean CatchUR HCG [id number] 11:11:00* Test Item Value Reference Range Interpretation Comments UR HCG QUAL (test code = HCGQLU) NEGATIVE This HCGQL test is NOT applicable for MALE patients.Check with nurse about probable order error.If Tumor Marker Test needed, nurse should order test "HCGTU"(Test #550.70016) Urine Source? Clean Catch- US PELVIS [id number] 10:18:00 Name: LONNIE ARROYO [facility] : 1980 Age/S: 37 / F [address] [facility] Unit #: [id number] Loc: ARIANNA Camacho [address] Phys: Berry Dutton MD Acct: [id number] Di s Date: Status: REG ER PHONE #: Exam Date: 10/15/2018958 FAX #: [phone] Reason: RLQ ttp, h/o ovarian cysts EXAMS: CPT CODE: [id number] US PELVIS COM PLETE 85927 HISTORY: Right lower quad rant pain/ovarian cyst. [...] at 1018 Reported and signed by: Frank Szymanksi M.D. CC: Berry Dutton MD Technologist: FRANKY SHAY MNJUSTINA [facility] Date/Time: 10/15/2018 (1018) [email or web address] Orig Print D/T: S: 10/15/2018 (1021) Probe: PAGE 1 Signed Report - US TRANSVAGINAL NON [id number] 10:18:00 Name: LONNIE ARROYO [facility] : 1980 Age/S: 37 / F [address] [facility] Unit #: [id number] Loc: [place] [address] Phys: Laurie Dutton MD Acct: [id number] Dis Date: Status: REG ER PHONE #: [phone] Exam Date: 10/15/2018958 FAX #: [phone] Reason: RLQ ttp, h/o ovarian cysts EXAMS: CPT CODE: [id number] [place] [address] HISTORY: Right lower quadrant pain/ovarian cyst. COMPARISON: [...] Orig Print D/T: S: 10/15/2018 (1021) Probe: [id number] PAGE 1 Signed Report URINALYSIS [id number] 10:15:00* Test Item Value Reference Range Interpretation [...] HPF 0-5 Urine Source? Clean CatchUR HCG [id number] 10:15:00* Test Item Value Reference Range Interpretation Comments UR HCG QUAL (test code = HCGQLU) NEGATIVE This HCGQL test is NOT applicable for MALE patients.Check with nurse about probable order error.If Tumor Marker Test needed, nurse should order test "HCGTU"(Test #550.82901) Urine Source? Clean CatchURINALYSIS [id number] 10:14:00* Test Item Value Reference Range Interpretation [...] HPF 0-5 Urine Source? Clean CatchUR HCG [id number] 10:14:00* Test Item Value Reference Range Interpretation Comments UR HCG QUAL (test code = HCGQLU) NEGATIVE This HCGQL test is NOT applicable for MALE patients.Check with nurse about probable order error.If Tumor Marker Test needed, nurse should order test "HCGTU"(Test #550.27603) Urine Source? Clean Catch- US RETRO [id number] 10:12:00 Name: LONNIE ARROYO [facility] : 1980 Age/S: 37 / F [address] Unit #: [id number] Loc: [place] [address] Phys: Laurie Dutton MD Acct: [id number] Dis Date: Status: REG ER PHONE #: [phone] Exam Date: 10/15/2018 0940 FAX #: [phone] Reason: flank pain radiating to pelvis EXAMS: CPT CODE: [id number] [facility] [address] HISTORY: Flank pain radiating to the pelvis. [...] Signed Report - CT ABD PELVIS W/O [id number] 23:18:00 Name: LONNIE ARROYO [facility] : 1980 Age/S: 37 / F Liza Perkins [facility] Unit #: [id number] [place] [address] Phys: Dinora Landrum NP Acct: [id number] Dis Date: Status: REG ER PHONE #: [phone] Exam Date: 08/31/2018 2311 FAX #: [phone] Reason: FLANK PAIN EXAMS: CPT CODE: [id number] CT ABD PELVIS W/O CONT 17022 AFTER HOURS SERVICE ON: 08/31/2018 11:17 PM [...] 1 Signed Report (CONTINUED) Name: LONNIE GUZMAN [facility] : 1980 e/S: 37 / F [address] [facility] Unit #: [id number] Loc: [place] [address] Phys: Dinora Landrum Acct: [id number] Dis Date: Status: REG ER PHONE #: [phone] Exam Date: 08/31/2018 2311 FAX #: [phone] Reason : FLANK PAIN EXAMS: CPT CODE: [id number] CT ABD PELVIS W/O CONT 44791 <Continued> at 2318 Reported and signed by: Gregor Lerma M.D. CC: Helder Galvan MD; Dinora Landrum NP; JAMES GAMA MD Technologist:LEILA PIMENTEL, RT CTDI: DLP: Trnscb Date/Time: 08/31/2018 (0223) [email or web address] Orig Print D/T: S: 08/31/2018 (7555) CTDI: DLP: PAGE 2 Signed Report PROCALCITONIN [...] into account the patients history. BASIC METABOLIC [id number] 22:37:00* Test Item Value Reference Range Interpretation [...] CA) 8.9 mg/dL 8.5-10.1 N HEPATIC FUNCTION [id number] 22:37:00* Test Item Value Reference Range Interpretation [...] reference range due to change in reagent. [id number] 22:37:00* Test Item Value Reference Range Interpretation Comments LIPASE (test code = LIP) 148 U/L 73.0-393.0 N HCG SERUM [id number] 22:37:00* Test Item Value Reference Range Interpretation Comments HCG SERUM QUAL (test code = HCGQL) NEGATIVE NEGATIVE This HCGQL test is NOT applicable for MALE patients.Check with nurse about probable order error.If Tumor Marker Test needed, nurse should order test "HCGTU"(Test #550.24012) LACTIC [id number] 22:35:00* Test Item Value Reference Range Interpretation Comments LACTIC ACID (test code = LACT) 1.8 mmol/L 0.4-1.9 N BASIC METABOLIC [id number] 22:30:00* Test Item Value Reference Range Interpretation [...] code = CA) mg/dL 8.5-10.1 HEPATIC FUNCTION [id number] 22:30:00* Test Item Value Reference Range Interpretation [...] TOTAL (test code = ALKP) IUnit/L 45-117 [id number] 22:30:00* Test Item Value Reference Range Interpretation Comments LIPASE (test code = LIP) U/L 73.0-393.0 HCG SERUM [id number] 22:30:00* Test Item Value Reference Range Interpretation Comments HCG SERUM QUAL (test code = HCGQL) NEGATIVE NEGATIVE This HCGQL test is NOT applicable for MALE patients.Check with nurse about probable order error.If Tumor Marker Test needed, nurse should order test "HCGTU"(Test #550.20980) BASIC METABOLIC [id number] 22:27:00* Test Item Value Reference Range Interpretation [...] code = CA) mg/dL 8.5-10.1 HEPATIC FUNCTION [id number] 22:27:00* Test Item Value Reference Range Interpretation [...] TOTAL (test code = ALKP) IUnit/L 45-117 [id number] 22:27:00* Test Item Value Reference Range Interpretation Comments LIPASE (test code = LIP) U/L 73.0-393.0 HCG SERUM [id number] 22:27:00* Test Item Value Reference Range Interpretation Comments HCG SERUM QUAL (test code = HCGQL) NEGATIVE CBC W/AUTO [id number] 22:10:00* Test Item Value Reference Range Interpretation [...] (test code = MDIFF) NO CBC W/AUTO [id number] 22:09:00* Test Item Value Reference Range Interpretation [...] (test code = BA#) K/mm3 0.0-0.2 URINALYSIS [id number] 22:00:00* Test Item Value Reference Range Interpretation [...] FEW #/LPF FEW Urine Source? Clean CatchURINALYSIS [id number] 21:55:00* Test Item Value Reference Range Interpretation [...] Urine Source? Clean Catch- XR CHEST 1 [id number] 21:49:00 FAX: Dinora Landrum [place]: B St: PRE FAX: JAMES GAMA MD Name: LONNIE ARROYO [facility] : 1980 Age/S: 37/F [address] [facility] Unit #: [id number] Loc: [place] [address] Phys: Dinora Landrum NP Acct: [id number] Dis Date: Status: PRE ER PHONE #: [phone] Exam Date: 08/31/20182147 FAX #: [phone] Reason: CODE SEPSIS EXAMS: CPT CODE: [id number] XR CHEST 1 V 58363 REASON FOR EXAM: CODE SEPSIS EXAM ORDER [...] are unremarkable. IMPRESSION: No active disease. at 7435 Reported and signed by: Carlos Marquez M.D. CC: Chi Landrum NP; JAMES GAMA MD Technologist: CLAUDIA GEORGE, RT(R) Trnscrd Date/Time/By: 08/31/2018 (9371) : By: nidia AMAYAVTJerrod Orig Print D/T: S: 08/31/2018 (1761) P AGE 3 Signed Report CALPROTECTIN [id number] 21:06:00* Test Item Value Reference Range Interpretation Comments CALPROTECTIN FECAL (test code = CALFECAL) <16 ug/g 0-120 Results verified by repeat testingConcentration Interpretation Follow-Up<16 - 50 ug/g Normal None>50 -120 ug/g Borderline Re-evaluate in 4-6 weeks >120 ug/g Abnormal Repeat as clinically indicatedPerformed At: [address] [id number] Sanjai MD Ph:[phone] FECES OVA [id number] 13:10:00* Test Item Value Reference Range Interpretation Comments CONCENTRATE RESULT (test code = CONC) Final report () These results were obtained using wet preparation(s) andtrichrome stained smear. This test does not include testingfor Cryptosporidium parvum, Cyclospora, or Microsporidia. TRICHROME RESULT (test code = TRIC) SOURCE: STOOLSPECIMEN DESCRIPTION: RANDOMAG GIARDIA [id number] 13:10:00* Test Item Value Reference Range Interpretation Comments AG GIARDIA FECES (test code = GIARDAG) Negative Negative Performed At: [facility] [id number] Elder MD Ph:[phone] SOURCE: STOOLSPECIMEN DESCRIPTION: RANDOMFECES OVA [id number] 13:10:00* Test Item Value Reference Range Interpretation Comments CONCENTRATE RESULT (test code = CONC) Final report () These results were obtained using wet preparation(s) andtrichrome stained smear. This test does not include testingfor Cryptosporidium parvum, Cyclospora, or Microsporidia. TRICHROME RESULT (test code = TRIC) () No ova, cysts, or parasites seen.One negative specimen does not rule out the possibility ofa parasitic infection.Performed At: [facility] [id number] Elder MD Ph:[phone] SOURCE: STOOLSPECIMEN DESCRIPTION: RANDOMAG GIARDIA [id number] 13:10:00* Test Item Value Reference Range Interpretation Comments AG GIARDIA FECES (test code = GIARDAG) Negative Negative Performed At: [facility] [address] [id number] Keanu Elder MD Ph:[phone] SOURCE: STOOLSPECIMEN DESCRIPTION: CARONDUCRISTIAN,[id number] 14:30:00 RUN DATE: 08/02/18 [facility] PAGE 1 RUN TIME: 1430 Specimen Inqui ry RUN USER: INTERFACE PATIENT: LONNIE ARRYOO ACCT #: [id number] LOC: V.DSU U #: [id number] AGE/SX: 37/F ROOM: RE07/31/18HOMAR DR: Han James MD : [birth year] BED: DIS: [place] [facility] [place] SPEC #: [id number] RECD: 07/31/18 STATUS: ELOISA HECTOR #: [id number] FREDRICK: 07/31/18 [facility] DR: Han James MD ENTERED: 07/31/18 SP TYPE: BX DUODEN OTHR DR: Helder Galvan MD ORDERED: GROSS COPIES TO: Helder Galvan MD [address] [place], [place] [id number] Han James MD [address] [facility] [address] [place] [address] PROCEDURES: GROSS (08/02/18903) TISSUES: 1. DUODENUM, NOS [...] CONTINUED ON NEXT PAGE RUN DATE: 08/02/18 [facility] PAGE 2 RUN TIME: 1430 Specimen Inquiry RUN USER: INTERFACE SPEC #: [id number] PATIENT: CRUZLONNIE IZA #[id number] (Continued) F INAL DIAGNOSIS (Continued) COLONIC MUCOSA, NO PATHOLOGIC ALTER ATION NEGATIVE FOR FEATURES OF MICROSCOPIC COLITIS [facility]/ D (4) 21690, 91493 MACROSCOPIC The first specimen is received in [...] gate, submitted as (4). GROSS PERFORMED AT [facility] [address] [place] [address] ([phone] MICROSCOPIC MICROSCOPIC PERFORMED AT [facility] All o f the stains, including any controls performed, stain appropriately. [facility] [address] [place] [address], [place] [address] (p)[phone] CONTINUED ON NEXT PAGE RUN DA TE: 08/02/18 [facility] PAG E 3 RUN TIME: 1430 Specimen Inquiry RUN USER: INTERFACE SPEC #: [id number] PATIENT: CRUZLONNIE COUCH #[id number] (Continued) PERFORMING SITE Diagnosis per formed at: [facility], DANYEL [address] [facility] [place] [address] Signed SIGNATURE ON Eliceo Edwina [place] 08/02/18 1430 END OF REP ORT specific gravity, [id number] 13:36:52* Test Item Value Reference Range Interpretation Comments specific gravity, urine (test code = 5811-5) 1.015 [facility] HealthpH, urine, zrwrqztpjggryyvi1795-82-13 13:36:52* Test Item Value Reference Range Interpretation Comments pH, urine, semiquantitative (test code = 5803-2) 5.0 [facility], nouvzzxmmesaedqr3901-24-40 13:36:52* Test Item Value Reference Range Interpretation Comments glucose, urine, semiquantitative (test code = 5792-7) negative [facility]bil[facility], [id number] 13:36:52* Test Item Value Reference Range Interpretation Comments bilirubin, urine (test code = 5770-3) negative [facility] Hospitalketones, urine, by test [id number] 13:36:52* Test Item Value Reference Range Interpretation Comments ketones, urine, by test strip (test code = 5797-6) negative [facility] urine (hemoglobin) by dcpqtdjq1911-42-91 13:36:52* Test Item Value Reference Range Interpretation Comments blood in urine (hemoglobin) by dipstick (test code = 4998) negative [facility], urine, semiquantitative (dipstick)2017-09-13 13:36:52* Test Item Value Reference Range Interpretation Comments protein, urine, semiquantitative (dipstick) (test code = 1753-3) ne gative [facility] Hospitalurobilinogen, urine, semiquantitative (dipstick) 2017-09-13 13:36:52* Test Item Value Reference Range Interpretation Comments urobilinogen, urine, semiquantitative (dipstick) (test code = 5818-0) negative [facility] Hospitalnitrite, urine, jsiapcpdilbeoagu6482-30-09 13:36:52* Test Item Value Reference Range Interpretation Comments nitrite, urine, semiquantitative (test code = 5802-4) negative [facility] Hospitalleukocyte esterase, urine, by rrwqtqwb9172-86-95 13:36:52 * Test Item Value Reference Range Interpretation Comments leukocyte esterase, urine, by dipstick (test code = 5799-2) negativ e [facility] Hospitalappearance, otrep8631-16-93 13:36:52* Test Item Value Reference Range Interpretation Comments appearance, urine (test code = 5767-9) clear [facility] jtxgv2078-61-00 13:36:52* Test Item Value Reference Range Interpretation Comments urine color (test code = 5778-6) yellow [facility] kkkhcdx1000-68-69 16:28:00* Test Item Value Reference Range Interpretation Comments urine culture (test code = 630-4) [facility] [place] [address] Patient Name: LONNIE ARROYO MR #: [id number] : 1980 Age/Sex: 36/F Req #: [id number] Adm Physician: Ordered by: KORTNEY HELM NP Report #: [id number] Location: ER Room/Bed: Procedure: [id number] CT/CT ABDOMEN/PELVIS WO Exam Date: 08/23/17 Exam [...] COPY TO: KORTNEY HELM NP US TRANSVAGINAL [place] [address] Patient Name: LONNIE ARROYO MR #: [id number] : 1980 Age/Sex: 36/F Req #: [id number] Adm Physician: Ordered by: KORTNEY HELM NP Report #: [id number] Location: ER Room/Bed: Procedure: [id number] US/US TRANSVAGINAL Exam Date: Exam Time: REPORT [...] TO: Jerrod HELM NP CT ABDOMEN/PELVIS WO [place] [address] Patient Name: LONNIE ARROYO MR #: [id number] : 1980 Age/Sex: 36/F Req #: [id number] Adm Physician: Ordered by: MISTY PERALTA MD Report #: [id number] Location: ER Room/Bed: Procedure: [id number] CT/CT ABDOMEN/PELVIS WO Exam D ate: 07/27/17 Exam Time: 1000 REPORT STATUS: Si gned PROCEDURE: CT ABDOMEN AND PELVIS WITHOUT CONTRAST COMPARISON: [facility], CT, CT ABDOMEN/PELVIS WO, 04/15/2017, 11:12. [...] TO: MISTY PERALTA MD CHEST 2 VIEWS [place] [address] Patient Name: LONNIE ARROYO MR #: [id number] : 1980 Age/Sex: 36/F Req #: [id number] Adm Physician: Ordered by: MISTY BELLAMY MD Report #: [id number] Location: ER Room/Bed: Procedure: [id number] DX/CHEST 2 VIEWS Exam Date: Exam Time: [...] COPY TO: MISTY BELLAMY MD ABDOMEN-1VIEW (KUB) [place] [address] Patient Name: LONNIE ARROYO MR #: [id number] : 1980 Age/Sex: 36/F Req #: [id number] Adm Physician: Ordered by: ANABELLA BEVERLY MD Report #: [id number] Location: ER Room/Bed: Procedure: [id number] DX/ABDOMEN-1VIEW (KUB) Exam Date: 04/24/17 Exam Time: [...] TO: ANABELLA BEVERLY MD CT ABDOMEN/PELVIS WO [place] [address] Patient Name: LONNIE ARROYO MR #: [id number] : Age/Sex: 36/F Req #: [id number] Adm Physician: Ordered by: MISTY BELLAMY MD Report #: [id number] Location: ER Room/Bed: Procedure: [id number] CT/CT ABDOMEN/PELVIS WO Exam D ate: 04/15/17 [...] TO: MISTY BELLAMY MD CHEST 2 VIEWS [place] [address] Patient Name: LONNIE ARROYO MR #: [id number] : 1980 Age/Sex: 36/F Req #: [id number] Adm Physician: Ordered by: MISTY BELLAMY MD Report #: [id number] Location: ER Room/Bed: Procedure: [id number] DX/CHEST 2 VIEWS Exam Date: Exam Time: [...] 1057 Transcribed By: PUNEET FELICIANO on 04/15/17 1054 COPY TO: MISTY BELLAMY MD
== END 2020-04-08 11:19 | disposition left against medical advice (07) ==
LOC: ER 18:18 → ERHOLD 18:50
PROVIDERS: ADMIT Internal Medicine; ATTEND Internal Medicine
DX: R10.9 Unspecified abdominal pain (principal); R11.10 Vomiting, unspecified; Z11.59 Encounter for screening for other viral diseases
CPT/HCPCS: 36415 ×2; 80048; 80053; 81001; 83630; 83690; 83993; 84702; 85025 ×2; 87045; 87177; 87493; 99284; C9113; G0378 ×2; J1630; J7030 ×2; U0002

== ENCOUNTER 2022-01-19 11:32 | Emergency (ER) | payer MEDICARE, OTHER ==
[~2022-01-19] VITALS: Ht 157.5 cm; Wt 59.0 kg
[2022-01-19] MEDS ORDERED: DICYCLOMINE HCL 20 MG/2 ML VIAL IM ONE (12:00)
[2022-01-19] MEDS ORDERED: SODIUM CHLORIDE 0.9% 1000ML 1,000 ML IV ONE (12:00)
[2022-01-19 12:20] LABS: BASOPHILS # (AUTO) 0.1 (0.0-0.1); BASOPHILS % 0.5 % (0.0-1.0); EOSINOPHILS % 0.3 % (0.0-6.0); HEMATOCRIT 43.2 % (34.2-44.1); HEMOGLOBIN 13.8 g/dL (12.0-16.0); LYMPHOCYTES # (AUTO) 3.4 (1.0-3.2); LYMPHOCYTES % 30.4 % (18.0-39.1); MEAN CORPUSCULAR HEMOGLOBIN 30.7 pg (28-32); MEAN CORPUSCULAR HGB CONC 31.9 g/dL (31-35); MONOCYTES # (AUTO) 0.8 (0.2-0.8); MONOCYTES % 6.9 % (4.4-11.3); NEUTROPHILS % 61.7 % (38.7-80.0); PLATELET COUNT 237 x10e3/uL (140-360); RED CELL DISTRIBUTION WIDTH 12.6 % (11.7-14.4)
[2022-01-19 12:24] LABS: CLARITY,URINE SL CLOUDY (CLEAR); COLOR,URINE YELLOW (YELLOW)
[2022-01-19 12:25] LABS: KETONES,URINE NEGATIVE (NEGATIVE); LEUKOCYTE ESTERASE ,URINE NEGATIVE (NEGATIVE); NITRITE,URINE NEGATIVE (NEGATIVE); PROTEIN,URINE DIPSTICK NEGATIVE (NEGATIVE); URINE UROBILINOGEN 0.2 mg/dL (0.2 - 1)
[2022-01-19 12:39] LABS: BACTERIA,URINE RARE /HPF; EPITHELIAL CELLS,URINE FEW /LPF; RBC,URINE 0-5 /HPF (0-5); WBC,URINE (MAN) 0-5 /HPF (0-5)
[2022-01-19 12:41] LABS: ALBUMIN 3.9 g/dL (3.5-5.0); ANION GAP 13.4 mmol/L (8-16); CALCIUM 8.8 mg/dL (8.4-10.2); CREATININE, SERUM 0.79 mg/dL (0.57-1.11); POTASSIUM 4.4 mmol/L (3.5-5.1)
== END 2022-01-19 13:33 | disposition home or self-care (01) ==
LOC: ER 11:59
DX: R10.13 Epigastric pain (principal); R19.7 Diarrhea, unspecified; K21.9 Gastro-esophageal reflux disease without esophagitis; Z87.442 Personal history of urinary calculi
CPT/HCPCS: 36415; 74176; 80053; 81001; 83690; 85025; 99284; J0500; J7030

== ENCOUNTER 2024-01-28 08:32 | Emergency (ER) | payer OTHER ==
[~2024-01-28] VITALS: Ht 157.5 cm; Wt 68.0 kg
[~2024-01-28 08:32] MED LIST changes: +CARAFATE1 GM PO; +DICYCLOMINE HCL20 MG PO; +LIBRAX CAPSULE1 EACH PO; +LOMOTIL TABLET1 EACH PO; +MIRALAX17 GM PO; +ONDANSETRON ODT4 MG SL; +PANTOPRAZOLE SO40 MG PO; +TYLENOL EXTRA500 MG PO
[2024-01-28] MEDS ORDERED: KETOROLAC TROMETHAMINE 30 MG/ML VIAL IV STA (08:34)
[2024-01-28] MEDS ORDERED: Morphine 4mg INJECTION 4 MG/ML INJ IV STA (08:34)
[2024-01-28 08:38] VITALS: TEMP 98.9
[2024-01-28] MEDS: HYDROMORPHONE 1MG/1ML INJ IV STA ×2 (09:03→11:24)
[2024-01-28 09:04] LABS: BASOPHILS # (AUTO) 0.1 (0.0-0.1); BASOPHILS % 0.4 % (0.0-1.0); EOSINOPHILS % 0.2 % (0.0-6.0); HEMATOCRIT 43.7 % (34.2-44.1); HEMOGLOBIN 14.9 g/dL (12.0-16.0); LYMPHOCYTES # (AUTO) 3.3 (1.0-3.2); LYMPHOCYTES % 20.1 % (18.0-39.1); MEAN CORPUSCULAR HEMOGLOBIN 31.1 pg (28-32); MEAN CORPUSCULAR HGB CONC 34.1 g/dL (31-35); MEAN CORPUSCULAR VOLUME 91.2 fL (81-99); MONOCYTES # (AUTO) 1.2 (0.2-0.8); NEUTROPHILS # (AUTO) 11.8 (2.1-6.9); NEUTROPHILS % 71.9 % (38.7-80.0); PLATELET COUNT 267 x10e3/uL (140-360); RED BLOOD COUNT 4.79 x10e6/uL (3.6-5.1); RED CELL DISTRIBUTION WIDTH 12.4 % (11.7-14.4); WHITE BLOOD COUNT 16.44 x10e3/uL (4.8-10.8)
[2024-01-28 09:09] LABS: CLARITY,URINE CLOUDY (CLEAR); COLOR,URINE AMBER (YELLOW); PH,URINE 5.5 (5 - 7)
[2024-01-28 09:10] LABS: BACTERIA,URINE FEW /HPF; BILIRUBIN,URINE NEGATIVE (NEGATIVE); EPITHELIAL CELLS,URINE MODERATE /LPF; GLUCOSE, URINE NEGATIVE (NEGATIVE); KETONES,URINE NEGATIVE (NEGATIVE); LEUKOCYTE ESTERASE ,URINE TRACE (NEGATIVE); NITRITE,URINE NEGATIVE (NEGATIVE); PROTEIN,URINE DIPSTICK 1+ (NEGATIVE); RBC,URINE >50 /HPF (0-5); TRANSITIONAL EPI CELLS,URINE FEW; URINE UROBILINOGEN 0.2 mg/dL (0.2 - 1); WBC,URINE (MAN) 0-5 /HPF (0-5)
[2024-01-28 09:23] LABS: ALANINE AMINOTRANSFERASE 16 IU/L (0-55); ALBUMIN 4.6 g/dL (3.5-5.0); ALBUMIN/GLOBULIN RATIO 1.1 (0.8-2.0); ALKALINE PHOSPHATASE 95 IU/L (40-150); ANION GAP 16.2 mmol/L (8-16); BLOOD UREA NITROGEN 11 mg/dL (7-26); BUN/CREATININE RATIO 12 (6-25); CALCIUM 10.1 mg/dL (8.4-10.2); CARBON DIOXIDE 20 mmol/L (22-29); CHLORIDE 104 mmol/L (98-107); CREATININE, SERUM 0.93 mg/dL (0.57-1.11); EST GLOMERULAR FILTRATION RATE 79 ML/MIN (>=60); GLUCOSE 114 mg/dL (74-118); POTASSIUM 4.2 mmol/L (3.5-5.1); SODIUM 136 mmol/L (136-145); TOTAL PROTEIN 8.9 g/dL (6.5-8.1)
[2024-01-28 09:29] LABS: HCG,QUANTITATIVE < 1.20 mIU/mL (0-10)
[2024-01-28 09:41] LABS: BILIRUBIN,TOTAL 1.1 mg/dL (0.2-1.2)
[2024-01-28] MEDS: ONDANSETRON HCL INJ 2MG/ML 2ML 2 MG/ML VIAL IV STA (10:55)
[2024-01-28] MEDS ORDERED: IBUPROFEN 400 MG TAB PO ONE (11:15)
[2024-01-28] MEDS: HYDROCODONE/APAP 5MG-325MG TAB PO ONE (11:27)
[2024-01-28] MEDS ORDERED: FLOMAX0.4 MG PO (12:04)
[2024-01-28] MEDS ORDERED: HYDROCODON-ACE1 EA11 PO (12:06)
[2024-01-28 12:21] VITALS: PULSE 87; RESP 16; O2SAT 98
== END 2024-01-28 12:18 | disposition home or self-care (01) ==
LOC: ER 08:35
DX: R10.32 Left lower quadrant pain (principal); N20.2 Calculus of kidney with calculus of ureter; R19.7 Diarrhea, unspecified; N80.9 Endometriosis, unspecified; K21.9 Gastro-esophageal reflux disease without esophagitis; Z87.19 Personal history of other diseases of the digestive system
CPT/HCPCS: 36415; 74176; 80053; 81001; 84702; 85025; 99284; J1170; J2405

== ENCOUNTER 2024-07-28 19:53 | Inpatient (IN) | payer OTHER ==
[~2024-07-28] VITALS: Ht 157.5 cm; Wt 63.5 kg
[~2024-07-28 19:53] MED LIST changes: +FLOMAX0.4 MG PO; +HYDROCODON-ACE1 EA11 PO
[2024-07-28] MEDS: SODIUM CHLORIDE 0.9% 1000ML 1,000 ML IV STA (21:01)
[2024-07-28 21:07] LABS: BASOPHILS # (AUTO) 0.1 (0.0-0.1); BASOPHILS % 0.4 % (0.0-1.0); EOSINOPHILS % 0.1 % (0.0-6.0); HEMATOCRIT 46.2 % (34.2-44.1); HEMOGLOBIN 14.6 g/dL (12.0-16.0); LYMPHOCYTES % 34.6 % (18.0-39.1); MEAN CORPUSCULAR HEMOGLOBIN 31.1 pg (28-32); MEAN CORPUSCULAR HGB CONC 31.6 g/dL (31-35); MEAN CORPUSCULAR VOLUME 98.5 fL (81-99); MONOCYTES # (AUTO) 0.8 (0.2-0.8); MONOCYTES % 5.5 % (4.4-11.3); NEUTROPHILS # (AUTO) 8.4 (2.1-6.9); NEUTROPHILS % 59.1 % (38.7-80.0); PLATELET COUNT 200 x10e3/uL (140-360); RED BLOOD COUNT 4.69 x10e6/uL (3.6-5.1); RED CELL DISTRIBUTION WIDTH 12.9 % (11.7-14.4); WHITE BLOOD COUNT 14.29 x10e3/uL (4.8-10.8)
[2024-07-28 21:16] LABS: BILIRUBIN,URINE NEGATIVE (NEGATIVE); CLARITY,URINE CLEAR (CLEAR); COLOR,URINE STRAW (YELLOW); GLUCOSE, URINE NEGATIVE (NEGATIVE); KETONES,URINE NEGATIVE (NEGATIVE); LEUKOCYTE ESTERASE ,URINE NEGATIVE (NEGATIVE); NITRITE,URINE NEGATIVE (NEGATIVE); PH,URINE 6 (5 - 7); PROTEIN,URINE DIPSTICK NEGATIVE (NEGATIVE); URINE UROBILINOGEN 0.2 mg/dL (0.2 - 1)
[2024-07-28 21:19] LABS: PREGNANCY TEST, URINE NEGATIVE (NEGATIVE)
[2024-07-28 21:28] LABS: WBC,URINE (MAN) 0-5 /HPF (0-5)
[2024-07-28 21:29] LABS: BACTERIA,URINE FEW /HPF; EPITHELIAL CELLS,URINE MODERATE /LPF
[2024-07-28] MEDS: DICYCLOMINE HCL 20 MG/2 ML VIAL IM ONE (21:29)
[2024-07-28 21:33] LABS: ALBUMIN 4.5 g/dL (3.5-5.0); ALBUMIN/GLOBULIN RATIO 1.2 (0.8-2.0); ANION GAP 19.3 mmol/L (8-16); BILIRUBIN,TOTAL 0.4 mg/dL (0.2-1.2); CALCIUM 9.8 mg/dL (8.4-10.2); CREATININE, SERUM 0.82 mg/dL (0.57-1.11); TOTAL PROTEIN 8.3 g/dL (6.5-8.1)
[2024-07-28 21:35] LABS: POTASSIUM 3.3 mmol/L (3.5-5.1)
[2024-07-28] MEDS: HYDROCODONE/APAP 10MG-325MG TAB PO STA (22:22)
[2024-07-29] VITALS (11 sets, daily range): BP systolic 102–146; BP diastolic 50–94; PULSE 68–78; RESP 16–19; TEMP 97.9–98.5; O2SAT 96–100
[2024-07-29] MEDS: SODIUM CHLORIDE 0.9% 1000ML 1,000 ML IV SCH (00:15)
[2024-07-29] MEDS: HYDROCODONE/APAP 10MG-325MG TAB PO PRN (07:26)
[2024-07-29] MEDS: HYDROCODONE/APAP 5MG-325MG TAB PO STA (07:45)
[2024-07-29] MEDS: HYDROMORPHONE 1MG/1ML INJ IV PRN (09:43)
[2024-07-30 03:18] VITALS: BP 103/63; PULSE 66; RESP 18; TEMP 97.8; O2SAT 98
[2024-07-30 06:29] LABS: BASOPHILS % 0.4 % (0.0-1.0); EOSINOPHILS # (AUTO) 0.1 (0.0-0.4); EOSINOPHILS % 0.6 % (0.0-6.0); HEMATOCRIT 34.9 % (34.2-44.1); HEMOGLOBIN 11.6 g/dL (12.0-16.0); LYMPHOCYTES # (AUTO) 3.2 (1.0-3.2); MEAN CORPUSCULAR HEMOGLOBIN 31.1 pg (28-32); MEAN CORPUSCULAR HGB CONC 33.2 g/dL (31-35); MEAN CORPUSCULAR VOLUME 93.6 fL (81-99); MONOCYTES # (AUTO) 0.7 (0.2-0.8); MONOCYTES % 7.1 % (4.4-11.3); NEUTROPHILS # (AUTO) 5.9 (2.1-6.9); NEUTROPHILS % 59.4 % (38.7-80.0); PLATELET COUNT 192 x10e3/uL (140-360); RED BLOOD COUNT 3.73 x10e6/uL (3.6-5.1)
[2024-07-30 06:47] LABS: ALBUMIN 3.3 g/dL (3.5-5.0); ALBUMIN/GLOBULIN RATIO 1.2 (0.8-2.0); ANION GAP 12.9 mmol/L (8-16); BILIRUBIN,TOTAL 0.6 mg/dL (0.2-1.2); CALCIUM 8.4 mg/dL (8.4-10.2); CREATININE, SERUM 0.67 mg/dL (0.57-1.11); POTASSIUM 3.9 mmol/L (3.5-5.1)
[2024-07-30 08:10] VITALS: BP 103/63; PULSE 66; RESP 18; TEMP 97.8; O2SAT 98
[2024-07-30 08:45] VITALS: BP 100/63; PULSE 66; RESP 18; TEMP 98.8; O2SAT 100
[2024-07-30] MEDS: DICYCLOMINE HCL 20 MG TAB PO SCH (09:03)
[2024-07-30 10:53] LABS: CDIFF AG QUIK CHEK NEGATIVE (NEGATIVE); CDIFF TOX QUIK CHEK NEGATIVE (NEGATIVE); WBC,FECAL (FECAL LACTOFERRIN) NEGATIVE (NEGATIVE)
[2024-07-30] MEDS ORDERED: CEFTRIAXONE 1 GM VIAL IV SCH (12:00)
[2024-07-30 13:07] VITALS: BP 108/64; PULSE 70; RESP 18; TEMP 98.2; O2SAT 100
[2024-07-30] MEDS: METRONIDAZOLE 500MG/NS 100ML 100 ML IV SCH (14:00)
[2024-07-30 16:30] VITALS: BP 123/79; PULSE 70; RESP 19; TEMP 98.3; O2SAT 100
[2024-07-30 20:00] VITALS: BP 128/80; PULSE 75; RESP 18; TEMP 98.3; O2SAT 99
[2024-07-30] MEDS: CHLORDIAZEPOXIDE/CLIDINIUM 1 CAP PO STA (23:18)
[2024-07-31] VITALS (7 sets, daily range): BP systolic 103–122; BP diastolic 62–77; PULSE 63–73; RESP 17–20; TEMP 97.6–98.3; O2SAT 98–100
[2024-07-31 07:01] LABS: BASOPHILS % 0.5 % (0.0-1.0); EOSINOPHILS # (AUTO) 0.1 (0.0-0.4); EOSINOPHILS % 1.1 % (0.0-6.0); HEMATOCRIT 31.3 % (34.2-44.1); HEMOGLOBIN 10.4 g/dL (12.0-16.0); LYMPHOCYTES % 35.9 % (18.0-39.1); MEAN CORPUSCULAR HGB CONC 33.2 g/dL (31-35); MEAN CORPUSCULAR VOLUME 93.2 fL (81-99); MONOCYTES # (AUTO) 0.7 (0.2-0.8); NEUTROPHILS # (AUTO) 4.5 (2.1-6.9); NEUTROPHILS % 54.3 % (38.7-80.0); PLATELET COUNT 177 x10e3/uL (140-360); RED BLOOD COUNT 3.36 x10e6/uL (3.6-5.1); RED CELL DISTRIBUTION WIDTH 12.7 % (11.7-14.4); WHITE BLOOD COUNT 8.34 x10e3/uL (4.8-10.8)
[2024-07-31 07:37] LABS: CALCIUM 7.1 mg/dL (8.4-10.2); CREATININE, SERUM 0.59 mg/dL (0.57-1.11)
[2024-07-31] MEDS: CHLORDIAZEPOXIDE/CLIDINIUM 1 CAP PO SCH (09:08)
[2024-07-31] MEDS: POTASSIUM CHLORIDE 20 MEQ TAB CR PO ONE (17:49)
[2024-08-01] VITALS (7 sets, daily range): BP systolic 104–134; BP diastolic 65–88; PULSE 66–76; RESP 17–20; TEMP 97.4–98.6; O2SAT 99–100
[2024-08-01 00:38] LABS: % IRON SATURATION 19 % (15-50); IRON 49 ug/dL (50-170); TOTAL IRON BINDING CAPACITY 259 ug/dL (261-478); TRANSFERRIN 185 mg/dL (180-382)
[2024-08-01 01:15] LABS: FOLATE 8.3 ng/mL (7.0-15.4)
[2024-08-01] MEDS: SUCRALFATE 1 GM TAB PO SCH (08:41)
[2024-08-01] MEDS: AMITRIPTYLINE HCL 25 MG TAB PO SCH (21:22)
[2024-08-02] VITALS (7 sets, daily range): BP systolic 106–131; BP diastolic 66–84; PULSE 64–97; RESP 16–18; TEMP 97.7–98.7; O2SAT 97–100
[2024-08-02] MEDS: RIFAXIMIN 550 MG TABLET PO STA (01:09)
[2024-08-02] MEDS: CYANOCOBALAMIN 1,000 MCG TAB PO ONE (01:10)
[2024-08-02] MEDS ORDERED: RIFAXIMIN 200 MG TAB PO SCH (06:00)
[2024-08-02] MEDS: RIFAXIMIN 550 MG TABLET PO SCH (06:21)
[2024-08-02 06:26] LABS: BASOPHILS % 0.5 % (0.0-1.0); EOSINOPHILS # (AUTO) 0.1 (0.0-0.4); EOSINOPHILS % 1.4 % (0.0-6.0); HEMATOCRIT 33.5 % (34.2-44.1); HEMOGLOBIN 11.2 g/dL (12.0-16.0); LYMPHOCYTES # (AUTO) 2.9 (1.0-3.2); LYMPHOCYTES % 34.7 % (18.0-39.1); MEAN CORPUSCULAR HEMOGLOBIN 30.8 pg (28-32); MEAN CORPUSCULAR HGB CONC 33.4 g/dL (31-35); MONOCYTES # (AUTO) 0.6 (0.2-0.8); MONOCYTES % 7.5 % (4.4-11.3); NEUTROPHILS # (AUTO) 4.7 (2.1-6.9); NEUTROPHILS % 55.7 % (38.7-80.0); PLATELET COUNT 179 x10e3/uL (140-360); RED BLOOD COUNT 3.64 x10e6/uL (3.6-5.1); RED CELL DISTRIBUTION WIDTH 12.6 % (11.7-14.4); WHITE BLOOD COUNT 8.39 x10e3/uL (4.8-10.8)
[2024-08-02 06:42] LABS: CALCIUM IONIZED 1.2 mmol/L (1.09-1.30)
[2024-08-02 06:48] LABS: ANION GAP 12.8 mmol/L (8-16); CALCIUM 8.7 mg/dL (8.4-10.2); CREATININE, SERUM 0.69 mg/dL (0.57-1.11); POTASSIUM 3.8 mmol/L (3.5-5.1)
[2024-08-02 07:13] LABS: MAGNESIUM 1.5 MG/DL (1.3-2.1)
[2024-08-02] MEDS: IRON SUCROSE 100 MG in SODIUM CHLORIDE 0.9% 100 ML IV SCH (09:00)
[2024-08-02] MEDS: CYANOCOBALAMIN 1,000 MCG TAB PO SCH (09:09)
[2024-08-02] MEDS: LIDOCAINE 4% PATCH TP SCH (14:00)
[2024-08-02] MEDS: PREDNISONE 20 MG TAB PO SCH (14:00)
[2024-08-02] MEDS: MAGNESIUM SULFATE 2GM/50ML 50 ML IV ONE (14:13)
[2024-08-02] MEDS: TRIAMCINOLONE ACET 0.1% CREAM 15 GM TUBE TOP SCH (17:17)
[2024-08-03 00:15] VITALS: BP 113/64; PULSE 65; RESP 18; TEMP 98; O2SAT 100
[2024-08-03 04:05] VITALS: BP 100/54; PULSE 66; RESP 17; TEMP 97.3; O2SAT 97
[2024-08-03 08:00] VITALS: BP 119/69; PULSE 66; RESP 18; TEMP 97.7; O2SAT 99
[2024-08-03] MEDS: MAGNESIUM OXIDE 400 MG TAB PO ONE (08:33)
[2024-08-03 08:34] LABS: BASOPHILS % 0.5 % (0.0-1.0); EOSINOPHILS # (AUTO) 0.2 (0.0-0.4); HEMATOCRIT 33.2 % (34.2-44.1); LYMPHOCYTES # (AUTO) 3.1 (1.0-3.2); LYMPHOCYTES % 37.8 % (18.0-39.1); MEAN CORPUSCULAR HEMOGLOBIN 30.5 pg (28-32); MEAN CORPUSCULAR HGB CONC 33.1 g/dL (31-35); MONOCYTES # (AUTO) 0.7 (0.2-0.8); MONOCYTES % 8.1 % (4.4-11.3); NEUTROPHILS # (AUTO) 4.2 (2.1-6.9); NEUTROPHILS % 51.4 % (38.7-80.0); PLATELET COUNT 204 x10e3/uL (140-360); RED BLOOD COUNT 3.61 x10e6/uL (3.6-5.1); RED CELL DISTRIBUTION WIDTH 12.6 % (11.7-14.4); WHITE BLOOD COUNT 8.14 x10e3/uL (4.8-10.8)
[2024-08-03 09:12] LABS: ALBUMIN 3.3 g/dL (3.5-5.0); ALBUMIN/GLOBULIN RATIO 1.3 (0.8-2.0); ANION GAP 14.6 mmol/L (8-16); BILIRUBIN,TOTAL 0.2 mg/dL (0.2-1.2); CALCIUM 8.3 mg/dL (8.4-10.2); CREATININE, SERUM 0.7 mg/dL (0.57-1.11); POTASSIUM 3.6 mmol/L (3.5-5.1); TOTAL PROTEIN 5.8 g/dL (6.5-8.1)
[2024-08-03 09:42] LABS: MAGNESIUM 1.5 MG/DL (1.3-2.1)
[2024-08-03 11:27] VITALS: BP 119/69; PULSE 66; RESP 18; TEMP 97.7; O2SAT 99
[2024-08-03] MEDS ORDERED: ENOXAPARIN SOD INJ 40 MG/0.4 ML SYR SC SCH (17:00)
[2024-08-05 07:14] LABS: ABG HCO3 28 mmol/L (22-26); ABG PCO2 51 mmHg (35-45); ABG PH 7.35 (7.35-7.45); ABG PO2 59 mmHg (80-105); ABG TCO2 29
[2024-08-07 09:10] LABS: ENDOMYSIAL ANTIBODIES, IGA Negative (Negative)
[2024-08-07 09:20] LABS: IMMUNOGLOBULIN A 162 mg/dL (87-352); TISSUE TRANSGLUTAMINASE IGA AB <2 U/mL (0-3)
== END 2024-08-03 11:11 | disposition left against medical advice (07) | DRG 392 ==
LOC: ER 19:59 → ERHOLD 07-29 00:34 → MED/SURG3 07-29 01:13
PROVIDERS: ADMIT Internal Medicine; ATTEND Internal Medicine
PROC: 02HV33Z Insertion of Infusion Device into Superior Vena Cava, Percutaneous Approach (ICD-10-PCS; principal; 2024-07-29)
PROC: B548ZZA Ultrasonography of Superior Vena Cava, Guidance (ICD-10-PCS; 2024-07-29)
PROC: 4A033R1 Measurement of Arterial Saturation, Peripheral, Percutaneous Approach (ICD-10-PCS; 2024-08-02)
DX: A09 Infectious gastroenteritis and colitis, unspecified (principal); K58.0 Irritable bowel syndrome with diarrhea; N20.0 Calculus of kidney; Z53.29 Procedure and treatment not carried out because of patient's decision for other reasons; N83.8 Other noninflammatory disorders of ovary, fallopian tube and broad ligament; K21.9 Gastro-esophageal reflux disease without esophagitis; G44.40 Drug-induced headache, not elsewhere classified, not intractable; T47.1X5A Adverse effect of other antacids and anti-gastric-secretion drugs, initial encounter; Y92.230 Patient room in hospital as the place of occurrence of the external cause; Z11.52 Encounter for screening for COVID-19; Z90.710 Acquired absence of both cervix and uterus
CPT/HCPCS: 36415; 36569; 71045; 74176; 76856; 80048; 80053; 81001; 81025; 82607; 82746; 82784; 82805; 82948; 83516; 83540; 83630; 83690; 83735; 83993; 84466; 85025; 85045; 86256; 87045; 87177; 87324; 87449; 99284; J0696; J1171; J1756; J2470; J3475; J7030; J7050; J7512

== ENCOUNTER → 2024-09-06 | Day surgery (SDC) | payer OTHER ==
[~2024-09-06] MED LIST changes: +LIDOCAINE HCL 2% LOCAL INJ 5 ML SDV VIAL INJ ONE; +MIDAZOLAM HCL 2 MG/2 ML VIAL ONE; +PROPOFOL IV EMULSION 50 ML IV ONE
[2024-09-06] MEDS: LACTATED RINGER'S 1,000 ML ONE (11:30)
[2024-09-06 12:53] VITALS: TEMP 97.7
[2024-09-06 13:20] VITALS: BP 120/76; PULSE 80; RESP 16; O2SAT 98
[2024-09-06 13:22] LABS: CDIFF AG QUIK CHEK NEGATIVE (NEGATIVE); CDIFF TOX QUIK CHEK NEGATIVE (NEGATIVE)
== END | disposition home or self-care (01) ==
LOC: OR 11:02
PROVIDERS: ATTEND Internal Medicine Gastroenterology
DX: K52.9 Noninfective gastroenteritis and colitis, unspecified (principal); K59.00 Constipation, unspecified; K27.9 Peptic ulcer, site unspecified, unspecified as acute or chronic, without hemorrhage or perforation; K21.9 Gastro-esophageal reflux disease without esophagitis; K44.9 Diaphragmatic hernia without obstruction or gangrene; Z71.3 Dietary counseling and surveillance; B19.10 Unspecified viral hepatitis B without hepatic coma; G40.909 Epilepsy, unspecified, not intractable, without status epilepticus; R03.0 Elevated blood-pressure reading, without diagnosis of hypertension; Z71.89 Other specified counseling; N20.0 Calculus of kidney; N39.0 Urinary tract infection, site not specified; M06.9 Rheumatoid arthritis, unspecified; M19.90 Unspecified osteoarthritis, unspecified site; F41.9 Anxiety disorder, unspecified; Z88.2 Allergy status to sulfonamides; Z88.8 Allergy status to other drugs, medicaments and biological substances; Z88.6 Allergy status to analgesic agent; Z91.041 Radiographic dye allergy status; Z91.013 Allergy to seafood; Z68.26 Body mass index [BMI] 26.0-26.9, adult
CPT/HCPCS: 45380; 83630; 83993; 87045; 87177; 87324; 87328; 87449; J2003; J2250; J2704; J7121; 45378

== ENCOUNTER 2024-09-08 19:34 | Emergency (ER) | payer OTHER ==
[~2024-09-08] VITALS: Ht 157.5 cm; Wt 64.9 kg
[~2024-09-08 19:34] MED LIST changes: -LIDOCAINE HCL 2% LOCAL INJ 5 ML SDV VIAL INJ ONE; -MIDAZOLAM HCL 2 MG/2 ML VIAL ONE; -PROPOFOL IV EMULSION 50 ML IV ONE
[2024-09-08 19:50] VITALS: PULSE 68; RESP 16; TEMP 98.5
[2024-09-08 20:19] LABS: CLARITY,URINE HAZY (CLEAR); COLOR,URINE STRAW (YELLOW); GLUCOSE, URINE NEGATIVE (NEGATIVE); KETONES,URINE NEGATIVE (NEGATIVE); NITRITE,URINE NEGATIVE (NEGATIVE); PH,URINE 6 (5 - 7); PROTEIN,URINE DIPSTICK NEGATIVE (NEGATIVE); URINE UROBILINOGEN 0.2 mg/dL (0.2 - 1)
[2024-09-08 20:20] LABS: BILIRUBIN,URINE NEGATIVE (NEGATIVE); LEUKOCYTE ESTERASE ,URINE SMALL (NEGATIVE)
[2024-09-08 20:35] LABS: BASOPHILS # (AUTO) 0.1 (0.0-0.1); BASOPHILS % 0.5 % (0.0-1.0); EOSINOPHILS # (AUTO) 0.1 (0.0-0.4); EOSINOPHILS % 0.6 % (0.0-6.0); HEMATOCRIT 39.9 % (34.2-44.1); HEMOGLOBIN 13.5 g/dL (12.0-16.0); LYMPHOCYTES # (AUTO) 4.7 (1.0-3.2); LYMPHOCYTES % 40.4 % (18.0-39.1); MEAN CORPUSCULAR HEMOGLOBIN 30.7 pg (28-32); MEAN CORPUSCULAR HGB CONC 33.8 g/dL (31-35); MEAN CORPUSCULAR VOLUME 90.7 fL (81-99); MONOCYTES # (AUTO) 0.8 (0.2-0.8); MONOCYTES % 6.8 % (4.4-11.3); NEUTROPHILS % 51.5 % (38.7-80.0); PLATELET COUNT 275 x10e3/uL (140-360); RED CELL DISTRIBUTION WIDTH 12.3 % (11.7-14.4); WHITE BLOOD COUNT 11.66 x10e3/uL (4.8-10.8)
[2024-09-08 20:39] LABS: BACTERIA,URINE FEW /HPF; EPITHELIAL CELLS,URINE MANY /LPF
[2024-09-08] MEDS: HYDROCODONE/APAP 10MG-325MG TAB PO ONE (20:48)
[2024-09-08 20:58] LABS: ALBUMIN 4.2 g/dL (3.5-5.0); ALBUMIN/GLOBULIN RATIO 1.3 (0.8-2.0); ANION GAP 14.6 mmol/L (8-16); BILIRUBIN,TOTAL 0.3 mg/dL (0.2-1.2); CALCIUM 9.6 mg/dL (8.4-10.2); CREATININE, SERUM 0.88 mg/dL (0.57-1.11); POTASSIUM 3.6 mmol/L (3.5-5.1); TOTAL PROTEIN 7.5 g/dL (6.5-8.1)
[2024-09-08 20:59] LABS: LIPASE 36 U/L (8-78)
[2024-09-09 00:35] VITALS: BP 134/85; O2SAT 100
== END 2024-09-09 00:37 | disposition home or self-care (01) ==
LOC: ER 19:48
DX: R10.32 Left lower quadrant pain (principal); R19.7 Diarrhea, unspecified; K21.9 Gastro-esophageal reflux disease without esophagitis; Z86.39 Personal history of other endocrine, nutritional and metabolic disease; Z87.19 Personal history of other diseases of the digestive system; Z87.442 Personal history of urinary calculi
CPT/HCPCS: 36415; 74176; 80053; 81001; 83690; 84702; 85025; 99284

== ENCOUNTER 2024-10-27 13:55 | Emergency (ER) | payer OTHER ==
[~2024-10-27] VITALS: Ht 162.6 cm; Wt 77.1 kg
[2024-10-27 14:14] VITALS: PULSE 89; RESP 15; TEMP 98.5; O2SAT 98
[2024-10-27 15:20] LABS: BASOPHILS # (AUTO) 0.1 (0.0-0.1); BASOPHILS % 0.4 % (0.0-1.0); EOSINOPHILS % 0.3 % (0.0-6.0); HEMATOCRIT 40.3 % (34.2-44.1); HEMOGLOBIN 13.7 g/dL (12.0-16.0); LYMPHOCYTES % 29.6 % (18.0-39.1); MEAN CORPUSCULAR HEMOGLOBIN 30.9 pg (28-32); MONOCYTES % 7.6 % (4.4-11.3); NEUTROPHILS # (AUTO) 8.4 (2.1-6.9); NEUTROPHILS % 61.7 % (38.7-80.0); PLATELET COUNT 293 x10e3/uL (140-360); RED BLOOD COUNT 4.43 x10e6/uL (3.6-5.1); RED CELL DISTRIBUTION WIDTH 12.7 % (11.7-14.4)
[2024-10-27 15:23] LABS: BILIRUBIN,URINE NEGATIVE (NEGATIVE); CLARITY,URINE SL CLOUDY (CLEAR); COLOR,URINE YELLOW (YELLOW); GLUCOSE, URINE NEGATIVE (NEGATIVE); KETONES,URINE NEGATIVE (NEGATIVE); LEUKOCYTE ESTERASE ,URINE NEGATIVE (NEGATIVE); NITRITE,URINE NEGATIVE (NEGATIVE); PH,URINE 7 (5 - 7); PROTEIN,URINE DIPSTICK NEGATIVE (NEGATIVE); URINE UROBILINOGEN 0.2 mg/dL (0.2 - 1)
[2024-10-27 15:34] LABS: ALANINE AMINOTRANSFERASE 22 IU/L (0-55); ALBUMIN 4.1 g/dL (3.5-5.0); ALBUMIN/GLOBULIN RATIO 1.1 (0.8-2.0); ALKALINE PHOSPHATASE 79 IU/L (40-150); ANION GAP 14.8 mmol/L (8-16); BILIRUBIN,TOTAL 0.4 mg/dL (0.2-1.2); BLOOD UREA NITROGEN 10 mg/dL (7-26); BUN/CREATININE RATIO 12 (6-25); CALCIUM 9.3 mg/dL (8.4-10.2); CARBON DIOXIDE 22 mmol/L (22-29); CHLORIDE 106 mmol/L (98-107); CREATININE, SERUM 0.86 mg/dL (0.57-1.11); EST GLOMERULAR FILTRATION RATE 87 ML/MIN (>=60); GLUCOSE 102 mg/dL (74-118); POTASSIUM 3.8 mmol/L (3.5-5.1); SODIUM 139 mmol/L (136-145); TOTAL PROTEIN 7.7 g/dL (6.5-8.1)
[2024-10-27 15:42] LABS: AMORPHOUS SEDIMENT,URINE FEW; EPITHELIAL CELLS,URINE MANY /LPF
[2024-10-27] MEDS: DICYCLOMINE HCL 20 MG/2 ML VIAL IM ONE (15:48)
== END 2024-10-27 15:59 | disposition home or self-care (01) ==
LOC: ER 14:28
DX: R10.2 Pelvic and perineal pain (principal); G89.29 Other chronic pain; K21.9 Gastro-esophageal reflux disease without esophagitis; F32.A Depression, unspecified; N80.9 Endometriosis, unspecified; Z87.19 Personal history of other diseases of the digestive system
CPT/HCPCS: 36415; 80053; 81001; 84702; 85025; 99282; J0500

== ENCOUNTER 2024-11-24 19:32 | Emergency (ER) | payer OTHER ==
[~2024-11-24] VITALS: Ht 157.5 cm; Wt 65.3 kg
[2024-11-24 20:58] LABS: AMPHETAMINES SCREEN,URINE NEGATIVE (NEGATIVE); BENZODIAZEPINES SCREEN,URINE NEGATIVE (NEGATIVE); BILIRUBIN,URINE NEGATIVE (NEGATIVE); CANNABINOIDS SCREEN,URINE NEGATIVE (NEGATIVE); CLARITY,URINE CLEAR (CLEAR); COCAINE SCREEN,URINE NEGATIVE (NEGATIVE); COLOR,URINE YELLOW (YELLOW); GLUCOSE, URINE NEGATIVE (NEGATIVE); KETONES,URINE NEGATIVE (NEGATIVE); LEUKOCYTE ESTERASE ,URINE NEGATIVE (NEGATIVE); METHADONE SCREEN, URINE NEGATIVE (NEGATIVE); NITRITE,URINE NEGATIVE (NEGATIVE); OPIATES SCREEN,URINE POSITIVE (NEGATIVE); PH,URINE 5.5 (5 - 7); PHENCYCLIDINE SCREEN,URINE NEGATIVE (NEGATIVE); PROTEIN,URINE DIPSTICK NEGATIVE (NEGATIVE); URINE UROBILINOGEN 0.2 mg/dL (0.2 - 1)
[2024-11-24 21:07] LABS: BACTERIA,URINE RARE /HPF; EPITHELIAL CELLS,URINE MODERATE /LPF; RBC,URINE 0-5 /HPF (0-5); WBC,URINE (MAN) 0-5 /HPF (0-5)
[2024-11-24 21:12] LABS: PREGNANCY TEST, URINE NEGATIVE (NEGATIVE)
[2024-11-24 22:20] LABS: BASOPHILS # (AUTO) 0.1 (0.0-0.1); BASOPHILS % 0.6 % (0.0-1.0); EOSINOPHILS % 0.2 % (0.0-6.0); HEMATOCRIT 46.8 % (34.2-44.1); HEMOGLOBIN 15.7 g/dL (12.0-16.0); LYMPHOCYTES # (AUTO) 2.8 (1.0-3.2); LYMPHOCYTES % 22.5 % (18.0-39.1); MEAN CORPUSCULAR HEMOGLOBIN 30.4 pg (28-32); MEAN CORPUSCULAR HGB CONC 33.5 g/dL (31-35); MEAN CORPUSCULAR VOLUME 90.5 fL (81-99); MONOCYTES # (AUTO) 0.6 (0.2-0.8); MONOCYTES % 4.7 % (4.4-11.3); NEUTROPHILS # (AUTO) 8.8 (2.1-6.9); NEUTROPHILS % 71.7 % (38.7-80.0); PLATELET COUNT 335 x10e3/uL (140-360); RED BLOOD COUNT 5.17 x10e6/uL (3.6-5.1); RED CELL DISTRIBUTION WIDTH 12.7 % (11.7-14.4)
[2024-11-24] MEDS ORDERED: FAMOTIDINE 20 MG/2 ML VIAL IV ONE (22:29)
[2024-11-24] MEDS ORDERED: SODIUM CHLORIDE 0.9% 1000ML 1,000 ML ONE (22:30)
[2024-11-24] MEDS: FAMOTIDINE 20 MG/2 ML VIAL IV STA (22:38)
[2024-11-24] MEDS: SODIUM CHLORIDE 0.9% 1000ML 1,000 ML IV STA (22:38)
[2024-11-24 22:45] LABS: ALBUMIN 5.2 g/dL (3.5-5.0); ALBUMIN/GLOBULIN RATIO 1.4 (0.8-2.0); ANION GAP 19.5 mmol/L (8-16); BILIRUBIN,TOTAL 0.3 mg/dL (0.2-1.2); CALCIUM 10.4 mg/dL (8.4-10.2); CREATININE, SERUM 0.95 mg/dL (0.57-1.11); POTASSIUM 4.5 mmol/L (3.5-5.1); TOTAL PROTEIN 8.9 g/dL (6.5-8.1)
[2024-11-24] MEDS ORDERED: AMOX TR-K CLV1 EAC2 PO (23:08)
[2024-11-24] MEDS ORDERED: PROTONIX20 MG PO (23:08)
[2024-11-24] MEDS ORDERED: HYDROCODON-ACE1 EAC9 PO (23:12)
[2024-11-24 23:30] VITALS: PULSE 70; RESP 16; TEMP 98.2; O2SAT 100
[2024-11-24] MEDS: HYDROCODONE/APAP 10MG-325MG TAB PO ONE (23:36)
== END 2024-11-25 00:10 | disposition home or self-care (01) ==
LOC: ER 19:54
DX: R10.11 Right upper quadrant pain (principal); K21.9 Gastro-esophageal reflux disease without esophagitis; F32.A Depression, unspecified; N80.9 Endometriosis, unspecified; M41.9 Scoliosis, unspecified; Z87.19 Personal history of other diseases of the digestive system
CPT/HCPCS: 36415; 80053; 80307; 81001; 81025; 83690; 85025; 99284; J1308; J7030